=== PATIENT | female | born 2000 | race Caucasian/White ===

== ENCOUNTER 2024-03-04 13:01 | Outpatient (OUT) | payer BC, SELFPAY ==
--- NOTE | 2024-03-04 13:04 | US_ITS ---
[address] [address] Patient Name: JAVIER PANDYA MRN: [id number] date: 2000 Sex: F Assigned Patient Location: [facility] Current Patient Location: [facility] Accession/Order Number: [id number] Exam Date: 03/04/2024 13:04 Report Date: 03/04/2024 13:44 At the request of: KADEN IVERSON Procedure: US OB transvaginal EXAMINATION: US OB transvaginal HISTORY: MISSED MENSES COMPARISON: No relevant comparison available. FINDINGS: Transvaginal images Hubbard intrauterine gestation Gestational sac: 4.46 cm, 10 weeks 0 days CRL: 2.03 cm, 8 weeks 4 days Yolk sac: 4.8 mm Heart rate: 173 beats minute The uterus is normal, anteverted, anteflexed The ovaries are normal Cervix: 4.5 cm, closed Clinical age: 8 weeks 4 days Clinical SAMANTA: 10/10/2024 Ultrasound age: 8 weeks 4 days Ultrasound SAMANTA: 10/10/2024 US/US OB transvaginal IMPRESSION: Viable hubbard intrauterine gestation measuring 8 weeks 4 days Electronically authenticated by: SJ GALLOWAY Date: 03/04/2024 13:44
== END 2024-03-04 13:02 | disposition home or self-care (01) ==
LOC: NOMS 13:01
PROVIDERS: PCP Family Medicine; Visit Provider Obstetrics & Gynecology
DX: Z34.91 Encounter for supervision of normal pregnancy, unspecified, first trimester (principal); Z3A.01 Less than 8 weeks gestation of pregnancy
CPT/HCPCS: 76817

== ENCOUNTER 2024-03-16 11:09 | Outpatient (OUT) | payer BC, SELFPAY ==
[2024-03-16 11:58] LABS: Basophils Percent Auto 0.3 % (0.2-2.0); Eosinophils Absolute Auto 0.2 10^3/uL (0.0-0.7); Eosinophils Percent Auto 2.6 % (0.9-7.0); Hematocrit 37.8 % (36.0-48.0); Hemoglobin 12.7 g/dL (12.0-16.0); Immature Granulocytes Abs Auto 0.01 10^3/uL (0.00-0.03); Immature Granulocytes Pct Auto 0.2 % (0.0-0.5); Lymphocytes Absolute Auto 1.9 10^3/uL (1.2-3.8); Lymphocytes Percent Auto 32.1 % (20.5-60.0); Mean Corpuscular HGB Conc 33.6 g/dL (29.9-35.2); Mean Corpuscular Hemoglobin 27.7 pg (26.7-34.0); Mean Corpuscular Volume 82.4 fL (81.0-99.0); Monocytes Absolute Auto 0.3 10^3/uL (0.3-0.8); Monocytes Percent Auto 5.3 % (1.7-12.0); Neutrophils Absolute Auto 3.5 10^3/uL (1.4-6.5); Neutrophils Percent Auto 59.5 % (43.0-75.0); Platelet Count 140 10^3/uL (150-450); Red Blood Count 4.59 10^6/uL (4.20-5.40); Red Cell Distribution Width 14.4 % (11.0-15.0); White Blood Count 5.9 10^3/uL (4.0-11.0)
[2024-03-16 12:16] LABS: Estimated Average Glucose 91 mg/dL; Glycohemoglobin A1C 4.8 % (4.5-6.2)
[2024-03-17 05:07] LABS: HCV Ab Non Reactive (Non Reactive); HIV Ab/p24 Ag Screen Non Reactive (Non Reactive); Rubella Antibodies, IgG 9.32 index (Immune >0.99)
[2024-03-17 06:09] LABS: HBsAg Screen Negative (Negative)
[2024-03-17 13:09] LABS: Rapid Plasma Reagin, Quant Non Reactive titer (NonRea<1:1)
== END 2024-03-16 11:10 | disposition home or self-care (01) ==
LOC: LAB 11:11
PROVIDERS: PCP Family Medicine; Visit Provider Obstetrics & Gynecology
DX: N92.6 Irregular menstruation, unspecified (principal); Z36.0 Encounter for antenatal screening for chromosomal anomalies
CPT/HCPCS: 36415; 83036; 85025; 86592; 86762; 86803; 86850; 86900; 86901; 87086; 87340; 87389

== ENCOUNTER 2024-05-04 19:04 | Outpatient (REF) | payer MEDICAID, SELFPAY ==
--- OUTSIDE RECORDS SUMMARY | 2024-05-04 19:10 | XMS_ITS | CCD ---
Author Organization [facility] Care Team Providers Care Ldr Rn Name Role Phone Fernando Kendrick Unavailable Unavailable Fernando Kendrick Unavailable Unavailable Provider, None Unavailable Unavailable Denis MORA, Yanet Zhang Primary Care Provider [phone] KADEN IVERSON Attending Unavailable Medications Current Medications Medication Drug Class(es) Dates Sig (Normalized) Sig (Original) Ethinyl Estradiol / norgestimate (2 sources) Progestin, Estrogen Start: 09-22-2023 take 1 tablet by mouth once daily norgestimate-ethi nyl estradioL (TRI-SPRINTEC, 28,) 0.18/0.215/0.25 mg-35 mcg (28) per tablet TAKE 1 TABLET BY MOUTH EVERY DAY 84 tablet 3 09/22/2023 Active Start: 05-05-2023 End: 09-22-2023 take 1 tablet by mouth once daily norgestimate-ethinyl estradioL (TRI-SPRINTEC, 28,) 0.18/0.215/0.25 mg-35 mcg (28) per tablet TAKE 1 TABLET BY MOUTH EVERY DAY 84 tablet 0 05/05/2023 09/22/2023 Discontinued metoprolol tartrate 25 mg oral tablet (1 source) beta-Adrenergic Joanna Start: 05-31-2022 take 1 tablet by mouth in the morning, then take 1 tablet by mouth at bedtime metoprolol tartrate (LOPRESSOR) 25 mg tablet Indications: POTS (postural orthostatic tachycardia syndrome) Take 1 tablet (25 mg total) by mouth in the morning and 1 tablet (25 mg total) before bedtime. 60 tablet 2 05/31/2022 Active omeprazole 20 mg delayed release oral capsule (1 source) Proton Pump Inhibitor Start: 06-11-2022 take 1 capsule by mouth in the morning omeprazole (PriLOSEC) 20 mg capsule Take 1 capsule (20 mg total) by mouth in the morning. 30 capsule 0 06/11/2022 Active sertraline 50 mg oral tablet (1 source) Serotonin Reuptake Inhibitor Start: 05-04-2020 take 1 tablet by mouth once daily sertraline (ZOLOFT) 50 mg tablet Take 1 tablet (50 mg total) by mouth daily. 30 tablet 0 05/04/2020 Active Problems Active Problems Problem Classification Problem Date Documented Da te Episodic/Chronic Acute and chronic tonsillitis (2 sources) Chronic tonsillitis; Translations: [Chronic tonsillitis] Onset: 2017 2017 Chronic Anxiety disorders (1 source) Generalized anxiety disorder; Translations: [Generalized anxiety disorder] Onset: 08-19-2017 08-19-2017 Chronic Cardiac dysrhythmias (1 source) Postural orthostatic tachycardia syndrome ; Translations: [POTS (postural orthostatic tachycardia syndrome)] Onset: 09-23-2017 05-31-2022 Chronic Mood disorders (2 sources) Major depressive disorder; Translations: [Major depressive disorder, single episode, unspecified] Onset: 08-19-2017 08-19-2017 Chronic Other upper respiratory disease (1 source) Allergic rhinitis; Translations: [Allergic rhinitis, unspecified] Onset: 2017 2017 Chronic Other upper respiratory infections (2 sources) Sinusitis; Translations: [Chronic sinusitis, unspecified] Onset: 10-28-2018 10-28-2018 Chronic Residual codes; unclassified (1 source) Insomnia; Translations: [Other insomnia] Onset: 12-02-2017 12-02-2017 Chronic Past or Other Problems Problem Classification Problem Date Documented Date Episodic/Chronic Cardiac dysrhythmias (1 source) Tachycardia; Translations: [Tachycardia, unspecified] Onset: 09-23-2017 09-23-2017 Episodic Complications of surgical procedures or medical care (1 source) Secondary post tonsillectomy hemorrhage; Translations: [Postprocedural hemorrhage of a respiratory system organ or structure following a respiratory system procedure] Onset: 09-16-2017 09-16-2017 Episodic Other lower respiratory disease (1 source) Dyspnea; Translations: [Shortness of breath] Onset: 06-02-2018 06-02-2018 Episodic Other upper respiratory disease (1 source) Nasal congestion; Translations: [Nasal congestion] Onset: 2017 2017 Episodic Other upper respiratory infections (1 source) Posterior rhinorrhea; Translations: [Postnasal drip] Onset: 10-28-2018 10-28-2018 Episodic Substance-related disorders (1 source) Finding related to substance use; Translations: [Other psychoactive substance use, unspecified, uncomplicated] Onset: 01-27-2020 01-27-2020 Episodic Results Test Name Value Interpretation Reference Range Facil ity Coding Summaryon 02-17-2018 Coding Summary CODING DATE: 02/17/2018 [facility] STATUS: Home PAYOR: Medicaid HMO ADMIT DX: REASON FOR VISIT DX: M79.674 Pain in right toe(s) FINAL DX: PRINCIPAL: M79.674 Pain in right toe(s) SECONDARY: PROCEDURES DOCTOR NAME DATE NOTE: The code number assigned matches the documented diagnosis and / or procedure in the patient's chart. However, the narrative phrase printed from the coding software may appear abbreviated, or result in slightly different terminology. Coded By: Yanet Loera Date Saved: 02/17/2018 07:09 am [facility] Provider Orderson 02-16-2018 Provider Orders [id number]#1.00 OTGTIFF [facility] Wound Cultureon 02-16-2018 WBC (Leukocytes) Moderate growth of Staphylococcus aureus1+ White Blood Cells1+ Gram Positive Cocci in pairsORGANISMSA------- SUSCEPTIBILITY --ORGANISM ID: 1ANTIBIOTIC INTERPRETATION SAVANAH STATUSORGANISM SASA Amox/Cla S <=4/2 VerifiedAmp Wilman <=2 VerifiedAmp/Sul S <=8/4 VerifiedCeftri S <=8 VerifiedCipro S <=1 VerifiedClinda S <=0.5 VerifiedEryth S <=0.5 VerifiedGent S <=4 VerifiedLevo S <=1 VerifiedLinez S 4 VerifiedNitro <=32 VerifiedOx S <=0.25 VerifiedPen Wilman 0.12 VerifiedRif S <=1 VerifiedTetra S <=4 VerifiedTri/Sulf S <=0.5/9.5 VerifiedVanc S 2 Verified Normal [facility] Comment on above: Performed By: #### [id number] ####[facility] (DEFAULT)[address] [place] [address] Encounters Encounter Date Encounter Type Care Provider Facility Start: 04-05-2024 End: 04-05-2024 ambulatory KADEN KISHOR Not Available Start: 03-04-2024 End: 03-04-2024 ambulatory KADEN KISHOR Not Available Start: 09-21-2023 Refill Starr Modi Navid ADVERTISING INTERNSHIP-MOTOR TEACHER Work Phone: [facility] Internal Medicine - Family Medicine Start: 02-14-2018 End: 02-14-2018 Ambulatory Fernando Kendrick Facility:[facility] spital Procedures Date Procedure Procedure Detail Performing Clinician Start: 09-25-2017 H/O: surgery S/P tonsillect leslye and adenoidectomy Starr Shoemaker ADVERTISING INTERNSHIP-MOTOR TEACHER Work Phone: Plan of Treatment Date Care Activity Detail Author Start: 12-04-2023 DTaP,Tdap and Td Vaccines (7 - Td or Tdap) DTaP,Tdap and Td Vaccines (7 - Td or Tdap) [facility] Start: 06-11-2023 Adult BMI Screening Adult BMI Screen ing [facility] Start: 06-11-2023 Tobacco Screening Tobacco Screening [facility] Start: 04-25-2023 COVID-19 Vaccine ( season) COVID-19 Vaccine ( season) [facility] Start: 04-25-2023 Influenza vaccination Influenza Vacc ine [facility] Start: 2022 Screening for malign ant neoplasm of cervix Pap Smear [facility] Start: 2013 Depression Screening Depression Scre ening [facility] Immunizations Immunization Date Immunization Notes Care Provider Fa cility 07-10-2021 influenza virus vaccine, unspecified formulation Starr Navid ADVERTISING INTERNSHIP-MOTOR TEACHER Work Phone: [facility] Payers Date Payer Category Payer Medicaid [facility] MEDICAID [facility] MEDICAID 2022-Present [address] [place] [address] [id number] 2022 Medicaid [id number] 2018 Unknown [id number] 2001 Unknown [id number] 2001 Unknown [id number] Social History Date Type Detail Facility Start: 05-31-2022 Tobacco smoking stat [facility] Ex-smoker [facility] History of tobacco use Current smoker [facility] Start: 05-31-2022 Tobacco use and exposure Smokeless tobacco non-user [facility] Start: 06-11-2022 Alcohol intake 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 FINDINGS: No worrisome intra- or extra-axial mass lesions, mass effect or hemorrhage are identified. No evidence of major vessel ischemia is noted. Ventricular size is normal for this age, and commensurate with the cerebral sulci. Calvarium and orbital contents are unremarkable. Hypoplastic frontal sinuses. Minimal mucosal thickening within bilateral ethmoid air cells. Normal sphenoid sinus aeration. Normal tympanic cavities and mastoid air cells. IMPRESSION: 1. Normal brain 2. Mild ethmoid inflammatory changes Report reported and signed by Booker Jeronimo on 04/26/2022 [id number] [facility] Instructions Note Date & Type Note Facility Instructions Not on filedocumented in this en counter [facility] Summary Purpose Family History No Family History Records FoundNo Family History Records FoundNo Family History Records Found Advance Directives No Advanced Directives Records FoundNo Advanced Directives Records FoundNo Advanced Directives Records Found Additional Source Comments INFORMATION SOURCE (unrecogn ized section and content) DATE CREATED AUTHOR 02/17/2018 [facility] DATE CREATED AUTHOR AUTHOR'S ORGANIZ ATION 04/27/2022 [facility] dical Specialist DATE CREATED AUTHOR AUTHOR'S ORGANIZ ATION 04/06/2024 [facility] d[facility] Specialists EPIC Reason for Visit (unrecogniz ed section and content) Reason Comments Med Refill Care Teams (unrecognized sec tion and content) Ldr Rn Relationship Specialty Start Date End Date Yanet Barrios MD [address] [place] [address] PCP - General Family Medicine 05/31/22 FOR RECORDS PERTAINING TO PATIENTS WHO ARE OR HAVE BEEN ENROLLED IN A CHEMICAL DEPENDENCY/SUBSTANCEABUSE PROGRAM, SOME INFORMATION MAY BE OMITTED. This clinical summary was aggregated from multiple sources. Caution should be exercised in using it in the provision of clinical care. This summary normalizes information from multiple sources, and as a consequence, information in this document may materially change the coding, format and clinical context of patient data. In addition, data may be omitted in some cases. CLINICAL DECISIONS SHOULD BE BASED ON THE PRIMARY CLINICAL RECORDS. [employer] provides no warranty or guarantee of the accuracy or completeness of information in this document.
== END 2024-05-04 19:05 | disposition home or self-care (01) ==
LOC: LAB 19:04
PROVIDERS: PCP Family Medicine; Visit Provider Physician Assistant
DX: Z01.419 Encounter for gynecological examination (general) (routine) without abnormal findings (principal)
CPT/HCPCS: 88175

== ENCOUNTER 2024-05-07 12:45 | Outpatient (OUT) | payer MEDICAID, SELFPAY ==
--- OUTSIDE RECORDS SUMMARY | 2024-05-07 13:02 | XMS_ITS | CCD ---
Author Organization [facility] Care Team Providers Care Dining Service Inspector Name Role Phone Fernando Kendrick Unavailable Unavailable Fernando Kendrick Unavailable Unavailable Provider, None Unavailable Unavailable Denis MORA, Yanet Zhang Primary Care Provider KADEN IVERSON Attending Unavailable MILES LOPEZ Attending Unavailable Medications Current Medications Medication Drug [...] Summaryon 02-17-2018 Coding Summary CODING DATE: 02/17/2018 [facility] STATUS: Home PAYOR: Medicaid HMO ADMIT DX: [...] Yanet Loera Date Saved: 02/17/2018 07:09 am [facility] Provider Orderson 02-16-2018 Provider Orders [id number] OTGTIFF [facility] Wound Cultureon 02-16-2018 WBC (Leukocytes) Moderate growth [...] S <=0.5/9.5 VerifiedVanc S 2 Verified Normal [facility] Comment on above: Performed By: #### [id number] ####[facility] (DEFAULT)[address] [place] [address] Encounters Encounter Date Encounter Type Care Provider Facility Start: 05-04-2024 End: 05-04-2024 ambulatory MILES LOPEZ Not Available Start: 04-05-2024 End: 04-05-2024 ambulatory KADEN KISHOR Not Available Start: 03-04-2024 End: 03-04-2024 ambulatory KADEN KISHOR Not Available Start: 09-21-2023 Refill Starr Shoemaker MEDICAL TERMINOLOGIST-BEHAVIORAL INTERVENTIONIST Work Phone: [facility] Internal Medicine - Family Medicine Start: 02-14-2018 End: 02-14-2018 Ambulatory Fernando Kendrick Facility:[facility] spital Procedures Date Procedure Procedure Detail Performing Clinician Start: 09-25-2017 H/O: surgery S/P tonsillect leslye and adenoidectomy Starr Shoemaker MEDICAL TERMINOLOGIST-BEHAVIORAL INTERVENTIONIST Work Phone: Plan of Treatment Date Care Activity Detail Author Start: 12-04-2023 DTaP,Tdap and Td Vaccines (7 - Td or Tdap) DTaP,Tdap and Td Vaccines (7 - Td or Tdap) [facility] Start: 06-11-2023 Adult BMI Screening Adult BMI Screen ing [facility] Start: 06-11-2023 Tobacco Screening Tobacco Screening [facility] Start: 04-25-2023 COVID-19 Vaccine ( season) COVID-19 Vaccine ( season) [facility] Start: 04-25-2023 Influenza vaccination Influenza Vacc ine [facility] Start: 2022 Screening for malign ant neoplasm of cervix Pap Smear [facility] Start: 2013 Depression Screening Depression Scre ening [facility] Immunizations Immunization Date Immunization Notes Care Provider Fa cility 07-10-2021 influenza virus vaccine, unspecified formulation Starr Shoemaker MEDICAL TERMINOLOGIST-BEHAVIORAL INTERVENTIONIST Work Phone: [facility] Payers Date Payer Category Payer Medicaid [employer]ICA[employer] [facility] MEDICAID 2022-Present [address] [place] [address] [id number] 2022 Medicaid [id number] 2018 Unknown [id number] 2001 Unknown [id number] 2001 Unknown [id number] 2001 Unknown [id number] Social History Date Type Detail Facility Start: 05-31-2022 Tobacco smoking stat [facility] Ex-smoker [facility] History of tobacco use Current smoker [facility] Start: 05-31-2022 Tobacco use and exposure Smokeless tobacco non-user [facility] Start: 06-11-2022 Alcohol intake Current non-dr referral and information aide of alcohol (finding) [facility] Start: 10-05-2020 End: 06-11-2022 History of Social function [facility] Start: 10-05-2020 End: 06-11-2022 Tobacco use panel [facility] Childcare Unknown [facility] Start: 2000 Sex Assigned At Not on file P [facility] Clinical Note 04-26-2022 Note Date & Type [...] and signed by Booker Jeronimo on 04/26/2022 [address] [facility] Heat Treat Supervisor Instructions Note Date & Type Note Facility Instructions Not on filedocumented in this en counter [facility] Summary Purpose Family History No Family History Records FoundNo Family History Records FoundNo Family History Records Found Advance Directives No Advanced Directives Records FoundNo Advanced Directives Records FoundNo Advanced Directives Records Found Additional Source Comments INFORMATION SOURCE (unrecogn ized section and content) DATE CREATED AUTHOR 02/17/2018 [facility] DATE CREATED AUTHOR AUTHOR'S ORGANIZ ATION 04/27/2022 [facility] dical Specialist DATE CREATED AUTHOR AUTHOR'S ORGANIZ ATION 05/05/2024 [facility] dical Specialists EPIC Reason for Visit (unrecogniz ed section and content) Reason Comments Med Refill Care Teams (unrecognized sec tion and content) Dining Service Inspector Relationship Specialty Start Date End Date Yanet Barrios MD [address] [place] [address] PCP - General Family Medicine 05/31/22 FOR [...] BE BASED ON THE PRIMARY CLINICAL RECORDS. [employer] provides no warranty or guarantee of the accuracy or completeness of information in this document.
[2024-05-09 02:06] LABS: AFP Value 45.9 ng/mL (.); Gest. Age on Collection Date 17.3 weeks (.); Insulin Dep Diabetes No (.); Maternal Age At EDD 23.1 yr (.); OSBR Risk 1 IN 8106 (.); Results Report (.)
== END 2024-05-07 12:46 | disposition home or self-care (01) ==
LOC: LAB 12:46
PROVIDERS: PCP Family Medicine; Visit Provider Obstetrics & Gynecology
DX: Z34.92 Encounter for supervision of normal pregnancy, unspecified, second trimester (principal); Z3A.17 17 weeks gestation of pregnancy
CPT/HCPCS: 36415; 82105

== ENCOUNTER 2024-06-01 09:39 | Outpatient (OUT) | payer MEDICAID, SELFPAY ==
--- NOTE | 2024-06-01 09:41 | US_ITS ---
[address] [address] Patient Name: JAVIER PANDYA MRN: [id number] date: 2000 Sex: F Assigned Patient Location: [facility] Current Patient Location: [facility] Accession/Order Number: [id number] Exam Date: 06/01/2024 09:42 Report Date: 06/01/2024 12:37 At the request of: KADEN IVERSON Procedure: US OB anatomy EXAMINATION: US OB anatomy, US OB cervical length HISTORY: ANATOMY COMPARISON: Ultrasound OB transvaginal 03/04/2024 TECHNIQUE: Transabdominal sonographic examination was performed for obstetrical and evaluation. FINDINGS: Number: 1 Heart Rate: 151 bpm H.B. /min Amniotic Fluid Volume: Subjectively normal Placental Location: ANTERIOR with lower margin 4.3 cm from os. Cervix Length: 4.31 cm ; closed. ANATOMY: Normal Structures -cerebellum, choroid plexus, cisterna magna, lateral cerebral ventricles, orbits, midline falx, hard palate, four-chamber heart, RVOT, LVOT, stomach, kidneys, bladder, umbilical cord insertion into abdomen, three-vessel cord, cervical spine, thoracic spine, lumbar spine, sacral spine, right upper extremity, left upper extremity, right lower extremity, left lower extremity. SUBOPTIMALLY SEEN: None ABNORMALITIES: None BIOMETRY: BPD: 4.99 cm; 21 weeks 1 day; 40.90 % HC: 18.66 cm; 21 weeks 0 days; 27.10 % AC: 17.10 cm; 22 weeks 0 days; 68.70 % FL: 3.50 cm; 21 weeks 0 days; 32.20 % EFW:436.48 g; 57.70 % FL/AC: 20.47 FL/BPD: 70.14 HC/AC: 1.09 GESTATIONAL AGE: Age by EDC: 21 weeks 2 days Age by current US: 21 weeks 2 days SAMANTA by current US: 2024-10-10 SAMANTA by EDC: 2024-10-10 US/US OB anatomy IMPRESSION: 1. Single live intrauterine with growth detailed above. Electronically authenticated by: DE BENITES Date: 06/01/2024 12:37
--- NOTE | 2024-06-01 09:41 | US_ITS ---
[address] [address] Patient Name: JAVIER PANDYA MRN: [id number] date: 2000 Sex: F Assigned Patient Location: [facility] Current Patient Location: [facility] Accession/Order Number: [id number] Exam Date: 06/01/2024 09:42 Report Date: 06/01/2024 12:37 At the request of: KADEN IVERSON Procedure: US OB cervical length EXAMINATION: US OB anatomy, US OB cervical length HISTORY: ANATOMY COMPARISON: Ultrasound OB transvaginal 03/04/2024 TECHNIQUE: Transabdominal sonographic examination was performed for obstetrical and evaluation. FINDINGS: Number: 1 Heart Rate: 151 bpm H.B. /min Amniotic Fluid Volume: Subjectively normal Placental Location: ANTERIOR with lower margin 4.3 cm from os. Cervix Length: 4.31 cm ; closed. ANATOMY: Normal Structures -cerebellum, choroid plexus, cisterna magna, lateral cerebral ventricles, orbits, midline falx, hard palate, four-chamber heart, RVOT, LVOT, stomach, kidneys, bladder, umbilical cord insertion into abdomen, three-vessel cord, cervical spine, thoracic spine, lumbar spine, sacral spine, right upper extremity, left upper extremity, right lower extremity, left lower extremity. SUBOPTIMALLY SEEN: None ABNORMALITIES: None BIOMETRY: BPD: 4.99 cm; 21 weeks 1 day; 40.90 % HC: 18.66 cm; 21 weeks 0 days; 27.10 % AC: 17.10 cm; 22 weeks 0 days; 68.70 % FL: 3.50 cm; 21 weeks 0 days; 32.20 % EFW:436.48 g; 57.70 % FL/AC: 20.47 FL/BPD: 70.14 HC/AC: 1.09 GESTATIONAL AGE: Age by EDC: 21 weeks 2 days Age by current US: 21 weeks 2 days SAMANTA by current US: 2024-10-10 SAMANTA by EDC: 2024-10-10 US/US OB cervical length IMPRESSION: 1. Single live intrauterine with growth detailed above. Electronically authenticated by: DE BENITES Date: 06/01/2024 12:37
--- OUTSIDE RECORDS SUMMARY | 2024-06-01 09:42 | XMS_ITS | CCD ---
Author Organization [facility] Care Team Providers Care Medical Records Library Professor Name Role Phone Fernando Kendrick Unavailable Unavailable Fernando Kendrick Unavailable Unavailable Provider, None Unavailable Unavailable Denis MORA, Yanet Zhang Primary Care Provider [phone] KADEN IVERSON Attending Unavailable MILES LOPEZ Attending [...] Summaryon 02-17-2018 Coding Summary CODING DATE: 02/17/2018 [facility] STATUS: Home PAYOR: Medicaid HMO ADMIT DX: [...] Yanet Loera Date Saved: 02/17/2018 07:09 am [facility] Provider Orderson 02-16-2018 Provider Orders [id number] [facility] Wound Cultureon 02-16-2018 WBC (Leukocytes) Moderate growth [...] S <=0.5/9.5 VerifiedVanc S 2 Verified [facility] Comment on above: Performed By: #### [id number] ####[facility] (DEFAULT)[address] [place] [address] Encounters Encounter Date Encounter Type Care Provider Facility Start: 05-04-2024 End: 05-04-2024 ambulatory MILES LOPEZ Not Available Start: 04-05-2024 End: 04-05-2024 ambulatory KADEN KISHOR Not Available Start: 03-04-2024 End: 03-04-2024 ambulatory KADEN KISHOR Not Available Start: 09-21-2023 Refill Starr Shoemaker TRAVELING CLERK-LINUX SYSTEMS ENGINEER Work Phone: [facility] Internal Medicine - Family Medicine Start: 02-14-2018 End: 02-14-2018 Ambulatory Fernando Kendrick Facility:[facility] spital Procedures Date Procedure Procedure Detail Performing Clinician Start: 09-25-2017 H/O: surgery S/P tonsillect leslye and adenoidectomy Starr Shoemaker TRAVELING CLERK-LINUX SYSTEMS ENGINEER Work Phone: Plan of Treatment Date Care Activity Detail Author Start: 12-04-2023 DTaP,Tdap and Td Vaccines (7 - Td or Tdap) DTaP,Tdap and Td Vaccines (7 - Td or Tdap) [facility] Start: 06-11-2023 Adult BMI Screening Adult BMI Screen ing [facility] Start: 06-11-2023 Tobacco Screening Tobacco Screening [facility] Start: 04-25-2023 COVID-19 Vaccine ( season) COVID-19 Vaccine ( season) [facility] Start: 04-25-2023 Influenza vaccination Influenza Vacc ine [facility] Start: 2022 Screening for malign ant neoplasm of cervix Pap Smear [facility] Start: 2013 Depression Screening Depression Scre ening [facility] Immunizations Immunization Date Immunization Notes Care Provider Fa cility 07-10-2021 influenza virus vaccine, unspecified formulation Starr Shoemaker TRAVELING CLERK-LINUX SYSTEMS ENGINEER Work Phone: [facility] Payers Date Payer Category Payer Medicaid [employer] [facility] MEDICA[facility] 2022-Present [address] [place] [address] [id number] 2022 Medicaid [id number] 2018 Unknown [id number] 2001 Unknown [id number] 2001 Unknown [id number] 2001 Unknown [id number] Social History Date Type Detail Facility Start: 05-31-2022 Tobacco smoking stat [facility] Ex-smoker [facility] History of tobacco use Current smoker [facility] Start: 05-31-2022 Tobacco use and exposure Smokeless tobacco non-user [facility] Start: 06-11-2022 Alcohol intake Current non-dr back office medical assistant of alcohol (finding) [facility] Start: 10-05-2020 End: 06-11-2022 History of Social function [facility] Start: 10-05-2020 End: 06-11-2022 Tobacco use panel [facility] Childcare Unknown [facility] Start: 2001 Sex Assigned At Not on file P [facility] Clinical Note 04-26-2022 Note Date & Type [...] signed by Booker Jeronimo on 04/26/[address] [facility] Jewelry Sales Representative Instructions Note Date & Type Note Facility [...] DATE CREATED AUTHOR AUTHOR'S ORGANIZ ATION 04/27/2022 [facility] dical Specialist DATE CREATED AUTHOR AUTHOR'S ORGANIZ ATION 05/05/2024 [facility] dical Specialists EPIC Reason for Visit (unrecogniz ed section and content) Reason Comments Med Refill Care Teams (unrecognized sec tion and content) Medical Records Library Professor Relationship Specialty Start Date End Date Yanet Barrios MD [address] [place] [address] PCP - General Family Medicine 05/31/22 FOR [...] BE BASED ON THE PRIMARY CLINICAL RECORDS. [employer] provides no warranty or guarantee of the accuracy or completeness of information in this document.
== END 2024-06-01 09:40 | disposition home or self-care (01) ==
LOC: NOMS 09:40
PROVIDERS: PCP Family Medicine; Visit Provider Obstetrics & Gynecology
DX: Z36.89 Encounter for other specified antenatal screening (principal); Z3A.21 21 weeks gestation of pregnancy
CPT/HCPCS: 76805; 76817

== ENCOUNTER 2024-07-05 10:26 | Outpatient (OUT) | payer MEDICAID, SELFPAY ==
--- OUTSIDE RECORDS SUMMARY | 2024-07-05 10:46 | XMS_ITS | CCD ---
Author Organization [facility] Care Team Providers Care Reconciliation Manager Name Role Phone Fernando Kendrick Unavailable Unavailable Fernando Kendrick Unavailable Unavailable Provider, None Unavailable Unavailable Yanet Barrios MD Primary Care Provider [phone] Yanet Barrios MD Primary Care Provider KADEN GAY Attending Unavailable KAYY LOPEZ Attending Unavailable KAYY LOPEZ Attending Unavailable KADEN GAY Attending Unavailable Medications Current Medications Medication Drug [...] DAY 84 tablet 0 05/05/2023 09/22/2023 Discontinued magnesium oxide 400 mg oral tablet (5 sources) Start: 05-10-2024 take 1 tablet by mouth once daily magnesium oxide (Mag-Ox) 400 (240 Mg) MG tablet Take 400 mg by mouth Daily 05/10/2024 Active metoprolol tartrate 25 mg oral tablet (1 [...] 06/11/2022 Active sertraline 50 mg oral tablet (7 sources) Serotonin Reuptake Inhibitor Start: 02-07-2016 take 1 tablet by mouth once daily sertraline (Zoloft) 50 MG tablet Take 50 mg by mouth Daily 02/07/2016 Active Problems Active Problems Problem Classification Problem [...] episode, unspecified] Onset: 08-19-2017 08-19-2017 Chronic Other and delivery including normal (4 sources) Second trimester ; Translations: [Encounter for supervision of normal , unspecified, second trimester] 06-01-2024 Episodic Other screening for suspected conditions (not mental disorders or infectious disease) (2 sources) Patient encounter status; Translations: [Encounter for screening for diabetes mellitus] 07-01-2024 Episodic Other upper respiratory disease (1 source) Allergic rhinitis; Translations: [Allergic rhinitis, unspecified] Onset: 2017 2017 Chronic Other upper respiratory infections (2 sources) Sinusitis; Translations: [Chronic sinusitis, unspecified] Onset: 10-28-2018 10-28-2018 Chronic Residual codes; unclassified (1 source) Insomnia; Translations: [Other insomnia] Onset: 12-02-2017 12-02-2017 Chronic Residual codes; unclassified (2 sources) Gestation period, 21 weeks; Translations: [21 weeks gestation of ] 06-01-2024 Episodic Residual codes; unclassified (2 sources) Gestation period, 25 weeks; Translations: [25 weeks gestation of ] 07-01-2024 Episodic Past or Other Problems Problem Classification Problem [...] Name Value Interpretation Reference Range Facil ity Urinalysis macro (dipstick) panel (U)on 07-01-2024 Bilirubin, UA Negative Negative - 4(70) +++ mg/dL [facility] Blood, UA Negative Negative - 50 Franc/mcL [facility] Clarity, UA Clear [facility] Color, UA Yellow [facility] Glucose, UA Negative Negative - 1999(110) ++++ mg/dL [facility] Interpretation and review of laboratory results Normal [facility] Ketones, UA Negative Negative - 160(16) ++++ mg/dL [facility] Leukocytes, UA Negative Negative - 500+++ Fox/mcL [facility] Nitrite, UA Negative Negative - Positive [facility] pH, UA 7 5 - 9 [facility] Protein, UA Negative Negative - 1999(20) ++++ mg/dL [facility] Spec Grav, UA 1.02 1 - 1.03 [facility] Urobilinogen, UA 0.2 0.2 - 12 mg/dL [facility] Urinalysis macro (dipstick) panel (U)on 06-01-2024 Bilirubin, UA Negative Negative - 4(70) +++ mg/dL [facility] Blood, UA Negative Negative - 50 Franc/mcL [facility] Clarity, UA Clear [facility] re Color, UA Yellow [facility] Healthcar e Glucose, UA Negative Negative - 1999(110) ++++ mg/dL [facility] Interpretation and review of laboratory results Normal [facility] Ketones, UA Not detected Negative - 160(16) ++++ mg/dL [facility] Leukocytes, UA Negative Negative - 500+++ Fox/mcL [facility] Nitrite, UA Negative Negative - Positive [facility] pH, UA 6.5 5 - 9 [facility] Protein, UA Negative Negative - 1999(20) ++++ mg/dL [facility] Spec Grav, UA 1.025 1 - 1.03 [facility] Urobilinogen, UA 0.2 0.2 - 12 mg/dL [facility] Coding Summaryon 02-17-2018 Coding Summary CODING DATE: 02/17/2018 [facility] STATUS: Home PAYOR: Medicaid HMO ADMIT DX: [...] Yanet Loera Date Saved: 02/17/2018 07:09 am [facility] Provider Orderson 02-16-2018 Provider Orders [id number] [facility] Wound Cultureon 02-16-2018 WBC (Leukocytes) Moderate growth of Staphylococcus aureus1+ White Blood Cells1+ Gram Positive Cocci in pairsORGANISMSA----- SUSCEPTIBILITY ----ORGANISM ID: 1ANTIBIOTIC INTERPRETATION SAVANAH STATUSORGANISM SASA Amox/Cla S <=4/2 VerifiedAmp Wilman <=2 VerifiedAmp/Sul S <=8/4 VerifiedCeftri S <=8 VerifiedCipro S <=1 VerifiedClinda S <=0.5 VerifiedEryth S <=0.5 VerifiedGent S <=4 VerifiedLevo S <=1 VerifiedLinez S 4 VerifiedNitro <=32 VerifiedOx S <=0.25 VerifiedPen Wilman 0.12 VerifiedRif S <=1 VerifiedTetra S <=4 VerifiedTri/Sulf S <=0.5/9.5 VerifiedVanc S 2 Verified Normal [facility] Comment on above: Performed By: #### [id number] ####[facility] (DEFAULT)[address] [place] [address] Vital Signs Date Time Vital Sign Value Performing Clinician Johanna joy 07-01-2024 09:18-0500 Body mass index (BMI) [Ratio] 28.59 kg/m2 [employer] Work Phone: [facility] 07-01-2024 09:18-0500 Body weight 73.21 kg [employer] Work Phone: [facility] 07-01-2024 09:18-0500 Diastolic blood pressure 60 mm[Hg] Kaden Deidra DO Work Phone: [facility] 07-01-2024 09:18-0500 Systolic blood pressure 110 mm[Hg] Kaden Deidra DO Work Phone: [facility] 06-01-2024 10:53-0400 Body mass index (BMI) [Ratio] 26.82 kg/m2 Kayy GOINS Work Phone: [facility] 06-01-2024 10:53-0400 Body weight 68.67 kg Kayy GOINS Work Phone: [facility] 06-01-2024 10:53-0400 Diastolic blood pressure 58 mm[Hg] Kayy GOINS Work Phone: [facility] 06-01-2024 10:53-0400 Systolic blood pressure 110 mm[Hg] Kayy GOINS Work Phone: [facility] Encounters Encounter Date Encounter Type Care Provider Facility Start: 07-01-2024 End: 07-01-2024 Bamboo flowsheet Kaden Deidra DO Work Phone: [facility] Start: 07-01-2024 End: 07-01-2024 Bamboo flowsheet Kaden Deidra DO Work Phone: [facility] Start: 07-01-2024 End: 07-01-2024 Office outpatient visit 15 minutes Kaden Deidra DO Work Phone: [facility] Comment on above: 25 weeks gestation o f ; Second trimester ; Diabetes mellitus screening Start: 07-01-2024 End: 07-01-2024 ambulatory KADEN DEIDRA Not Available Start: 06-01-2024 End: 06-01-2024 Bamboo flowsheet Kayy GOINS Work Phone: [facility] Start: 06-01-2024 End: 06-01-2024 Bamboo flowsheet Kayy GOINS Work Phone: [facility] Start: 06-01-2024 End: 06-01-2024 Office outpatient visit 15 minutes Kayy GOINS Work Phone: 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 [facility] Start: 02-14-2018 End: 02-14-2018 Ambulatory Fernando Kendrick Facility:[facility] Procedures Date Procedure Procedure Detail Performing Clinician Start: 07-01-2024 Urnls dip stick/tablet rgnt non-auto w/o micrscp Kaden Gay Work Phone: Start: 06-01-2024 Urnls dip stick/tablet rgnt non-auto w/o micrscp Kayy GOINS Work Phone: Start: 09-25-2017 H/O: surgery S/P tonsillect leslye and adenoidectomy Starr Shoemaker TALKING [employer] 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 CLERK-CRIMP SETTER Work Phone: Plan of Treatment Date Care Activity Detail Author Start: 07-15-2024 End: 07-15-2024 Patient encounter procedure 07/15/2024 10:50 AM EST Routine [facility] [address] [place] [id number] Kayy Lopez PA [address] [place] [address] [facility] Start: 07-01-2024 End: 07-01-2025 CBC panel - Blood by Automated count CBC Lab Routine Diabetes mellitus screening Expected: 07/01/2024 (Approximate), Expires: 07/01/2025 [facility] Work Phone: Comment on above: Expected: 07/01/2024 (Approximate), Expires: 07/01/2025 Start: 07-01-2024 End: 07-01-2025 Measurement of glucose 1 hour after glucose challenge for glucose tolerance test Glucose tolerance, 1 hour Lab Routine Diabetes mellitus screening Expected: 07/01/2024 (Approximate), Expires: 07/01/2025 [facility] Comment on above: Expected: 07/01/2024 (Approximate), Expires: 07/01/2025 Start: 07-01-2024 End: 07-01-2024 Patient encounter procedure [facility] Comment on above: Arrived Start: 06-01-2024 End: 06-01-2024 Patient encounter procedure 06/01/2024 10:40 AM EDT Routine [facility] [address] [place] [place] [address] Kayy Lopez PA [address] [place] [address] Arrived [facility] Comment on above: Arrived Start: 04-25-2024 Influenza vaccination Influenza Vacc ine (#1) [facility] Start: 12-04-2023 DTaP,Tdap and Td Vaccines (7 - Td or Tdap) DTaP,Tdap and Td Vaccines (7 - Td or Tdap) [facility] Start: 06-11-2023 Adult BMI Screening Adult BMI Screen ing [facility] Start: 06-11-2023 Tobacco Screening Tobacco Screening [facility] Start: 04-25-2023 COVID-19 Vaccine ( season) COVID-19 Vaccine () [facility] Start: 04-25-2023 Influenza vaccination Influenza Vacc ine [facility] Start: 2022 Screening for malign ant neoplasm of cervix Pap Smear [facility] Start: 2013 [facility] Immunizations Immunization Date Immunization Notes Care Provider Enmanuel bahena 06-13-2024 influenza virus vaccine, unspecified formulation Kaden Deidralinh VELÁSQUEZ Work Phone: [facility] 07-03-2023 influenza virus vaccine, unspecified formulation Kayy GOINS Work Phone: [facility] 07-10-2021 influenza virus vaccine, unspecified formulation Starr Shoemaker TALKING [employer] LIBRARY CLERK-CRIMP SETTER Work Phone: [facility] Payers Date Payer Category Payer Medicaid [id number] 2022 Medicaid [id number] 2018 Unknown [id number] 2001 Unknown [id number] 2001 Unknown [id number] 2001 Unknown [id number] [id number] 2001 Unknown [id number] 2001 Unknown [id number] [id number] Social History Date Type Detail Facility Start: 05-31-2022 Tobacco smoking stat 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 Tobacco smoking consumption unknown [facility] Start: 03-04-2024 Tobacco Comment Vape [facility] Start: 01-18-2024 [facility] History of Present illness Narrative 07-01-2024 Shelley Jeffries LPN - 07/01/2024 9:10 AM EST Note Date & Type Note Facility 07-01-2024 History of Presen t illness Narrative Reason for Appointment: Patient ID: Cristiane Olivera is a 23 y.o. female who presents for Routine Visit Patient presents today for Return OB appointment. MEDICATIONS Current Outpatient Medications Medication Instructions magnesium oxide (MAG-OX) 400 mg, Daily sertraline (ZOLOFT) 50 mg, Daily ALLERGIES No Known Allergies PROBLEMS Active Ambulatory Problems Diagnosis Date Noted No Active Ambulatory Problems Resolved Ambulatory Problems Diagnosis Date Noted No Resolved Ambulatory Problems Past Medical History: Diagnosis Date POTS (postural orthostatic tachycardia syndrome) HISTORY PAST MEDICAL HISTORY SOCIAL HISTORY Past Medical History: Diagnosis Date POTS (postural orthostatic tachycardia syndrome) Social History Tobacco Use Smoking status: Unknown Smokeless tobacco: Not on file Tobacco comments: Vape Substance Use Topics Alcohol use: Not on file Drug use: Not on file FAMILY HISTORY No family history on file. SURGICAL HISTORY History reviewed. No pertinent surgical history. REVIEW OF SYSTEMS Review of Systems: Review of Systems Constitutional: Negative. HENT: Negative. Eyes: Negative. Respiratory: Negative. Cardiovascular: Negative. Gastrointestinal: Negative. Genitourinary: Negative. Musculoskeletal: Negative. Skin: Negative. Neurological: Negative. All other systems reviewed and are negative. Hematological: Negative. Endocrine: Negative. Allergic/Immunologic: Negative. OBJECTIVE Objective: Physical Exam Constitutional: Appearance: Normal appearance. She is well-developed. Cardiovascular: Rate and Rhythm: Normal rate and regular rhythm. Pulmonary: Effort: Pulmonary effort is normal. Breath sounds: Normal breath sounds. Abdominal: General: Bowel sounds are normal. There is no distension. Palpations: Abdomen is soft. Tenderness: There is no abdominal tenderness. There is no guarding or rebound. Musculoskeletal: General: No swelling. Normal range of motion. Right lower leg: No edema. Left lower leg: No edema. Neurological: Mental Status: She is alert and oriented to person, place, and time. Skin: General: Skin is warm and dry. Psychiatric: Mood and Affect: Mood normal. Behavior: Behavior normal. Vitals and nursing note reviewed. Exam conducted with a microelectronics technician present. Vitals: Estimated body mass index is 28.59 kg/m as calculated from the following: Height as of 04/25/22: 5' 3 . Weight as of this encounter: 161 lb 6.4 oz. BP: 110/60 Patient's last menstrual period was 01/04/2024. ASSESSMENT & PLAN ICD-10-CM 1. 25 weeks gestation of Z3A.25 POCT urinalysis dipstick manually resulted 2. Second trimester Z34.92 POCT urinalysis dipstick manually resulted 3. Diabetes mellitus screening Z13.1 POCT urinalysis dipstick manually resulted CBC Glucose tolerance, 1 hour Patient presents today for a routine obstetrics appointment. Patient is currently 25w4d with a Estimated Date of Delivery: 10/10/24. Discussed weight with patient and reassurance given. Patient was given order for 1 hour glucose/CBC order. Patient to return to clinic in 2 weeks. --At that time patient will be given order to have growth scan done around 30 weeks gestation prior to return appointment. Documented by Shelley Jeffries LPN on behalf of: Kaden Gay DO documented in this encounter [facility] History of Present illness Narrative 06-01-2024 BRISEIDA Menard - 06/01/2024 10:40 AM EDT Note Date & Type Note Facility 06-01-2024 History of Presen t illness Narrative Reason for Appointment: Patient ID: Cristiane Olivera is a 23 y.o. female who presents for No chief complaint on file. Patient presents today for Return OB appointment. MEDICATIONS Current Outpatient Medications Medication Instructions magnesium oxide (MAG-OX) 400 mg, Oral, Daily sertraline (ZOLOFT) 50 mg, Oral, Daily ALLERGIES No Known Allergies PROBLEMS Active Ambulatory Problems Diagnosis Date Noted No Active Ambulatory Problems Resolved Ambulatory Problems Diagnosis Date Noted No Resolved Ambulatory Problems Past Medical History: Diagnosis Date POTS (postural orthostatic tachycardia syndrome) HISTORY PAST MEDICAL HISTORY SOCIAL HISTORY Past Medical History: Diagnosis Date POTS (postural orthostatic tachycardia syndrome) Social History Tobacco Use Smoking status: Unknown Smokeless tobacco: Not on file Tobacco comments: Vape Substance Use Topics Alcohol use: Not on file Drug use: Not on file FAMILY HISTORY No family history on file. SURGICAL HISTORY History reviewed. No pertinent surgical history. REVIEW OF SYSTEMS Review of Systems: Review of Systems Constitutional: Negative. HENT: Negative. Eyes: Negative. Respiratory: Negative. Cardiovascular: Negative. Gastrointestinal: Negative. Genitourinary: Negative. Musculoskeletal: Negative. Skin: Negative. Neurological: Negative. All other systems reviewed and are negative. Hematological: Negative. Endocrine: Negative. Allergic/Immunologic: Negative. OBJECTIVE Objective: Physical Exam Constitutional: Appearance: Normal appearance. She is normal weight. HENT: Head: Normocephalic. Cardiovascular: Rate and Rhythm: Normal rate. Pulses: Normal pulses. Pulmonary: Effort: Pulmonary effort is normal. Breath sounds: Normal breath sounds. Abdominal: Palpations: Abdomen is soft. Musculoskeletal: General: Normal range of motion. Neurological: General: No focal deficit present. Mental Status: She is alert and oriented to person, place, and time. Psychiatric: Mood and Affect: Mood normal. Behavior: Behavior normal. Thought Content: Thought content normal. Judgment: Judgment normal. Vitals and nursing note reviewed. Vitals: Estimated body mass index is 26.82 kg/m as calculated from the following: Height as of 04/25/22: 5' 3 . Weight as of this encounter: 151 lb 6.4 oz. BP: 110/58 Patient's last menstrual period was 01/04/2024. ASSESSMENT & PLAN ICD-10-CM 1. 21 weeks gestation of Z3A.21 POCT urinalysis dipstick manually resulted 2. Second trimester Z34.92 POCT urinalysis dipstick manually resulted Documented by BRISEIDA Menard on behalf of: BRISEIDA Menard documented in this encounter [facility] Clinical Note 04-26-2022 Note Date & Type [...] signed by Booker Jeronimo on 04/26/2022 15[address] [facility] Fabric Inspector Evaluation note Note Date & Type Note Facility Evaluation note Diagnosis 21 weeks gestation of Second trimester state, incidental documented in this encounter [facility] Evaluation note Note Date & Type Note Facility Evaluation note Diagnosis 25 weeks gestation of Second trimester state, incidental Diabetes mellitus screening Screening for diabetes mellitus documented in this encounter [facility] Instructions Note Date & Type Note Facility [...] section and content) DATE CREATED AUTHOR 02/17/2018 [facility] DATE CREATED AUTHOR AUTHOR'S ORGANIZ ATION 04/27/2022 [facility] Me dical Specialist DATE CREATED AUTHOR AUTHOR'S ORGANIZ ATION 07/03/2024 [facility] dical Specialists EPIC Reason for Visit (unrecogniz ed section and content) Reason Comments Med Refill Reason Comments Routine Visit Care Teams (unrecognized sec tion and content) Reconciliation Manager Relationship Specialty Start Date End Date aYnet Barrios MD [address] [place] [address] PCP - General Family Medicine 05/31/22 Reconciliation Manager Relationship Specialty Start Date End Date Yanet Barrios MD [address] [facility] [facility] [place] [address] PCP - General Family Medicine 12/31/22 Reconciliation Manager Relationship Specialty Start Date End Date Yanet Barrios MD [address] [facility] [place] [address] PCP - General Family Medicine 12/31/22 Reconciliation Manager Relationship Specialty Start Date End Date Yanet Barrios MD [address] [facility] [place] [address] PCP - General Family Medicine 12/31/22 Reconciliation Manager Relationship Specialty Start Date End Date Yanet Barrios MD [address] [facility] [place] [address] PCP - General Family Medicine 12/31/22 FOR RECORDS PERTAINING TO PATIENTS WHO ARE [...] BE BASED ON THE PRIMARY CLINICAL RECORDS. [facility]. provides no warranty or guarantee of the accuracy or completeness of information in this document.
[2024-07-05 11:33] LABS: Hematocrit 31.8 % (36.0-48.0); Hemoglobin 10.3 g/dL (12.0-16.0); Mean Corpuscular HGB Conc 32.4 g/dL (29.9-35.2); Mean Corpuscular Hemoglobin 27.7 pg (26.7-34.0); Mean Corpuscular Volume 85.5 fL (81.0-99.0); Platelet Count 130 10^3/uL (150-450); Red Blood Count 3.72 10^6/uL (4.20-5.40); Red Cell Distribution Width 12.1 % (11.0-15.0); White Blood Count 7.6 10^3/uL (4.0-11.0)
[2024-07-05 11:58] LABS: Glucose 1 Hour 94 mg/dL (<130)
[2024-07-05 12:06] LABS: Eosinophils Absolute Manual 0.15 10^3/uL (0.00-0.70); Lymphocytes Absolute Manual 2.12 10^3/uL (1.20-3.80); Segmented Neut Absolute Manual 5.01 10^3/uL (1.4-6.5)
== END 2024-07-05 10:27 | disposition home or self-care (01) ==
LOC: LAB 10:26
PROVIDERS: PCP Family Medicine; Visit Provider Obstetrics & Gynecology
DX: Z13.1 Encounter for screening for diabetes mellitus (principal)
CPT/HCPCS: 36415; 82950; 85007; 85027

== ENCOUNTER 2024-07-29 09:37 | Outpatient (OUT) | payer MEDICAID, SELFPAY ==
--- NOTE | 2024-07-29 09:40 | US_ITS ---
[address] [address] Patient Name: JAVIER PANDYA MRN: [id number] date: 2000 Sex: F Assigned Patient Location: [facility] Current Patient Location: [facility] Accession/Order Number: [id number] Exam Date: 07/29/2024 09:40 Report Date: 07/29/2024 10:14 At the request of: MILES LOPEZ Procedure: US OB growth EXAMINATION: US OB growth HISTORY: INCONSISTENT SIZE COMPARISON: No relevant comparison available. TECHNIQUE: Transabdominal sonographic examination was performed for obstetrical and evaluation. FINDINGS: Number: 1 Heart Rate: 175 bpm H.B. /min Amniotic Fluid Volume: 16.8 cm, largest fluid pocket 4.7 cm position: Cephalic presentation, longitudinal lie Placental Location: Anterior BIOMETRY: BPD: 7.54 cm; 30 weeks 2 days; 59.60 % HC: 27.33 cm; 29 weeks 6 days; 23.20 % AC: 25.40 cm; 29 weeks 4 days; 44.60 % FL: 5.68 cm; 29 weeks 6 days; 41.60 % EFW:1459.11 g; 42.40 %, 8 ounces FL/AC: 22.36 FL/BPD: 75.33 HC/AC: 1.08 GESTATIONAL AGE: Age by EDC: 29 weeks 4 days SAMANTA by EDC: 2024-10-10 Age by current US: 29 weeks 6 days SAMANTA by current US: 2024-10-08 US/US OB growth IMPRESSION: Normal interval growth *Reference: [facility] Practice Guideline for the performance of Obstetric Ultrasound Examinations, May 25, 2007. Electronically authenticated by: SJ GALLOWAY Date: 07/29/2024 10:14
--- OUTSIDE RECORDS SUMMARY | 2024-07-29 09:54 | XMS_ITS | CCD ---
Author Organization [facility] Care Team Providers Care Flight Operation Coordinator Name Role Phone Fernando Kendrick Unavailable Unavailable Fernando Kendrick Unavailable Unavailable Provider, None Unavailable Unavailable Yanet Barrios MD Primary Care Provider Yanet Barrios MD Primary Care Provider KADEN GAY Attending Unavailable KAYY LOPEZ Attending Unavailable KAYY LOPEZ Attending Unavailable KADEN GAY Attending Unavailable KAYY LOPEZ Attending Unavailable Medications Current Medications Medication [...] Discontinued magnesium oxide 400 mg oral tablet (9 sources) Start: 05-10-2024 take 1 tablet by [...] the morning. 30 capsule 0 06/11/2022 Active polysaccharide iron complex 391 mg oral capsule (3 sources) Start: 07-07-2024 End: 10-05-2024 take 1 capsule by mouth once daily iron polysaccharides (ProFe) 391.3 (180 Fe) MG capsule Indications: Iron deficiency Take 1 capsule (391.3 mg) by mouth Daily 90 capsule 07/07/2024 10/05/2024 Active sertraline 50 mg oral tablet (11 sources) Serotonin Reuptake Inhibitor Start: 02-07-2016 take [...] episode, unspecified] Onset: 08-19-2017 08-19-2017 Chronic Other complications of (2 sources) size does not accord with dates; Translations: [Uterine size-date discrepancy, unspecified trimester] 07-15-2024 Episodic Other and delivery including normal (6 sources) Second trimester ; Translations: [Encounter for [...] [25 weeks gestation of ] 07-01-2024 Episodic Residual codes; unclassified (2 sources) Gestation period, 27 weeks; Translations: [27 weeks gestation of ] 07-15-2024 Episodic Past or Other Problems Problem Classification [...] Facil ity Urinalysis macro (dipstick) panel (U)on 07-15-2024 Bilirubin, UA Negative Negative - 4(70) +++ mg/dL [facility] Blood, UA Negative Negative - 50 Franc/mcL [facility] Clarity, UA Clear [facility] re Color, UA Yellow [facility] Healthcar e Glucose, UA Negative Negative - 1999(110) ++++ mg/dL [facility] Interpretation and review of laboratory results Normal [facility] Ketones, UA Negative Negative - 160(16) ++++ mg/dL [facility] Leukocytes, UA Negative Negative - 500+++ Fox/mcL [facility] Nitrite, UA Negative Negative - Positive [facility] pH, UA 6.5 5 - [address] [facility] e Protein, UA Negative Negative - 1999(20) ++++ mg/dL [facility] Spec Grav, UA 1.02 1 - 1.03 [facility] Urobilinogen, UA 1.0 0.2 - 12 mg/dL [facility] Healthcar e ALL CBC WITH AUTO DIFFon Erythrocyte distribution width (RBC) [Ratio] 12.1 % 11.0 - 15.0 % [facility] Hematocrit (Bld) [Volume fraction] 31.8 % Low 36.0 - 48.0 % [facility] Healthcar e Hemoglobin (Bld) [Mass/Vol] 10.3 g/dL Low 12.0 - 16.0 g/dL [facility] MCH (RBC) [Entitic mass] 27.7 pg 26.7 - 34.0 pg [facility] MCHC (RBC) [Mass/Vol] 32.4 g/dL 29.9 - 35.2 g/dL [facility] MCV (RBC) [Entitic vol] 85.5 fL 81.0 - 99.0 fL [facility] Platelet mean volume (Bld) [Entitic vol] 13 fL 9.5 - 13.5 [facility]L [facility]T 130 Low [facility] Healthcar e TBH RBC 3.72 Low [facility] Healthcar e TBH WBC 7.[address] [facility] e GLUCOSE 1 HOURon 07-05-2024 Glucose [Mass/Vol] 94 mg/dL NINF - 13 0 mg/dL [facility] MHPT DIFFERENTIALon 07-05-20 24 BASOPHILS ABS MANUAL 0 [facility] BASOPHILS PERCENT MANUAL 0 % Low 0.2 - 2.0 % [facility] Eosinophils (Bld) [#/Vol] 0.15 10*3/uL [facility] Healthcare EOSINOPHILS PERCENT MANUAL 2 % 0.9 - 7.0 % [facility] Lymphocytes (Bld) [#/Vol] 2.12 10*3/uL [facility] Healthcare LYMPHOCYTES PERCENT MANUAL 28 % 20.5 - 60.0 % [facility] Monocytes (Bld) [#/Vol] 0.3 10*3/uL [facility] MONOCYTES PERCENT MANUAL 4 % 1.7 - 12.0 % [facility] SEGMENTED NEUT ABSOLUTE MANUAL 5.01 [facility] SEGMENTED NEUTROPHILS % MANUAL 66 43.0 - 75.0 [facility] No Panel Informationon 07-05 Interpretation and review of laboratory results Abnormal [facility] Health[facility] e Urinalysis macro (dipstick) panel (U)on 07-01-2024 Bilirubin, UA Negative Negative - 4(70) +++ mg/dL [facility] Blood, UA Negative Negative - 50 Franc/mcL [facility] Clarity, UA Clear [facility] Healthca re Color, UA Yellow [facility] Healthcar e Glucose, UA Negative Negative - 1999(110) ++++ mg/dL [facility] Interpretation and review of laboratory results Normal [facility] Ketones, UA Negative Negative - 160(16) ++++ mg/dL [facility] Leukocytes, UA Negative Negative - 500+++ Fox/mcL [facility] Nitrite, UA Negative Negative - Positive [facility] pH, UA 7 5 - 9 [facility] Healthcar e Protein, UA Negative Negative - 1999(20) ++++ mg/dL [facility] Spec Grav, UA 1.02 1 - 1.03 [facility] Urobilinogen, UA 0.2 0.2 - 12 mg/dL [facility] Urinalysis macro (dipstick) panel (U)on 06-01-2024 Bilirubin, UA Negative Negative - 4(70) +++ mg/dL [facility] Blood, UA Negative Negative - 50 Franc/mcL [facility] Clarity, UA Clear [facility] Healthca re Color, UA Yellow [facility] Healthcar e Glucose, UA Negative Negative - 1999(110) ++++ mg/dL [facility] Interpretation and review of laboratory results Normal [facility] Ketones, UA Not detected Negative - 160(16) ++++ mg/dL [facility] Leukocytes, UA Negative Negative - 500+++ Fox/mcL [facility] Nitrite, UA Negative Negative - Positive [facility] pH, UA 6.5 5 - 9 [facility] Healthcar e Protein, UA Negative Negative - 2000(20) ++++ mg/dL [facility] Spec Grav, UA 1.025 1 - 1.03 [facility] care Urobilinogen, UA 0.2 0.2 - 12 mg/dL [facility] Coding Summaryon 02-17-2018 Coding Summary CODING DATE: 02/17/2018 [facility] STATUS: Home PAYOR: Medicaid HMO ADMIT DX: [...] Yanet Loera Date Saved: 02/17/2018 07:09 am [facility] Provider Orderson 02-16-2018 Provider Orders [id number] [facility] Wound Cultureon 02-16-2018 WBC (Leukocytes) Moderate [...] S <=0.5/9.5 VerifiedVanc S 2 Verified Normal [facility] Comment on above: Performed By: #### [id number] ####[facility] (DEFAULT)[address] [place] [address] Vital Signs Date Time Vital Sign Value Performing Clinician Johanna joy 07-15-2024 10:59-0500 Body mass index (BMI) [Ratio] 30.01 kg/m2 Kayy GOINS Work Phone: [facility] 07-15-2024 10:59-0500 Body weight 76.84 kg Kayy GOINS Work Phone: [facility] 07-15-2024 10:59-0500 Diastolic blood pressure 74 mm[Hg] Kayy GOINS Work Phone: [facility] 07-15-2024 10:59-0500 Systolic blood pressure 112 mm[Hg] Kayy GOINS Work Phone: [facility] 07-01-2024 09:18-0500 Body mass index (BMI) [Ratio] 28.59 kg/m2 Kaden Deidra DO Work Phone: [facility] 07-01-2024 09:18-0500 Body weight 73.21 kg Kaden Deidra DO Work Phone: [facility] 07-01-2024 09:18-0500 Diastolic blood pressure 60 mm[Hg] Kaden Deidra DO Work Phone: [facility] 07-01-2024 09:18-0500 Systolic blood pressure 110 mm[Hg] Kaden Deidra DO Work Phone: [facility] 06-01-2024 10:53-0400 Body mass index (BMI) [Ratio] 26.82 kg/m2 Kayy GOINS Work Phone: [facility] 06-01-2024 10:53-0400 Body weight 68.67 kg Kayy GOINS Work Phone: [facility] 06-01-2024 10:53-0400 Diastolic blood pressure 58 mm[Hg] Kayy GOINS Work Phone: [facility] Healthcare 06-01-2024 10:53-0400 Systolic blood pressure 110 mm[Hg] Kayy GOINS Work Phone: [facility] Healthcare Encounters Encounter Date Encounter Type Care Provider Facility Start: 07-15-2024 End: 07-15-2024 Bamboo flowsheet Kayy GOINS Work Phone: [facility] Start: 07-15-2024 End: 07-15-2024 Bamboo flowsheet Kayy GOINS Work Phone: [facility] Start: 07-15-2024 End: 07-15-2024 Office outpatient visit 15 minutes Kayy GOINS Work Phone: [facility] Comment on above: Second trimester pre gnancy; 27 weeks gestation of ; size inconsistent with dates Start: 07-15-2024 End: 07-15-2024 ambulatory KAYY LOPEZ Not Available Start: 07-05-2024 End: 07-05-2024 [facility] Result Encounter Generic External Data Provider [facility] External Department Unsolicited Start: 07-05-2024 End: 07-05-2024 [facility] Result Encounter Generic External Data Provider [facility] External [facility] Unsolicited Start: 07-01-2024 End: 07-01-2024 Bamboo flowsheet Kaden Deidra DO Work Phone: [facility] Start: 07-01-2024 End: 07-01-2024 Bamboo flowsheet Kaden Deidra DO Work Phone: [facility] Start: 07-01-2024 End: 07-01-2024 Office outpatient visit 15 minutes Kaden Deidra DO Work Phone: [facility] Comment on above: 25 weeks gestation o f ; Second trimester ; Diabetes mellitus screening Start: 07-01-2024 End: 07-01-2024 ambulatory KADEN DEIDRA Not Available Start: 06-01-2024 End: 06-01-2024 Bamboo flowsheet Kayy GOINS Work Phone: [facility] Start: 06-01-2024 End: 06-01-2024 Bamboo flowsheet Kayy GOINS Work Phone: [facility] Start: 06-01-2024 End: 06-01-2024 Office outpatient visit 15 minutes Kayy GOINS Work Phone: [facility] Comment on above: 21 weeks gestation o f ; Second trimester Start: 06-01-2024 End: 06-01-2024 ambulatory KAYY LOPEZ Not Available Start: 05-04-2024 End: 05-04-2024 ambulatory KAYY JESSICA Not Available Start: 04-05-2024 End: 04-05-2024 ambulatory KADEN DEIDRA Not Available Start: 03-04-2024 End: 03-04-2024 ambulatory KADEN DEIDRA Not Available Start: 09-21-2023 Refill Starr Shoemaker DIRECTOR DIGITAL [employer]ATEGY-CAN WASHER Work Phone: [facility] Start: 02-14-2018 End: 02-14-2018 Ambulatory Fernando Kendrick Facility:[facility] Procedures Date Procedure Procedure Detail Performing Clinician Start: 07-15-2024 Urnls dip stick/tablet rgnt non-auto w/o micrscp Kaden Deidra DO Work Phone: Start: 07-05-2024 ALL CBC WITH AUTO DIFF Kaden Deidra DO Work Phone: Start: 07-05-2024 GLUCOSE 1 HOUR Kaden Deidra DO Work Phone: Start: 07-05-2024 MHPT DIFFERENTIAL Kaden Deidra DO Work Phone: Start: 07-01-2024 Urnls dip stick/tablet rgnt non-auto w/o micrscp Kaden Deidra DO Work Phone: Start: 06-01-2024 Urnls dip stick/tablet rgnt non-auto w/o micrscp Kayy GOINS Work Phone: Start: 09-25-2017 H/O: surgery S/P tonsillectomy and adenoidectomy Starr Shoemaker DIRECTOR [employer] W[employer] Work Phone: Plan of Treatment Date Care Activity Detail Author Start: 07-29-2024 End: 07-29-2024 Professional / ancillary services management 07/29/2024 9:30 AM EST Ancillary Procedure [facility] [address] [place] [id number] [facility] Start: 07-15-2024 End: 07-15-2025 US for US OB SCAN FOR GROWTH Imaging Routine size inconsistent with dates Expected: 07/15/2024 (Approximate), Expires: 07/15/2025 [facility] Work Phone: Comment on above: Expected: 07/15/2024 (Approximate), Expires: 07/15/2025 Start: 07-15-2024 End: 07-15-2024 Patient encounter procedure [facility] Comment on above: Arrived Start: 07-01-2024 End: 07-01-2025 CBC panel - Blood by Automated count CBC Lab Routine Diabetes mellitus screening Expected: 07/01/2024 (Approximate), Expires: 07/01/2025 [facility] Work Phone: Comment on above: Expected: 07/01/2024 (Approximate), Expires: 07/01/2025 Start: 07-01-2024 End: 07-01-2025 Measurement of glucose 1 hour after glucose challenge for glucose tolerance test Glucose tolerance, 1 hour Lab Routine Diabetes mellitus screening Expected: 07/01/2024 (Approximate), Expires: 07/01/2025 [facility] Healthcare Comment on above: Expected: 07/01/2024 (Approximate), Expires: 07/01/2025 Start: 07-01-2024 End: 07-01-2024 Patient encounter procedure [facility] Comment on above: Arrived Start: 06-01-2024 End: 06-01-2024 Patient encounter procedure 06/01/2024 10:40 AM EDT Routine [facility] [address] [place] [phone] Kayy Lopez PA [address] [place] [address] Arrived [facility] Comment on above: Arrived Start: 04-25-2024 Influenza vaccination Influenza Vacc ine (#1) [facility] Start: 12-04-2023 DTaP,Tdap and Td Vaccines (7 - Td or Tdap) DTaP,Tdap and Td Vaccines (7 - Td or Tdap) [facility] Start: 06-11-2023 Adult BMI Screening Adult BMI Screen ing [facility] Start: 06-11-2023 Tobacco Screening Tobacco Screening [facility] Start: 04-25-2023 COVID-19 Vaccine ( season) COVID-19 Vaccine ( season) [facility] Start: 04-25-2023 Influenza vaccination Influenza Vacc ine [facility] Start: 2022 Screening for malign ant neoplasm of cervix Pap Smear [facility] Start: 2013 Depression Screening Depression Scre ening [facility] Immunizations Immunization Date Immunization Notes Care Provider Fa cility 06-13-2024 influenza virus vaccine, unspecified formulation Kaden Gay DO Work Phone: [facility] 07-03-2023 influenza virus vaccine, unspecified formulation Kayy GOINS Work Phone: [facility] 07-10-2021 influenza virus vaccine, unspecified formulation Starr Shoemaker DIRECTOR [employer] W[employer]ER Work Phone: [facility] Payers Date Payer Category Payer Medicaid [id number] 2022 Medicaid [id number] 2018 Unknown [id number] 2001 Unknown [id number] 2001 Unknown [id number] 2.16.84 [id number] 2001 Unknown [id number] 2.16.84 [id number] 2001 Unknown [id number] 2.16.84 [id number] 2001 Unknown [id number] 2.16.84 [id number] 2001 Unknown [id number] [id number] Social History Date Type Detail Facility Start: 05-31-2022 Tobacco smoking stat [facility] Ex-smoker [facility] History of tobacco use Current smoker [facility] Start: 05-31-2022 Tobacco use and exposure Smokeless tobacco non-user [facility] Start: 06-11-2022 Alcohol intake Current non-dr line dancer of alcohol (finding) [facility] Start: 10-05-2020 End: 06-11-2022 History of Social function [facility] Start: 10-05-2020 End: 06-11-2022 Tobacco use panel [facility] Childcare Unknown [facility] Start: 2001 Sex Assigned At Not on file [facility] Start: 03-04-2024 Tobacco smoking stat [facility] Tobacco smoking consumption unknown [facility] Start: 03-04-2024 Tobacco Comment Vape [facility] Start: 01-18-2024 [facility] History of Present illness Narrative 07-15-2024 BRISEIDA Menard - 07/15/2024 10:50 AM EST Note Date & Type Note Facility 07-15-2024 History of Presen t illness Narrative Reason for Appointment: Patient ID: Cristiane Olivera is a 23 y.o. female who presents for Routine Visit Patient presents today for Return OB appointment. MEDICATIONS Current Outpatient Medications Medication Instructions iron polysaccharides (PROFE) 391.3 mg, Oral, Daily magnesium oxide (MAG-OX) 400 mg, Daily sertraline [...] Exam Constitutional: Appearance: Normal appearance. She is well-developed and normal weight. HENT: Head: Normocephalic. Cardiovascular: Rate and Rhythm: Normal rate and regular rhythm. Pulses: Normal pulses. Pulmonary: Effort: Pulmonary effort is normal. Breath sounds: Normal breath sounds. Abdominal: General: Bowel sounds are normal. There is no distension. Palpations: Abdomen is soft. Tenderness: There is no abdominal tenderness. There is no guarding or rebound. Musculoskeletal: General: No swelling. Normal range of motion. Right lower leg: No edema. Left lower leg: No edema. Neurological: General: No focal deficit present. Mental Status: She is alert and oriented to person, place, and time. Skin: General: Skin is warm and dry. Psychiatric: Mood and Affect: Mood normal. Behavior: Behavior normal. Thought Content: Thought content normal. Judgment: Judgment normal. Vitals and nursing note reviewed. Exam conducted with a joint special operations present. Vitals: Estimated body mass index is 30.01 kg/m as calculated from the following: Height as of 04/25/22: 5' 3 . Weight as of this encounter: 169 lb 6.4 oz. BP: 112/74 Patient's last menstrual period was 01/04/2024. ASSESSMENT & PLAN ICD-10-CM 1. Second trimester Z34.92 POCT urinalysis dipstick manually resulted 2. 27 weeks gestation of Z3A.27 POCT urinalysis dipstick manually resulted Patient presents today for a routine obstetrics appointment. Patient is currently 27w4d with a Estimated Date of Delivery: 10/10/24. Patient given order for growth scan to have done prior to next appointment for size inconsistent with dates. Patient to return to clinic for routine OB appointment. Documented by Shelley Jeffries LPN on behalf of: BRISEIDA Menard documented in this encounter [facility] History of Present illness Narrative 07-01-2024 Shelley [...] nursing note reviewed. Exam conducted with a joint special operations present. Vitals: Estimated body mass index is [...] of: BRISEIDA Menard documented in this encounter [facility] Clinical Note 04-26-2022 Note Date & Type [...] signed by Booker Jeronimo on 04/26/2022 1534 [facility] Academic Advisor Evaluation note Note Date & Type Note Facility Evaluation note Diagnosis 21 weeks gestation of Second trimester state, incidental documented in this encounter [facility] Healthcare Evaluation note Note Date & Type Note Facility Evaluation note Diagnosis 25 weeks gestation of Second trimester state, incidental Diabetes mellitus screening Screening for diabetes mellitus documented in this encounter [facility] Healthcare Evaluation note Note Date & Type Note Facility Evaluation note Diagnosis Second trimester state, incidental 27 weeks gestation of size inconsistent with dates documented in this encounter [facility] Healthcare Instructions Note Date & [...] section and content) DATE CREATED AUTHOR 02/17/2018 [facility] DATE CREATED AUTHOR AUTHOR'S ORGANIZ ATION 04/27/2022 [facility] dical Specialist DATE CREATED AUTHOR AUTHOR'S ORGANIZ ATION 07/18/2024 [facility] dical Specialists EPIC Reason for Visit (unrecogniz ed section and content) Reason Comments Med Refill Reason Comments Routine Visit Care Teams (unrecognized sec tion and content) Flight Operation Coordinator Relationship Specialty Start Date End Date Yanet Barrios MD [address] [facility] [place] [address] PCP - General Family Medicine 05/31/22 Flight Operation Coordinator Relationship Specialty Start Date End Date Yanet Barrios MD [address] [place] [address] PCP - General Family Medicine 12/31/22 Flight Operation Coordinator Relationship Specialty Start Date End Date Yanet Barrios MD [address] [place] [address] PCP - General Family Medicine 12/31/22 Flight Operation Coordinator Relationship Specialty Start Date End Date Yanet Barrios MD [address] [place] [address] PCP - General Family Medicine 12/31/22 Flight Operation Coordinator Relationship Specialty Start Date End Date Yanet Barrios MD [address] [place] [address] PCP - General Family Medicine 12/31/22 Flight Operation Coordinator Relationship Specialty Start Date End Date Yanet Barrios MD [address] [place] [address] PCP - General Family Medicine 12/31/22 Flight Operation Coordinator Relationship Specialty Start Date End Date Yanet Barrios MD [address] [place] [address] PCP - General Family Medicine 12/31/22 FOR [...] BE BASED ON THE PRIMARY CLINICAL RECORDS. [facility]. provides no warranty or guarantee of the accuracy or completeness of information in this document.
== END 2024-07-29 09:38 | disposition home or self-care (01) ==
LOC: NOMS 09:37
PROVIDERS: PCP Family Medicine; Visit Provider Physician Assistant
DX: O26.843 Uterine size-date discrepancy, third trimester (principal); Z3A.29 29 weeks gestation of pregnancy
CPT/HCPCS: 76816

== ENCOUNTER 2024-09-14 13:15 | Outpatient (REF) | payer MEDICAID, SELFPAY ==
--- OUTSIDE RECORDS SUMMARY | 2024-09-15 09:54 | XMS_ITS | CCD ---
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 Name Role Phone Fernando Kendrick Unavailable Unavailable Fernando Kendrick Unavailable Unavailable Provider, None Unavailable Unavailable Yanet Barrios MD Primary Care Provider [phone] Yanet Barrios MD Primary Care Provider KADEN GAY Attending Unavailable KAYY LOPEZ Attending Unavailable JESSICA, KYAY Attending Unavailable KADEN GAY Attending Unavailable JESSICAKAYY Attending Unavailable JESSICA, KAYY Attending Unavailable KADEN GAY Attending Unavailable JESSICA, KAYY Attending Unavailable Medications Current Medications Medication Drug [...] Discontinued magnesium oxide 400 mg oral tablet (20 sources) Start: 05-10-2024 take 1 tablet by mouth once daily magnesium oxide (Mag-Ox) 400 (240 Mg) MG tablet Take 400 mg by mouth Daily 05/10/2024 Active Start: 04-05-2024 End: 05-05-2024 take 1 tablet by mouth once daily magnesium oxide (Mag-Ox) 400 MG tablet Indications: headache, antepartum Take 1 tablet (400 mg) by mouth Daily 30 tablet 6 04/05/2024 05/05/2024 Active metoprolol tartrate 25 mg oral tablet [...] before bedtime. 60 tablet 2 05/31/2022 Active metroNIDAZOLE 500 mg oral tablet (1 source) Nitroimidazole Antimicrobial Start: 05-06-2024 End: 05-13-2024 take 1 tablet by mouth in the morning metroNIDAZOLE (Flagyl) 500 MG tablet Indications: BV (bacterial vaginosis) Take 1 tablet (500 mg) by mouth in the morning and 1 tablet (500 mg) before bedtime. Do all this for 7 days. Do not drink alcohol while taking this medication. 14 tablet 05/06/2024 05/13/2024 Active omeprazole 20 mg delayed release oral capsule (1 source) Proton Pump Inhibitor Start: 06-11-2022 take 1 capsule by mouth in the morning omeprazole (PriLOSEC) 20 mg capsule Take 1 capsule (20 mg total) by mouth in the morning. 30 capsule 0 06/11/2022 Active polysaccharide iron complex 391 mg oral capsule (13 sources) Start: 07-07-2024 End: 10-05-2024 take 1 capsule by mouth once daily iron polysaccharides (ProFe) 391.3 (180 Fe) MG capsule Indications: Iron deficiency Take 1 capsule (391.3 mg) by mouth Daily 90 capsule 07/07/2024 10/05/2024 Active sertraline 50 mg oral tablet (20 sources) Serotonin Reuptake Inhibitor Start: 02-07-2016 take [...] 07-15-2024 Episodic Other and delivery including normal (12 sources) Second trimester ; Translations: [Encounter for supervision of normal , unspecified, second trimester] 06-01-2024 Episodic Other screening for suspected conditions (not mental disorders or infectious disease) (4 sources) Patient encounter status; Translations: [Encounter for [...] [27 weeks gestation of ] 07-15-2024 Episodic Residual codes; unclassified (2 sources) Gestation period, 29 weeks; Translations: [29 weeks gestation of ] 07-29-2024 Episodic Residual codes; unclassified (2 sources) Gestation period, 31 weeks; Translations: [31 weeks gestation of ] 08-12-2024 Episodic Residual codes; unclassified (2 sources) Gestation period, 34 weeks; Translations: [34 weeks gestation of ] 08-30-2024 Episodic Past or Other Problems Problem Classification Problem Date Documented Date Episodic/Chronic Cardiac dysrhythmias (1 source) Tachycardia; Translations: [Tachycardia, unspecified] Onset: 09-23-2017 09-23-2017 Episodic Complications of surgical procedures or medical care (1 source) Secondary post tonsillectomy hemorrhage; Translations: [Postprocedural hemorrhage of a respiratory system organ or structure following a respiratory system procedure] Onset: 09-16-2017 09-16-2017 Episodic Immunizations and screening for infectious disease (2 sources) Exposure to sexually transmissible disorder; Translations: [Contact with and (suspected) exposure to infections with a predominantly sexual mode of transmission] 05-04-2024 Episodic Other female genital disorders (2 sources) Vaginal discharge; Translations: [Other specified noninflammatory disorders of vagina] 05-04-2024 Episodic Other lower respiratory disease (1 source) Dyspnea; Translations: [Shortness of breath] Onset: 06-02-2018 06-02-2018 Episodic Other upper respiratory disease (1 source) Nasal congestion; Translations: [Nasal congestion] Onset: 2017 2017 Episodic Other upper respiratory infections (1 source) Posterior rhinorrhea; Translations: [Postnasal drip] Onset: 10-28-2018 10-28-2018 Episodic Residual codes; unclassified (2 sources) Gestation period, 17 weeks; Translations: [17 weeks gestation of ] 05-04-2024 Episodic Substance-related disorders (1 source) Finding related to substance use; Translations: [Other psychoactive substance use, unspecified, uncomplicated] Onset: 01-27-2020 01-27-2020 Episodic Results Test Name Value Interpretation Reference Range Facility Urinalysis macro (dipstick) panel (U)on 08-30-2024 Bilirubin, UA Negative Negative - 4(70) +++ mg/dL [facility] Blood, UA Negative Negative - 50 Franc/mcL [facility] Clarity, UA Clear [facility] re Color, UA Yellow [facility] Glucose, UA Negative Negative - 2000(110) ++++ mg/dL [facility] Interpretation and review of laboratory results Abnormal [facility] Ketones, UA Positive Negative - 160(16) ++++ mg/dL [facility] Comment on above: trace Leukocytes, UA Trace Negative - 500+++ Fox/mcL [facility] Healthcare Nitrite, UA Negative Negative - Positive [facility] pH, UA 6 5 - 9 [facility] Protein, UA Negative Negative - 1999(20) ++++ mg/dL [facility] Healthcare Spec Grav, UA 1.03 1 - 1.03 [facility] care Urobilinogen, UA 0.2 0.2 - 12 mg/[facility] Urinalysis macro (dipstick) panel (U)on 08-12-2024 Bilirubin, UA Negative Negative - 4(70) +++ mg/dL [facility] Blood, UA Negative Negative - 50 Franc/mcL [facility] Healthcare Clarity, UA Clear [facility] Color, UA Yellow [facility] Glucose, UA Negative Negative - 1999(110) ++++ mg/dL [facility] Interpretation and review of laboratory results Abnormal [facility] Ketones, UA Negative Negative - 160(16) ++++ mg/dL [facility] Leukocytes, UA Positive Negative - 500+++ Fox/mcL [facility] Healthcare Comment on above: small Nitrite, UA Negative Negative - Positive [facility] pH, UA 6 5 - 9 [facility] Protein, UA Trace Negative - 1999(20) ++++ mg/dL [facility] Spec Grav, UA 1.03 1 - 1.03 [facility] Urobilinogen, UA 0.2 0.2 - 12 mg/dL [facility] Urinalysis macro (dipstick) panel (U)on 07-29-2024 Bilirubin, UA Negative Negative - 4(70) +++ mg/dL [facility] Blood, UA Negative Negative - 50 Franc/mcL [facility] Healthcare Clarity, UA Clear [facility] Color, UA Yellow [facility] Glucose, UA Negative Negative - 1999(110) ++++ mg/dL [facility] Interpretation and review of laboratory results Normal [facility] Ketones, UA Negative Negative - 160(16) ++++ mg/dL [facility] Leukocytes, UA Negative Negative - 500+++ Fox/mcL [facility] Healthcare Nitrite, UA Negative Negative - Positive [facility] pH, UA 6 5 - 9 [facility] Protein, UA Negative Negative - 1999(20) ++++ mg/dL [facility] Spec Grav, UA 1.025 1 - 1.03 [facility] Urobilinogen, UA 1.0 0.2 - 12 mg/dL [facility] Urinalysis macro (dipstick) panel (U)on 07-15-2024 Bilirubin, UA Negative Negative - 4(70) +++ mg/dL [facility] Blood, UA Negative Negative - 50 Franc/mcL [facility] Clarity, UA Clear [facility] re Color, UA Yellow [facility] e Glucose, UA Negative Negative - 1999(110) ++++ mg/dL [facility] Interpretation and review of laboratory results Normal [facility] Ketones, UA Negative Negative - 160(16) ++++ mg/dL [facility] Leukocytes, UA Negative Negative - 500+++ Fox/mcL [facility] Nitrite, UA Negative Negative - Positive [facility] pH, UA 6.5 5 - 9 [facility] Protein, UA Negative Negative - 1999(20) ++++ mg/dL [facility] Spec Grav, UA 1.02 1 - 1.03 [facility] Urobilinogen, UA 1.0 0.2 - 12 mg/dL [facility] e ALL CBC WITH AUTO DIFFon Erythrocyte distribution width (RBC) [Ratio] 12.1 % 11.0 - 15.0 % [facility] Hematocrit (Bld) [Volume fraction] 31.8 % Low 36.0 - 48.0 % [facility] Hemoglobin (Bld) [Mass/Vol] 10.3 g/dL Low 12.0 - 16.0 g/dL [facility] MCH (RBC) [Entitic mass] 27.7 pg 26.7 - 34.0 pg [facility] MCHC (RBC) [Mass/Vol] 32.4 g/dL 29.9 - 35.2 g/dL [facility] MCV (RBC) [Entitic vol] 85.5 fL 81.0 - 99.0 fL [facility] Platelet mean volume (Bld) [Entitic vol] 13 fL 9.5 - 13.5 fL [facility] PLT 130 Low [facility] e TBH RBC 3.72 Low [facility] e TB WBC 7.6 [facility] GLUCOSE 1 HOURon 07-05-2024 Glucose [Mass/Vol] 94 mg/dL NINF - 13 0 mg/dL [facility] Healthcar e MHPT DIFFERENTIALon 07-05-20 24 BASOPHILS ABS MANUAL 0 [facility] BASOPHILS PERCENT MANUAL 0 % Low 0.2 - 2.0 % [facility] Eosinophils (Bld) [#/Vol] 0.15 10*3/uL [facility] Healthcare EOSINOPHILS PERCENT MANUAL 2 % 0.9 - 7.0 % [facility] Lymphocytes (Bld) [#/Vol] 2.12 10*3/uL [facility] LYMPHOCYTES PERCENT MANUAL 28 % 20.5 - 60.0 % [facility] Monocytes (Bld) [#/Vol] 0.3 10*3/uL [facility] MONOCYTES PERCENT MANUAL 4 % 1.7 - 12.0 % [facility] SEGMENTED NEUT ABSOLUTE MANUAL 5.01 [facility] SEGMENTED NEUTROPHILS % MANUAL 66 43.0 - 75.0 [facility] No Panel Informationon 07-05 Interpretation and review of laboratory results Abnormal [facility] Healthcar e Urinalysis macro (dipstick) panel (U)on 07-01-2024 Bilirubin, UA Negative Negative - 4(70) +++ mg/dL [facility] Blood, UA Negative Negative - 50 Franc/mcL [facility] Clarity, UA Clear [facility] re Color, UA Yellow [facility] Glucose, UA Negative Negative - 1999(110) ++++ mg/dL [facility] Interpretation and review of laboratory results Normal [facility] Ketones, UA Negative Negative - 160(16) ++++ mg/dL [facility] Leukocytes, UA Negative Negative - 500+++ Fox/mcL [facility] Nitrite, UA Negative Negative - Positive [facility] pH, UA 7 5 - 9 [facility] SHAPE e Protein, UA Negative Negative - 1999(20) ++++ mg/dL [facility] Spec Grav, UA 1.02 1 - 1.03 [facility] Urobilinogen, UA 0.2 0.2 - 12 mg/dL [facility] Urinalysis macro (dipstick) panel (U)on 06-01-2024 Bilirubin, UA Negative Negative - 4(70) +++ mg/dL [facility] Blood, UA Negative Negative - 50 Franc/mcL [facility] Clarity, UA Clear [facility] re Color, UA Yellow [facility] Glucose, UA Negative Negative - 1999(110) ++++ mg/dL [facility] Interpretation and review of laboratory results Normal [facility] Ketones, UA Not detected Negative - 160(16) ++++ mg/dL [facility] Leukocytes, UA Negative Negative - 500+++ Fox/mcL [facility] Nitrite, UA Negative Negative - Positive [facility] pH, UA 6.5 5 - 9 [facility] Protein, UA Negative Negative - 1999(20) ++++ mg/dL [facility] Spec Grav, UA 1.025 1 - 1.03 [facility] Urobilinogen, UA 0.2 0.2 - 12 mg/dL [facility] SHAPE e IGP,APTIMA HPV,AGE GDLNon -2023 AGE GDLN ACOG TESTING Note . [facility] Comment on above: TESTS RESULT FLAG UN ITS REF RANGE LAB Clinician Provided Cytology Information Source.............Cervix No. of containers..01 ThinPrep Vial Age Algo ACOG Lizz... - 01 FLAG LEGEND: L-Low Normal,H-High Normal,LL-Alert Low,HH-Alert High <-Panic Low,>-Panic High,A-Abnormal,AA-Critical Abnormal Performed at: 01 =G [address] [id number] Reanna So MD, IGP, RFX APTIMA HPV ASCU Note . [facility] Comment on above: TESTS RESULT FLAG UN ITS REF RANGE LAB DIAGNOSIS: 02 NEGATIVE FOR INTRAEPITHELIAL LESION OR MALIGNANCY. Specimen adequacy: 02 Satisfactory for evaluation. Endocervical and/or squamous metaplastic cells (endocervical component) are present. Performed by: 02 Sarah Ashby, Overhead Foreman ([facility]) . 02 Note: Note 03 The Pap smear is a screening test designed to aid in the detection of premalignant and malignant conditions of the uterine cervix. It is not a diagnostic procedure and should not be used as the sole means of detecting cervical cancer. Both false-positive and false-negative reports do occur. Test Methodology: Note 03 This liquid based ThinPrep(R) pap test was screened with the use of an image guided system. . 02 The HPV DNA reflex criteria were not met with this specimen result therefore, no HPV testing was performed. FLAG LEGEND: L-Low Normal,H-High Normal,LL-Alert Low,HH-Alert High <-Panic Low,>-Panic High,A-Abnormal,AA-Critical Abnormal Performed at: 02 [facility] [address] [place] [id number] Kamron Mejia MD, 03 WB [facility] [address] [place] [address] Reanna So MD, Performed at: =G - [facility] [address] [place], [place] [id number] Plush Weaver: Reanna So MD, Phone: [phone] Performed at: [facility] [address] [place], [place] [id number] Plush Weaver: Kamron Mejia MD, Phone: [phone] SPATULA-ALONE CERVIX [facility] AFP, SERUM, OPEN SPINA BIFID Aon 05-09-2024 AFP MOM 1.13 . [facility] AFP VALUE 45.9 ng/mL . [facility] COMMENT: Comment . [facility] Comment on above: Maria Del Carmen Sears , Ph.D., [facility] Director References: Available Upon Request. Multiples Of Median Cutoffs For AFP Elevations Ochoa 2.5 Black 2.8 IDD 2.0 Twins 4.5 Abbreviation Definitions IDD - Insulin Dep Diabetes OSBR - Open Spina Bifida Risk For further inquiries contact [facility] at [phone]. This test was developed and its performance characteristics determined by [employer]. It has not been cleared or approved by the Food and Drug Administration. Performed at: [facility] [address] [place], [place] [id number] Plush Weaver: Emma Ortiz [facility], Phone: [phone] GEST. AGE ON COLLECTION DATE 17.3 . weeks [facility] GESTAT. AGE BASED ON LMP . [facility] Comment on above: Recalculations are n ot recommended when gestational dating by LMP and ultrasound are within 10 days. INSULIN DEP DIABETES No . [facility] Healthcare INTERPRETATION Comment . [facility] Healt hcare Comment on above: Interpretation: Scre en Negative This result is screen negative for OSB. The AFP MoM calculated is based on the gestational age provided. MS-AFP can identify up to 80% of open neural tube defects. Closed neural tube defects and some open defects may not be detected by this test. This test does not screen for Down Syndrome or Trisomy 18. If screening for Down Syndrome or Trisomy 18 is desired, contact [facility] to discuss available options. The [employer] recommends amniocentesis be offered to women age 35 and older. [age] [facility] MULTIPLE GESTATION No . [facility] H ealthcare OSBR RISK 1 [place] 8106 . [facility] RACE . [facility] RESULTS Report . [facility] e TEST RESULTS: Negative . [facility] WEIGHT 141 . lbs [facility] N N LMP 2 17 N 1 Y 141 N N N N N White/ [facility] e URETHRITIS/DISCHARGE PLUS VA GINITIS (HTRX)on 05-05-2024 ATOPOBIUM VAGINAE 29.133 Abnormal [facility] althcare ATOPOBIUM VAGINAE Detected Abnormal [facility] BVAB 2,3 (BACTERIAL VAGINOSIS ASSOCIATED BACTERIA 2, 3); MOBILUNCUS SPP 0.000 [facility] BVAB 2,3 (BACTERIAL VAGINOSIS ASSOCIATED BACTERIA 2, 3); MOBILUNCUS SPP Not detected [facility] MISTY ALBICANS, PARAPSILOSIS, TROPICALIS 0.000 [facility] MISTY ALBICANS, PARAPSILOSIS, TROPICALIS Not detected [facility] MISTY GLABRATA 0.000 [facility] MISTY GLABRATA Not detected [facility] ealtare MISTY KRUSEI 0.000 [facility] MISTY KRUSEI Not detected [facility] CHLAMYDIA TRACHOMATIS 0.000 [facility] CHLAMYDIA TRACHOMATIS Not detected [facility] ERMB, C; MEFA 20.870 Abnormal [facility] ERMB, C; MEFA Detected Abnormal [facility] GARDNERELLA VAGINALIS 27.078 Abnormal [facility] GARDNERELLA VAGINALIS Detected Abnormal [facility] Interpretation and review of laboratory results Abnormal [facility] MEGASPHAERA (TYPES 1, 2) 0.000 [facility] MEGASPHAERA (TYPES 1, 2) Not detected [facility] MYCOPLASMA GENITALIUM 0.000 [facility] MYCOPLASMA GENITALIUM Not detected [facility] NEISSERIA GONORRHOEAE 0.000 [facility] NEISSERIA GONORRHOEAE Not detected [facility] TET B, TET M 19.649 Abnormal [facility] Healthc are TET B, TET M Detected Abnormal [facility] TRICHOMONAS VAGINALIS 0.000 [facility] TRICHOMONAS VAGINALIS Not detected [facility] Urinalysis macro (dipstick) panel (U)on 05-04-2024 Bilirubin, UA Negative Negative - 4(70) +++ mg/dL [facility] Blood, UA Negative Negative - 50 Franc/mcL [facility] Clarity, UA Clear [facility] Healthca re Color, UA Yellow [facility] Glucose, UA Negative Negative - 1999(110) ++++ mg/dL [facility] Interpretation and review of laboratory results Normal [facility] Ketones, UA Negative Negative - 160(16) ++++ mg/dL [facility] Leukocytes, UA Negative Negative - 500+++ Fox/mcL [facility] Nitrite, UA Negative Negative - Positive [facility] pH, UA 7.5 5 - 9 [facility] Protein, UA Negative Negative - 1999(20) ++++ mg/dL [facility] Spec Grav, UA 1.020 1 - 1.03 [facility] Urobilinogen, UA 0.2 0.2 - 12 mg/dL [facility] Coding Summaryon 02-17-2018 Coding Summary CODING DATE: 02/17/2018 [facility] STATUS: Home PAYOR: Medicaid HMO [...] Yanet Loera Date Saved: 02/17/2018 07:09 am [facility] Provider Orderson 02-16-2018 Provider Orders [id number] [facility] Wound Cultureon 02-16-2018 WBC (Leukocytes) Moderate growth of Staphylococcus aureus1+ White Blood Cells1+ Gram Positive Cocci in pairsORGANISMSA------ SUSCEPTIBILITY ---ORGANISM ID: 1ANTIBIOTIC INTERPRETATION SAVANAH STATUSORGANISM SASA Amox/Cla S <=4/2 VerifiedAmp Wilman <=2 VerifiedAmp/Sul S <=8/4 VerifiedCeftri S <=8 VerifiedCipro S <=1 VerifiedClinda S <=0.5 VerifiedEryth S <=0.5 VerifiedGent S <=4 VerifiedLevo S <=1 VerifiedLinez S 4 VerifiedNitro <=32 VerifiedOx S <=0.25 VerifiedPen Wilman 0.12 VerifiedRif S <=1 VerifiedTetra S <=4 VerifiedTri/Sulf S <=0.5/9.5 VerifiedVanc S 2 Verified Normal [facility] Comment on above: Performed By: #### [id number] ####[facility] (DEFAULT)[address] [place] [address] Vital Signs Date Time Vital Sign Value Performing Clinician Johanna joy 08-30-2024 14:18-0500 Body mass index (BMI) [Ratio] 33.3 kg/m2 Kayy GOINS Work Phone: [facility] 08-30-2024 14:18-0500 Body weight 85.28 kg Kayy GOINS Work Phone: [facility] 08-30-2024 14:18-0500 Diastolic blood pressure 70 mm[Hg] Kayy GOINS Work Phone: [facility] 08-30-2024 14:18-0500 Systolic blood pressure 118 mm[Hg] Kayy GOINS Work Phone: [facility] 08-12-2024 09:39-0500 Body mass index (BMI) [Ratio] 31.35 kg/m2 Kaden Deidra DO Work Phone: [facility] 08-12-2024 09:39-0500 Body weight 80.29 kg Kaden Deidra DO Work Phone: [facility] 08-12-2024 09:39-0500 Diastolic blood pressure 68 mm[Hg] Kaden Deidra DO Work Phone: [facility] 08-12-2024 09:39-0500 Systolic blood pressure 106 mm[Hg] Kaden Deidra DO Work Phone: [facility] 07-29-2024 10:35-0500 Body mass index (BMI) [Ratio] 31.07 kg/m2 Kayy Quechee PA Work Phone: [facility] 07-29-2024 10:35-0500 Body weight 79.56 kg Kayy Quechee PA Work Phone: [facility] 07-29-2024 10:35-0500 Diastolic blood pressure 66 mm[Hg] Kayy Jessica PA Work Phone: [facility] 07-29-2024 10:35-0500 Systolic blood pressure 108 mm[Hg] Kayy Quechee PA Work Phone: [facility] 07-15-2024 10:59-0500 Body mass index (BMI) [Ratio] 30.01 kg/m2 Kayy Jessica PA Work Phone: [facility] 07-15-2024 10:59-0500 Body weight 76.84 kg Kayy Quechee PA Work Phone: [facility] 07-15-2024 10:59-0500 Diastolic blood pressure 74 mm[Hg] Kayy Quechee PA Work Phone: [facility] 07-15-2024 10:59-0500 Systolic blood pressure 112 mm[Hg] Kayy Jessica PA Work Phone: [facility] 07-01-2024 09:18-0500 Body mass index (BMI) [Ratio] 28.59 kg/m2 Kaden Deidra DO Work Phone: [facility] 07-01-2024 09:18-0500 Body weight 73.21 kg Kaden Deidra DO Work Phone: [facility] 07-01-2024 09:18-0500 Diastolic blood pressure 60 mm[Hg] Kaden Deidra DO Work Phone: [facility] 07-01-2024 09:18-0500 Systolic blood pressure 110 mm[Hg] Kaden Deidra DO Work Phone: [facility] 06-01-2024 10:53-0400 Body mass index (BMI) [Ratio] 26.82 kg/m2 Kayy Jessica PA Work Phone: [facility] 06-01-2024 10:53-0400 Body weight 68.67 kg Kayy Quechee PA Work Phone: [facility] 06-01-2024 10:53-0400 Diastolic blood pressure 58 mm[Hg] Kayy Jessica PA Work Phone: [facility] 06-01-2024 10:53-0400 Systolic blood pressure 110 mm[Hg] Kayy Quechee PA Work Phone: [facility] 05-04-2024 09:49-0400 Body mass index (BMI) [Ratio] 25 kg/m2 Kayy Jessica PA Work Phone: [facility] 05-04-2024 09:49-0400 Body weight 64.01 kg Kayy Jessica PA Work Phone: [facility] 05-04-2024 09:49-0400 Diastolic blood pressure 70 mm[Hg] Kayy Jessica PA Work Phone: [facility] 05-04-2024 09:49-0400 Systolic blood pressure 110 mm[Hg] Kayy Jessica PA Work Phone: [facility] Healthcare Encounters Encounter Date Encounter Type Care Provider Facility Start: 09-14-2024 End: 09-14-2024 Bamboo flowsheet Kaden Deidra DO Work Phone: [facility] Start: 09-14-2024 End: 09-14-2024 Bamboo flowsheet Kaden Deidra DO Work Phone: [facility] Start: 08-30-2024 End: 08-30-2024 Bamboo flowsheet Kayy Quechee PA Work Phone: [facility] Start: 08-30-2024 End: 08-30-2024 Bamboo flowsheet Kayy Jessica PA Work Phone: [facility] Start: 08-30-2024 End: 08-30-2024 Office outpatient visit 15 minutes Kayy Lopez PA Work Phone: [facility] Comment on above: 34 weeks gestation o f ; Third trimester Start: 08-30-2024 End: 08-30-2024 ambulatory KAYY LOPEZ Not Available Start: 08-12-2024 End: 08-12-2024 Bamboo flowsheet Kaden Deidra DO Work Phone: [facility] Start: 08-12-2024 End: 08-12-2024 Bamboo flowsheet Kaden Deidra DO Work Phone: [facility] Start: 08-12-2024 End: 08-12-2024 Office outpatient visit 15 minutes Kaden Deidra DO Work Phone: [facility] Comment on above: Third trimester preg shanna; 31 weeks gestation of Start: 08-12-2024 End: 08-12-2024 ambulatory KADEN DEIDRA Not Available Start: 07-29-2024 End: 07-29-2024 Bamboo flowsheet Kayy Lopez PA Work Phone: [facility] Start: 07-29-2024 End: 07-29-2024 Bamboo flowsheet Kayy Lopez PA Work Phone: [facility] Start: 07-29-2024 End: 07-29-2024 Office outpatient visit 15 minutes Kayy GOINS Work Phone: [facility] Comment on above: Third trimester preg shanna; 29 weeks gestation of Start: 07-29-2024 End: 07-29-2024 ambulatory KAYY LOPEZ Not Available Start: 07-15-2024 End: 07-15-2024 Bamboo flowsheet Kayy Lopez PA Work Phone: [facility] Start: 07-15-2024 End: 07-15-2024 Bamboo flowsheet Kayy Lopez PA Work Phone: [facility] Start: 07-15-2024 End: 07-15-2024 Office outpatient visit 15 minutes Kayy GOINS Work Phone: [facility] Comment on above: Second trimester [...] [facility] Start: 07-01-2024 End: 07-01-2024 Bamboo [...] 06-01-2024 Bamboo flowsheet Kayy GOINS Work Phone: [facility] Start: 06-01-2024 End: 06-01-2024 Bamboo flowsheet Kayy GOINS Work Phone: [facility] Start: 06-01-2024 End: 06-01-2024 Office outpatient visit 15 minutes Kayy GOINS Work Phone: [facility] Comment on above: 21 weeks gestation o f ; Second trimester Start: 06-01-2024 End: 06-01-2024 ambulatory KAYY LOPEZ Not Available Start: 05-07-2024 End: 05-09-2024 Clinisync Result Encounter Generic External Data Provider [facility] Unsolicited Start: 05-07-2024 End: 05-09-2024 Clinisync Result Encounter Generic External Data Provider [facility] External [facility] Unsolicited Start: 05-04-2024 End: 05-04-2024 Bamboo flowsheet Kayy GOINS Work Phone: [facility] Start: 05-04-2024 End: 05-10-2024 Clinisync Result Encounter Kayy GOINS Work Phone: [facility] Unsolicited Start: 05-04-2024 End: 05-10-2024 Clinisync Result Encounter Kayy GOINS Work Phone: [facility] Unsolicited Start: 05-04-2024 End: 05-05-2024 External Result Encounter Kayy GOINS Work Phone: [facility] Unsolicited Start: 05-04-2024 End: 05-04-2024 Patient encounter procedure Kayy GOINS Work Phone: [facility] Start: 05-04-2024 End: 05-04-2024 Periodic preventive med est patient 18-39 yrs Kayy GOINS Work Phone: [facility] Comment on above: 17 weeks gestation o f ; Screening, , for anatomic survey; Well woman exam with routine gynecological exam; Exposure to STD; Vaginal discharge Start: 05-04-2024 End: 05-04-2024 ambulatory KAYY LOPEZ Not Available Start: 04-05-2024 End: 04-05-2024 ambulatory KADEN DEIDRA Not Available Start: 03-04-2024 End: 03-04-2024 ambulatory KADEN DEIDRA Not Available Start: 09-21-2023 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 [facility] Start: 02-14-2018 End: 02-14-2018 Ambulatory Fernando Kendrick Facility:[facility] Procedures Date Procedure Procedure Detail Performing Clinician Start: 08-30-2024 Urnls dip stick/tablet rgnt non-auto w/o micrscp Kayy GOINS Work Phone: Start: 08-12-2024 Urnls dip stick/tablet rgnt non-auto w/o micrscp Kaden Deidra DO Work Phone: Start: 07-29-2024 Urnls dip stick/tablet rgnt non-auto w/o micrscp Kayy GOINS Work Phone: Start: 07-15-2024 Urnls dip stick/tablet rgnt non-auto [...] w/o micrscp Kayy GOINS Work Phone: Start: 05-07-2024 AFP, SERUM, OPEN SPINA BIFIDA Kaden Deidra DO Work Phone: Start: 05-04-2024 Urnls dip stick/tablet rgnt non-auto w/o micrscp Kayy GOINS Work Phone: Start: 05-04-2024 IGP,APTIMA HPV,AGE GDLN Generic External Data Provider Start: 05-04-2024 URETHRITIS/DISCHARGE PLUS VAGINITIS (HTRX) Kayy GOINS Work Phone: Start: 09-25-2017 H/O: surgery S/P tonsillectomy and adenoidectomy Starr Shoemaker 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 Work Phone: Plan of Treatment Date Care Activity Detail Author Start: 09-14-2024 End: 09-14-2024 Patient encounter procedure [facility] Comment on above: Arrived Start: 08-30-2024 End: 08-30-2024 Patient encounter procedure [facility] Comment on above: Arrived Start: 08-12-2024 End: 08-12-2024 Patient encounter procedure [facility] Comment on above: Arrived Start: 07-29-2024 End: 07-29-2024 Patient encounter procedure 07/29/2024 10:10 AM EST Routine [facility] [address] [place] [phone] Kayy Lopez PA [address] [place], [place] [id number] Arrived [facility] Comment on above: Arrived Start: 07-29-2024 End: 07-29-2024 Professional / ancillary services management 07/29/2024 9:30 AM EST Ancillary Procedure [facility] [address] [place] [address] [facility] Start: 07-15-2024 End: 07-15-2025 [...] mellitus screening Expected: 07/01/2024 (Approximate), Expires: 07/01/2025 [facility] Work Phone: Comment on above: Expected: 07/01/2024 (Approximate), Expires: 07/01/2025 Start: 07-01-2024 End: 07-01-2025 Measurement of glucose 1 hour after glucose challenge for glucose tolerance test Glucose tolerance, 1 hour Lab Routine Diabetes mellitus screening Expected: 07/01/2024 (Approximate), Expires: 07/01/2025 [facility] Comment on above: Expected: 07/01/2024 (Approximate), Expires: 07/01/2025 Start: 07-01-2024 End: 07-01-2024 Patient encounter procedure [facility] Comment on above: Arrived Start: 06-01-2024 End: 06-01-2024 Patient encounter procedure [facility] Comment on above: Arrived Start: 06-01-2024 End: 06-01-2024 Professional / ancillary services management 06/01/2024 9:30 AM EDT Ancillary Procedure [facility] [address] [place] [phone] [facility] Start: 05-04-2024 End: 07-04-2024 Alpha fetoprotein, maternal Alpha fetoprotein, maternal Lab Routine 17 weeks gestation of Expected: 05/04/2024 (Approximate), Expires: 07/04/2024 [facility] Comment on above: Expected: 05/04/2024 (Approximate), Expires: 07/04/2024 Start: 05-04-2024 End: 05-04-2025 US for US OB ANATOMY SINGLE W US OB CERVICAL LENGTH Imaging Routine Screening, , for anatomic survey Expected: 05/04/2024 (Approximate), Expires: 05/04/2025 [facility] Comment on above: Expected: 05/04/2024 (Approximate), Expires: 05/04/2025 Start: 05-04-2024 End: 05-04-2024 Patient encounter procedure 05/04/2024 9:30 AM EDT Routine [facility] [address] [place] [phone] Kayy Lopez PA [address] [place], [place] [id number] Arrived [facility] Comment on above: Arrived Start: 04-25-2024 Influenza vaccination Influenza Vacc ine (#1) [facility] Start: 12-04-2023 DTaP,Tdap and Td Vaccines (7 - Td or Tdap) DTaP,Tdap and Td Vaccines (7 - Td or Tdap) [facility] Start: 06-11-2023 Adult BMI Screening Adult BMI Screen ing [facility] Start: 06-11-2023 Tobacco Screening Tobacco Screening [facility] Start: 09-01-2023 COVID-19 Vaccine ( season) COVID-19 Vaccine () [facility] Start: 04-25-2023 Influenza vaccination Influenza Vacc ine [facility] Start: 2022 Screening for malign ant neoplasm of cervix Pap Smear [facility] Start: 2013 Depression Screening Depression Scre ening [facility] CHLAMYDIA TRACHOMATI S (GENITO/STI) CHLAMYDIA TRACHOMATIS (GENITO/STI) Lab Routine Vaginal discharge Ordered: 05/04/2024 [facility] Comment on above: Ordered: 05/04/2024 Cytology Cervical or vaginal smear or scraping study Pap Smear Pathology and Cytology Routine Well woman exam with routine gynecological exam Ordered: 05/04/2024 [facility] Comment on above: Ordered: 05/04/2024 Neisseria gonorrhoea e DNA [Presence] in Unspecified specimen by ASHUTOSH with probe detection Neisseria gonorrhea DNA probe, direct Lab Routine Vaginal discharge Ordered: 05/04/2024 [facility] Comment on above: Ordered: 05/04/2024 SURESWAB(R) ADVANCED VAGINITIS PLUS, TMA SURESWAB(R) ADVANCED VAGINITIS PLUS, TMA Pathology and Cytology Routine Exposure to STD Ordered: 05/04/2024 [facility] Work Phone: Comment on above: Ordered: 05/04/2024 Immunizations Immunization Date Immunization Notes Care Provider Enmanuel bahena 06-13-2024 influenza virus vaccine, unspecified formulation Kaden Gay DO Work Phone: [facility] 07-03-2023 influenza virus vaccine, unspecified formulation Kayy GOINS Work Phone: [facility] 07-10-2021 influenza virus vaccine, unspecified formulation Starr Mclaughlinyasmine 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 Work Phone: [facility] Payers Date Payer Category Payer Medicaid [id number] 2022 Medicaid [id number] 2018 Unknown [id number] 2001 Unknown [id number] 2.16.84 [id number] 2001 Unknown [id number] 2.16.84 [id number] 2001 Unknown [id number] 2.16.84 [id number] 2001 Unknown [id number] 2.16.84 [id number] 2001 Unknown [id number] 2.16.84 [id number] 2001 Unknown [id number] 2.16.84 [id number] 2001 Unknown [id number] 2.16.84 [id number] 2001 Unknown [id number] 2.16.84 [id number] 2001 Unknown [id number] 2.16.84 [id number] Social History Date Type Detail Facility Start: 05-31-2022 Tobacco smoking stat [facility] Ex-smoker [facility] History of tobacco use Current smoker [facility] Start: 05-31-2022 Tobacco use and exposure Smokeless tobacco non-user [facility] Start: 06-11-2022 Alcohol intake 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) [facility] Start: 10-05-2020 End: 06-11-2022 History of Social function [facility] Start: 10-05-2020 End: 06-11-2022 Tobacco use panel [facility] Childcare Unknown [facility] Start: 2001 Sex Assigned At Not on file [facility] Start: 03-04-2024 Tobacco smoking stat [facility] Tobacco smoking consumption unknown [facility] Start: 03-04-2024 Tobacco Comment Vape [facility] Start: 01-18-2024 [facility] Clinical Notes 04-26-2022 to 08-30-2024 BRISEIDA Menard - 08/30/2024 1:50 PM RUDYrodericksasha ElizabethARLETTE antonio - 08/12/2024 9:30 AM BRISEIDA Smith - 07/29/2024 10:10 AM BRISEIDA Smith - 07/15/2024 10:50 AM BRISEIDA Smith - 06/01/2024 10:40 AM EDT Note Date & Type Note Facility 08-30-2024 History of Present illness Narrative Reason for Appointment: Patient ID: Cristiane Olivera is a 24 y.o. female who presents for Routine Visit [...] reviewed. Vitals: Estimated body mass index is 33.3 kg/m as calculated from the following: Height as of 04/25/22: 5' 3 . Weight as of this encounter: 188 lb. BP: 118/70 Patient's last menstrual period was 01/04/2024. ASSESSMENT & PLAN ICD-10-CM 1. 34 weeks gestation of Z3A.34 POCT urinalysis dipstick manually resulted 2. Third trimester Z34.93 POCT urinalysis dipstick manually resulted Return OB: Patient presents today for a routine obstetrics appointment. Patient is currently 34w1d . Patient states she is doing well but has complaints of being tired due to current . Patient has verbalizes frequent movement. labor precautions was discussed/given and patient was instructed to perform kick counts three times a day. Orders Placed This Encounter Procedures POCT urinalysis dipstick manually resulted Follow Up: Patient is to return to office in 2 week for routine OB appointment. Documented by BRISEIDA Menard on behalf of: BRISEIDA Menard documented in this encounter [facility] 08-12-2024 History of Present illness Narrative Reason for Appointment: Patient ID: Cristiane Olivera is a 24 y.o. female who presents for Routine Visit [...] No family history on file. SURGICAL HISTORY No past surgical history on file. REVIEW OF SYSTEMS Review of Systems: Review of Systems All other systems reviewed and are negative. OBJECTIVE Objective: Physical Exam Constitutional: Appearance: Normal [...] nursing note reviewed. Exam conducted with a centralized traffic control operator present. Vitals: Estimated body mass index is 31.35 kg/m as calculated from the following: Height as of 04/25/22: 5' 3 . Weight as of this encounter: 177 lb. BP: 106/68 Patient's last menstrual period was 01/04/2024. ASSESSMENT & PLAN ICD-10-CM 1. Third trimester Z34.93 POCT urinalysis dipstick manually resulted 2. 31 weeks gestation of Z3A.31 Patient presents today for a routine obstetrics appointment. Patient is currently 31w4d with a Estimated Date of Delivery: 10/10/24. Patient to obtain triple antibiotic OTC to apply to belly button. Patient to return to clinic in 2 weeks for routine OB appointment. Discussed vaccinations that are recommended during and patient advised she is able to obtain them from her local pharmacy. Documented by Shelley Jeffries LPN on behalf of: Kaden Gay DO documented in this encounter [facility] 07-29-2024 History of Present illness Narrative Reason for Appointment: Patient ID: [...] reviewed. Vitals: Estimated body mass index is 31.07 kg/m as calculated from the following: Height as of 04/25/22: 5' 3 . Weight as of this encounter: 175 lb 6.4 oz. BP: 108/66 Patient's last menstrual period was 01/04/2024. ASSESSMENT & PLAN ICD-10-CM 1. Third trimester Z34.93 POCT urinalysis dipstick manually resulted 2. 29 weeks gestation of Z3A.29 POCT urinalysis dipstick manually resulted Return OB: Patient presents today for a routine obstetrics appointment. Patient is currently 29w4d . Patient states she is doing well but has complaints of being tired due to current . Patient has verbalizes frequent movement. labor precautions was discussed/given and patient was instructed to perform kick counts three times a day. Orders Placed This Encounter Procedures POCT urinalysis dipstick manually resulted Follow Up: Patient is to return to office in 2 week for routine OB appointment. Documented by BRISEIDA Menard on behalf of: BRISEIDA Menard documented in this encounter [facility] 07-15-2024 History of Present illness Narrative Reason for Appointment: Patient ID: [...] nursing note reviewed. Exam conducted with a centralized traffic control operator present. Vitals: Estimated body mass index is [...] of: BRISEIDA Menard documented in this encounter [facility] 07-01-2024 History of Present illness Narrative Reason for Appointment: Patient ID: [...] nursing note reviewed. Exam conducted with a centralized traffic control operator present. Vitals: Estimated body mass index is [...] Kaden Gay DO documented in this encounter [address]08-2024 History of Present illness Narrative Reason for Appointment: Patient ID: [...] of: BRISEIDA Menard documented in this encounter [facility] 05-04-2024 History of Present illness Narrative Reason for Appointment: Patient ID: Cristiane Olivera is a 23 y.o. female who presents for Routine Visit, Well Women Visit, and STI Screening Patient presents today for Return OB appointment. [...] Constitutional: Appearance: Normal appearance. She is well-developed. Genitourinary: Vulva normal. Right Adnexa: not tender and no mass present. Left Adnexa: not tender and no mass present. No cervical discharge. Breasts: Breasts are soft. Right: Normal. Left: Normal. HENT: Head: Normocephalic. Nose: Nose normal. Mouth/Throat: Mouth: Mucous membranes are moist. Cardiovascular: Rate and Rhythm: Normal rate and regular rhythm. Pulmonary: Effort: Pulmonary effort is normal. Breath sounds: Normal breath sounds. Abdominal: General: Bowel sounds are normal. There is no distension. Palpations: Abdomen is soft. Tenderness: There is no abdominal tenderness. There is no guarding or rebound. Musculoskeletal: General: No swelling. Normal range of motion. Cervical back: Normal range of motion. Right lower leg: No edema. Left lower leg: No edema. Neurological: General: No focal deficit present. Mental Status: She is alert and oriented to person, place, and time. Skin: General: Skin is warm and dry. Psychiatric: Mood and Affect: Mood normal. Behavior: Behavior normal. Vitals and nursing note reviewed. Exam conducted with a centralized traffic control operator present. Vitals: Estimated body mass index is 25 kg/m as calculated from the following: Height as of 04/25/22: 5' 3 . Weight as of this encounter: 141 lb 1.9 oz. BP: 110/70 Patient's last menstrual period was 01/04/2024. ASSESSMENT & PLAN ICD-10-CM 1. 17 weeks gestation of Z3A.17 POCT urinalysis dipstick manually resulted Alpha fetoprotein, maternal Alpha fetoprotein, maternal 2. Screening, , for anatomic survey Z36.89 US OB ANATOMY SINGLE W US OB CERVICAL LENGTH 3. Well woman exam with routine gynecological exam Z01.419 Pap Smear 4. Exposure to STD Z20.2 SURESWAB(R) ADVANCED VAGINITIS PLUS, TMA 5. Vaginal discharge N89.8 CHLAMYDIA TRACHOMATIS (GENITO/STI) Neisseria gonorrhea DNA probe, direct Return OB/Annual Exam: Patient presents today for an annual exam/routine obstetrics appointment. Patient is currently 17w2d . Patient is doing well and states she has no complaints. Pap/cultures was obtained without difficulty and patient was given [facility] order to have obtained. Orders Placed This Encounter Procedures US OB ANATOMY SINGLE W US OB CERVICAL LENGTH CHLAMYDIA TRACHOMATIS (GENITO/STI) Neisseria gonorrhea DNA probe, direct Alpha fetoprotein, maternal POCT urinalysis dipstick manually resulted Follow Up: Patient is to return to our office in 4 weeks for routine OB appointment Documented by Vikki Gallardo LPN on behalf of: BRISEIDA Menard documented in this encounter [facility] 04-26-2022 Note HISTORY: Left fronta l headache, [...] signed by Booker Jeronimo on 04/26/2022 [address] [facility] Inside Outside Sales Representative Evaluation note Diagnosis 21 weeks gestation of Second trimester state, incidental [facility] Diagnosis 25 weeks gestation of Second trimester state, incidental Diabetes mellitus screening Screening for diabetes mellitus documented [facility] this [facility]* Diagnosis Second trimester state, incidental 27 weeks gestation of size inconsistent with dates documented [facility] Diagnosis Third trimester state, incidental 29 weeks gestation of documented in this [facility]* Diagnosis 17 weeks gestation of Screening, , for anatomic survey Encounter for anatomic survey Well woman exam with routine gynecological exam Routine gynecological examination Exposure to STD Vaginal discharge Leukorrhea, not specified as infective documented [facility]* Diagnosis Third trimester state, incidental 31 weeks gestation of documented [facility]* Diagnosis 34 weeks gestation of Third trimester state, incidental documented in this encounter [facility] HealthcareInstructionsNot on filedocumented in [facility] Summary Purpose Family History No Family History Records FoundNo Family History Records FoundNo Family History Records Found Advance Directives No Advanced Directives Records FoundNo Advanced Directives Records FoundNo Advanced Directives Records Found Additional Source Comments INFORMATION SOURCE (unrecogn ized section and content) DATE CREATED AUTHOR 02/17/2018 [facility] DATE CREATED AUTHOR AUTHOR'S ORGANIZ ATION 04/27/2022 [facility] dical Specialist DATE CREATED AUTHOR AUTHOR'S ORGANIZ ATION 09/05/2024 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 Plasma Arc Relationship Specialty Start Date End Date Yanet Barrios MD [address] [facility] [place] [address] PCP - General Family Medicine 05/31/22 Welding Machine Operator Plasma Arc Relationship Specialty Start Date End Date Yanet Barrios MD [address] [facility] [place] [address] PCP - General Family Medicine 12/31/22 Welding Machine Operator Plasma Arc Relationship Specialty Start Date End Date Yanet Barrios MD [address] [facility] [place] [address] PCP - General Family Medicine 12/31/22 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 Machine Operator Plasma Arc Relationship Specialty Start Date End Date Yanet Barrios MD [address] [facility] [place] [address] PCP - General Family Medicine 12/31/22 Welding Machine Operator Plasma Arc Relationship Specialty Start Date End Date Yanet Barrios MD [address] [place] [address] PCP - General Family Medicine 12/31/22 Welding Machine Operator Plasma Arc Relationship Specialty Start Date End Date Yanet Barrios MD [address] [facility] [place] [address] PCP - General Family Medicine 12/31/22 Welding Machine Operator Plasma Arc Relationship Specialty Start Date End Date Yanet Barrios MD [address] [facility] [place] [address] PCP - General Family Medicine 12/31/22 Welding Machine Operator Plasma Arc Relationship Specialty Start Date End Date Yanet Barrios MD [address] [place] [address] PCP - General Family Medicine 12/31/22 Welding Machine Operator Plasma Arc Relationship Specialty Start Date End Date Yanet Barrios MD [address] [place] [address] PCP - General Family Medicine 12/31/22 Welding Machine Operator Plasma Arc Relationship Specialty Start Date End Date Yanet Barrios MD [address] [place] [address] PCP - General Family Medicine 12/31/22 Welding Machine Operator Plasma Arc Relationship Specialty Start Date End Date Yanet Barrios MD [address] [place] [address] PCP - General Family Medicine 12/31/22 FOR [...] BE BASED ON THE PRIMARY CLINICAL RECORDS. [facility]. provides no warranty or guarantee of the accuracy or completeness of information in this document.
== END 2024-09-14 13:16 | disposition home or self-care (01) ==
LOC: LAB 13:15
PROVIDERS: PCP Family Medicine; Visit Provider Obstetrics & Gynecology
DX: Z34.93 Encounter for supervision of normal pregnancy, unspecified, third trimester (principal)
CPT/HCPCS: 36415; 87081

== ENCOUNTER 2024-09-29 08:19 | Inpatient (IN) | payer MEDICAID, SELFPAY ==
[2024-09-29] VITALS (52 sets, daily range): BP systolic 107–147; BP diastolic 53–86; PULSE 85–118; TEMP 36.4–38.4
--- OUTSIDE RECORDS SUMMARY | 2024-09-29 08:42 | XMS_ITS | CCD ---
Author Organization [facility] Care Team Providers Care Rhit Name Role Phone Fernando Kendrick Unavailable Unavailable Fernando Kendrick Unavailable Unavailable Provider, None Unavailable Unavailable Denis MORA, Yanet Zhang Primary Care Provider [phone] Yanet Barrios MD Primary Care Provider DEIDRAPRINCESS HOPKINSY Attending Unavailable JESSICA, KAYY Attending Unavailable DEIDRA, KADEN Attending Unavailable JESSICA, KAYY Attending Unavailable JESSICA, KAYY Attending Unavailable JESSICA, KAYY Attending Unavailable DEIDRA, KADEN Attending Unavailable JESSICA, KAYY Attending Unavailable JESSICA, KAYY Attending Unavailable DEIDRA, KADEN Attending Unavailable JESSICA, KAYY Attending Unavailable Medications [...] polysaccharide iron complex 391 mg oral capsule (20 sources) Start: 07-07-2024 End: 10-05-2024 take 1 [...] 50 mg by mouth Daily 02/07/2016 Active Completed/Discontinued Medications Medication Drug Class(es) Dates Sig (Normalized) Sig (Original) magnesium oxide 400 mg oral tablet (20 sources) Start: 05-10-2024 End: 09-14-2024 take 1 tablet by mouth once daily magnesium oxide (Mag-Ox) 400 (240 Mg) MG tablet Take 400 mg by mouth Daily 05/10/2024 09/14/2024 Discontinued (Therapy completed) Start: 04-05-2024 End: 05-05-2024 take 1 tablet by mouth once daily magnesium oxide (Mag-Ox) 400 MG tablet Indications: headache, antepartum Take 1 tablet (400 mg) by mouth Daily 30 tablet 6 04/05/2024 05/05/2024 Active Problems Active Problems Problem Classification Problem [...] 07-15-2024 Episodic Other and delivery including normal (18 sources) Second trimester ; Translations: [Encounter for [...] [34 weeks gestation of ] 08-30-2024 Episodic Residual codes; unclassified (2 sources) Gestation period, 36 weeks; Translations: [36 weeks gestation of ] 09-14-2024 Episodic Residual codes; unclassified (2 sources) Gestation period, 37 weeks; Translations: [37 weeks gestation of ] 09-21-2024 Episodic Residual codes; unclassified (2 sources) Gestation period, 38 weeks; Translations: [38 weeks gestation of ] 09-27-2024 Episodic Past or Other Problems Problem Classification [...] Range Facility Urinalysis macro (dipstick) panel (U)on 09-21-2024 Bilirubin, UA Negative Negative - 4(70) +++ mg/dL [facility] Blood, UA Negative Negative - 50 Franc/mcL [facility] Clarity, UA Clear [facility] re Color, UA Yellow [facility] Glucose, [facility]A Negative Negative - 1999(110) ++++ mg/dL [facility] Interpretation and review of laboratory results Abnormal [facility] Ketones, UA Negative Negative - 160(16) ++++ mg/dL [facility] Leukocytes, UA Positive Negative - 500+++ Fox/mcL [facility] Comment on above: small Nitrite, UA Negative Negative - Positive [facility] pH, UA 6 5 - 9 [facility] e Protein, UA Negative Negative - 1999(20) ++++ mg/dL [facility] Spec Grav, UA 1.02 1 - 1.03 [facility] Urobilinogen, UA 0.2 0.2 - 12 mg/dL [facility] e ALL MISCELLANEOUS TESTon MISCELLANEOUS TEST COMMENT . [facility] H ealthcare Comment on above: Test Ordered: [id number] Strep Gp B Culture+Rflx Strep Gp B Culture+Rflx Negative CB Reference Range: Negative Centers for Disease Control and Prevention (CDC) and [place] [employer]stetricians and Gynecologists (ACOG) guidelines for prevention of group B streptococcal (GBS) disease specify co-collection of a vaginal and rectal swab specimen to maximize sensitivity of GBS detection. Per the CDC and ACOG, swabbing both the lower vagina and rectum substantially increases the yield of detection compared with sampling the vagina alone. Penicillin G, ampicillin, or cefazolin are indicated for intrapartum prophylaxis of GBS colonization. Reflex susceptibility testing should be performed prior to use of clindamycin only on GBS isolates from penicillin- allergic women who are considered a high risk for anaphylaxis. Treatment with vancomycin without additional testing is warranted if resistance to clindamycin is noted. Performed at: [facility] [address] [id number] Window Glass Cutter Off: Clifford Ba PhD, Phone: [phone] [facility] [id number] Group B Streptococcus Colonization Detection Culture With Re [facility] Urinalysis macro (dipstick) panel (U)on 09-14-2024 Bilirubin, UA Positive Negative - 4(70) +++ mg/dL [facility] Comment on above: small Blood, UA Negative Negative - 50 Franc/mcL [facility] Healthcare Clarity, UA Clear [facility] re Color, UA Yellow [facility] Glucose, UA Negative Negative - 1999(110) ++++ mg/dL [facility] Interpretation and review of laboratory results Abnormal [facility] Ketones, UA Negative Negative - 160(16) ++++ mg/dL [facility] Leukocytes, UA Trace Negative - 500+++ Fox/mcL [facility] Nitrite, UA Negative Negative - Positive [facility] pH, UA 6 5 - 9 [facility] Protein, UA Positive Negative - 1999(20) ++++ mg/dL [facility] Comment on above: 30 Spec Grav, UA 1.03 1 - 1.03 [facility] care Urobilinogen, UA 0.2 0.2 - 12 mg/dL [facility] Urinalysis macro (dipstick) panel (U)on 08-30-2024 Bilirubin, UA Negative Negative - 4(70) +++ mg/dL [facility] Blood, UA Negative Negative - 50 Franc/mcL [facility] Healthcare Clarity, UA Clear [facility] re Color, UA Yellow [facility] Glucose, UA Negative Negative - 1999(110) ++++ mg/dL [facility] Interpretation and review of laboratory results Abnormal [facility] Ketones, UA Positive Negative - 160(16) ++++ mg/dL [facility] Comment on above: trace Leukocytes, UA Trace Negative - 500+++ Fox/mcL [facility] Healthcare Nitrite, UA Negative Negative - Positive [facility] pH, UA 6 5 - 9 [facility] Protein, UA Negative Negative - 1999(20) ++++ mg/dL [facility] Spec Grav, UA 1.03 1 - 1.03 [facility] Urobilinogen, UA 0.2 0.2 - 12 mg/dL [facility] Urinalysis macro (dipstick) panel (U)on 08-12-2024 Bilirubin, UA Negative Negative - 4(70) +++ mg/dL [facility] Healthcare Blood, UA Negative Negative - 50 Franc/mcL [facility] Healthcare Clarity, UA Clear [facility] re Color, UA Yellow [facility] Glucose, UA Negative Negative - 1999(110) ++++ mg/dL [facility] Healthcare Interpretation and review of laboratory results Abnormal [facility] Ketones, UA Negative Negative - 160(16) ++++ mg/dL [facility] Healthcare Leukocytes, UA Positive Negative - 500+++ Fox/mcL [facility] Healthcare Comment on above: small Nitrite, UA Negative Negative - Positive [facility] Healthcare pH, UA 6 5 - 9 [facility] Protein, UA Trace Negative - 1999(20) ++++ mg/dL [facility] Healthcare Spec Grav, UA 1.03 1 - 1.03 [facility] Urobilinogen, UA 0.2 0.2 - 12 mg/dL [facility] Healthcare [facility] Urinalysis macro (dipstick) panel (U)on 07-29-2024 Bilirubin, UA Negative Negative - 4(70) +++ mg/dL [facility] Blood, UA Negative Negative - 50 Franc/mcL [facility] Healthcare Clarity, UA Clear [facility] re Color, UA Yellow [facility] Glucose, UA Negative Negative - 1999(110) ++++ mg/dL [facility] Interpretation and review of laboratory results Normal [facility] Ketones, UA Negative Negative - 160(16) ++++ mg/dL [facility] Healthcare Leukocytes, UA Negative Negative - 500+++ Fox/mcL [facility] Healthcare Nitrite, UA Negative Negative - Positive [facility] pH, UA 6 5 - 9 [facility] Protein, UA Negative Negative - 1999(20) ++++ mg/dL [facility] Healthcare Spec Grav, UA 1.025 1 - 1.03 [facility] Urobilinogen, UA 1.0 0.2 - 12 mg/dL [facility] Urinalysis macro (dipstick) panel (U)on 07-15-2024 Bilirubin, UA Negative Negative - 4(70) +++ mg/dL [facility] Healthcare Blood, UA Negative Negative - 50 Franc/mcL [facility] Healthcare Clarity, UA Clear [facility] re Color, UA Yellow [facility] Glucose, UA Negative Negative - 1999(110) ++++ mg/dL [facility] Interpretation and review of laboratory results Normal [facility] Ketones, UA Negative Negative - 160(16) ++++ mg/dL [facility] Leukocytes, UA Negative Negative - 500+++ Fox/mcL [facility] Nitrite, UA Negative Negative - Positive [facility] pH, UA 6.5 5 - 9 [facility] Protein, UA Negative Negative - 1999(20) ++++ mg/dL [facility] Spec Grav, UA 1.02 1 - 1.03 [facility] Urobilinogen, UA 1.0 0.2 - 12 mg/dL [facility] ALL CBC WITH AUTO DIFFon Erythrocyte distribution width (RBC) [Ratio] 12.1 % 11.0 - 15.0 % [facility] Hematocrit (Bld) [Volume fraction] 31.8 % Low 36.0 - 48.0 % [facility] e Hemoglobin (Bld) [Mass/Vol] 10.3 g/dL Low 12.0 - 16.0 g/dL [facility] MCH (RBC) [Entitic mass] 27.7 pg 26.7 - 34.0 pg [facility] MCHC (RBC) [Mass/Vol] 32.4 g/dL 29.9 - 35.2 g/dL [facility] MCV (RBC) [Entitic vol] 85.5 fL 81.0 - 99.0 fL [facility] Platelet mean volume (Bld) [Entitic vol] 13 fL 9.5 - 13.5 fL [facility] PLT 130 Low [facility] e TB RBC 3.72 Low [facility] Healthcar e TB WBC 7.6 [facility] e GLUCOSE 1 HOURon 07-05-2024 Glucose [Mass/Vol] 94 mg/dL NINF - 13 0 mg/dL [facility] e MHPT DIFFERENTIALon 07-05-20 24 BASOPHILS ABS MANUAL 0 [facility] BASOPHILS PERCENT MANUAL 0 % Low 0.2 - 2.0 % [facility] Eosinophils (Bld) [#/Vol] 0.15 10*3/uL [facility] EOSINOPHILS PERCENT MANUAL 2 % 0.9 - 7.0 % [facility] Lymphocytes (Bld) [#/Vol] 2.12 10*3/uL [facility] LYMPHOCYTES PERCENT MANUAL 28 % 20.5 - 60.0 % [facility] Monocytes (Bld) [#/Vol] 0.3 10*3/uL [facility] MONOCYTES PERCENT MANUAL 4 % 1.7 - 12.0 % [facility] SEGMENTED NEUT ABSOLUTE MANUAL 5.01 [facility] SEGMENTED NEUTROPHILS % MANUAL 66 43.0 - 75.0 [facility] No Panel Informationon 07-05 Interpretation and review of laboratory results Abnormal [facility] Urinalysis macro (dipstick) panel (U)on 07-01-2024 Bilirubin, UA Negative Negative - 4(70) +++ mg/dL [facility] Blood, UA Negative Negative - 50 Franc/mcL [facility] Healthcare Clarity, UA Clear [facility] re Color, UA Yellow [facility] Healthcar e Glucose, UA Negative Negative - 1999(110) ++++ mg/dL [facility] Interpretation and review of laboratory results Normal [facility] Ketones, UA Negative Negative - 160(16) ++++ mg/dL [facility] Leukocytes, UA Negative Negative - 500+++ Fox/mcL [facility] Healthcare Nitrite, UA Negative Negative - Positive [facility] pH, UA 7 5 - 9 [facility] Healthcar e Protein, UA Negative Negative - 1999(20) ++++ mg/dL [facility] Spec Grav, UA 1.02 1 - 1.03 [facility] Urobilinogen, UA 0.2 0.2 - 12 mg/dL [facility] Urinalysis macro (dipstick) panel (U)on 06-01-2024 Bilirubin, UA Negative Negative - 4(70) +++ mg/dL [facility] Blood, UA Negative Negative - 50 Franc/mcL [facility] Healthcare Clarity, UA Clear [facility] Healthca re Color, UA Yellow [facility] Health[facility] e Glucose, UA Negative Negative - 1999(110) ++++ mg/dL [facility] Interpretation and review of laboratory results Normal [facility] Ketones, UA Not detected Negative - 160(16) ++++ mg/dL [facility] Leukocytes, UA Negative Negative - 500+++ Fox/mcL [facility] Nitrite, UA Negative Negative - Positive [facility] pH, UA 6.5 5 - 9 [facility] Plasticell e Protein, UA Negative Negative - 1999(20) ++++ mg/dL [facility] Spec Grav, UA 1.025 1 - 1.03 [facility] Urobilinogen, UA 0.2 0.2 - 12 mg/dL [facility]astic[facility] e IGP,APTIMA HPV,AGE GDLNon AGE GDLN ACOG TESTING Note . [facility] Comment on above: TESTS RESULT FLAG UN [facility] REF RANGE LAB Clinician Provided Cytology Information Source.............Cervix No. of containers..01 ThinPrep Vial Age Algo ACOG Lizz... FLAG LEGEND: L-Low Normal,H-High Normal,LL-Alert Low,HH-Alert High <-Panic Low,>-Panic High,A-Abnormal,AA-Critical Abnormal Performed at: 01 =[facility] [address] [place] [address] Reanna So MD, IGP, RFX APTIMA HPV ASCU Note . [facility] Comment on above: TESTS RESULT FLAG UN ITS REF RANGE LAB DIAGNOSIS: 02 NEGATIVE FOR INTRAEPITHELIAL LESION OR MALIGNANCY. Specimen adequacy: 02 Satisfactory for evaluation. Endocervical and/or squamous metaplastic cells (endocervical component) are present. Performed by: Vanessa Ashby Crimping Machine Operator ([facility]) . 02 Note: Note 03 The [...] <-Panic Low,>-Panic High,A-Abnormal,AA-Critical Abnormal Performed at: 02 [facility] [address] [place] [address] Kamron Mejia MD, 03 WB [facility] [address] [address] Reanna So MD, Performed at: =G - [facility] [address] [id number] Window Glass Cutter Off: Reanna So MD, Phone: [phone] Performed at: [facility] - [facility] [address] [place], [place] [id number] Window Glass Cutter Off: Kamron Mejia MD, Phone: [phone] SPATULA-ALONE CERVIX [facility] AFP, SERUM, OPEN SPINA BIFID Aon 05-09-2024 AFP MOM 1.13 . [facility] AFP VALUE 45.9 ng/mL . [facility] COMMENT: Comment . [facility] Comment on above: Maria Del Carmen Sears , Ph.D., [facility] Director References: Available Upon Request. Multiples Of Median Cutoffs For AFP Elevations Ochoa 2.5 Black 2.8 IDD 2.0 Twins 4.5 Abbreviation Definitions IDD - Insulin Dep Diabetes OSBR - Open Spina Bifida Risk For further inquiries contact [employer] at [phone]. This test was developed and its performance characteristics determined by [employer]. It has not been cleared or approved by the Food and Drug Administration. Performed at: [facility] [address] [place], [place] [id number] Window Glass Cutter Off: Emma Ortiz [facility], Phone: [phone] GEST. AGE ON COLLECTION DATE 17.3 . weeks [facility] GESTAT. AGE BASED ON LMP . [facility] Comment on above: Recalculations are n ot recommended when gestational dating by LMP and ultrasound are within 10 days. INSULIN DEP DIABETES No . [facility] Healthcare INTERPRETATION Comment . [facility] Angus jiménez Comment on above: Interpretation: Scre en Negative [...] Customer Services to discuss available options. The [place] [employer] recommends amniocentesis be offered to women age 35 and older. [age] [facility] MULTIPLE GESTATION No . [facility] OSBR RISK 1 IN [phone] . [facility] Angus jiménez RACE . [facility] RESULTS Report . [facility] TEST RESULTS: Negative . [facility] care WEIGHT 141 . lbs [facility] N N LMP 2 17 N 1 Y 141 N N N N N White/ [facility] URETHRITIS/DISCHARGE PLUS VA GINITIS (HTRX)on 05-05-2024 ATOPOBIUM VAGINAE 29.133 Abnormal [facility] ATOPOBIUM VAGINAE Detected Abnormal [facility] BVAB 2,3 (BACTERIAL VAGINOSIS ASSOCIATED BACTERIA 2, 3); MOBILUNCUS SPP 0.000 [facility] BVAB 2,3 (BACTERIAL VAGINOSIS ASSOCIATED BACTERIA 2, 3); MOBILUNCUS SPP Not detected [facility] MISTY ALBICANS, PARAPSILOSIS, TROPICALIS 0.000 [facility] MISTY ALBICANS, PARAPSILOSIS, TROPICALIS Not detected [facility] MISTY GLABRATA 0.000 [facility] Hea lthcare MISTY GLABRATA Not detected [facility]althcare MISTY KRUSEI 0.000 [facility] Healt hcare MISTY KRUSEI Not detected [facility] CHLAMYDIA TRACHOMATIS 0.000 [facility] CHLAMYDIA TRACHOMATIS Not detected [facility] ERMB, C; MEFA 20.870 Abnormal [facility] care ERMB, C; MEFA Detected Abnormal [facility] GARDNERELLA VAGINALIS 27.078 Abnormal [facility] GARDNERELLA VAGINALIS Detected Abnormal [facility] Interpretation and review of laboratory results Abnormal [facility] MEGASPHAERA (TYPES 1, 2) 0.000 [facility] MEGASPHAERA (TYPES 1, 2) Not detected [facility] MYCOPLASMA GENITALIUM 0.000 [facility] MYCOPLASMA GENITALIUM Not detected [facility] NEISSERIA GONORRHOEAE 0.000 [facility] NEISSERIA GONORRHOEAE Not detected [facility] TET B, TET M 19.649 Abnormal [facility] are TET B, TET M Detected Abnormal [facility] are TRICHOMONAS VAGINALIS 0.000 [facility] TRICHOMONAS VAGINALIS Not detected [facility] Urinalysis macro (dipstick) panel (U)on 05-04-2024 Bilirubin, UA Negative Negative - 4(70) +++ mg/dL [facility] Blood, UA Negative Negative - 50 Franc/mcL [facility] Clarity, UA Clear [facility] re Color, UA Yellow [facility] e Glucose, UA Negative Negative - 2000(110) ++++ mg/dL [facility] Interpretation and review of laboratory results Normal [facility] Ketones, UA Negative Negative - 160(16) ++++ mg/dL [facility] Leukocytes, UA Negative Negative - 500+++ Fox/mcL [facility] Nitrite, UA Negative Negative - Positive [facility] pH, UA 7.5 5 - 9 [facility] Healthcar e Protein, UA Negative Negative - 2000(20) ++++ mg/dL [facility] Spec Grav, UA 1.020 1 - 1.03 [facility] care Urobilinogen, UA 0.2 0.2 - 12 mg/dL [facility] Coding Summaryon 02-17-2018 Coding Summary CODING DATE: 02/17/2018 [facility] STATUS: Home PAYOR: Medicaid HMO ADMIT [...] Yanet Loera Date Saved: 02/17/2018 07:09 am [facility] Provider Orderson 02-16-2018 Provider Orders [id number] [facility] Wound Cultureon 02-16-2018 WBC (Leukocytes) Moderate growth [...] <=0.5/9.5 VerifiedVanc S 2 Verified Normal [facility] Comment on above: Performed By: #### [id number] ####[facility] (DEFAULT)[address] [place] [address] Vital Signs Date Time Vital Sign Value Performing Clinician Johanna joy 09-27-2024 14:15-0500 Body mass index (BMI) [Ratio] 34.61 kg/m2 Kayy Claysville PA Work Phone: [facility] 09-27-2024 14:15-0500 Body weight 88.63 kg Kayy Jessica PA Work Phone: [facility] 09-27-2024 14:15-0500 Diastolic blood pressure 78 mm[Hg] Kayy Jessica PA Work Phone: [facility] 09-27-2024 14:15-0500 Systolic blood pressure 120 mm[Hg] Kayy Claysville PA Work Phone: [facility] 09-21-2024 13:51-0500 Body mass index (BMI) [Ratio] 34.44 kg/m2 Kayy Claysville PA Work Phone: [facility] 09-21-2024 13:51-0500 Body weight 88.18 kg Kayy Jessica PA Work Phone: [facility] 09-21-2024 13:51-0500 Diastolic blood pressure 70 mm[Hg] Kayy Jessica PA Work Phone: [facility] 09-21-2024 13:51-0500 Systolic blood pressure 120 mm[Hg] Kayy Claysville PA Work Phone: [facility] 09-14-2024 13:23-0500 Body mass index (BMI) [Ratio] 34.19 kg/m2 Kaden Deidra DO Work Phone: [facility] 09-14-2024 13:23-0500 Body weight 87.54 kg Kaden Deidra DO Work Phone: [facility] 09-14-2024 13:23-0500 Diastolic blood pressure 74 mm[Hg] Kaden Deidra DO Work Phone: [facility] 09-14-2024 13:23-0500 Systolic blood pressure 118 mm[Hg] Kaden Deidra DO Work Phone: [facility] 08-30-2024 14:18-0500 Body mass index (BMI) [Ratio] 33.3 kg/m2 Kayy Jessica PA Work Phone: [facility] 08-30-2024 14:18-0500 Body weight 85.28 kg Kayy Claysville PA Work Phone: [facility] 08-30-2024 14:18-0500 Diastolic blood pressure 70 mm[Hg] Kayy Claysville PA Work Phone: [facility] 08-30-2024 14:18-0500 Systolic blood pressure 118 mm[Hg] Kyay Claysville PA Work Phone: [facility] 08-12-2024 09:39-0500 Body mass index (BMI) [Ratio] 31.35 kg/m2 Kaden Deidra DO Work Phone: [facility] 08-12-2024 09:39-0500 Body weight 80.29 kg Kaden Deidra DO Work Phone: [facility] 08-12-2024 09:39-0500 Diastolic blood pressure 68 mm[Hg] Kaden Deidra DO Work Phone: [facility] 08-12-2024 09:39-0500 Systolic blood pressure 106 mm[Hg] Kaden Deidra DO Work Phone: [facility] 07-29-2024 10:35-0500 Body mass index (BMI) [Ratio] 31.07 kg/m2 Kayy Claysville PA Work Phone: [facility] 07-29-2024 10:35-0500 Body weight 79.56 kg Kayy Jessica PA Work Phone: [facility] 07-29-2024 10:35-0500 Diastolic blood pressure 66 mm[Hg] Kayy Jessica PA Work Phone: [facility] 07-29-2024 10:35-0500 Systolic blood pressure 108 mm[Hg] Kayy Jessica PA Work Phone: [facility] 07-15-2024 10:59-0500 Body mass index (BMI) [Ratio] 30.01 kg/m2 Kayy Clays[place] PA Work Phone: [facility] 07-15-2024 10:59-0500 Body weight 76.84 kg Kayy Jessica PA Work Phone: [facility] 07-15-2024 10:59-0500 Diastolic blood pressure 74 mm[Hg] Kayy Claysville PA Work Phone: [facility] 07-15-2024 10:59-0500 Systolic blood pressure 112 mm[Hg] Kayy Clays[place] PA Work Phone: [facility] 07-01-2024 09:18-0500 Body mass index (BMI) [Ratio] 28.59 kg/m2 Kaden Deidra DO Work Phone: [facility] 07-01-2024 09:18-0500 Body weight 73.21 kg Kaden Deidra DO Work Phone: [facility] [facility] 07-[facility]-2024 09:18-0500 Diastolic blood pressure 60 mm[Hg] Kaden Deidra DO Work Phone: [facility] 07-01-2024 09:18-0500 Systolic blood pressure 110 mm[Hg] Kaden Deidra DO Work Phone: [facility] 06-01-2024 10:53-0400 Body mass index (BMI) [Ratio] 26.82 kg/m2 Kayy Claysville PA Work Phone: [facility] 06-01-2024 10:53-0400 Body weight 68.67 kg Kayy Jessica PA Work Phone: [facility] 06-01-2024 10:53-0400 Diastolic blood pressure 58 mm[Hg] Kayy Claysville PA Work Phone: [facility] 06-01-2024 10:53-0400 Systolic blood pressure 110 mm[Hg] Kayy Jessica PA Work Phone: [facility] 05-04-2024 09:49-0400 Body mass index (BMI) [Ratio] 25 kg/m2 Kayy Lopez PA Work Phone: [facility] 05-04-2024 09:49-0400 Body weight 64.01 kg Kayy Lopez PA Work Phone: [facility] 05-04-2024 09:49-0400 Diastolic blood pressure 70 mm[Hg] Kayy Lopez PA Work Phone: [facility] 05-04-2024 09:49-0400 Systolic blood pressure 110 mm[Hg] Kayy Lopez PA Work Phone: [facility] Healthcare Encounters Encounter Date Encounter Type Care Provider Facility Start: 09-27-2024 End: 09-27-2024 Bamboo flowsheet Kayy Lopez PA Work Phone: [facility] Start: 09-27-2024 End: 09-27-2024 Bamboo flowsheet Kayy Lopez PA Work Phone: [facility] Start: 09-27-2024 End: 09-27-2024 Office outpatient visit 15 minutes Kayy Lopez PA Work Phone: [facility] Comment on above: 38 weeks gestation o f ; Third trimester Start: 09-27-2024 End: 09-27-2024 ambulatory KAYY LOPEZ Not Available Start: 09-21-2024 End: 09-21-2024 Bamboo flowsheet Kayy Lopez PA Work Phone: [facility] Start: 09-21-2024 End: 09-21-2024 Bamboo flowsheet Kayy Lopez PA Work Phone: [facility] Start: 09-21-2024 End: 09-21-2024 Office outpatient visit 15 minutes Kayy Lopez PA Work Phone: [facility] Comment on above: Third trimester preg shanna; 37 weeks gestation of Start: 09-21-2024 End: 09-21-2024 ambulatory KAYY LOPEZ Not Available Start: 09-14-2024 End: 09-14-2024 Bamboo flowsheet Kaden Deidra DO Work Phone: [facility] Start: 09-14-2024 End: 09-19-2024 Bamboo flowsheet Kaden Deidra DO Work Phone: [facility] Start: 09-14-2024 End: 09-19-2024 Clinisync Result Encounter Generic External Data Provider [facility] External Department Unsolicited Start: 09-14-2024 End: 09-14-2024 Office outpatient visit 15 minutes Kaden Deidra DO Work Phone: [facility] Comment on above: Third trimester preg shanna; 36 weeks gestation of Start: 09-14-2024 End: 09-14-2024 ambulatory KADEN DEIDRA Not Available Start: 08-30-2024 End: 08-30-2024 Bamboo flowsheet Kayy GOINS Work Phone: [facility] Start: 08-30-2024 End: 08-30-2024 Bamboo flowsheet Kayy GOINS Work Phone: [facility] Start: 08-30-2024 End: 08-30-2024 Office outpatient visit 15 minutes Kayy GOINS [...] Start: 07-29-2024 End: 07-29-2024 Bamboo flowsheet Kayy GOINS Work Phone: [facility] Start: 07-29-2024 [...] 15 minutes Kaden Deidra DO Work Phone: [facility] Comment on above: 25 weeks gestation o f ; Second trimester ; Diabetes mellitus screening Start: 07-01-2024 End: 07-01-2024 ambulatory KADEN GAY Not Available Start: 06-01-2024 End: 06-01-2024 Bamboo flowsheet Kayy GOINS Work Phone: [facility] Start: 06-01-2024 End: 06-01-2024 Bamboo flowsheet Kayy GOINS Work Phone: [facility] Start: 06-01-2024 End: 06-01-2024 Office outpatient visit 15 minutes Kayy GOINS Work Phone: [facility] Comment on above: 21 [...] Patient encounter procedure Kayy GOINS Work Phone: [facility] Healthcare Start: 05-04-2024 End: 05-04-2024 Periodic preventive [...] KADEN DEIDRA Not Available Start: 09-21-2023 Refill Satrr Shoemaker BOAT DESIGNER-BRIM PRESSER Work Phone: [facility] Start: 02-14-2018 End: 02-14-2018 Ambulatory Fernando Kendrick Facility:[facility] Procedures Date Procedure Procedure Detail Performing Clinician Start: 09-21-2024 Urnls dip stick/tablet rgnt non-auto w/o micrscp Kayy GOINS Work Phone: Start: 09-14-2024 Urnls dip stick/tablet rgnt non-auto w/o micrscp Kaden Deidra DO Work Phone: Start: 09-14-2024 ALL MISCELLANEOUS TEST Kaden Deidra DO Work Phone: Start: 08-30-2024 Urnls dip stick/tablet rgnt non-auto [...] surgery S/P tonsillectomy and adenoidectomy Starr Shoemaker BOAT DESIGNER-BRIM PRESSER Work Phone: Plan of Treatment Date Care Activity Detail Author Start: 09-27-2024 End: 09-27-2024 Patient encounter procedure [facility] Comment on above: Arrived Start: 09-21-2024 End: 09-21-2024 Patient encounter procedure [facility] Comment on above: Arrived Start: 09-14-2024 End: 09-14-2025 CULTURE, GROUP B STREP WITH SUSCEPTIBLITY CULTURE, GROUP B STREP WITH SUSCEPTIBLITY Lab Routine Third trimester Expected: 09/14/2024, Expires: 09/14/2025 [facility] Work Phone: Comment on above: Expected: 09/14/2024 , Expires: 09/14/2025 Start: 09-14-2024 End: 09-14-2024 Patient encounter procedure [facility] Comment on above: Arrived Start: 08-30-2024 End: 08-30-2024 Patient encounter procedure [facility] Comment on above: Arrived Start: 08-12-2024 End: 08-12-2024 Patient encounter procedure [facility] Comment on above: Arrived Start: 07-29-2024 End: 07-29-2024 Patient encounter procedure 07/29/2024 10:10 AM EST Routine [facility] [address] [place] [id number] Kayy Lopez PA [address] [place], [place] [id number] Arrived [facility] Comment on above: Arrived Start: 07-29-2024 End: 07-29-2024 Professional / ancillary services management 07/29/2024 9:30 AM EST Ancillary Procedure [facility] [address] [place] [phone] [facility] Start: 07-15-2024 End: 07-15-2025 US for US OB SCAN FOR GROWTH Imaging Routine size inconsistent with dates Expected: 07/15/2024 (Approximate), Expires: 07/15/2025 [facility] Healthcare Work Phone: Comment on above: Expected: 07/15/2024 (Approximate), Expires: 07/15/2025 Start: 07-15-2024 End: 07-15-2024 Patient encounter procedure [facility] Comment on above: Arrived Start: 07-01-2024 End: 07-01-2025 CBC panel - Blood by Automated count CBC Lab Routine Diabetes mellitus screening Expected: 07/01/2024 (Approximate), Expires: 07/01/2025 [facility] Work Phone: Comment on above: Expected: 07/01/2024 (Approximate), Expires: 07/01/2025 Start: 07-01-2024 End: 07-01-2025 Measurement of glucose 1 hour after glucose challenge for glucose tolerance test Glucose tolerance, 1 hour Lab Routine Diabetes mellitus screening Expected: 07/01/2024 (Approximate), Expires: 07/01/2025 [facility] Comment on above: Expected: 07/01/2024 (Approximate), Expires: 07/01/2025 Start: 07-01-2024 End: 07-01-2024 Patient encounter procedure [facility] Comment on above: Arrived Start: 06-01-2024 End: 06-01-2024 Patient encounter procedure [facility] Comment on above: Arrived Start: 06-01-2024 End: 06-01-2024 Professional / ancillary services management 06/01/2024 9:30 AM EDT Ancillary Procedure [facility] [address] [place] [id number] [facility] Start: 05-04-2024 End: 07-04-2024 Alpha fetoprotein, maternal Alpha fetoprotein, maternal Lab Routine 17 weeks gestation of Expected: 05/04/2024 (Approximate), Expires: 07/04/2024 [facility] Comment on above: Expected: 05/04/2024 (Approximate), Expires: 07/04/2024 Start: 05-04-2024 End: 05-04-2025 US for US OB ANATOMY SINGLE W US OB CERVICAL LENGTH Imaging Routine Screening, , for anatomic survey Expected: 05/04/2024 (Approximate), Expires: 05/04/2025 [facility] Healthcare Comment on above: Expected: 05/04/2024 (Approximate), Expires: 05/04/2025 Start: 05-04-2024 End: 05-04-2024 Patient encounter procedure 05/04/2024 9:30 AM EDT Routine [facility] [address] [phone] Kayy Lopez PA [address] [place], [place] [id number] Arrived [facility] Comment on above: Arrived Start: 04-25-2024 Influenza vaccination Influenza Vacc ine (#1) [facility] Start: 12-04-2023 DTaP,Tdap and Td Vaccines (7 - Td or Tdap) DTaP,Tdap and Td Vaccines (7 - Td or Tdap) [facility] Start: 06-11-2023 Adult BMI Screening Adult BMI Screen ing [facility] Start: 06-11-2023 Tobacco Screening Tobacco Screening [facility] Start: 04-25-2023 COVID-19 Vaccine ( season) COVID-19 Vaccine ( season) [facility] Start: 04-25-2023 Influenza vaccination Influenza Vacc ine [facility] Start: 2022 Screening for malign ant neoplasm of cervix Pap Smear [facility] Start: 2013 Depression Screening Depression Scre ening [facility] CHLAMYDIA TRACHOMATI S (GENITO/STI) CHLAMYDIA TRACHOMATIS (GENITO/STI) Lab Routine Vaginal discharge Ordered: 05/04/2024 [facility] Comment on above: Ordered: 05/04/2024 Cytology Cervical or vaginal smear or scraping study Pap Smear Pathology and Cytology Routine Well woman exam with routine gynecological exam Ordered: 05/04/2024 [facility] Comment on above: Ordered: 05/04/2024 Neisseria gonorrhoea e DNA [Presence] in Unspecified specimen by ASUHTOSH with probe detection Neisseria gonorrhea DNA probe, direct Lab Routine Vaginal discharge Ordered: 05/04/2024 [facility] Comment on above: Ordered: 05/04/2024 SURESWAB(R) ADVANCED VAGINITIS PLUS, TMA SURESWAB(R) ADVANCED VAGINITIS PLUS, TMA Pathology and Cytology Routine Exposure to STD Ordered: 05/04/2024 [facility] Work Phone: Comment on above: Ordered: 05/04/2024 Immunizations Immunization Date Immunization Notes Care Provider Enmanuel bahena 06-13-2024 influenza virus vaccine, unspecified formulation Kaden Gay DO Work Phone: [facility] 07-03-2023 influenza virus vaccine, unspecified formulation Kayy GOINS Work Phone: [facility] 07-10-2021 influenza virus vaccine, unspecified formulation Starr Navid AMAYA-BRIM PRESSER Work Phone: [facility] Payers Date Payer Category Payer Medicaid [id number] 2022 Medicaid [id number] 2018 Unknown [id number] 2001 Unknown [id number] 2.16.84 [id number] 2001 Unknown [id number] 2.16.84 [id number] 2001 Unknown [id number] 2.16.84 [id number] 2001 Unknown [id number] 2.16.84 [id number] 2001 Unknown [id number] 2.16.84 [id number] 2001 Unknown [id number] 2.16.84 [id number] 2001 Unknown [id number] 2.16.84 [id number] 2001 Unknown [id number] 2.16.84 [id number] 2001 Unknown [id number] 2.16.84 [id number] 2001 Unknown [id number] 2.16.84 [id number] 2001 Unknown [id number] 2.16.84 [id number] 2001 Unknown [id number] 2.16.84 [id number] Social History Date Type Detail Facility Start: 05-31-2022 Tobacco smoking stat [facility] Ex-smoker [facility] History of tobacco use Current smoker [facility] Start: 05-31-2022 Tobacco use and exposure Smokeless tobacco non-user [facility] Start: 06-11-2022 Alcohol intake 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) [facility] Start: 10-05-2020 End: 06-11-2022 History of Social function [facility] Start: 10-05-2020 End: 06-11-2022 Tobacco use panel [facility] Childcare Unknown [facility] Start: 2001 Sex Assigned At Not on file P [facility] Start: 03-04-2024 Tobacco smoking stat [facility] Tobacco smoking consumption unknown [facility] Start: 03-04-2024 Tobacco Comment Vape [facility] Start: 01-18-2024 [facility] Clinical Notes 04-26-2022 to 09-27-2024 Kayy Lopez, BRISEIDA - 09/27/2024 1:50 PM Pito Gallardo, ARLETTE - 09/21/2024 1:50 PM Alcon Wick, ARLETTE - 09/14/2024 1:00 PM BRISEIDA Smith - 08/30/2024 1:50 PM BRISEIDA Smith - 07/29/2024 10:10 AM EST Note Date & Type Note Facility 09-27-2024 History of Present illness Narrative Reason for Appointment: Patient ID: Cristiane Olivera is a 24 y.o. female who presents for Routine Visit Patient presents today for Return OB appointment. MEDICATIONS Current Outpatient Medications Medication Instructions iron polysaccharides (PROFE) 391.3 mg, Oral, Daily sertraline (ZOLOFT) 50 mg, Daily ALLERGIES [...] reviewed. Vitals: Estimated body mass index is 34.61 kg/m as calculated from the following: Height as of 04/25/22: 5' 3 . Weight as of this encounter: 195 lb 6.4 oz. BP: 120/78 Patient's last menstrual period was 01/04/2024. ASSESSMENT & PLAN ICD-10-CM 1. 38 weeks gestation of Z3A.38 2. Third trimester Z34.93 Return OB: Patient presents today for a routine obstetrics appointment. Patient is currently 38w1d . Patient states she is doing well but has complaints of being tired due to current . Patient has verbalizes frequent movement. labor precautions was discussed/given and patient was instructed to perform kick counts three times a day. No orders of the defined types were placed in this encounter. Follow Up: Patient is to return to office in 1 week for routine OB appointment. Documented by Crystal Wilder LPN on behalf of: BRISEIDA Menard documented in this encounter [facility] 09-21-2024 History of Present illness Narrative Reason for Appointment: Patient ID: Cristiane Olivera is a 24 y.o. female who presents for Routine Visit Patient presents today for Return OB appointment. MEDICATIONS Current Outpatient Medications Medication Instructions iron polysaccharides (PROFE) 391.3 mg, Oral, Daily sertraline (ZOLOFT) 50 mg, Daily ALLERGIES [...] nursing note reviewed. Exam conducted with a as400 programmer analyst present. Vitals: Estimated body mass index is 34.44 kg/m as calculated from the following: Height as of 04/25/22: 5' 3 . Weight as of this encounter: 194 lb 6.4 oz. BP: 120/70 Patient's last menstrual period was 01/04/2024. ASSESSMENT & PLAN ICD-10-CM 1. Third trimester Z34.93 POCT urinalysis dipstick manually resulted 2. 37 weeks gestation of Z3A.37 POCT urinalysis dipstick manually resulted Return OB: Patient presents today for a routine obstetrics appointment. Patient is currently 37w2d . Patient states she is doing well but has complaints of being tired due to current . Patient has verbalizes frequent movement. labor precautions was discussed/given and patient was instructed to perform kick counts three times a day. Orders Placed This Encounter Procedures POCT urinalysis dipstick manually resulted Follow Up: Patient is to return to office in 1 week for routine OB appointment. Documented by Vikki Gallardo LPN on behalf of: BRISEIDA Menard documented in this encounter [facility] 09-14-2024 History of Present illness Narrative Reason for Appointment: Patient ID: Cristiane Olivera is a 24 y.o. female who presents for Routine Visit Patient presents today for Return OB appointment. MEDICATIONS Current Outpatient Medications Medication Instructions iron polysaccharides (PROFE) 391.3 mg, Oral, Daily sertraline (ZOLOFT) 50 mg, Daily ALLERGIES [...] appearance. She is well-developed. Genitourinary: Vulva normal. Cardiovascular: Rate and Rhythm: Normal rate and [...] nursing note reviewed. Exam conducted with a as400 programmer analyst present. Vitals: Estimated body mass index is 34.19 kg/m as calculated from the following: Height as of 04/25/22: 5' 3 . Weight as of this encounter: 193 lb. BP: 118/74 Patient's last menstrual period was 01/04/2024. ASSESSMENT & PLAN ICD-10-CM 1. Third trimester Z34.93 CULTURE, GROUP B STREP WITH SUSCEPTIBLITY POCT urinalysis dipstick manually resulted CULTURE, GROUP B STREP WITH SUSCEPTIBLITY 2. 36 weeks gestation of Z3A.36 Patient is doing well but has complaints of being tired and having maternal discomfort due to . Patient verbalized frequent movement and was instructed to perform kick counts three times per day. labor precautions were given, LARC consent was signed/declined, and GBS was obtained. Cervical check was performed and patient is 2cm dilated. Orders Placed This Encounter Procedures CULTURE, GROUP B STREP WITH SUSCEPTIBLITY POCT urinalysis dipstick manually resulted Follow Up: Patient is to return to office in 1 week for routine OB appointment Documented by Zoie Wick LPN on behalf of: Kaden Gay DO documented in this encounter [facility] 08-30-2024 History of Present illness Narrative Reason [...] of: BRISEIDA Menard documented in this encounter [facility] 08-12-2024 History of Present illness Narrative Reason [...] nursing note reviewed. Exam conducted with a as400 programmer analyst present. Vitals: Estimated body mass index is [...] Kaden Gay DO documented in this encounter [facility] 07-29-2024 History of Present illness Narrative Reason [...] of: BRISEIDA Menard documented in this encounter [facility] 07-15-2024 History of Present illness Narrative Reason [...] nursing note reviewed. Exam conducted with a as400 programmer analyst present. Vitals: Estimated body mass index is [...] of: BRISEIDA Menard documented in this encounter [facility] 07-01-2024 History of Present illness Narrative Reason [...] nursing note reviewed. Exam conducted with a as400 programmer analyst present. Vitals: Estimated body mass index is [...] Kaden Gay DO documented in this encounter [facility] 06-01-2024 History of Present illness Narrative Reason for [...] of: BRISEIDA Menard documented in this encounter [facility] 05-04-2024 History of Present illness Narrative Reason [...] nursing note reviewed. Exam conducted with a as400 programmer analyst present. Vitals: Estimated body mass index is [...] obtained without difficulty and patient was given [facility] order to have obtained. Orders Placed This [...] of: BRISEIDA Menard documented in this encounter [facility] 04-26-2022 Note HISTORY: Left fronta l headache, [...] signed by Booker Jeronimo on 04/26/2022 [address] [facility] Electrocardiogram Technician Evaluation note Diagnosis 21 weeks gestation of Second trimester state, incidental documented in this encounter [facility] HealthcareEvaluation note* Diagnosis 25 weeks gestation of Second trimester state, incidental Diabetes mellitus screening Screening for diabetes mellitus documented in this encounter [facility] HealthcareEvaluation note* Diagnosis Second trimester state, incidental 27 weeks gestation of size inconsistent with dates documented in this encounter [facility] HealthcareEvaluation note* Diagnosis Third trimester state, incidental 29 weeks gestation of documented in this encounter [facility] HealthcareEvaluation note* Diagnosis 17 weeks gestation of Screening, , for anatomic survey Encounter for anatomic survey Well woman exam with routine gynecological exam Routine gynecological examination Exposure to STD Vaginal discharge Leukorrhea, not specified as infective documented in this encounter [facility] HealthcareEvaluation note* Diagnosis Third trimester state, incidental 31 weeks gestation of documented in this encounter [facility] HealthcareEvaluation note* Diagnosis 34 weeks gestation of Third trimester state, incidental documented [facility]* Diagnosis Third trimester state, incidental 36 weeks gestation of documented in this encounter [facility]* Diagnosis Third trimester state, incidental 37 weeks gestation of documented in this encounter [facility]* Diagnosis 38 weeks gestation of Third trimester state, incidental documented in this encounter [facility] HealthcareInstructionsNot on filedocumented in [facility] Purpose Family History No Family History Records FoundNo Family History Records FoundNo Family History Records Found Advance Directives No Advanced Directives Records FoundNo Advanced Directives Records FoundNo Advanced Directives Records Found Additional Source Comments INFORMATION SOURCE (unrecogn ized section and content) DATE CREATED AUTHOR 02/17/2018 [facility] l DATE CREATED AUTHOR AUTHOR'S ORGANIZ ATION 04/27/2022 [facility] DATE CREATED AUTHOR AUTHOR'S ORGANIZ ATION 09/28/2024 [facility] EPIC Reason for Visit (unrecogniz ed section and content) Reason Comments Med Refill Reason Comments Routine Visit Reason Comments Routine Visit Well Women Visit STI Screening Care Teams (unrecognized sec tion and content) Rhit Relationship Specialty Start Date End Date Yanet Barrios MD [address] [place] [address] PCP - General Family Medicine 05/31/22 Rhit Relationship Specialty Start Date End Date Yanet Barrios MD [address] [place] [address] PCP - General Family Medicine 12/31/22 Rhit Relationship Specialty Start Date End Date Yanet Barrios MD [address] [facility] [place] [address] PCP - General Family Medicine 12/31/22 Rhit Relationship Specialty Start Date End Date Yanet Barrios MD [address] [place] [address] PCP - General Family Medicine 12/31/22 Rhit Relationship Specialty Start Date End Date Yanet Barrios MD [address] [place] [address] PCP - General Family Medicine 12/31/22 Rhit Relationship Specialty Start Date End Date Yanet Barrios MD [address] [place] [address] PCP - General Family Medicine 12/31/22 Rhit Relationship Specialty Start Date End Date Yanet Barrios MD [address] [place] [address] PCP - General Family Medicine 12/31/22 Rhit Relationship Specialty Start Date End Date Yanet Barrios MD [address] [place] [address] PCP - General Family Medicine 12/31/22 Rhit Relationship Specialty Start Date End Date Yanet Barrios MD [address] [place] [address] PCP - General Family Medicine 12/31/22 Rhit Relationship Specialty Start Date End Date Yanet Barrios MD [address] [place] [address] PCP - General Family Medicine 12/31/22 Rhit Relationship Specialty Start Date End Date Yanet Barrios MD [address] [place] [address] PCP - General Family Medicine 12/31/22 Rhit Relationship Specialty Start Date End Date Yanet Barrios MD [address] [facility] [place] [address] PCP - General Family Medicine 12/31/22 Rhit Relationship Specialty Start Date End Date Yanet Barrios MD [address] [facility] [place] [address] PCP - General Family Medicine 12/31/22 FOR [...] BE BASED ON THE PRIMARY CLINICAL RECORDS. [facility] [employer] [facility]. provides no warranty or guarantee of the accuracy or completeness of information in this document.
[2024-09-29 09:01] LABS: Bilirubin Urine NEGATIVE (NEGATIVE); Blood Urine SMALL (NEGATIVE); Clarity Urine CLEAR (CLEAR); Color Urine LT. YELLOW (YELLOW); Glucose Urine UA NEGATIVE (NEGATIVE); Ketones Urine TRACE mg/dL (NEGATIVE); Leukocyte Esterase Urine SMALL (NEGATIVE); Nitrite Urine NEGATIVE (NEGATIVE); Protein Urine TRACE mg/dL (NEG/TRACE); Specific Gravity Urine >=1.030 (1.005-1.025); Urobilinogen Urine 0.2 EU/dL (0.2-1.0)
[2024-09-29 09:02] LABS: Urine Microscopic Indicated YES
[2024-09-29 09:14] LABS: Bacteria Urine SMALL #/HPF (NONE SEEN); Cast Seen? NONE SEEN #/LPF (NONE SEEN); Crystals Seen? None Seen #/HPF (None Seen); Mucus Urine TRACE (NONE SEEN); Squamous Epithelial Cell Urine MODERATE #/LPF (NONE/RARE); Urine Culture Indicated YES
[2024-09-29] MEDS: 0.9 % SODIUM CHLORIDE 1,000 ML 125 ML IV ×2 (11:23→13:08)
[2024-09-29] MEDS: ROPIVACAINE HCL/PF 400 MG/200 ML PREMIX 6 MG EPIDURAL (11:23)
[2024-09-29 11:41] LABS: Hematocrit 30.3 % (36.0-48.0); Hemoglobin 9.3 g/dL (12.0-16.0); Mean Corpuscular HGB Conc 30.7 g/dL (29.9-35.2); Mean Corpuscular Hemoglobin 23.3 pg (26.7-34.0); Mean Corpuscular Volume 75.8 fL (81.0-99.0); Platelet Count 70 10^3/uL (150-450); Red Cell Distribution Width 16.1 % (11.0-15.0); White Blood Count 11.7 10^3/uL (4.0-11.0)
[2024-09-29 11:48] LABS: Amphetamine Screen Urine NEGATIVE (NEGATIVE); Barbiturates Screen Urine NEGATIVE (NEGATIVE); Benzodiazepines Screen Urine NEGATIVE (NEGATIVE); Buprenorphine Screen Urine NEGATIVE (NEGATIVE); Cannabinoid Screen Urine NEGATIVE (NEGATIVE); Cocaine Screen Urine NEGATIVE (NEGATIVE); Methadone Screen Urine NEGATIVE (NEGATIVE); Methamphetamines Screen Urine NEGATIVE (NEGATIVE); Opiate Screen Urine NEGATIVE (NEGATIVE); Oxycodone Screen Urine NEGATIVE (NEGATIVE); Phencyclidine Screen Urine NEGATIVE (NEGATIVE); Tricyclic Antidepressant Urine NEGATIVE (NEGATIVE)
[2024-09-29 14:33] LABS: Platelet Count 88 10^3/uL (150-450)
[2024-09-29] MEDS: OXYTOCIN/0.9 % SODIUM CHLORIDE 10 UNITS/500 ML PLAST..BAG 6 UNIT IV (14:36)
[2024-09-29] MEDS: AMPICILLIN SODIUM 2,000 MG in 0.9 % SODIUM CHLORIDE 100 ML 200 MG IV (17:18)
[2024-09-29] MEDS: LIDOCAINE HCL 1% 200 MG/20 ML MDV INJ (19:49)
[2024-09-29] MEDS: OXYTOCIN/0.9 % SODIUM CHLORIDE 20 UNITS/1,000 ML PLAST..BAG 125 UNIT IV (19:57)
--- NOTE | 2024-09-29 20:09 | PM.OBPRCVD ---
Procedure Intrapartal events: None Induction method: per pitocin protocol Delivery augmentation: rupture of membranes and pitocin Delivery monitor: external FHT and external uterine Route of delivery: Episiotomy Description: midline L&D Laceration Description: perineal - 2nd degree Delivery repair: Vicryl Anesthesia type: Epidural Disposition: floor Delivery date: 09/29/24 Gender: male presentation: vertex Placental delivery description: Spontaneous cord description: 3 Vessels
--- NOTE | 2024-09-29 20:58 | PC.NURSE ---
0930- Up ambulating in hallway with mother and boyrfriend. Tolerating contractions well. DR Gay notified of patient and status in the OR and orders received. 0950: Continues to ambulate and leak clear fluid. 1015: OMKAR khan and DR Gay at bedside briefly and discuss plan of care. SVE- 4cm, 100%, -2. Patient requesting epidural. 1030_ IV fluid bolus started and [employer] notified in OR.
[2024-09-29] MEDS: ACETAMINOPHEN 325 MG TABLET 650 MG PO (21:17)
[2024-09-29] MEDS: IBUPROFEN 600 MG TABLET PO (21:17)
[2024-09-29] MEDS: BENZOCAINE/MENTHOL 85 GRAM SPRAY BOTTLE 1 APPLIC TOPICAL (21:20)
[2024-09-29] MEDS: AMPICILLIN SODIUM 1,000 MG in 0.9 % SODIUM CHLORIDE 50 ML 100 MG IV (21:20)
[2024-09-29] MEDS: GLYCERIN/WITCH HAZEL PADS 1 PAD TOPICAL (21:20)
[2024-09-30] VITALS (12 sets, daily range): BP systolic 125–138; BP diastolic 60–92; PULSE 85–103; TEMP 36.3–37.2
[2024-09-30] MEDS: AMPICILLIN SODIUM 1,000 MG in 0.9 % SODIUM CHLORIDE 50 ML 100 MG IV ×6 (01:22→21:44)
[2024-09-30] MEDS: IBUPROFEN 600 MG TABLET PO ×3 (04:35→18:11)
[2024-09-30] MEDS: ACETAMINOPHEN 325 MG TABLET 650 MG PO ×3 (04:36→18:11)
[2024-09-30 06:25] LABS: Basophils Percent Auto 0.2 % (0.2-2.0); Eosinophils Percent Auto 0.3 % (0.9-7.0); Hematocrit 26.4 % (36.0-48.0); Hemoglobin 8.2 g/dL (12.0-16.0); Immature Granulocytes Abs Auto 0.07 10^3/uL (0.00-0.03); Immature Granulocytes Pct Auto 0.6 % (0.0-0.5); Lymphocytes Percent Auto 15.8 % (20.5-60.0); Mean Corpuscular HGB Conc 31.1 g/dL (29.9-35.2); Mean Corpuscular Hemoglobin 23.2 pg (26.7-34.0); Mean Corpuscular Volume 74.8 fL (81.0-99.0); Monocytes Absolute Auto 0.8 10^3/uL (0.3-0.8); Monocytes Percent Auto 6.6 % (1.7-12.0); Neutrophils Absolute Auto 9.5 10^3/uL (1.4-6.5); Neutrophils Percent Auto 76.5 % (43.0-75.0); Platelet Count 61 10^3/uL (150-450); Red Blood Count 3.53 10^6/uL (4.20-5.40); Red Cell Distribution Width 16.5 % (11.0-15.0); White Blood Count 12.4 10^3/uL (4.0-11.0)
--- NOTE | 2024-09-30 08:14 | PM.OBPN ---
OB - PN: Subj Subjective Patient comments: no complaints and pain well controlled [place] status: doing well Exam Constitutional Vital Signs, click to edit/add: Last Vital Signs Temp 97.5 F L 09/30/24 04:44 Pulse 103 H 09/30/24 00:07 Resp 16 09/29/24 13:37 BP 126/77 09/30/24 00:07 O2 Del Method Room Air 09/30/24 00:07 Documenting provider has reviewed patient's vital signs: yes Common normals: no apparent distress Respiratory Common normals: normal respiratory effort and clear to auscultation bilaterally Cardio Common normals: regular rate and regular rhythm GI Common normals: Normal to inspection, nondistended, normoactive bowel sounds present Extremity Common normals: no clubbing, cyanosis or edema and no calf tenderness Results Labs Labs: Short CBC 09/29/24 09/29/24 09/30/24 Range/Units 11:35 13:59 06:13 WBC 11.7 H 12.4 H (4.0-11.0) 10^3/uL Hgb 9.3 L 8.2 L (12.0-16.0) g/dL Hct 30.3 L 26.4 L (36.0-48.0) % Plt Count 70 L 88 L 61 L (150-450) 10^3/uL Urine 09/29/24 Range/Units 08:25 Urine Color Lt. yellow (YELLOW) Urine Clarity Clear (CLEAR) Urine pH 6.0 (5.0-9.0) Ur Specific [place] >=1.030 A (1.005-1.025) Urine Protein Trace (NEG/TRACE) mg/dL Urine Glucose (UA) Negative (NEGATIVE) mg/dL OB - PN: A/P Plan - Vaginal Delivery day: 1 Plan: routine care Time Spent with Patient Time: Total time spent is greater than 50% in coordination of care (as documented) at patient's floor/unit and/or counseling patient: Total time spent with greater than 50% in coordination of care (as documented) at patient's floor/unit and/or counseling patient: less than 15 minutes
[2024-09-30] MEDS: SERTRALINE HCL 50 MG TABLET PO (09:39)
[2024-09-30] MEDS: DOCUSATE SODIUM 100 MG CAPSULE PO ×2 (09:39→21:44)
[2024-10-01] MEDS: IBUPROFEN 600 MG TABLET PO ×2 (06:12→17:46)
[2024-10-01] MEDS: ACETAMINOPHEN 325 MG TABLET 650 MG PO ×2 (06:12→17:47)
--- NOTE | 2024-10-01 07:25 | W.PC.ACHO ---
Registration Status: ADM IN Primary Language: Indian Preferred Language: Indian Report received at 0720 from Hannah OQUENDO. Care assumed. Active Medications Generic Name Dose Route Start Last Admin Trade Name Carmen PRN Reason Stop Dose Admin Acetaminophen 650 mg 09/29/24 20:11 10/01/24 06:12 Acetaminophen 325 Mg Tablet PO 650 mg Q6H PRN Administration Mild Pain Al Hydroxide/Mg Hydroxide 2,400 mg 09/29/24 20:11 Magnesium Hydroxide 2,400 Mg/10 Ml Oral.Susp PO Q6H PRN Dyspepsia Benzocaine/Menthol 1 applic 09/29/24 20:11 09/29/24 21:20 Benzocaine/Menthol 85 Gram [place] Bottle TOPICAL 1 applic Q2H PRN Administration Pain Carboprost Tromethamine 250 mcg 09/29/24 10:23 Carboprost Tromethamine 250 Mcg/Ml 1 Ml Vial IM 10/01/24 10:23 Q15M PRN Bleeding Diphtheria/Pertussis/Tetanus Vacc 0.5 ml 10/01/24 09:00 Adacel Diph,Pertuss(Acell),Tet Vac/Pf 0.5 Ml Adult Syringe IM 10/01/24 09:01 .ONCE ONE Docusate Sodium 100 mg 09/30/24 09:00 09/30/24 21:44 Docusate Sodium 100 Mg Capsule PO 100 mg BID NATALYA Administration Tranexamic Acid 1,000 mg/ 110 mls @ 440 mls/hr 09/29/24 10:23 Sodium Chloride IV 10/01/24 10:23 ONCE PRN Uterine Bleeding Sodium Chloride 1,000 mls @ 125 mls/hr 09/29/24 10:30 09/29/24 19:56 Sodium Chloride 0.9% 1,000 Ml IV 0 mls/hr .Q8H NATALYA Infusion Ampicillin 1,000 mg/ Sodium 50 mls @ 100 mls/hr 09/30/24 10:00 09/30/24 21:44 Chloride IV 100 mls/hr Q4H NATALYA Administration Ibuprofen 600 mg 09/29/24 20:11 10/01/24 06:12 Ibuprofen 600 Mg Tablet PO 600 mg Q6H PRN Administration Moderate Pain Measles/Mumps/Rubella Vaccine Live 0.5 ml 10/01/24 09:00 Measles,Mumps,Rubella Vacc/Pf 0.5 Ml Vial SQ 10/01/24 09:01 .ONCE ONE Methylergonovine Maleate 0.2 mg 09/29/24 10:23 Methylergonovine Maleate 0.2 Mg/Ml Ampule IM 10/01/24 10:23 ONCE PRN Uterine Contractility/Contract Methylergonovine Maleate 0.2 mg 09/29/24 10:23 Methylergonovine Maleate 0.2 Mg Tablet PO 10/01/24 10:23 Q4H PRN Uterine Contractility/Contract Misoprostol 600 mcg 09/29/24 10:23 Misoprostol 100 Mcg Tablet PO 10/01/24 10:23 ONCE PRN Uterine Bleeding Misoprostol 800 mcg 09/29/24 10:23 Misoprostol 100 Mcg Tablet SL 10/01/24 10:23 ONCE PRN Uterine Bleeding Misoprostol 1,000 mcg 09/29/24 10:23 Misoprostol 100 Mcg Tablet CO 10/01/24 10:23 ONCE PRN Uterine Bleeding Ondansetron HCl 4 mg 09/29/24 10:23 Ondansetron Pf 4 Mg/2 Ml Vial IV Q6H PRN Nausea And Vomiting Oxytocin 10 unit 09/29/24 10:23 Oxytocin 10 Unit/Ml Vial IM 10/01/24 10:23 ONCE PRN bleeding Senna 17.2 mg 09/29/24 20:00 Sennosides 8.6 Mg Tablet PO QHS PRN Constipation Sertraline HCl 50 mg 09/30/24 09:00 09/30/24 09:39 Sertraline Hcl 50 Mg Tablet PO 50 mg QD NATALYA Administration Simethicone 80 mg 09/29/24 20:11 Simethicone 80 Mg Tab.Chew PO QID PRN Abdominal Distention Temazepam 15 mg 09/29/24 20:11 Temazepam 15 Mg Capsule PO QHS PRN Sleep Witch Pat/Glycerin 1 pad 09/29/24 20:11 09/29/24 21:20 Glycerin/Witch Pat Pads TOPICAL 1 pad Q2H PRN Administration Pain Neurology Patient orientation (short person,place,time,situation list) Respiratory Oxygen Delivery Method Room Air Oxygen Delivery Method Room Air Oxygen Delivery Method Room Air Oxygen Delivery Method Room Air Oxygen Delivery Method Room Air Oxygen Delivery Method Room Air Cardiology Heart Sounds Strong,Regular Bowels Bowel Pattern No Bowel Movement Bowel Pattern No Bowel Movement Renal Bladder Pattern Continent Bladder Pattern Continent Bladder Pattern Continent
[2024-10-01 07:43] LABS: Basophils Absolute Auto 0.1 10^3/uL (0.0-0.1); Basophils Percent Auto 0.5 % (0.2-2.0); Eosinophils Absolute Auto 0.1 10^3/uL (0.0-0.7); Eosinophils Percent Auto 1.3 % (0.9-7.0); Hematocrit 28.4 % (36.0-48.0); Hemoglobin 8.6 g/dL (12.0-16.0); Immature Granulocytes Abs Auto 0.15 10^3/uL (0.00-0.03); Immature Granulocytes Pct Auto 1.5 % (0.0-0.5); Lymphocytes Absolute Auto 2.9 10^3/uL (1.2-3.8); Lymphocytes Percent Auto 29.2 % (20.5-60.0); Mean Corpuscular HGB Conc 30.3 g/dL (29.9-35.2); Mean Corpuscular Volume 75.9 fL (81.0-99.0); Monocytes Absolute Auto 0.5 10^3/uL (0.3-0.8); Monocytes Percent Auto 5.2 % (1.7-12.0); Neutrophils Absolute Auto 6.1 10^3/uL (1.4-6.5); Neutrophils Percent Auto 62.3 % (43.0-75.0); Platelet Count 94 10^3/uL (150-450); Red Blood Count 3.74 10^6/uL (4.20-5.40); Red Cell Distribution Width 16.5 % (11.0-15.0); White Blood Count 9.8 10^3/uL (4.0-11.0)
--- NOTE | 2024-10-01 07:57 | P.OBPN_ITS ---
OB - PN: Subj Subjective Patient comments: no complaints and pain well controlled [place] status: doing well Exam Constitutional Vital Signs, click to edit/add: Last Vital Signs Temp 98.9 F 09/30/24 16:10 Pulse 90 09/30/24 23:37 Resp 18 09/30/24 16:10 BP 125/60 09/30/24 23:37 O2 Del Method Room Air 09/30/24 23:30 Documenting provider has reviewed patient's vital signs: yes Common normals: no apparent distress Respiratory Common normals: normal respiratory effort and clear to auscultation bilaterally Cardio Common normals: regular rate and regular rhythm GI Common normals: Normal to inspection, nondistended, normoactive bowel sounds present Extremity Common normals: no clubbing, cyanosis or edema Results Labs Labs: Short CBC 10/01/24 Range/Units 06:37 WBC 9.8 (4.0-11.0) 10^3/uL Hgb 8.6 L (12.0-16.0) g/dL Hct 28.4 L (36.0-48.0) % Plt Count 94 L (150-450) 10^3/uL Urinary Catheter Management Urinary Catheter Management Urethral: Cath placed during this visit: yes, but has since been removed by the nurse Insertion date: 09/29/24 Insertion time: 12:00 Removal date: 09/29/24 Removal time: 18:40 OB - PN: A/P Plan - Vaginal Delivery day: 2 Plan: routine care, discharge home and follow up 6 weeks Time Spent with Patient Time: Total time spent is greater than 50% in coordination of care (as documented) at patient's floor/unit and/or counseling patient: Total time spent with greater than 50% in coordination of care (as documented) at patient's floor/unit and/or counseling patient: less than 15 minutes
[2024-10-01 08:18] VITALS: BP 143/72; PULSE 88
[2024-10-01] MEDS: DOCUSATE SODIUM 100 MG CAPSULE PO (08:20)
[2024-10-01] MEDS: SERTRALINE HCL 50 MG TABLET PO (08:21)
[2024-10-01 09:37] VITALS: BP 128/76; PULSE 93
[2024-10-01 17:30] VITALS: TEMP 36.6
[2024-10-01 17:39] VITALS: BP 133/80; PULSE 108
== END 2024-10-01 18:00 | disposition home or self-care (01) | DRG 560 ==
PROVIDERS: Admitting Provider Obstetrics & Gynecology; PCP Family Medicine; Visit Provider Obstetrics & Gynecology
DX: O70.1 Second degree perineal laceration during delivery (principal); Z37.0 Single live birth; Z3A.38 38 weeks gestation of pregnancy
CPT/HCPCS: 36415; 51702; 59050; 59410; 80307; 81001; 85025; 85027; 85049; 86850; 86900; 86901; 87086; J0290; J2795; J3010

== ENCOUNTER 2024-10-12 10:36 | Outpatient (OUT) | payer MEDICAID, SELFPAY ==
--- OUTSIDE RECORDS SUMMARY | 2024-10-12 10:46 | XMS_ITS | CCD ---
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 Name Role Phone Fernando Kendrick Unavailable Unavailable Fernando Kendrick Unavailable Unavailable Provider, None Unavailable Unavailable Yanet Cadena MD Primary Care Provider YANET CADENA Primary Care Unavailable MAGUE PRUETT Attending Unavailable Yanet Cadena MD Primary Care Provider [phone] MARTA MAHMOOD Attending Unavailable JESSICA, KAYY Attending Unavailable JESSICA, KAYY Attending Unavailable DEIDRA, KADEN Attending Unavailable JESSICA, KAYY Attending Unavailable JESSICA, KAYY Attending Unavailable JESSICA, KAYY Attending Unavailable JESSICA, KAYY Attending Unavailable DEIDRA, KADEN Attending Unavailable JESSICA, KAYY Attending Unavailable JESSICA, KAYY Attending Unavailable DEIDRA, KADEN Attending Unavailable DEIDRA, KADEN Attending Unavailable Medications Current Medications Medication Drug [...] DAY 84 tablet 0 05/05/2023 09/22/2023 Discontinued labetalol hydrochloride 100 mg oral tablet (5 sources) beta-Adrenergic Joanna Start: 10-05-2024 End: 10-05-2025 take 1 tablet by mouth in the morning labetalol (Normodyne) 100 MG tablet Indications: Anemia, unspecified type Take 1 tablet (100 mg) by mouth in the morning and 1 tablet (100 mg) before bedtime. 60 tablet 11 10/05/2024 10/05/2025 Active metoprolol tartrate 25 mg oral tablet [...] the morning. 30 capsule 0 06/11/2022 Active oseltamivir 75 mg oral capsule (2 sources) Neuraminidase Inhibitor Start: 10-08-2024 End: 10-13-2024 take 1 capsule by mouth in the morning oseltamivir (Tamiflu) 75 MG capsule Indications: Influenza A Take 1 capsule (75 mg) by mouth in the morning and 1 capsule (75 mg) before bedtime. Do all this for 5 days. 10 capsule 10/08/2024 10/13/2024 Active polysaccharide iron complex 391 mg oral capsule (20 sources) Start: 07-07-2024 End: 11-04-2024 take 1 capsule by mouth once daily iron polysaccharides (ProFe) 391.3 (180 Fe) MG capsule Indications: Anemia, unspecified type Take 1 capsule (391.3 mg) by mouth Daily 30 capsule 1 10/05/2024 11/04/2024 Active sertraline 50 mg oral tablet (20 sources) Serotonin Reuptake Inhibitor Start: 02-07-2016 take 1 tablet by mouth once daily sertraline (ZOLOFT) 50 mg tablet Take 1 tablet (50 mg total) by mouth daily. 30 tablet 0 05/04/2020 Active Completed/Discontinued Medications Medication Drug Class(es) Dates [...] tonsillitis] Onset: 2017 2017 Chronic Anxiety disorders (3 sources) Generalized anxiety disorder; Translations: [Generalized anxiety disorder] Onset: 08-19-2017 10-08-2024 Chronic Asthma (2 sources) Reactive airway disease; Translations: [Unspecified asthma, uncomplicated] Onset: 10-08-2024 10-08-2024 Chronic Cardiac dysrhythmias (3 sources) Postural orthostatic tachycardia syndrome ; Translations: [POTS (postural orthostatic tachycardia syndrome)] Onset: 09-23-2017 10-08-2024 Chronic Cardiac dysrhythmias (2 sources) Palpitations; Translations: [Tachycardia] Onset: 09-23-2017 09-23-2017 Episodic Deficiency and other anemia (2 sources) Anemia; Translations: [Anemia, unspecified] 10-05-2024 Episodic Essential hypertension (1 source) Hypertensive disorder Onset: 10-03-2024 Chronic Influenza (2 sources) Influenza due to Influenza A virus; Translations: [Influenza due to other identified influenza virus with other respiratory manifestations] 10-08-2024 Episodic Mood disorders (4 sources) Major depressive disorder; Translations: [Major depressive disorder, single episode, unspecified] Onset: 08-19-2017 10-08-2024 Chronic Nervous system congenital anomalies (2 sources) Disorder of autonomic nervous system; 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]] Onset: 10-08-2024 10-08-2024 Chronic Nonspecific chest pain (1 source) Chest pain, unspecified; Translations: [Chest pain, unspecified] Onset: 10-03-2024 Episodic Other complications of (2 sources) size does not accord with dates; Translations: [Uterine size-date discrepancy, unspecified trimester] 07-15-2024 Episodic Other lower respiratory disease (2 sources) Shortness of breath; Translations: [Dyspnea] Onset: 06-02-2018 06-02-2018 Episodic Other and delivery including normal (18 sources) Second trimester ; Translations: [Encounter for supervision of normal , unspecified, second trimester] 06-01-2024 Episodic Other screening for suspected conditions (not mental disorders or infectious disease) (4 sources) Patient encounter status; Translations: [Encounter for screening for diabetes mellitus] 07-01-2024 Episodic Other upper respiratory disease (3 sources) Allergic rhinitis; Translations: [Allergic rhinitis, unspecified] Onset: 2017 10-08-2024 Chronic Other upper respiratory disease (3 sources) Nasal congestion; Translations: [Nasal congestion] Onset: 2017 10-08-2024 Episodic Other upper respiratory infections (2 sources) Sinusitis; [...] [38 weeks gestation of ] 09-27-2024 Episodic Unclassified (1 source) Heart Palpitations Onset: 10-03-2024 Unclassified (1 source) Chest Pain, Shortness of Breath Onset: 10-03-2024 Past or Other Problems Problem Classification Problem Date Documented Date Episodic/Chronic Complications of surgical procedures or medical care [...] noninflammatory disorders of vagina] 05-04-2024 Episodic Other upper respiratory infections (1 source) Posterior rhinorrhea; Translations: [Postnasal drip] Onset: 10-28-2018 10-28-2018 Episodic Residual codes; unclassified (2 sources) Gestation period, 17 weeks; Translations: [17 weeks gestation of ] 05-04-2024 Episodic Substance-related disorders (1 source) Finding related to substance use; Translations: [Other psychoactive substance use, unspecified, uncomplicated] Onset: 01-27-2020 01-27-2020 Episodic Results Test Name Value Interpretation Reference Range Facility Laboratory - Microbiology an d Antimicrobial susceptibilityon 10-08-2024 SARS-CoV-2 (COVID-19) RNA ASHUTOSH+probe Ql (Unsp spec) - [facility] No Panel Informationon 10-08 FLU A + [facility] FLU B - [facility] Interpretation and review of laboratory results Abnormal [facility] CBC AND AUTO DIFFon 10-03-19 25 ABSOLUTE BASOPHIL 0.1 X10E9/L Normal 0.0-0.2 [facility] Comment on above: Performed By: #### C BCA, CMP, 2532-0, 00900-1, 89411-7, 38624- 4, THYR #### [facility] ([id number]) [address] [place] [address] 85126 ABSOLUTE NEUTROPHIL 5.6 X10E9/L Normal 1.5-6.6 [facility] Comment on above: Performed By: #### C BCA, CMP, 2532-0, 08883-5, 19744-1, 93670- 4, THYR #### [facility] ([id number]) [address] [place] [address] 57308 Basophils/100 WBC (Bld) 0.7 % Normal [facility] Comment on above: Performed By: #### C BCA, CMP, 2532-0, 30018-4, 47604-4, 49980- 4, THYR #### [facility] ([id number]) [address] [place] [address] 45900 Eosinophils (Bld) [#/Vol] 0.2 10*3/uL Normal 0.0-0.4 [facility] Comment on above: Performed By: #### C BCA, CMP, 2532-0, 04917-5, 83236-2, 69098- 4, THYR #### [facility] ([id number]) [address] [place] [address] 47648 Eosinophils/100 WBC (Bld) 2.8 % Normal [facility] Comment on above: Performed By: #### C BCA, CMP, 2532-0, 83260-8, 52183-4, 98583- 4, THYR #### [facility] ([id number]) [address] [place] [address] 30921 Erythrocyte distribution width (RBC) [Ratio] 17.5 % High 11.5-15.0 [facility] Comment on above: Performed By: #### C BCA, CMP, 2532-0, 08725-1, 27714-9, 35432- 4, THYR #### [facility] ([id number]) [address] [place] [address] 13901 Hematocrit (Bld) [Volume fraction] 26.9 % Low 35-47 [facility] Comment on above: Performed By: #### C BCA, CMP, 2532-0, 06331-2, 16805-3, 48170- 4, THYR #### [facility] ([id number]) [address] [place] [address] 47617 Hemoglobin (Bld) [Mass/Vol] 8.7 g/dL Low 11.7-15.5 [facility] Comment on above: Performed By: #### C BCA, CMP, 2532-0, 24422-9, 57234-6, 12607- 4, THYR #### [facility] ([id number]) [address] [place] [address] 91663 Lymphocytes (Bld) [#/Vol] 2.6 10*3/uL Normal 1.0-3.5 [facility] Comment on above: Performed By: #### C BCA, CMP, 2532-0, 60296-7, 20040-8, 21194- 4, THYR #### [facility] ([id number]) [address] [place] [address] 10010 Lymphocytes/100 WBC (Bld) 29.5 % Normal [facility] Comment on above: Performed By: #### C BCA, CMP, 2532-0, 08715-4, 84150-3, 44385- 4, THYR #### [facility] ([id number]) [address] [place] [address] 13856 MCH (RBC) [Entitic mass] 23.4 pg Low 27-34 [facility] Comment on above: Performed By: #### C BCA, CMP, 2532-0, 50294-1, 05231-8, 28367- 4, THYR #### [facility] ([id number]) [address] [place] [address] 45206 MCHC (RBC) [Mass/Vol] 32.4 g/dL Normal 32-36 [facility] Comment on above: Performed By: #### C BCA, CMP, 2532-0, 26092-9, 76599-9, 19634- 4, THYR #### [facility] ([id number]) [address] [place] [address] 38370 MCV (RBC) [Entitic vol] 72 fL Low 80-100 [facility] Comment on above: Performed By: #### C BCA, CMP, 2532-0, 85758-0, 76248-2, 86008- 4, THYR #### [facility] ([id number]) [address] [place] [address] 44354 Monocytes (Bld) [#/Vol] 0.4 10*3/uL Normal 0-0.9 [facility] Comment on above: Performed By: #### C BCA, CMP, 2532-0, 22623-2, 23105-9, 44008- 4, THYR #### [facility] ([id number]) [address] [place] [address] 22774 Monocytes/100 WBC (Bld) 4.7 % Normal [facility] Comment on above: Performed By: #### C BCA, CMP, 2532-0, 80322-7, 40262-5, 68567- 4, THYR #### [facility] ([id number]) [address] [place] [address] 64523 Neutrophils/100 WBC (Bld) 62.3 % Normal [facility] Comment on above: Performed By: #### C BCA, CMP, 2532-0, 81766-9, 33103-2, 78433- 4, THYR #### [facility] ([id number]) [address] [place] [address] 06181 Platelet mean volume (Bld) [Entitic vol] 10.5 fL Normal 7-12 [facility] Comment on above: Performed By: #### C MATTHEW, CMP, 2532-0, 75288-8, 77885-4, 37404- 4, THYR #### [facility] ([id number]) [address] [place] [address] 11653 Platelets (Bld) [#/Vol] 141 10*3/uL Low 150-450 [facility] Comment on above: Performed By: #### C MATTHEW, CMP, 2532-0, 64865-7, 32200-3, 89692- 4, THYR #### [facility] ([id number]) [address] [place] [address] 25891 RBC COUNT 3.73 X10E12/L Low 3.80-5.20 [facility] Comment on above: Performed By: #### C BCA, CMP, 2532-0, 00545-7, 74518-9, 06096- 4, THYR #### [facility] ([id number]) [address] [place] [address] 75708 WBC (Bld) [#/Vol] 8.9 10*3/uL Normal 4.0-11.0 [facility] Comment on above: Performed By: #### C BCA, CMP, 2532-0, 93296-8, 41454-6, 39352- 4, THYR #### [facility] ([id number]) [address] [place] [address] 13785 COMPREHENSIVE METABOLIC PANE Nahum 10-03-2024 Albumin [Mass/Vol] 2.8 g/dL Low 3.2-5.3 [facility] Comment on above: Performed By: #### C BCA, CMP, 2532-0, 05779-4, 79847-9, 77848- 4, THYR #### [facility] ([id number]) [address] [place] [address] 18495 ALP [Catalytic activity/Vol] 103 U/L Normal 39-130 [facility] Comment on above: Performed By: #### C BCA, CMP, 2532-0, 11730-8, 42306-6, 88417- 4, THYR #### [facility] ([id number]) [address] [place] [address] 59854 ALT [Catalytic activity/Vol] 31 U/L Normal 0-31 [facility] Comment on above: Performed By: #### C BCA, CMP, 2532-0, 88057-6, 21623-6, 27490- 4, THYR #### [facility] ([id number]) [address] [place] [address] 91790 Anion gap [Moles/Vol] 5 mmol/L Normal 5-15 [facility] Comment on above: Performed By: #### C BCA, CMP, 2532-0, 65873-0, 00662-5, 63153- 4, THYR #### [facility] ([id number]) [address] [place] [address] 85103 AST [Catalytic activity/Vol] 37 U/L Normal 0-41 [facility] Comment on above: Performed By: #### C BCA, CMP, 2532-0, 85014-9, 03717-2, 24833- 4, THYR #### [facility] ([id number]) [address] [place] [address] 72395 Bilirubin [Mass/Vol] 0.4 mg/dL Normal 0.3-1.2 [facility] Comment on above: Performed By: #### C BCA, CMP, 2532-0, 56769-3, 44564-7, 95437- 4, THYR #### [facility] ([id number]) [address] [place] [address] 12676 Calcium [Mass/Vol] 8.6 mg/dL Normal 8.5-10.5 [facility] Comment on above: Performed By: #### C BCA, CMP, 2532-0, 52371-7, 94955-7, 98169- 4, THYR #### [facility] ([id number]) [address] [place] [address] 01744 Chloride [Moles/Vol] 105 mmol/L Normal 98-109 [facility] Comment on above: Performed By: #### C BCA, CMP, 2532-0, 48226-4, 21376-0, 55213- 4, THYR #### [facility] ([id number]) [address] [place] [address] 23968 CO2 [Moles/Vol] 24 mmol/L Normal 22-32 [facility] Comment on above: Performed By: #### C BCA, CMP, 2532-0, 48089-1, 15357-4, 14354- 4, THYR #### [facility] ([id number]) [address] [place] [address] 12413 Creatinine [Mass/Vol] 0.55 mg/dL Normal 0.40-1.00 [facility] Comment on above: Result Comment: METH OD TRACEABLE TO IDMS STANDARD Performed By: #### C BCA, CMP, 2532-0, 38265-1, 14946-8, 66714-9, THYR #### [facility] ([id number]) [address] [place] [address] 25207 eGFR (CKD-EPI) NON-RACE DEPENDENT >90 Normal >59 [facility] Comment on above: Result Comment: Reported eGFR is based on the CKD-EPI 2020 equation that does not use a race coefficient. Performed By: #### C BCA, CMP, 2532-0, 89067-0, 77277-4, 72155-9, THYR #### [facility] ([id number]) [address] [place] [address] 70968 Glucose [Mass/Vol] 86 mg/dL Normal 65-99 [facility] Comment on above: Performed By: #### C BCA, CMP, 2532-0, 20258-3, 24981-8, 21509- 4, THYR #### [facility] ([id number]) [address] [place] [address] 86389 Potassium [Moles/Vol] 3.4 mmol/L Low 3.5-5.0 [facility] Comment on above: Performed By: #### C BCA, CMP, 2532-0, 43185-5, 76846-3, 20740- 4, THYR #### [facility] ([id number]) [address] [place] [address] 62795 Protein [Mass/Vol] 6.3 g/dL Normal 6.0-8.0 [facility] Comment on above: Performed By: #### C BCA, CMP, 2532-0, 90998-3, 19428-0, 98401- 4, THYR #### [facility] ([id number]) [address] [place] [address] 40310 Sodium [Moles/Vol] 134 mmol/L Normal 134-146 [facility] Comment on above: Performed By: #### C BCA, CMP, 2532-0, 38929-4, 64307-5, 47908- 4, THYR #### [facility] ([id number]) [address] [place] [address] 71064 Urea nitrogen [Mass/Vol] 13 mg/dL Normal 5-23 [facility] Comment on above: Performed By: #### C BCA, CMP, 2532-0, 47478-1, 24729-7, 09036- 4, THYR #### [facility] ([id number]) [address] [place] [address] 54646 LDH [Catalytic activity/Vol] on 10-03-2024 LDH 148 U/L Normal 100-235 [facility] Comment on above: Performed By: #### C BCA, CMP, 2532-0, 81234-6, 67884-7, 47695- 4, THYR #### [facility] ([id number]) [address] [place] [address] 79554 MAGNESIUMon 10-03-2024 Magnesium [Mass/Vol] 1.8 mg/dL Normal 1.8-2.6 [facility] Comment on above: Performed By: #### C BCA, CMP, 2532-0, 60120-7, 27947-9, 07068- 4, THYR #### [facility] ([id number]) [address] [place] [address] 51719 Natriuretic peptide B [Mass/ Vol]on 10-03-2024 Natriuretic peptide B (Bld) [Mass/Vol] 31 pg/mL Normal <100.0 [facility] Comment on above: Performed By: #### C BCA, CMP, 2532-0, 65686-6, 30161-4, 74858- 4, THYR #### [facility] ([id number]) [address] [place] [address] 74081 PROTEIN CREAT RATIOon 2024 RANDOM URINE PROTEIN 120 mg/L High <120 [facility] Comment on above: Performed By: #### C BCA, CMP, 2532-0, 12779-6, 29118-2, 45635- 4, THYR #### [facility] ([id number]) [address] [place] [address] 84587 U/PRO/RETAIL SUPPORT MANAGER RATIO CALC 0.26 High <0.2 [facility] Comment on above: Result Comment: Neph rotic Syndrome is associated with ratios >3.5 Performed By: #### C BCA, CMP, 2532-0, 55548-2, 02711-9, 48479-7, THYR #### [facility] ([id number]) [address] [place] [address] 66578 URINE CREATININE,RDM 46.03 mg/dL Normal [facility] Comment on above: Performed By: #### C BCA, CMP, 2532-0, 16397-7, 71692-7, 12834- 4, THYR #### [facility] ([id number]) [address] [place] [address] 70774 SARS/FLU A+B/RSV by NAAT/Mol ecularon 10-03-2024 SARS/FLU A+B/RSV by NAAT/Molecular FLU A PCR Negative (qualifier value) FLU B PCR Negative (qualifier value) RSV by PCR Negative (qualifier value) SARS CoV 2 Not detected (qualifier value) NOTE The Xpert Xpress SARS-CoV-2/Flu/RSV Plus test is a rapid, multiplexed real-time RT-PCR test intended for the simultaneous qualitative detection and differentiation of SARS-CoV-2, influenza A, influenza B and respiratory syncytial virus (RSV) viral RNA from individuals suspected of respiratory viral infection consistent with COVID-19 by their healthcare provider. This test has not been validated in asymptomatic patients. The Xpert Xpress SARS-CoV-2 test is intended for use by qualified and trained operators who are performing tests using either DiObex DX or iexerci.se systems and is limited to laboratories that meet the CLIA requirements to perform high and moderate complexity tests. The Xpert Xpress SARS-CoV-2/Flu/RSV Plus is only for use under the Food and Drug Administration's Emergency Use Authorization. Results are for the simultaneous detection and differentiation of SARS-CoV-2, influenza A, influenza B and RSV nucleic acids in clinical specimens. SARS-CoV-2, influenza A, influenza B and RSV RNA identified by this test are generally detectable in upper respiratory samples during the acute phase of infection. Positive results are indicative of the presence of the identified virus, but do not rule out bacterial infection or co-infection with other pathogens not detected by this test. Clinical correlation with patient history and other diagnostic information is necessary to determine patient infection status. The agent detected may not be the definite cause of disease. Negative results do not preclude SARS-CoV-2, influenza A, influenza B and RSV infection and should not be used as the sole basis for treatment or other patient management decisions. Negative results must be combined with clinical observations, patient history and epidemiological information. An Invalid result may occur with specimen-associated inhibition unable to be resolved with specimen repeat. Fact Sheet for Healthcare Providers: https://www.fda.gov/m edia/864439/download Fact Sheet for Patients: https://www.fda.gov/m edia/472129/download Normal [facility] Comment on above: Performed By: #### C BCA, CMP, 2532-0, 06269-2, 37192-4, 82728- 4, THYR #### [facility] ([id number]) [address] [place] [address] 97900 THYROID PROFILEon 10-03-2024 Free T4 [Mass/Vol] 0.91 ng/dL Normal 0.61-1.60 [facility] Comment on above: Performed By: #### C BCA, CMP, 2532-0, 79445-9, 83243-7, 61773- 4, THYR #### [facility] ([id number]) [address] [place] [address] 86446 TSH 2.93 uIU/mL Normal 0.49-4.67 [facility] Comment on above: Performed By: #### C BCA, CMP, 2532-0, 88428-0, 33800-4, 73756- 4, THYR #### [facility] ([id number]) [address] [place] [address], [place] [address] Troponin I.cardiac High sens itivity method [Mass/Vol]on 10-03-2024 1 HOUR TROP I, HIGH SENSITIVITY 4 ng/L Normal <16 [facility] Comment on above: Performed By: #### 8 9579-7 #### [facility] ([id number]) [address] [place] [address], [place] [address] TROPONIN I, HIGH SENSITIVITY 4 ng/L Normal <16 [facility] Comment on above: Performed By: #### C BCA, CMP, 2532-0, 70760-0, 53933-5, 18070- 4, THYR #### [facility] ([id number]) [address] [place] [address], [place] [address] URINE CULTUREon 10-03-2024 Bacteria identified Cx Nom (U) SPECIMEN NOTES URINE RECEIVED WITHOUT PRESERVATIVE CULTURE RESULTS 10-50,000 ORGANISMS/mL NORMAL UROGENITAL ARUN Normal [facility] Comment on above: Performed By: #### C BCA, CMP, 2532-0, 06991-9, 99662-7, 38578- 4, THYR #### [facility] ([id number]) [address] [place] [address], [place] [address] URN MACROSCOPIC NURon 2024 BILIRUBIN ALVARADO Negative Normal NEG [facility] Comment on above: Performed By: #### N UM #### [facility] ([id number]) [address] [place] [address], [place] [address] BLOOD/HGB ALVARADO Large Abnormal NEG [facility] Comment on above: Performed By: #### N UM #### [facility] ([id number]) [address] [place] [address], [place] [address] GLUCOSE ALVARADO Negative Normal NEG [facility] Comment on above: Performed By: #### N UM #### [facility] ([id number]) [address] [place] [address] [place] [address] KETONES ALVARADO Negative Normal NEG [facility] Comment on above: Performed By: #### N UM #### [facility] ([id number]) [address] [place] [address] 10324 LEUKOCYTE ESTERASE ALVARADO Small Abnormal NEG [facility] Comment on above: Performed By: #### N UM #### [facility] ([id number]) [address] [place] [address] 92022 NITRITE ALVARADO Negative Normal NEG [facility] Comment on above: Performed By: #### N UM #### [facility] ([id number]) [address] [place] [address] 42093 PH ALVARADO 7.0 Normal 5.0-8.5 [facility] Comment on above: Performed By: #### N UM #### [facility] ([id number]) [address] [place] [address] 75417 PROTEIN ALVARADO Negative Normal NEG [facility] Comment on above: Performed By: #### N UM #### [facility] ([id number]) [address] [place] [address] 06927 SPECIFIC GRAVITY ALVARADO 1.020 Normal 1.003-1.035 [facility] Comment on above: Performed By: #### N UM #### [facility] ([id number]) [address] [place] [address] 26560 UROBILINOGEN ALVARADO 0.2 eu/dL Normal <1.1 [facility] Comment on above: Performed By: #### N UM #### [facility] ([id number]) [address] [place] [address] 74248 ALL CBC WITH AUTO DIFFon BASOPHILS ABSOLUTE AUTO 0.1 [facility] Basophils/100 WBC (Bld) 0.5 % 0.2 - 2.0 % [facility] Eosinophils/100 WBC (Bld) 1.3 % 0.9 - 7.0 % [facility] Erythrocyte distribution width (RBC) [Ratio] 16.5 % High 11.0 - 15.0 % [facility] Hematocrit (Bld) [Volume fraction] 28.4 % Low 36.0 - 48.0 % [facility] Hemoglobin (Bld) [Mass/Vol] 8.6 g/dL Low 12.0 - 16.0 g/dL [facility] IMMATURE GRANULOCYTES ABS AUTO 0.15 High [facility] Immature granulocytes/100 WBC (Bld) 1.5 % High 0.0 - 0.5 % [facility] Interpretation and review of laboratory results Abnormal [facility] LYMPHOCYTES ABSOLUTE AUTO 2.9 [facility] Lymphocytes/100 WBC (Bld) 29.2 % 20.5 - 60.0 % [facility] MCH (RBC) [Entitic mass] 23 pg Low 26.7 - 34.0 pg [facility] MCHC (RBC) [Mass/Vol] 30.3 g/dL 29.9 - 35.2 g/dL [facility] MCV (RBC) [Entitic vol] 75.9 fL Low 81.0 - 99.0 fL [facility] MONOCYTES ABSOLUTE AUTO 0.5 [facility] Monocytes/100 WBC (Bld) 5.2 % 1.7 - 12.0 % [facility] NEUTROPHILS ABSOLUTE AUTO 6.1 [facility] Neutrophils/100 WBC (Bld) 62.3 % 43.0 - 75.0 % [facility] TBH EO # 0.1 [facility] PLT 94 Low [facility] TB RBC 3.74 Low [facility] WBC 9.8 [facility] CLINISYNC [facility] ALL CBC WITH AUTO DIFFon BASOPHILS ABSOLUTE AUTO 0 [facility] Basophils/100 WBC (Bld) 0.2 % 0.2 - 2.0 % [facility] Eosinophils/100 WBC (Bld) 0.3 % Low 0.9 - 7.0 % [facility] Erythrocyte distribution width (RBC) [Ratio] 16.5 % High 11.0 - 15.0 % [facility] Hematocrit (Bld) [Volume fraction] 26.4 % Low 36.0 - 48.0 % [facility] Hemoglobin (Bld) [Mass/Vol] 8.2 g/dL Low 12.0 - 16.0 g/dL [facility] IMMATURE GRANULOCYTES ABS AUTO 0.07 High [facility] Immature granulocytes/100 WBC (Bld) 0.6 % High 0.0 - 0.5 % [facility] Interpretation and review of laboratory results Abnormal [facility] LYMPHOCYTES ABSOLUTE AUTO 2 [facility] Lymphocytes/100 WBC (Bld) 15.8 % Low 20.5 - 60.0 % [facility] MCH (RBC) [Entitic mass] 23.2 pg Low 26.7 - 34.0 pg [facility] MCHC (RBC) [Mass/Vol] 31.1 g/dL 29.9 - 35.2 g/dL [facility] MCV (RBC) [Entitic vol] 74.8 fL Low 81.0 - 99.0 fL [facility] MONOCYTES ABSOLUTE AUTO 0.8 [facility] Monocytes/100 WBC (Bld) 6.6 % 1.7 - 12.0 % [facility] NEUTROPHILS ABSOLUTE AUTO 9.5 High [facility] Neutrophils/100 WBC (Bld) 76.5 % High 43.0 - 75.0 % [facility] Platelet mean volume (Bld) [Entitic vol] 0 fL Low 9.5 - 13.5 fL [facility] TBH EO # 0 [facility] TBH PLT 61 Low [facility] TB RBC 3.53 Low [facility] TBH WBC 12.4 High [facility] CLINISYNC [facility] TBH UA (CLEAN/CATCH) [employer]ACLE DATABASE CONSULTANT/SAVANAH RO IF IND.on 09-29-2024 BILIRUBIN URINE Negative NEGATIVE [facility] BLOOD URINE SMALL Abnormal NEGATIVE [facility] Clarity (U) CLEAR CLEAR [facility] Color (U) LT. YELLOW YELLOW [facility] GLUCOSE URINE UA Negative NEGATIVE mg/dL [facility] Interpretation and review of laboratory results Abnormal [facility] Ketones Ql (U) TRACE Abnormal NEGATIVE mg/dL [facility] Leukocyte esterase Test strip Ql (U) SMALL Abnormal NEGATIVE [facility] NITRITE URINE Negative NEGATIVE [facility] pH (U) 6.0 [pH] 5.0 - 9.0 [facility] PROTEIN URINE TRACE NEG/TRACE mg/dL [facility] SPECIFIC GRAVITY URINE >=1.030 Abnormal 1.005 - 1.025 [facility] URINE MICROSCOPIC INDICATED YES [facility] UROBILINOGEN URINE 0.2 EU/dL 0.2 - 1.0 EU/dL [facility] Urinalysis macro (dipstick) panel (U)on 09-21-2024 Bilirubin, UA Negative Negative - 4(70) +++ mg/dL [facility] Blood, UA Negative Negative - 50 Franc/mcL [facility] Clarity, UA Clear [facility] Color, UA Yellow [facility] Glucose, UA Negative Negative - 1999(110) ++++ mg/dL [facility] Interpretation and review of laboratory results Abnormal [facility] Ketones, UA Negative Negative - 160(16) ++++ mg/dL [facility] Leukocytes, UA Positive Negative - 500+++ Fox/mcL [facility] Comment on above: small Nitrite, UA Negative Negative - Positive [facility] pH, UA 6 5 - 9 [facility] Protein, UA Negative Negative - 2000(20) ++++ mg/dL [facility] Spec Grav, UA 1.02 1 - 1.03 [facility] Urobilinogen, UA 0.2 0.2 - 12 mg/dL [facility] ALL MISCELLANEOUS TESTon MISCELLANEOUS TEST COMMENT . [facility] Comment on above: Test Ordered: [id number] Strep Gp B Culture+Rflx Strep Gp B Culture+Rflx Negative CB Reference Range: Negative Centers for Disease Control and Prevention (CDC) and [place] [employer] (ACOG) guidelines [...] resistance to clindamycin is noted. Performed at: [facility] [address] [id number] General Administrator: Clifford Ba PhD, Phone: [phone] GROUJP B STREP [id number] Group B Streptococcus Colonization [facility] (dipstick) panel (U)on 09-14-2024 Bilirubin, UA Positive Negative - 4(70) +++ mg/dL [facility] Comment on above: small Blood, UA Negative Negative - 50 Franc/mcL [facility] Clarity, UA Clear [facility] Color, UA Yellow [facility] Glucose, UA Negative Negative - 1999(110) ++++ mg/dL [facility] Interpretation and review of laboratory results Abnormal [facility] Ketones, UA Negative Negative - 160(16) ++++ mg/dL [facility] Leukocytes, UA Trace Negative - 500+++ Fox/mcL [facility] Nitrite, UA Negative Negative - Positive [facility] pH, UA 6 5 - 9 [facility] Protein, UA Positive Negative - 1999(20) ++++ mg/dL [facility] Comment on above: 30 Spec Grav, UA 1.03 1 - 1.03 [facility] Urobilinogen, UA 0.2 0.2 - 12 mg/dL [facility] Urinalysis macro (dipstick) panel (U)on 08-30-2024 Bilirubin, UA Negative Negative - 4(70) +++ mg/dL [facility] Blood, UA Negative Negative - 50 Franc/mcL [facility] Clarity, UA Clear [facility] Color, UA Yellow [facility] Glucose, UA Negative Negative - 1999(110) ++++ mg/dL [facility] Interpretation and review of laboratory results Abnormal [facility] Ketones, UA Positive Negative - 160(16) ++++ mg/dL [facility] Comment on above: trace Leukocytes, UA Trace Negative - 500+++ Fox/mcL [facility] Nitrite, UA Negative Negative - Positive [facility] pH, UA 6 5 - 9 [facility] Protein, UA Negative Negative - 1999(20) ++++ mg/dL [facility] Spec Grav, UA 1.03 1 - 1.03 [facility] Urobilinogen, UA 0.2 0.2 - 12 mg/dL [facility] Urinalysis macro (dipstick) panel (U)on 08-12-2024 Bilirubin, UA Negative Negative - 4(70) +++ mg/dL [facility] Blood, UA Negative Negative - 50 Franc/mcL [facility] Clarity, UA Clear [facility] Color, UA Yellow [facility] Glucose, UA Negative Negative - 1999(110) ++++ mg/dL [facility] Interpretation and review of laboratory results Abnormal [facility] Ketones, UA Negative Negative - 160(16) ++++ mg/dL [facility] Leukocytes, UA Positive Negative - 500+++ Fox/mcL [facility] Comment on above: small Nitrite, UA Negative Negative - Positive [facility] pH, UA 6 5 - 9 [facility] Protein, UA Trace Negative - 1999(20) ++++ mg/dL [facility] Spec Grav, UA 1.03 1 - 1.03 [facility] Urobilinogen, UA 0.2 0.2 - 12 mg/dL [facility] Urinalysis macro (dipstick) panel (U)on 07-29-2024 Bilirubin, UA Negative Negative - 4(70) +++ mg/dL [facility] Blood, UA Negative Negative - 50 Franc/mcL [facility] Clarity, UA Clear [facility] Color, UA Yellow [facility] Glucose, UA Negative Negative - 1999(110) ++++ mg/dL [facility] Interpretation and review of laboratory results Normal [facility] Ketones, UA Negative Negative - 160(16) ++++ mg/dL [facility] Leukocytes, UA Negative Negative - 500+++ Fox/mcL [facility] Nitrite, UA Negative Negative - Positive [facility] pH, UA 6 5 - 9 [facility] Protein, UA Negative Negative - 1999(20) ++++ mg/dL [facility] Spec Grav, UA 1.025 1 - 1.03 [facility] Urobilinogen, UA 1.0 0.2 - 12 mg/dL [facility] Urinalysis macro (dipstick) panel (U)on 07-15-2024 Bilirubin, UA Negative Negative - 4(70) +++ mg/dL [facility] Blood, UA Negative Negative - 50 Franc/mcL [facility] Clarity, UA Clear [facility] Color, UA Yellow [facility] Glucose, UA Negative Negative - 1999(110) ++++ mg/dL [facility] Interpretation and review of laboratory results Normal [facility] Ketones, UA Negative Negative - 160(16) ++++ mg/dL [facility] Leukocytes, UA Negative Negative - 500+++ Fox/mcL [facility] Nitrite, UA Negative Negative - Positive [facility] pH, UA 6.5 5 - 9 [facility] Protein, UA Negative Negative - 1999(20) ++++ mg/dL [facility] Spec Grav, UA 1.02 1 - 1.03 [facility] Urobilinogen, UA 1.0 0.2 - 12 mg/dL [facility] ALL CBC WITH AUTO DIFFon Erythrocyte distribution width (RBC) [Ratio] 12.1 % 11.0 - 15.0 % [facility] Hematocrit (Bld) [Volume fraction] 31.8 % Low 36.0 - 48.0 % [facility] Hemoglobin (Bld) [Mass/Vol] 10.3 g/dL Low 12.0 - 16.0 g/dL [facility] MCH (RBC) [Entitic mass] 27.7 pg 26.7 - 34.0 pg [facility] MCHC (RBC) [Mass/Vol] 32.4 g/dL 29.9 - 35.2 g/dL [facility] MCV (RBC) [Entitic vol] 85.5 fL 81.0 - 99.0 fL [facility] Platelet mean volume (Bld) [Entitic vol] 13 fL 9.5 - 13.5 fL [facility] TBH PLT 130 Low [facility] TBH RBC 3.72 Low [facility] TBH WBC 7.6 [facility] GLUCOSE 1 HOURon 07-05-2024 Glucose [Mass/Vol] 94 mg/dL NINF - 13 0 mg/dL [facility] CL[facility] MHPT DIFFERENTIALon 07-05-20 24 BASOPHILS ABS MANUAL 0 [facility] BASOPHILS PERCENT MANUAL 0 % Low 0.2 - 2.0 % [facility] Eosinophils (Bld) [#/Vol] 0.15 10*3/uL [facility] EOSINOPHILS PERCENT MANUAL 2 % 0.9 - 7.0 % [facility] Lymphocytes (Bld) [#/Vol] 2.12 10*3/uL [facility] LYMPHOCYTES PERCENT MANUAL 28 % 20.5 - 60.0 % [facility] Monocytes (Bld) [#/Vol] 0.3 10*3/uL [facility] MONOCYTES PERCENT MANUAL 4 % 1.7 - 12.0 % [facility] SEGMENTED NEUT ABSOLUTE MANUAL 5.01 [facility] SEGMENTED NEUTROPHILS % MANUAL 66 43.0 - 75.0 [facility] No Panel Informationon 07-05 Interpretation and review of laboratory results Abnormal [facility] Urinalysis macro (dipstick) panel (U)on 07-01-2024 Bilirubin, UA Negative Negative - 4(70) +++ mg/dL [facility] Blood, UA Negative Negative - 50 Franc/mcL [facility] Clarity, UA Clear [facility] Color, UA Yellow [facility] Glucose, UA Negative Negative - 1999(110) ++++ mg/dL [facility] Interpretation and review of laboratory results Normal [facility] Ketones, UA Negative Negative - 160(16) ++++ mg/dL [facility] Leukocytes, UA Negative Negative - 500+++ Fox/mcL [facility] Nitrite, UA Negative Negative - Positive [facility] pH, UA 7 5 - 9 [facility] Protein, UA Negative Negative - 1999(20) ++++ mg/dL [facility] Spec Grav, UA 1.02 1 - 1.03 [facility] Urobilinogen, UA 0.2 0.2 - 12 mg/dL [facility] Urinalysis macro (dipstick) panel (U)on 06-01-2024 Bilirubin, UA Negative Negative - 4(70) +++ mg/dL [facility] Blood, UA Negative Negative - 50 Franc/mcL [facility] Clarity, UA Clear [facility] Color, UA Yellow [facility] Glucose, UA Negative Negative - 1999(110) ++++ mg/dL [facility] Interpretation and review of laboratory results Normal [facility] Ketones, UA Not detected Negative - 160(16) ++++ mg/dL [facility] Leukocytes, UA Negative Negative - 500+++ Fox/mcL [facility] Nitrite, UA Negative Negative - Positive [facility] pH, UA 6.5 5 - 9 [facility] Protein, UA Negative Negative - 1999(20) ++++ mg/dL [facility] Spec Grav, UA 1.025 1 - 1.03 [facility] Urobilinogen, UA 0.2 0.2 - 12 mg/dL [facility] IGP,APTIMA HPV,AGE GDLNon AGE GDLN ACOG TESTING Note . [facility] Comment on above: TESTS RESULT FLAG U NITS REF RANGE LAB Clinician Provided Cytology Information Source.............Cervix No. of containers..01 ThinPrep Vial Age Leann BEARDEN Lizz... FLAG LEGEND: L-Low Normal,H-High Normal,LL-Alert Low,HH-Alert High <-Panic Low,>-Panic High,A-Abnormal,AA-Critical Abnormal Performed at: 01 =G [facility] [address] [place] [address] Reanna So MD, IGP, RFX APTIMA HPV ASCU Note . [facility] Comment on above: TESTS RESULT FLAG UN ITS REF RANGE LAB DIAGNOSIS: 02 NEGATIVE FOR INTRAEPITHELIAL LESION OR MALIGNANCY. Specimen adequacy: 02 Satisfactory for evaluation. Endocervical and/or squamous metaplastic cells (endocervical component) are present. Performed by: Vanessa Ashby Zone Supervisor [employer] ([facility]) . 02 Note: Note 03 The Pap [...] <-Panic Low,>-Panic High,A-Abnormal,AA-Critical Abnormal Performed at: 02 [facility] [address] [place] [address] Kamron Mejia MD, [address] [address] Reanna So MD, Performed at: =G - [address] [id number] General Administrator: Reanna So MD, Phone: [phone] Performed at: [facility] [address] [address] [place], [place] [id number] General Administrator: Kamron Mejia MD, Phone: [phone] SPATULA-ALONE CERVIX CLINISYNC [facility] AFP, SERUM, OPEN SPINA BIFID Aon 05-09-2024 AFP MOM 1.13 . [facility] AFP VALUE 45.9 ng/mL . [facility] COMMENT: Comment . [facility] Comment on above: Maria Del Carmen Sears , Ph.D., [facility] Director References: Available Upon Request. Multiples Of Median Cutoffs For AFP Elevations Ochoa 2.5 Black 2.8 IDD 2.0 Twins 4.5 Abbreviation Definitions IDD - Insulin Dep Diabetes OSBR - Open Spina Bifida Risk For further inquiries contact [employer] at [phone]. This test was developed and its performance characteristics determined by [employer]. It has not been cleared or approved by the Food and Drug Administration. Performed at: [facility] [address] [place], [place] [id number] General Administrator: Emma Ortiz [facility], Phone: [phone] GEST. AGE ON COLLECTION DATE 17.3 . weeks [facility] GESTAT. AGE BASED ON LMP . [facility] Comment on above: Recalculations are n ot recommended when gestational dating by LMP and ultrasound are within 10 days. INSULIN DEP DIABETES No . [facility] INTERPRETATION Comment . [facility] Comment on above: Interpretation: Scre en Negative [...] Customer Services to discuss available options. The [place] [employer] recommends amniocentesis be offered to women age 35 and older. [age] [facility] MULTIPLE GESTATION No . [facility] OSBR RISK 1 IN 8106 . [facility] RACE . [facility] RESULTS Report . [facility] TEST RESULTS: Negative . [facility] WEIGHT 141 . lbs [facility] N N LMP 2 17 N 1 Y 141 N N N N N White/ CLINISYNC [facility] URETHRITIS/DISCHARGE PLUS VA GINITIS (HTRX)on 05-05-2024 ATOPOBIUM VAGINAE 29.133 Abnormal [facility] ATOPOBIUM VAGINAE Detected Abnormal [facility] BVAB 2,3 (BACTERIAL VAGINOSIS ASSOCIATED BACTERIA 2, 3); MOBILUNCUS SPP 0.000 [facility] BVAB 2,3 (BACTERIAL VAGINOSIS ASSOCIATED BACTERIA 2, 3); MOBILUNCUS SPP Not detected [facility] MISTY ALBICANS, PARAPSILOSIS, TROPICALIS 0.000 [facility] MISTY ALBICANS, PARAPSILOSIS, TROPICALIS Not detected [facility] MISTY GLABRATA 0.000 [facility] MISTY GLABRATA Not detected [facility] MISTY KRUSEI 0.000 [facility] MISTY KRUSEI Not detected [facility] CHLAMYDIA TRACHOMATIS 0.000 [facility] CHLAMYDIA TRACHOMATIS Not detected N [facility] ERMB, C; MEFA 20.870 Abnormal [facility] ERMB, C; MEFA Detected Abnormal [facility] GARDNERELLA VAGINALIS 27.078 Abnormal [facility] GARDNERELLA VAGINALIS Detected Abnormal [facility] Interpretation and review of laboratory results Abnormal [facility] MEGASPHAERA (TYPES 1, 2) 0.000 [facility] MEGASPHAERA (TYPES 1, 2) Not detected [facility] MYCOPLASMA GENITALIUM 0.000 [facility] MYCOPLASMA GENITALIUM Not detected N [facility] NEISSERIA GONORRHOEAE 0.000 NOM [facility] NEISSERIA GONORRHOEAE Not detected N [facility] TET B, TET M 19.649 Abnormal [facility] TET B, TET M Detected Abnormal [facility] TRICHOMONAS VAGINALIS 0.000 [facility] TRICHOMONAS VAGINALIS Not detected N [facility] Urinalysis macro (dipstick) panel (U)on 05-04-2024 Bilirubin, UA Negative Negative - 4(70) +++ mg/dL [facility] Blood, UA Negative Negative - 50 Franc/mcL [facility] Clarity, UA Clear [facility] Color, UA Yellow [facility] Glucose, UA Negative Negative - 2000(110) ++++ mg/dL [facility] Interpretation and review of laboratory results Normal [facility] Ketones, UA Negative Negative - 160(16) ++++ mg/dL [facility] Leukocytes, UA Negative Negative - 500+++ Fox/mcL [facility] Nitrite, UA Negative Negative - Positive [facility] pH, UA 7.5 5 - 9 [facility] Protein, UA Negative Negative - 2000(20) ++++ mg/dL [facility] Spec Grav, UA 1.020 1 - 1.03 [facility] Urobilinogen, UA 0.2 0.2 - 12 mg/dL [facility] Coding Summaryon 02-17-2018 Coding Summary CODING DATE: 02/17/2018 [facility] STATUS: Home PAYOR: Medicaid HMO ADMIT [...] Yanet Loera Date Saved: 02/17/2018 07:09 am [facility] Provider Orderson 02-16-2018 Provider Orders [id number] [facility] Wound Cultureon 02-16-2018 WBC (Leukocytes) Moderate [...] S <=0.5/9.5 VerifiedVanc S 2 Verified Normal [facility] Comment on above: Performed By: #### [id number] ####[facility] (DEFAULT)[address] [place] [id number] Vital Signs Date Time Vital Sign Value Performing Clinician Faci lity 10-08-2024 11:31-0500 Body height 160 cm Marta Mahmood SALES VENDOR Work Phone: [facility] 10-08-2024 11:31-0500 Body mass index (BMI) [Ratio] 30.72 kg/m2 Marta Mahmood SALES VENDOR Work Phone: [facility] 10-08-2024 11:31-0500 Body temperature 96.8 [degF] Marta Mahmood SALES VENDOR Work Phone: [facility] 10-08-2024 11:31-0500 Body weight 78.65 kg Marta Mahmood SALES VENDOR Work Phone: [facility] 10-08-2024 11:31-0500 Diastolic blood pressure 60 mm[Hg] Marta Mahmood SALES VENDOR Work Phone: [facility] 10-08-2024 11:31-0500 Heart rate 94 /min Marta Mahmood SALES VENDOR Work Phone: [facility] 10-08-2024 11:31-0500 SaO2% (BldA) [Mass fraction] 97 % Marta Mahmood SALES VENDOR Work Phone: [facility] 10-08-2024 11:31-0500 Systolic blood pressure 110 mm[Hg] Marta Mahmood SALES VENDOR Work Phone: [facility] 10-05-2024 13:34-0500 Body mass index (BMI) [Ratio] 31.53 kg/m2 Kayy Jessica PA Work Phone: [facility] 10-05-2024 13:34-0500 Body weight 80.74 kg Kayy La Plata PA Work Phone: [facility] 10-05-2024 13:34-0500 Diastolic blood pressure 82 mm[Hg] Kayy Jessica PA Work Phone: [facility] 10-05-2024 13:34-0500 Heart rate 86 /min Kayy Jessica PA Work Phone: [facility] 10-05-2024 13:34-0500 Systolic blood pressure 118 mm[Hg] Kayy Jessica PA Work Phone: [facility] 09-27-2024 14:15-0500 Body mass index (BMI) [Ratio] 34.61 kg/m2 Kayy Jessica PA Work Phone: [facility] 09-27-2024 14:15-0500 Body weight 88.63 kg Kayy La Plata PA Work Phone: [facility] 09-27-2024 14:15-0500 Diastolic blood pressure 78 mm[Hg] Kayy Jessica PA Work Phone: [facility] 09-27-2024 14:15-0500 Systolic blood pressure 120 mm[Hg] Kayy Jessica PA Work Phone: [facility] 09-21-2024 13:51-0500 Body mass index (BMI) [Ratio] 34.44 kg/m2 Kayy La Plata PA Work Phone: [facility] 09-21-2024 13:51-0500 Body weight 88.18 kg Kayy La Plata PA Work Phone: [facility] 09-21-2024 13:51-0500 Diastolic blood pressure 70 mm[Hg] Kayy La Plata PA Work Phone: [facility] 09-21-2024 13:51-0500 Systolic blood pressure 120 mm[Hg] Kayy Jessica PA Work Phone: [facility] 09-14-2024 13:23-0500 Body mass index (BMI) [Ratio] 34.19 kg/m2 Kaden Deidra DO Work Phone: [facility] 09-14-2024 13:23-0500 Body weight 87.54 kg Kaden Deidra DO Work Phone: [facility] 09-14-2024 13:23-0500 Diastolic blood pressure 74 mm[Hg] Kaden Deidra DO Work Phone: [facility] 09-14-2024 13:23-0500 Systolic blood pressure 118 mm[Hg] Kaden Deidra DO Work Phone: [facility] 08-30-2024 14:18-0500 Body mass index (BMI) [Ratio] 33.3 kg/m2 Kayy Jessica PA Work Phone: [facility] 08-30-2024 14:18-0500 Body weight 85.28 kg Kayy Jessica PA Work Phone: [facility] 08-30-2024 14:18-0500 Diastolic blood pressure 70 mm[Hg] Kayy Jessica PA Work Phone: [facility] 08-30-2024 14:18-0500 Systolic blood pressure 118 mm[Hg] Kayy Jessica PA Work Phone: [facility] 08-12-2024 09:39-0500 Body mass index (BMI) [Ratio] 31.35 kg/m2 Kaden Deidra DO Work Phone: [facility] 08-12-2024 09:39-0500 Body weight 80.29 kg Kaden Deidra DO Work Phone: [facility] 08-12-2024 09:39-0500 Diastolic blood pressure 68 mm[Hg] Kaden Deidra DO Work Phone: [facility] 08-12-2024 09:39-0500 Systolic blood pressure 106 mm[Hg] Kaden Deidra DO Work Phone: [facility] 07-29-2024 10:35-0500 Body mass index (BMI) [Ratio] 31.07 kg/m2 Kayy Jessica PA Work Phone: [facility] 07-29-2024 10:35-0500 Body weight 79.56 kg Kayy La Plata PA Work Phone: [facility] 07-29-2024 10:35-0500 Diastolic blood pressure 66 mm[Hg] Kayy La Plata PA Work Phone: [facility] 07-29-2024 10:35-0500 Systolic blood pressure 108 mm[Hg] Kayy La Plata PA Work Phone: [facility] 07-15-2024 10:59-0500 Body mass index (BMI) [Ratio] 30.01 kg/m2 Kayy La Plata PA Work Phone: [facility] 07-15-2024 10:59-0500 Body weight 76.84 kg Kayy Jessica PA Work Phone: [facility] 07-15-2024 10:59-0500 Diastolic blood pressure 74 mm[Hg] Kayy La Plata PA Work Phone: [facility] 07-15-2024 10:59-0500 Systolic blood pressure 112 mm[Hg] Kayy La Plata PA Work Phone: [facility] 07-01-2024 09:18-0500 Body mass index (BMI) [Ratio] 28.59 kg/m2 Kaden Deidra DO Work Phone: [facility] 07-01-2024 09:18-0500 Body weight 73.21 kg Kaden Deidra DO Work Phone: [facility] 07-01-2024 09:18-0500 Diastolic blood pressure 60 mm[Hg] Kaden Deidra DO Work Phone: [facility] 07-01-2024 09:18-0500 Systolic blood pressure 110 mm[Hg] Kaden Deidra DO Work Phone: [facility] 06-01-2024 10:53-0400 Body mass index (BMI) [Ratio] 26.82 kg/m2 Kayy Jessica PA Work Phone: [facility] 06-01-2024 10:53-0400 Body weight 68.67 kg Kayy Jessica PA Work Phone: [facility] 06-01-2024 10:53-0400 Diastolic blood pressure 58 mm[Hg] Kayy La Plata PA Work Phone: [facility] 06-01-2024 10:53-0400 Systolic blood pressure 110 mm[Hg] Kayy Jessica PA Work Phone: [facility] 05-04-2024 09:49-0400 Body mass index (BMI) [Ratio] 25 kg/m2 Kayy La Plata PA Work Phone: [facility] 05-04-2024 09:49-0400 Body weight 64.01 kg Kayy Jessica PA Work Phone: [facility] 05-04-2024 09:49-0400 Diastolic blood pressure 70 mm[Hg] Kayy Jessica PA Work Phone: [facility] 05-04-2024 09:49-0400 Systolic blood pressure 110 mm[Hg] Kayy Jessica PA Work Phone: [facility] Healthcare Encounters Encounter Date Encounter Type Care Provider Facility Start: 10-08-2024 End: 10-08-2024 Bamboo flowsheet Marta Mahmood SALES VENDOR Work Phone: [facility] Start: 10-08-2024 End: 10-08-2024 Bamboo flowsheet Marta Mahmood SALES VENDOR Work Phone: [facility] Start: 10-08-2024 End: 10-08-2024 Office outpatient visit 15 minutes Marta Mahmood SALES VENDOR Work Phone: [facility] Comment on above: Nasal congestion (Pr imary Dx); Influenza A Start: 10-08-2024 End: 10-08-2024 ambulatory MARTA MAHMOOD Not Available Start: 10-05-2024 End: 10-05-2024 Bamboo flowsheet Kayy GOINS Work Phone: [facility] Start: 10-05-2024 End: 10-05-2024 Bamboo flowsheet Kayy GOINS Work Phone: [facility] Start: 10-05-2024 End: 10-05-2024 care visit Kayy GOINS Work Phone: [facility] Comment on above: Anemia, unspecified type (Primary Dx) Start: 10-05-2024 End: 10-05-2024 ambulatory KAYY LOPEZ Not Available Start: 10-03-2024 End: 10-04-2024 Emergency department patient visit YANET CADENA [facility] Start: 10-01-2024 End: 10-01-2024 Clinisync Result Encounter Kaden Deidra DO Work Phone: [facility] Unsolicited Start: 10-01-2024 End: 10-01-2024 Clinisync Result Encounter Kaden Deidra DO Work Phone: [facility] Unsolicited Start: 09-30-2024 End: 09-30-2024 Clinisync Result Encounter Kaden Deidra DO Work Phone: [facility] Unsolicited Start: 09-30-2024 End: 09-30-2024 Clinisync Result Encounter Kaden Deidra DO Work Phone: [facility] Unsolicited Start: 09-29-2024 End: 09-29-2024 Clinisync Result Encounter Kaden Deidra DO Work Phone: [facility] Unsolicited Start: 09-29-2024 End: 09-29-2024 Clinisync Result Encounter Kaden Deidra DO Work Phone: [facility] Unsolicited Start: 09-27-2024 End: 09-27-2024 Bamboo flowsheet Kayy GOINS Work Phone: [facility] Start: 09-27-2024 End: 09-27-2024 Bamboo flowsheet Kayy GOINS Work Phone: [facility] Start: 09-27-2024 End: 09-27-2024 Office outpatient visit 15 minutes Kayy GOINS Work Phone: [facility] Comment on above: 38 weeks gestation o f ; Third trimester Start: 09-27-2024 End: 09-27-2024 ambulatory KAYY LOPEZ Not Available Start: 09-21-2024 End: 09-21-2024 Bamboo flowsheet Kayy GOINS Work Phone: [facility] Start: 09-21-2024 End: 09-21-2024 Bamboo flowsheet Kayy GOINS Work Phone: [facility] Start: 09-21-2024 End: 09-21-2024 Office outpatient visit 15 minutes Kayy GOINS [...] Not Available Start: 03-04-2024 End: 03-04-2024 ambulatory MARTA MAHMOOD Not Available Start: 09-21-2023 Refill Starr Shoemaker CANDY FEEDER-MANPOWER DEVELOPMENT SPECIALIST MANAGER [facility] Start: 02-14-2018 End: 02-14-2018 Ambulatory Fernando Kendrick Facility:[facility] Procedures Date Procedure Procedure Detail Performing Clinician Start: 10-08-2024 STATUS COVID-19/FLU Marta Mahmood SALES VENDOR Work Phone: Start: 10-01-2024 ALL CBC WITH AUTO DIFF Kaden Deidra DO Work Phone: Start: 09-30-2024 ALL CBC WITH AUTO DIFF Kaden Deidra DO Work Phone: Start: 09-29-2024 TBH UA (CLEAN/CATCH) ORACLE DATABASE CONSULTANT/MICRO IF IND. Kaden Deidra DO Work Phone: Start: 09-21-2024 Urnls dip stick/tablet rgnt non-auto [...] surgery S/P tonsillectomy and adenoidectomy Starr Shoemaker CANDY FEEDER-MANPOWER DEVELOPMENT SPECIALIST MANAGER Work Phone: Plan of Treatment Date Care Activity Detail Author Start: 10-12-2024 End: 10-12-2024 Patient encounter procedure 10/12/2024 9:50 AM EST Office Visit [facility] [address] [place] [address] Kayy Lopez PA [address] [place] [address] [facility] Start: 10-08-2024 End: 10-08-2024 Patient encounter procedure 10/08/2024 11:30 AM EST Office Visit [facility] [address] [place] [phone] Marta Mahmood NP [address] [place] [place] [address] Arrived [facility] Comment on above: Arrived Start: 10-05-2024 End: 10-05-2024 Patient encounter procedure 10/05/2024 1:10 PM EST Office Visit [facility] [address] [place] [place] [phone] Kayy Lopez PA [address] [place] [address] Arrived [facility] Comment on above: Arrived Start: 09-27-2024 End: 09-27-2024 Patient encounter procedure [...] AM EST Routine [facility] [address] [place] [phone] Kayy Lopez PA [address] [place] [address] Arrived [facility] Comment on above: Arrived Start: 07-29-2024 End: 07-29-2024 Professional / ancillary services management 07/29/2024 9:30 AM EST Ancillary Procedure [facility] [address] [place] [phone] [facility] Start: 07-15-2024 End: 07-15-2025 [...] management 06/01/2024 9:30 AM EDT Ancillary Procedure [facility] [address] [place] [phone] [facility] Start: 05-04-2024 End: 07-04-2024 Alpha fetoprotein, maternal Alpha fetoprotein, maternal Lab Routine 17 weeks gestation of Expected: 05/04/2024 (Approximate), Expires: 07/04/2024 [facility] Comment on above: Expected: 05/04/2024 (Approximate), Expires: 07/04/2024 Start: 05-04-2024 End: 05-04-2025 US for US OB ANATOMY SINGLE W US OB CERVICAL LENGTH Imaging Routine Screening, , for anatomic survey Expected: 05/04/2024 (Approximate), Expires: 05/04/2025 [facility] Comment on above: Expected: 05/04/2024 (Approximate), Expires: 05/04/2025 Start: 05-04-2024 End: 05-04-2024 Patient encounter procedure 05/04/2024 9:30 AM EDT Routine [facility] [address] [place] [phone] Kayy Lopez PA [address] [facility] [place] [address] Arrived [facility] Comment on above: Arrived Start: 04-25-2024 Influenza vaccination Influenza Vacc ine (#1) [facility] Start: 12-04-2023 DTaP,Tdap and Td Vaccines (7 - Td or Tdap) DTaP,Tdap and Td Vaccines (7 - Td or Tdap) [facility] Start: 06-11-2023 Adult BMI Screening Adult BMI Screen ing [facility] Start: 06-11-2023 Tobacco Screening Tobacco Screening [facility] Start: 04-25-2023 COVID-19 Vaccine ( season) COVID-19 Vaccine () [facility] Start: 04-25-2023 Influenza vaccination Influenza Vacc ine [facility] Start: 2022 Screening for malign ant neoplasm of cervix Pap Smear [facility] Start: 2013 [facility] (GENITO/STI) CHLAMYDIA TRACHOMATIS (GENITO/STI) Lab Routine Vaginal discharge Ordered: 05/04/2024 [facility] Comment on above: Ordered: 05/04/2024 Cytology Cervical or vaginal smear or scraping study Pap Smear Pathology and Cytology Routine Well woman exam with routine gynecological exam Ordered: 05/04/2024 [facility] Comment on above: Ordered: 05/04/2024 Neisseria gonorrhoea e DNA [Presence] in Unspecified specimen by ASHUTOSH with probe detection Neisseria gonorrhea DNA probe, direct Lab Routine Vaginal discharge Ordered: 05/04/2024 [facility] Comment on above: Ordered: 05/04/2024 SURESWAB(R) ADVANCED VAGINITIS PLUS, TMA SURESWAB(R) ADVANCED VAGINITIS PLUS, TMA Pathology and Cytology Routine Exposure to STD Ordered: 05/04/2024 [facility] Work Phone: Comment on above: Ordered: 05/04/2024 Immunizations Immunization Date Immunization Notes Care Provider Enmanuel bahena 09-01-2024 tetanus toxoid, redu nikita diphtheria toxoid, and acellular pertussis vaccine, adsorbed Marta Kampfer SALES VENDOR Work Phone: [facility] 06-13-2024 influenza, seasonal, injectable, preservative free Marta Kampfer SALES VENDOR Work Phone: [facility] 06-13-2024 influenza virus vaccine, unspecified formulation Kaden Deidralinh VELÁSQUEZ Work Phone: [facility] 07-03-2023 Influenza, injectabl e, Madin Keke Canine Kidney, preservative free, quadrivalent Marta Kampfer SALES VENDOR Work Phone: [facility] 07-03-2023 influenza virus vaccine, unspecified formulation Kayy Lopez PA Work Phone: [facility] 06-24-2022 Influenza, injectabl e, Madin Keke Canine Kidney, preservative free, quadrivalent Marta Kampfer SALES VENDOR Work Phone: [facility] 07-10-2021 influenza, injectabl e, quadrivalent, preservative free Marta Kampfer SALES VENDOR Work Phone: [facility] 07-10-2021 influenza virus vaccine, unspecified formulation Starr Shoemaker CANDY FEEDER-MANPOWER DEVELOPMENT SPECIALIST MANAGER Work Phone: [facility] 06-22-2020 influenza, injectabl e, quadrivalent, preservative free Marta Kampfer SALES VENDOR Work Phone: [facility] 06-21-2019 influenza, injectabl e, quadrivalent, preservative free Marta Kampfer SALES VENDOR Work Phone: [facility] 06-26-2018 influenza, injectabl e, quadrivalent, preservative free Marta Kampfer SALES VENDOR Work Phone: [facility] 06-26-2018 Meningococcal, MCV4, unspecified conjugate formulation(groups A, C, Y and W-135) Marta Kampfer SALES VENDOR Work Phone: [facility] 05-22-2017 influenza, injectabl e, quadrivalent, contains preservative Marta Kampfer SALES VENDOR Work Phone: [facility] 06-17-2016 influenza, seasonal, injectable, preservative free Marta Kampfer SALES VENDOR Work Phone: [facility] 06-21-2015 seasonal influenza, intradermal, preservative free Marta Kampfer SALES VENDOR Work Phone: [facility] 06-08-2014 influenza, seasonal, injectable, preservative free Marta Kampfer SALES VENDOR Work Phone: [facility] 12-03-2013 tetanus toxoid, redu nikita diphtheria toxoid, and acellular pertussis vaccine, adsorbed Marta Kampfer SALES VENDOR Work Phone: [facility] 05-24-2013 influenza virus vaccine, whole virus Marta Kampfer SALES VENDOR Work Phone: [facility] 06-10-2011 influenza virus vaccine, whole virus Marta Kampfer SALES VENDOR Work Phone: [facility] 07-02-2010 influenza virus vaccine, whole virus Marta Mahmood SALES VENDOR Work Phone: [facility] 06-12-2009 influenza virus vaccine, whole virus Marta Mahmood SALES VENDOR Work Phone: [facility] 06-29-2007 influenza virus vaccine, whole virus Marta Mahmood SALES VENDOR Work Phone: [facility] 12-25-2006 diphtheria, tetanus toxoids and acellular pertussis vaccine Marta Mahmood SALES VENDOR Work Phone: [facility] 12-25-2006 measles, mumps, rubella, and varicella virus vaccine Marta Mahmood SALES VENDOR Work Phone: [facility] 12-25-2006 poliovirus vaccine, inactivated Marta Mahmood SALES VENDOR Work Phone: [facility] 02-04-2003 diphtheria, tetanus toxoids and acellular pertussis vaccine Marta Mahmood SALES VENDOR Work Phone: [facility] 02-04-2003 haemophilus influenz ae type b vaccine, conjugate unspecified formulation Marta Mahmood SALES VENDOR Work Phone: [facility] 02-04-2003 poliovirus vaccine, inactivated Marta Mahmood SALES VENDOR Work Phone: [facility] 11-03-2002 measles, mumps and rubella virus vaccine Marta Mahmood SALES VENDOR Work Phone: [facility] 08-14-2002 varicella virus vaccine Virginia albarado Sauravvilma SALES VENDOR Work Phone: [facility] 02-20-2002 pneumococcal conjuga te vaccine, 7 valent Marta Kimdeborahvilma SALES VENDOR Work Phone: [facility] 02-08-2002 diphtheria, tetanus toxoids and acellular pertussis vaccine Marta Mahmood SALES VENDOR Work Phone: [facility] 02-08-2002 haemophilus influenz ae type b vaccine, conjugate unspecified formulation Marta Mahmood SALES VENDOR Work Phone: [facility] 02-08-2002 hepatitis B vaccine, pediatric or pediatric/adolescent dosage Marta Kimdeborahvilma SALES VENDOR Work Phone: [facility] 2001 pneumococcal conjuga te vaccine, 7 valent Marta Kimpfer SALES VENDOR Work Phone: [facility] 2001 diphtheria, tetanus toxoids and acellular pertussis vaccine Martadari Kimpfer SALES VENDOR Work Phone: [facility] 2001 haemophilus influenz ae type b vaccine, conjugate unspecified formulation Marta Kimpfer SALES VENDOR Work Phone: [facility] 2001 poliovirus vaccine, inactivated Marta Kimpfer SALES VENDOR Work Phone: [facility] 2001 pneumococcal conjuga te vaccine, 7 valent Marta Kimpfer SALES VENDOR Work Phone: [facility] 2001 diphtheria, tetanus toxoids and acellular pertussis vaccine Marta Kampfer SALES VENDOR Work Phone: [facility] 2001 haemophilus influenz ae type b vaccine, conjugate unspecified formulation Mrata Kimpfer SALES VENDOR Work Phone: [facility] 2001 poliovirus vaccine, inactivated Marta Kimpfer SALES VENDOR Work Phone: [facility] 2001 hepatitis B vaccine, pediatric or pediatric/adolescent dosage Marta Kimpfer SALES VENDOR Work Phone: [facility] 2001 hepatitis B vaccine, pediatric or pediatric/adolescent dosage Marta Kampfer SALES VENDOR Work Phone: [facility] Payers Date Payer Category Payer Medicaid [id number] 2022 Medicaid [id number] 2018 Unknown [id number] 2001 Unknown [id number] 2.16. [id number] 2001 Unknown [id number] 2.16.84 [id number] 2001 Unknown [id number] 2.16.84 [id number] 2001 Unknown [id number] 2.16.84 [id number] 2001 Unknown [id number] 2.16.84 [id number] 2001 Unknown [id number] 2.16.84 [id number] 2001 Unknown [id number] 2.16.84 [id number] 2001 Unknown [id number] 2.16.84 [id number] 2001 Unknown [id number] 2.16.84 [id number] 2001 Unknown [id number] 2.16.84 [id number] 2001 Unknown [id number] 2.16.84 [id number] 2001 Unknown [id number] 2.16.84 [id number] 2001 Unknown [id number] 2.16.84 [id number] 2001 Unknown [id number] 2.16.84 [id number] 2001 Unknown [id number] 2.16.84 [id number] Social History Date Type Detail Facility Start: 03-04-2024 Tobacco smoking status [facility] Tobacco smoking consumption unknown [facility] Start: 03-04-2024 Tobacco Comment Vape [facility] Start: 01-18-2024 [facility] Start: 2001 Sex assigned at Not on file [facility] Start: 10-05-2020 End: 10-07-2024 Gender identity Not on file [facility] Start: 10-05-2020 End: 10-07-2024 History of Social function [facility] Do you belong to any clubs or organizations such as hindu groups, unions, fraternal or athletic groups, or school groups? No [facility] Are you now , , , , never or living with a partner? Living with partner [facility] How often to you hav e a drink containing alcohol? Monthly or less [facility] How many standard dr inks containing alcohol do you have on a typical day? 1 or 2 [facility] How often do you hav e 6 or more drinks on 1 occasion? Never [facility] How hard is it for y ou to pay for the very basics like food, housing, medical care, and heating Not very hard [facility] Do you feel stress - tense, restless, nervous, or anxious, or unable to sleep at night because your mind is troubled all the time - these days [OSQ] To some extent [facility] For an average week in the last 30 days, how many days per week did you engage in moderate to strenuous exercise (like walking fast, running, jogging, dancing, swimming, biking, or other activities that cause a light or heavy sweat)? Patient declined [facility] (I/We) worried whefior er (my/our) food would run out before (I/we) got money to buy more. Never true [facility] Start: 10-08-2024 Tobacco smoking status [facility] Never smoked tobacco [facility] Start: 05-31-2022 End: 10-08-2024 Tobacco use and exposure Smokeless tobacco non-user [facility] Start: 10-08-2024 Alcoholic beverage intake Ex-drinker (finding) [facility] Start: 10-08-2024 Alcohol Comment caffeine intake: 1 iced coffee daily [facility] Start: 05-31-2022 Tobacco smoking status [facility] Ex-smoker [facility] History of tobacco use Current smoker [facility] Start: 06-11-2022 Alcohol intake Current non-drinker of alcohol (finding) [facility] Clinical Notes 04-26-2022 to 10-08-2024 Marta Mahmood NP - 10/08/2024 11:30 AM BRISEIDA Smith - 10/05/2024 1:10 PM BRISEIDA Smith - 09/27/2024 1:50 PM Pito Gallardo, ARLETTE - 09/21/2024 1:50 PM BRISEIDA Smith - 08/30/2024 1:50 PM EST Note Date & Type Note Facility 10-08-2024 History of Present illness Narrative Images from the original note were not included. Nando Olivera is a 24 y.o. female presents with chief complaint of URI HPI: HPI History of Present Illness The patient presents for evaluation of a sore throat. She began experiencing a sore throat yesterday morning, which has since escalated to a cough and shortness of breath. She reports a sensation of mucus accumulation in her throat but does not have any nasal congestion or drainage. She has not been monitoring her temperature but notes occasional feelings of heat. This morning, she experienced mild nausea. She is not currently . She has been managing her symptoms with [id number]-[id number] Tylenol and Motrin. MEDICATIONS Tylenol, Motrin SUBJECTIVE: MEDICATIONS: Current Outpatient Medications Medication Instructions iron polysaccharides (PROFE) 391.3 mg, Oral, Daily labetalol (NORMODYNE) 100 mg, Oral, 2 times daily sertraline (ZOLOFT) 50 mg, Daily REVIEW OF SYMPTOMS: Review of Systems Constitutional: Positive for chills, fatigue and fever. HENT: Positive for congestion, sinus pressure and sore throat. Negative for sinus pain. Respiratory: Positive for cough. Negative for shortness of breath and wheezing. OBJECTIVE: Visit Vitals BP 110/60 (BP Location: Left arm, Patient Position: Sitting, BP Cuff Size: Adult) Pulse 94 Temp 96.8 F (Tympanic) Ht 5' 3 Wt 173 lb 6.4 oz SpO2 97% No BMI 30.72 kg/m OB Status Recent Smoking Status Never BSA 1.87 m Physical Exam Vitals reviewed. Constitutional: Appearance: Normal appearance. HENT: Head: Normocephalic and atraumatic. Right Ear: Tympanic membrane normal. Left Ear: Tympanic membrane normal. Nose: Congestion present. Right Turbinates: Swollen. Left Turbinates: Swollen. Right Sinus: No maxillary sinus tenderness or frontal sinus tenderness. Left Sinus: No maxillary sinus tenderness or frontal sinus tenderness. Mouth/Throat: Mouth: Mucous membranes are moist. Pharynx: Postnasal drip present. Eyes: Pupils: Pupils are equal, round, and reactive to light. Cardiovascular: Rate and Rhythm: Normal rate and regular rhythm. Pulses: Normal pulses. Heart sounds: Normal heart sounds. Pulmonary: Effort: Pulmonary effort is normal. Breath sounds: Normal breath sounds. Musculoskeletal: Cervical back: Normal range of motion and neck supple. Right lower leg: No edema. Left lower leg: No edema. Lymphadenopathy: Cervical: Cervical adenopathy present. Skin: General: Skin is warm and dry. Capillary Refill: Capillary refill takes less than 2 seconds. Findings: No rash. Neurological: General: No focal deficit present. Mental Status: She is alert and oriented to person, place, and time. ASSESSMENT AND PLAN: Assessment/Plan Diagnoses and all orders for this visit: Nasal congestion - STATUS COVID-19/FLU Influenza A - oseltamivir (Tamiflu) 75 MG capsule; Take 1 capsule (75 mg) by mouth in the morning and 1 capsule (75 mg) before bedtime. Do all this for 5 days. -Influenza A positive. Tamiflu initiated. Educated illness is contagious, encouraged good hand hygiene, cough/sneeze into arm. Advised to increase fluids, tylenol/motrin as needed for pain, throat lozenges. humidified air, discussed airway management and signs of respiratory failure. Advised on signs and symptoms of dehydration, decreased urine output , malaise, unresponsiveness. RTC if no improvement. If symptoms severe go immediately to ER to be evaluated. documented in this encounter [facility] 10-05-2024 History of Present illness Narrative Reason for Appointment: Patient ID: Cristiane Olivera is a 24 y.o. female who presents for Elevated BP and Pulse Patient presents today for Post Follow Up appointment. MEDICATIONS Current Outpatient Medications Medication Instructions iron polysaccharides (PROFE) 391.3 mg, Oral, Daily iron polysaccharides (PROFE) 391.3 mg, Oral, Daily labetalol (NORMODYNE) 100 mg, Oral, 2 times daily sertraline (ZOLOFT) 50 mg, Daily ALLERGIES No [...] No family history on file. SURGICAL HISTORY Past Surgical History: Procedure Laterality Date CT ANGIOGRAM HEART CORONARY 10/03/2024 CT ANGIOGRAM TAVR 10/03/2024 REVIEW OF SYSTEMS Review of Systems: Review [...] reviewed. Vitals: Estimated body mass index is 31.53 kg/m as calculated from the following: Height as of 04/25/22: 5' 3 . Weight as of this encounter: 178 lb. BP: 118/82 No LMP recorded. ASSESSMENT & PLAN ICD-10-CM 1. Anemia, unspecified type D64.9 labetalol (Normodyne) 100 MG tablet iron polysaccharides (ProFe) 391.3 (180 Fe) MG capsule Patient presents for post palpitations and shortness of breath. Patient was seen at er on 10/03/24. She had complete work up including ct scan to rule out PE. Patient blood work shows a low HB/HCT post . Patient had taken profe prior to delivery. Patient has history of POTS and BP have been slightly elevated. Liver enzymes and urine with in normal limits. Patient will follow up in one week, we will restart profe and also labetolol of 100mg bid. Patient will follow up next week. Patient denies chest pain or shortness of breath today. Patient states she is starting to feel better Documented by BRISEIDA Menard on behalf of: BRISEIDA Menard documented in this encounter [facility] 10-03-[address] CTA CHEST CLINICAL INFORMATION: Pulmonary embolism suspected PROCEDURE: Contrast enhanced CT of the chest was performed using thin section reconstructions. Contrast injection rate and acquisition timing were optimized for opacification of the pulmonary arteries for evaluation of pulmonary embolism. All CT scans at this facility use dose modulation, iterative reconstruction, and/or weight based dosing when appropriate to reduce radiation dose to as low as reasonably achievable. INTRAVENOUS CONTRAST: 100 mL Omnipaque 350 IV COMPARISON: None. FINDINGS: CHEST: PULMONARY ARTERIES: Image Quality is: Low, noting the following limitations: Image noise, Suboptimal contrast opacification. Streak artifact from dense contrast in the SVC. No central acute pulmonary embolism. Cannot assess most segmental pulmonary arteries. Normal caliber main pulmonary artery. LUNGS AND PLEURA: Lungs are clear without focal consolidation, pleural effusion or pneumothorax. Central airways are patent and clear. CARDIOVASCULAR, MEDIASTINUM, AND THYROID: Visualized thyroid gland is unremarkable. Heart is normal in size without pericardial effusion. No coronary calcifications. Ascending aorta is normal in caliber. LYMPH NODES: No thoracic lymphadenopathy. CHEST WALL: Unremarkable. UPPER ABDOMEN: Unremarkable. BONES: No suspicious osseous lesion. IMPRESSION: 1. No central acute pulmonary embolism. Cannot assess most segmental pulmonary arteries given the limitations mentioned above. 2. No acute intrathoracic abnormality. Finalized by Devin Lyons MD on 10/03/2024 10:21 PM [facility] 09-27-2024 History of Present illness Narrative Reason [...] of: BRISEIDA Menard documented in this encounter [facility] 09-21-2024 History of Present illness Narrative Reason [...] nursing note reviewed. Exam conducted with a maintenance mechanic engine present. Vitals: Estimated body mass index is 34.44 kg/m as calculated from the following: Height as of 22: 5' 3 . Weight as of this [...] of: BRISEIDA Menard documented in this encounter [facility] 09-14-2024 History of Present illness Narrative Reason [...] nursing note reviewed. Exam conducted with a maintenance mechanic engine present. Vitals: Estimated body mass index is [...] Kaden Gay DO documented in this encounter [facility] 08-30-2024 History of Present illness Narrative Reason [...] of: BRISEIDA Menard documented in this encounter [facility] 08-12-2024 History of Present illness Narrative Reason [...] nursing note reviewed. Exam conducted with a maintenance mechanic engine present. Vitals: Estimated body mass index is [...] Kaden Gay DO documented in this encounter [facility] 07-29-2024 History of Present illness Narrative Reason [...] of: BRISEIDA Menard documented in this encounter [facility] 07-15-2024 History of Present illness Narrative Reason [...] nursing note reviewed. Exam conducted with a maintenance mechanic engine present. Vitals: Estimated body mass index is [...] of: BRISEIDA Menard documented in this encounter [facility] 07-01-2024 History of Present illness Narrative Reason [...] nursing note reviewed. Exam conducted with a maintenance mechanic engine present. Vitals: Estimated body mass index is [...] Kaden Gay DO documented in this encounter [facility] 06-01-2024 History of Present illness Narrative Reason [...] of: BRISEIDA Menard documented in this encounter [facility] 05-04-2024 History of Present illness Narrative Reason [...] nursing note reviewed. Exam conducted with a maintenance mechanic engine present. Vitals: Estimated body mass index is [...] obtained without difficulty and patient was given [facility] order to have obtained. Orders Placed This [...] of: BRISEIDA Menard documented in this encounter [facility] 04-26-2022 Note HISTORY: Left fronta l headache, [...] signed by Booker Jeronimo on 04/26/2022 [address] [facility] Factory Superintendent Evaluation note Diagnosis 21 weeks gestation of Second trimester state, incidental [facility] Diagnosis 25 weeks gestation of Second [...] [facility] Diagnosis Anemia, unspecified type- Primary [facility]* Diagnosis Nasal congestion- Primary Other diseases of nasal cavity and sinuses Influenza A Influenza with other respiratory manifestations documented in this encounter [facility]InstructionsNot on filedocumented in [facility] Purpose Family History No Family History Records FoundNo Family History Records FoundNo Family History Records FoundNo Family History Records Found Advance Directives No Advanced Directives Records FoundNo Advanced Directives Records FoundNo Advanced Directives Records FoundNo Advanced Directives Records Found Additional Source Comments INFORMATION SOURCE (unrecogn ized section and content) DATE CREATED AUTHOR 02/17/2018 [facility] DATE CREATED AUTHOR AUTHOR'S ORGANIZ ATION 04/27/2022 [facility] DATE CREATED AUTHOR AUTHOR'S ORGANIZ ATION 10/06/2024 [facility] DATE CREATED AUTHOR AUTHOR'S ORGANIZ ATION 10/10/2024 [facility] EPIC Care Teams (unrecognized sec tion and content) Reduction Plant Supervisor Relationship Specialty Start Date End Date Yanet Cadena MD [address] [place] [address] PCP - General Family Medicine 12/31/22 [employer] Plant Supervisor Relationship Specialty Start Date End Date Yanet Cadena MD [address] [place] [address] PCP - General Family Medicine 12/31/22 Reduction Plant Supervisor Relationship Specialty Start Date End Date Yanet Cadena MD [address] [place] [address] PCP - General Family Medicine 12/31/22 Reduction Plant Supervisor Relationship Specialty Start Date End Date Yanet Cadena MD [address] [place] [address] PCP - General Family Medicine 12/31/22 Reduction Plant Supervisor Relationship Specialty Start Date End Date Yanet Cadena MD [address] [place] [address] PCP - General Family Medicine 12/31/22 Reduction Plant Supervisor Relationship Specialty Start Date End Date Yanet Cadena MD [address] [place] [address] PCP - General Family Medicine 12/31/22 Reduction Plant Supervisor Relationship Specialty Start Date End Date Yanet Cadena MD [address] [place] [address] PCP - General Family Medicine 12/31/22 Reduction Plant Supervisor Relationship Specialty Start Date End Date Yanet Cadena MD [address] [place] [address] PCP - General Family Medicine 12/31/22 Reduction Plant Supervisor Relationship Specialty Start Date End Date Yanet Cadena MD [address] [place] [address] PCP - General Family Medicine 12/31/22 Reduction Plant Supervisor Relationship Specialty Start Date End Date Yanet Cadena MD [address] [place] [address] PCP - General Family Medicine 12/31/22 Reduction Plant Supervisor Relationship Specialty Start Date End Date Yanet Cadena MD [address] [place] [address] PCP - General Family Medicine 12/31/22 Reduction Plant Supervisor Relationship Specialty Start Date End Date Yanet Cadena MD [address] [facility] [place] [address] PCP - General Family Medicine 12/31/22 Reduction Plant Supervisor Relationship Specialty Start Date End Date Yanet Cadena MD [address] [place] [address] PCP - General Family Medicine 12/31/22 Reduction Plant Supervisor Relationship Specialty Start Date End Date Yanet Cadena MD [address] [facility] [place] [address] PCP - General Family Medicine 12/31/22 Reduction Plant Supervisor Relationship Specialty Start Date End Date Yanet Cadena MD [address] [place] [address] PCP - General Family Medicine 05/31/22 Reason for Visit (unrecogniz ed section and content) Reason Comments Routine Visit Reason Comments Routine Visit Well Women Visit STI Screening Reason Comments Elevated BP and Pulse Reason Comments URI Reason Comments Med Refill FOR RECORDS PERTAINING TO PATIENTS WHO ARE [...] BE BASED ON THE PRIMARY CLINICAL RECORDS. [facility]. provides no warranty or guarantee of the accuracy or completeness of information in this document.
[2024-10-12 11:31] LABS: Basophils Percent Auto 0.2 % (0.2-2.0); Eosinophils Absolute Auto 0.1 10^3/uL (0.0-0.7); Eosinophils Percent Auto 2.2 % (0.9-7.0); Hematocrit 34.9 % (36.0-48.0); Hemoglobin 10.6 g/dL (12.0-16.0); Immature Granulocytes Abs Auto 0.01 10^3/uL (0.00-0.03); Immature Granulocytes Pct Auto 0.2 % (0.0-0.5); Lymphocytes Absolute Auto 2.1 10^3/uL (1.2-3.8); Lymphocytes Percent Auto 33.2 % (20.5-60.0); Mean Corpuscular HGB Conc 30.4 g/dL (29.9-35.2); Mean Corpuscular Volume 75.9 fL (81.0-99.0); Mean Platelet Volume 12.6 fL (9.5-13.5); Monocytes Absolute Auto 0.2 10^3/uL (0.3-0.8); Monocytes Percent Auto 3.4 % (1.7-12.0); Neutrophils Absolute Auto 3.9 10^3/uL (1.4-6.5); Neutrophils Percent Auto 60.8 % (43.0-75.0); Platelet Count 181 10^3/uL (150-450); Red Cell Distribution Width 17.6 % (11.0-15.0); White Blood Count 6.4 10^3/uL (4.0-11.0)
== END 2024-10-12 10:37 | disposition home or self-care (01) ==
LOC: LAB 10:37
PROVIDERS: PCP Family Medicine; Visit Provider Physician Assistant
DX: E61.1 Iron deficiency (principal)
CPT/HCPCS: 36415; 85025

== ENCOUNTER 2025-01-06 08:22 | Outpatient (OUT) | payer MEDICAID, SELFPAY ==
--- NOTE | 2025-01-06 12:23 | PC.NURSE ---
Henna Collier and 14 week old Yunier referred to prior to revision of tongue tie. is fully bottle fed, continues to have trouble with feeds due to tongue tie. Previously evaluated per Dr Araujo, pediatric dentist and requested suck training prior to procedure . Yunier awake and alert, remains in car seat. Discussed oral findings and given handout for suck training using Tug of War, cheek massage, lip tickle, gum massage etc. Demo of each given as well. Parents voice understanding and return demo. Discussed body work/chiropractor for care of infant as well as pediatric dentist. Given handout with referral names for parents to discuss and decide. Reviewed expectations for tongue revision and behaviors infant may display day of procedure. Parents plan to use exercises and discuss use of chiropractor for and return for support after oral revision. Leaves ambulatory.
== END 2025-01-06 12:35 | disposition home or self-care (01) ==
PROVIDERS: PCP Family Medicine; Visit Provider Obstetrics & Gynecology
DX: Z39.1 Encounter for care and examination of lactating mother (principal)

== ENCOUNTER 2025-07-28 11:29 | Outpatient (OUT) | payer MEDICAID, SELFPAY ==
--- OUTSIDE RECORDS SUMMARY | 2025-07-15 10:30 | XMS_ITS | Encounter Summary ---
Author Organization [facility] Address [address] [place] [address] Care Team Providers Care Turf Keeper Name Role Phone Yanet Barrios MD Primary Care Provider [phone] Encounter Details DateTypeDepartmentCare Team (Latest Contact Info)Yfvzgzwiqgi27/21/2025 10:30 AM ESTAncillary Procedure [facility] [address] [place] [address] [place] [address] Missed menses; Positive urine test ([facility]) Social History Tobacco UseTypesPacks/DayYears UsedDateSmoking Tobacco: NeverSmokeless Tobacco: Never Comments:Vape Alcohol UseStandard Drinks/WeekCommentsNot Currently0 (1 standard drink = 0.6 oz pure alcohol)caffeine intake: 1 iced coffee dailySocial Connection and Isolation PanelAnswerDate RecordedIn a typical week, how many times do you talk on the phone with family, friends, or neighbors?More than three times a week10/07/2024 How often do you get together with friends or relatives?More than three times a week10/07/2024How often do you attend mosque or mandaeism services?Never 10/07/2024Do you belong to any clubs or organizations such as mosque groups, unions, fraternal or athletic groups, or school groups?No10/07/2024How often do you attend meetings of the clubs or organizations you belong to?Never10/07/2024 Are you , , , , never , or living with a partner?Living with zwppkzs0610/07/2024UDIT-CAnswerDate RecordedQ1: How often do you have a drink containing alcohol?Monthly or less10/07/2024Q2: How many drinks containing alcohol do you have on a typical day when you are drinking?1 or 2 10/07/2024Q3: How often do you have six or more drinks on one occasion?Never 10/07/2024Overall Financial Resource Strain (CARDIA)AnswerDate RecordedHow hard is it for you to pay for the very basics like food, housing, medical care, and heating?Not very hard10/07/2024[facility] [place] [facility] Occup[facility] Health - Occupational Stress QuestionnaireAnswerDate RecordedDo you feel stress - tense, restless, nervous, or anxious, or unable to sleep at night because yourmind is troubled all the time - these days?To some ibqkga9010/07/2024Exercise Vital Sign AnswerDate RecordedOn average, how many days per week do you engage in moderate to strenuous exercise (like a brisk walk)?Patient uoxotpvn98/13/2025On average, how many minutes do you engage in exercise at this level?Patient declined 10/07/2024Hunger Vital SignAnswerDate RecordedWithin the past 12 months, you worried that your food would run out before you got the money to buymore.Never true10/07/2024Within the past 12 months, the food you bought just didn't last and you didn't have money to get more.Never true10/07/2024PRAPARE - TransportationAnswerDate RecordedIn the past 12 months, has lack of transportation kept you from medical appointments or from getting medications?No 10/07/2024In the past 12 months, has lack of transportation kept you from meetings, work, or from getting things needed for daily living?No10/07/2024 Housing Stability Vital SignAnswerDate RecordedIn the last 12 months, was there a time when you were not able to pay the mortgage or rent on time?No10/07/2024In the past 12 months, how many times have you moved where you were living?0 02/13/2025At any time in the past 12 months, were you homeless or living in a skilled nursing (including now)?No10/07/2024Estimated Date of DeliveryComments Yes02/20/2026ased on last menstrual period of 05/16/2025Sex and Gender InformationValueDate RecordedSex Assigned at BirthNot on fileLegal SexFemale 11/06/2022 7:28 PM EDTGender IdentityNot on fileSexual OrientationNot on file documented as of this encounter Plan of Treatment DateTypeDepartmentCare Team (Latest Contact Info)Xwphahgwcjn62/22/2025 2:20 PM ESTRoutine [facility] [address] [place] [id number] Arian Gay DO [address] [place] [address] documented as of this encounter Procedures Procedure NamePriorityDate/TimeAssociated DiagnosisCommentsUS OB TRANSVAGINAL Erjtqke0707/15/2025 10:47 AM EST Missed menses Positive urine test ([facility]) documented in this encounter Results * US OB transvaginal (07/15/2025 10:47 AM EST)Anatomical RegionLaterality ModalityBodyUltrasoundSpecimen (Source)Anatomical Location / Laterality Collection Method / VolumeCollection TimeReceived Time07/15/2025 8:05 PM EST Impressions 07/18/2025 7:45 AM EST Findings consistent with a live intrauterine gestation, current sonographic age of 8 weeks and 3 days resulting in an estimated date of delivery of February 21, 2026. TRANSCRIBED BY: ? ELECTRONICALLY SIGNED BY: Booker Jeronimo MD Narrative 07/18/2025 7:45 AM EST FINDINGS: A single intrauterine gestational sac is present. ??No subchorionic hemorrhage. ??A single pole is present. Normal heart rate at 170 beats per minute. ??Yolk sac also is seen. ?? Current sonographic age is 8 weeks and 3 days based on the crown-rump length measurement of 1.9 cm. ??Based on this age, current estimated date of delivery is February 21, 2026 ?? No pelvic fluid or adnexal mass present. ??Cervix is closed, 4.5 cm. Procedure Note Booker Jeronimo MD - 07/18/2025 FINDINGS: A single intrauterine gestational sac is present. No subchorionichemorrhage. A single pole is present. Normal heart rate at170 beats per minute. Yolk sac also is seen. Current sonographic age is8 weeks and 3 days based on the crown-rump length measurement of 1.9 cm.Based on this age, current estimated date of delivery is February 21, 2026No pelvic fluid or adnexal mass present. Cervix is closed, 4.5 cm. IMPRESSION: Findings consistent with a live intrauterine gestation, currentsonographic age of 8 weeks and 3 days resulting in an estimated date ofdelivery of February 21, 2026. TRANSCRIBED BY: ELECTRONICALLY SIGNED BY: Booker Jeronimo MD Authorizing ProviderResult TypeResult StatusCorey Edidra [facility] OB US PROCEDURES Final Result documented in this encounter Visit Diagnoses Diagnosis Missed menses Positive urine test ([facility]) documented in this encounter Care Teams Team MemberRelationshipSpecialtyStart DateEnd Date Yanet Barrios MD [address] [place] [address] PCP - GeneralFamily Medicine12/31/22documented as of this encounter
--- OUTSIDE RECORDS SUMMARY | 2025-07-15 11:00 | XMS_ITS | Encounter Summary ---
Author Organization [facility] Address [address] [place] [address] Care Team Providers Care Marriage And Family Counselor Name Role Phone Yanet Barrios MD Primary Care Provider [phone] Reason for Visit * ReasonCommentsRoutine Visit Encounter Details DateTypeDepartmentCare Team (Latest Contact Info)Sfbzoshxvyu92/21/2025 11:00 AM ESTInitial [facility] [address] [place] [address] GA: 8w4d Social History Tobacco UseTypesPacks/DayYears UsedDateSmoking Tobacco: NeverSmokeless [...] times a week10/07/2024How often do you attend adventist or samaritan services?Never 10/07/2024Do you belong to any clubs or organizations such as adventist groups, unions, fraternal or athletic groups, or school groups?No10/07/2024How often do you attend meetings of the clubs or organizations you belong to?Never10/07/2024 Are you , , , , never , or living with a partner?Living with olssjcs7010/07/2024UDIT-CAnswerDate RecordedQ1: How often do you have a [...] food, housing, medical care, and heating?Not very hard10/07/2024[facility] [place] of Occupational Health - Occupational Stress QuestionnaireAnswerDate RecordedDo you feel stress - tense, restless, nervous, or anxious, or unable to sleep at night because yourmind is troubled all the time - these days?To some vmibha2310/07/2024Exercise Vital Sign AnswerDate RecordedOn average, how many days per week do you engage in moderate to strenuous exercise (like a brisk walk)?Patient ubgjbfpx01/13/2025On average, how many minutes do you engage [...] have you moved where you were living?0 10/07/2024t any time in the past 12 months, were you homeless or living in a long-term (including now)?No10/07/2024Estimated Date of DeliveryComments Yes02/20/2026ased on last menstrual period of 05/16/2025Sex and Gender InformationValueDate RecordedSex Assigned at BirthNot on fileLegal SexFemale 11/06/2022 7:28 PM EDTGender IdentityNot on fileSexual OrientationNot on file documented as of this encounter Last Filed Vital Signs Vital SignReadingTime TakenCommentsBlood Yeqoekbu594/6011 11:27 AM EST Pulse--Temperature--Respiratory Rate--Oxygen Saturation--Inhaled Oxygen Concentration--Fbdztd46.8 kg (134 lb)07/15/2025 11:27 AM ESTHeight--Body Mass Index23.7410/08/2024 11:31 AM ESTdocumented in this encounter Progress Notes * Mandy Schmid - 07/15/2025 11:00 AM EST Reason for Appointment: Patient ID: Nando Olivera is a 24 y.o. female who presents for Routine Visit Patient presents today for a Nurse OB Intake appointment. Patient is 8w4d with a Estimated Date of Delivery: 02/20/26 OB History Para Term AB Living 2 1 SAB IAB Ectopic Multiple Live Births # Outcome Date GA Lbr Galile[place]/2nd Weight Sex Type Anes PTL Lv 2 Current 1 Current Medications: has a current medication list which includes the following prescription(s): albuterol hfa and sertraline. Medical History: Active Ambulatory Problems Diagnosis Date Noted Allergic rhinitis 2017 Major depression 08/19/2017 Dysautonomia (HCC) 10/08/2024 Generalized anxiety disorder 08/19/2017 Reactive airway disease (HCC) 10/08/2024 POTS (postural orthostatic tachycardia syndrome) 09/23/2017 Resolved Ambulatory Problems Diagnosis Date Noted No Resolved Ambulatory Problems Past Medical History: Diagnosis Date Anemia Anxiety Depression Family History Problem Relation Name Age of Onset Osteoarthritis Mother Monse Hyperlipidemia Mother Monse Cancer Father Miguel Ángel Other (brain tumors) Father Miguel Ángel Hypertension Father Miguel Ángel Stroke Father Miguel Ángel Thyroid disease Maternal Grandmother Silvia Arthritis Maternal Grandmother Silvia Heart failure Paternal Grandmother Corbin Migraines Sister Cynthia Social History Tobacco Use Smoking status: Never Smokeless tobacco: Never Tobacco comments: Vape Vaping Use Vaping status: Every Day Substances: Nicotine, Flavoring Devices: Disposable Substance Use Topics Alcohol use: Not Currently Comment: caffeine intake: 1 iced coffee daily Drug use: Never Past Surgical History: Procedure Laterality Date CT ANGIOGRAM HEART CORONARY 10/03/2024 CT ANGIOGRAM TAVR 10/03/2024 TONSILLECTOMY No Known Allergies Vitals: Estimated body mass index is 23.74 kg/m?? as calculated from the following: Height as of 10/08/24: 5' 3 . Weight as of this encounter: 134 lb. BP: 110/60 Patient's last menstrual period was 05/16/2025. Assessment/Plan Diagnoses and all orders for this visit: Missed menses - US OB transvaginal; Future - Type and screen; Future - ABO/Rh; Future - CBC and differential - Hemoglobin A1c - RPR - Rubella antibody, IgG - Hepatitis B surface antigen - Hepatitis C antibody - HIV-1 and HIV-2 antibodies - Urine culture - POCT , urine manually resulted - POCT urinalysis dipstick manually resulted Positive urine test ([facility]) - US OB transvaginal; Future , unspecified gestational age ([facility]) - Type and screen; Future - ABO/Rh; Future - CBC and differential - Hemoglobin A1c - RPR - Rubella antibody, IgG - Hepatitis B surface antigen - Hepatitis C antibody - HIV-1 and HIV-2 antibodies - Rapid drug screen, urine; Future Encounter for supervision of normal first in first trimester ([facility]) - Rapid drug screen, urine; Future Nurse Note: OB Intake: Patient presents today for first OB visit. Patients history has been reviewed in great detail including any potential risks. Patient signed consent forms and patient desires testing in both trimesters. Patient currently has no complaints and has been advised to drink 6-8 glasses of water a day, eatno raw or undercooked meat, and stay away from [facility]. Patient has also been advised to not change litter boxes and eat 6 small meals a day. Patient has been consulted regarding the do's and don'ts ofpregnancy. Patient was given labs and all questions and concerns were answered. Follow Up: Patient is to return in 4 weeks for routine OB appointment. Follow Up: Patient is to have labs drawn at directed and return to office for initial OB appointment with provider. Patient may call office as needed with any concerns or questions. Nurse Visit Completed by: Mandy Schmid documented in this encounter Plan of Treatment DateTypeDepartmentCare Team (Latest Contact Info)Lgsbsakisol83/22/2025 2:20 PM ESTRoutine [facility] [address] [place] [address] Arian Gay, [address] [place] [address] NameTypePriorityAssociated DiagnosesOrder ScheduleType and screenLabRoutine Missed menses , unspecified gestational age ([facility]) Expected: 07/15/2025 (Approximate), Expires: 6ABO/RhLabRoutine Missed menses , unspecified gestational age ([facility]) Expected: 07/15/2025 (Approximate), Expires: 6CBC and differentialLab Routine Missed menses , unspecified gestational age ([facility]) Ordered: 07/15/2025Hemoglobin [id number] Missed menses , unspecified gestational age ([facility]) Ordered: 07/15/2025RPRLabRoutine Missed menses , unspecified gestational age ([facility]) Ordered: 07/15/2025Rubella antibody, IgGLabRoutine Missed menses , unspecified gestational age ([facility]) Ordered: 07/15/2025Hepatitis B surface antigenLabRoutine Missed menses , unspecified gestational age ([facility]) Ordered: 07/15/2025Hepatitis C antibodyLabRoutine Missed menses , unspecified gestational age ([facility]) Ordered: 07/15/2025HIV-1 and HIV-2 antibodiesLabRoutine Missed menses , unspecified gestational age ([facility]) Ordered: 07/15/2025Urine cultureMicrobiologyRoutine Missed menses Ordered: 07/15/2025Rapid drug screen, urineLabRoutine , unspecified gestational age ([facility]) Encounter for supervision of normal first in first trimester ([facility]) Expected: 07/15/2025 (Approximate), Expires: 07/15/2026documented as of this encounter Procedures Procedure NamePriorityDate/TimeAssociated DiagnosisCommentsPOCT , URINE Qoigwwo4907/15/2025 11:17 AM EST Missed menses POCT URINALYSIS VUPZGPIXPtmcyqx65/21/2025 11:17 AM EST Missed menses documented in this encounter Results * (ABNORMAL) POCT urinalysis dipstick manually resulted (07/15/2025 11:17 AM EST)ComponentValueRef RangeTest MethodAnalysis TimePerformed AtPathologist SignatureColor, UAYellowClarity, UAClearGlucose, UANegativeNegative - 2000(110) ++++ mg/dLBilirubin, UANegativeNegative - 4(70) +++ mg/dLKetones, UA NegativeNegative - 160(16) ++++ mg/dLSpec Grav, UA1.0101 - 1.03Blood, UA NegativeNegative - 50 Franc/mcLpH, UA6.05 - 9Protein, UATraceNegative - 2000(20) ++++ mg/dLUrobilinogen, UA1.00.2 - 12 mg/dLLeukocytes, UANegativeNegative - 500+++ Fox/mcLNitrite, UANegativeNegative - PositiveSpecimen (Source) Anatomical Location / LateralityCollection Method / VolumeCollection Time Received ZwjrQxmvu76/21/2025 11:17 AM EST Narrative Authorizing ProviderResult TypeResult StatusCorey Deidra DOPOINT OF CARE TEST ENTER/EDIT ORDERABLESFinal Result * (ABNORMAL) POCT , urine manually resulted (07/15/2025 11:17 AM EST) ComponentValueRef RangeTest MethodAnalysis TimePerformed AtPathologist SignaturePreg Test, UrPositiveNegativeSpecimen (Source)Anatomical Location / LateralityCollection Method / VolumeCollection TimeReceived TimeUrine 07/15/2025 11:17 AM EST Narrative Authorizing ProviderResult TypeResult StatusCorey Deidra DOPOINT OF CARE TEST ENTER/EDIT ORDERABLESFinal Result * US OB transvaginal (07/15/2025 10:47 AM [...] Booker Jeronimo MD Authorizing ProviderResult TypeResult StatusCorey Deidra DOI OB US PROCEDURES Final Result documented in this encounter Visit Diagnoses Diagnosis Missed menses Positive urine test ([facility]) Missed menses Positive urine test ([facility]) , unspecified gestational age ([facility]) Encounter for supervision of normal first in first trimester ([facility]) documented in this encounter Care Teams Team MemberRelationshipSpecialtyStart DateEnd Date Yanet Barrios MD [address] [place] [address] PCP - GeneralFamily Medicine12/31/22documented as of this encounter
--- OUTSIDE RECORDS SUMMARY | 2025-07-28 11:33 | XMS_ITS | Clinical Summary ---
Author Organization [facility] Address [address] [place] [address] Care Team Providers Care Squirrel Man Name Role Phone Yanet Barrios MD Primary Care Provider [phone] Allergies No known active allergies Medications MedicationSigDispense QuantityRefillsLast FilledStart DateEnd DateStatus sertraline (Zoloft) 50 MG tablet Take 50 mg by mouth Daily02/07/2016Active albuterol HFA (Ventolin HFA) 90 mcg/act inhaler Indications:Upper respiratory tract infection, unspecified typeInhale 2 puffs every 4 (four) hours if needed for wheezing 18 g 1105010/12/2025ctive Active Problems ProblemNoted DateDiagnosed ZjldPaxbbjkwdqvd04/14/2025Reactive airway disease 10/08/2024POTS (postural orthostatic tachycardia syndrome)09/23/2017Major jmdukomxhn88/26/2017Generalized anxiety olkjrjrl39/26/2017Allergic rhinitis 2017Estimated Date of YivzrnmeMprymrulVzj11/29/2026ased on last menstrual period of 05/16/2025 Encounters DateTypeDepartmentCare FocuZljhpnuoutb56/21/2025 11:00 AM ESTInitial [facility] [address] [facility] [place] [address] [place]: 8w4d07/15/2025 10:30 AM ESTAncillary Procedure [facility] Kristine PICKENS [address] [place] [address] Missed menses; Positive urine test ([facility])5Abstract [facility] WILSONN [address] [place] [address] Arian Gay DO from Last 3 Months Immunizations ImmunizationAdministration DatesNext VyiUOuG1312/25/2006,02/04/2003,02/08/2002, 2001,2001Hep B, Adolescent or Wunjsyjme30/17/2002,2001, 2001HiB, isogqsijvsv16/13/2003,02/08/2002,2001,2001IPV 12/25/2006,02/04/2003,2001,2001Influenza Whole05/24/2013,06/10/2011, 07/02/2010,06/12/2009,06/29/2007Influenza, injectable, MDCK, preservative free, uuelgsbhszug99/09/2023,06/24/2022Influenza, injectable, agxearpbheco04/28/2017 Influenza, injectable, quadrivalent, preservative free07/10/2021,06/22/2020, 06/21/2019,06/26/2018Influenza, seasonal, injectable, preservative free 06/13/2024,06/17/2016,06/08/2014Influenza, seasonal, intradermal, preservative free06/21/2015MMR11/03/2002MMRV12/25/2006Meningococcal MCV4, Unspecified 06/26/2018Pneumococcal Conjugate PCV 7002/20/2002,2001,2001Tdap 09/01/2024,12/03/20133601Xkhblkdmz75/21/2002 Family History Medical HistoryRelationNameCommentsCancerFatherLarryHypertensionFatherLarry StrokeFatherLarrybrain tumorsFatherLarryArthritisMaternal GrandmotherCindy Thyroid diseaseMaternal GrandmotherCindyHyperlipidemiaMotherAmberOsteoarthritis MotherAmberHeart failurePaternal GrandmotherJeanMigrainesSisterAshleyRelation NameStatusCommentsFatherLarryAliveMaternal GrandmotherCindyAliveMotherAmberAlive Paternal GrandmotherJeanAliveSisterAshleyAlive Social History Tobacco UseTypesPacks/DayYears UsedDateSmoking Tobacco: NeverSmokeless Tobacco: Never Tobacco Cessation:Counseling Given: Not Answered Comments:Vape Alcohol UseStandard Drinks/WeekCommentsNot Currently0 (1 standard [...] times a week10/07/2024How often do you attend worship or congregation services?Never 10/07/2024Do you belong to any clubs or organizations such as worship groups, unions, fraternal or athletic groups, or school groups?No10/07/2024How often do you attend meetings of the clubs or organizations you belong to?Never10/07/2024 Are you , , , , never , or living with a partner?Living with elgoddi6210/07/2024UDIT-CAnswerDate RecordedQ1: How often do you have a [...] food, housing, medical care, and heating?Not very hard10/07/2024[facility] [place] [facility] - Occupational Stress QuestionnaireAnswerDate RecordedDo you feel stress - tense, restless, nervous, or anxious, or unable to sleep at night because yourmind is troubled all the time - these days?To some ifoati0110/07/2024Exercise Vital Sign AnswerDate RecordedOn average, how many days per week do you engage in moderate to strenuous exercise (like a brisk walk)?Patient itabaljg10/13/2025On average, how many minutes do you engage [...] EDTGender IdentityNot on fileSexual OrientationNot on file Last Filed Vital Signs Vital SignReadingTime TakenCommentsBlood Gtvzpolx343/6007/15/2025 11:27 AM EST Zasph480310/08/2024 11:31 AM PQLJqahsiaacog13 ??C (96.8 ??F)10/08/2024 11:31 AM ESTRespiratory Rate--Oxygen Ghmbsjvxeg78%10/08/2024 11:31 AM ESTInhaled Oxygen Concentration--Lwvnym12.8 kg (134 lb)07/15/2025 11:27 AM YTTLtmgwt752 cm (5' 3 ) 10/08/2024 11:31 AM ESTBody Mass Index23.7410/08/2024 11:31 AM EST Plan of Treatment DateTypeDepartmentCare Team (Latest Contact Info)Soyicapmkpk08/22/2025 2:20 PM ESTRoutine [facility] [address] [place] [phone] Arian Gay, [address] [place] [address] Health MaintenanceDue DateLast DoneCommentsCOVID-19 Vaccine ( season) 51, 12/19/2020, 1Pneumococcal Vaccine: Pediatrics (0 to 5 Years) and At-Risk Patients (6 to 64 Years)Aged Out02/20/2002, 2001, 2001No longer eligible based on patient's age to complete this topic Influenza JgalehyAlperjtnl31/10/2025, 06/13/2024, 07/03/2023, Additional history exists Procedures Procedure NamePriorityDate/TimeAssociated DiagnosisCommentsPOCT URINALYSIS YYFXKYZTKmkvibj85/21/2025 11:17 AM EST Missed menses POCT , ZPAINSpyfxkn81/21/2025 11:17 AM EST Missed menses US OB WMHQJIHUIEUFWavrawf39/21/2025 10:47 AM EST Missed menses Positive urine test ([facility]) from Last 3 Months Results * (ABNORMAL) POCT , urine manually resulted (07/15/2025 11:17 AM EST) ComponentValueRef RangeTest MethodAnalysis TimePerformed AtPathologist SignaturePreg Test, UrPositiveNegativeSpecimen (Source)Anatomical Location / LateralityCollection Method / VolumeCollection TimeReceived TimeUrine 07/15/2025 11:17 AM EST Narrative Authorizing ProviderResult TypeResult StatusCorey Deidra DOPOINT OF CARE TEST ENTER/EDIT ORDERABLESFinal Result * (ABNORMAL) POCT urinalysis dipstick manually resulted [...] / LateralityCollection Method / VolumeCollection Time Received RcakVoham62/21/2025 11:17 AM EST Narrative Authorizing ProviderResult TypeResult [...] Jeronimo MD Authorizing ProviderResult TypeResult StatusCorey Deidra [facility] US PROCEDURES Final Result from Last 3 Months Insurance Care Teams Team MemberRelationshipSpecialtyStart DateEnd Date Yanet Barrios MD [address] [place] [address] PCP - GeneralFamily Medicine12/31/22
--- OUTSIDE RECORDS SUMMARY | 2025-07-28 11:33 | XMS_ITS | Encounter Summary ---
Author Organization [facility] Address [address] [place] [address] Care Team Providers Care Supervisor Line Department Name Role Phone Yanet Barrios MD Primary Care Provider [phone] Encounter Details DateTypeDepartmentCare Team (Latest Contact Info)Expaugcwsdb61/21/2025bstract [facility] [address] [place] [address] Arian Gay DO [address] [place], [facility] Social History Tobacco UseTypesPacks/DayYears UsedDateSmoking Tobacco: NeverSmokeless [...] times a week10/07/2024How often do you attend restorationist or druze services?Never 10/07/2024Do you belong to any clubs or organizations such as restorationist groups, unions, fraternal or athletic groups, or school groups?No02/13/2025How often do you attend meetings of the clubs or organizations you belong to?Never10/07/2024 Are you , , , , never , or living with a partner?Living with rzjoagu1410/07/2024UDIT-CAnswerDate RecordedQ1: How often do you have a [...] medical care, and heating?Not very hard10/07/2024[facility] [place] of Occupational [facility] - Occupational Stress QuestionnaireAnswerDate RecordedDo you feel stress - tense, restless, nervous, or anxious, or unable to sleep at night because yourmind is troubled all the time - these days?To some bsntrq5710/07/2024Exercise Vital Sign AnswerDate RecordedOn average, how many days per week do you engage in moderate to strenuous exercise (like a brisk walk)?Patient fydxvjyf99/13/2025On average, how many minutes do you engage [...] to pay the mortgage or rent on time?No02/13/2025In the past 12 months, how many times have you moved where you were living?0 5At any time in the past 12 months, were you homeless or living in a skilled nursing (including now)?No10/07/2024Estimated Date of DeliveryComments Yes02/20/2026ased on last menstrual period of 05/16/2025Sex and Gender InformationValueDate RecordedSex Assigned at BirthNot on fileLegal SexFemale 11/06/2022 7:28 PM EDTGender IdentityNot on fileSexual OrientationNot on file documented as of this encounter Plan of Treatment DateTypeDepartmentCare Team (Latest Contact Info)Pfimhpbvlir25/22/2025 2:20 PM ESTRoutine [facility] [address] [place] [address] Arian Gay DO [address] [place], [place] [id number] documented as of this encounter Visit Diagnoses Not on filedocumented in this encounter Care Teams Team MemberRelationshipSpecialtyStart DateEnd Date Yanet Barrios MD [address] [facility] [place] [address] PCP - GeneralFamily Medicine12/31/22documented as of this encounter
--- OUTSIDE RECORDS SUMMARY | 2025-07-28 11:33 | XMS_ITS | Clinical Summary ---
Author Organization [facility] tem Address [facility] [id number] 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 MedicationSigDispense QuantityRefillsLast FilledStart DateEnd DateStatus sertraline (ZOLOFT) 50 mg tablet Take 1 tablet (50 mg total) by mouth daily. 30 tablet 05/04/2020Active Active Problems ProblemNoted DateDiagnosed DateMood gojfxjha96/04/2020Drug use01/27/2020Chronic zsydjgdmd41/20/2019Postnasal drip10/28/20189696Odwxshzth53/06/2019Shortness of dnfxvg8906/02/2018Other eqyenxyk27/10/2018S/P tonsillectomy and adenoidectomy 09/25/2017POTS (postural orthostatic tachycardia syndrome)09/23/2017Tachycardia 09/23/2017Secondary post tonsillectomy jrumfdbyrx05/23/2018Generalized anxiety /26/2017Major uecynewikm22/26/2017Chronic dctzcqlwfub33/12/2017Chronic nasal wthyrcasjf07/12/2017Tonsillar lxbywvhdkjg77/12/2017Allergic rhinitis 2017 Immunizations No known immunizations Family History Medical HistoryRelationNameCommentsBrain TumorFatherStrokeFatherNo Known ProblemsMotherHypertensionSisterRelationNameStatusCommentsFatherAliveMotherAlive SisterAlive Social History Tobacco UseTypesPacks/DayYears UsedDateSmoking Tobacco: FormerSmokeless Tobacco: NeverAlcohol UseStandard Drinks/WeekCommentsNo0 (1 standard drink = 0.6 oz pure alcohol)ChildcareAnswerDate CsunaawkQrevuzpyyTrbrggm22/12/2019EmploymentAnswer Date SgqnjmdfOycfwvxgppRzchmxy57/12/2019Hunger ScreeningAnswerDate Recorded Within the past 12 months we worried whether our food would run out before we got money to buy more.Never True10/03/2024Within the past 12 months the food we bought just didn't last and we didn't have money to get more.Never True 10/03/2024Purpose - LifeAnswerDate RecordedPurpose and direction in lifeUnknown 1CommentsNoSex and Gender InformationValueDate RecordedSex Assigned at BirthNot on fileLegal ZtqGehctv12/06/2015 11:58 AM EDTGender IdentityNot on fileSexual OrientationNot on file Last Filed Vital Signs Vital SignReadingTime TakenCommentsBlood Nwciffov418/8810/03/2024 11:16 PM EST Ztlgv89791/10/2025 12:12 AM JDPKrqknrcerya67.8 ??C (98.3 ??F)10/03/2024 9:06 PM ESTRespiratory Pjpp637510/04/2024 12:12 AM ESTOxygen Jaohzytwwi05%10/04/2024 12:12 AM ESTInhaled Oxygen Concentration--Jneagh93.4 kg (175 lb)10/03/2024 9:06 PM EST Zxhjpd105.6 cm (5' 4 )10/03/2024 9:06 PM ESTBody Mass Index30.04010/03/2024 9:06 PM EST Plan of Treatment Health MaintenanceDue DateLast DoneCommentsDepression Agiidfybp15/12/2013dult BMI Follow Up Plan2019Pap Smear2COVID-19 Vaccine ( season)51, 12/19/2020, 11/28/2020Influenza Xlgerhu8304/25/2025 06/13/2024, 07/03/2023, 06/24/2022, Additional history existsAdult BMI Screening 602/04/2025Tobacco Slftavavg75/09/093568/04/2025DTaP,Tdap and Td Vaccines (8 - Td or Tdap)5009/01/2024, 12/03/2013, 12/25/2006, Additional history exists Medical Devices Not on file Insurance Care Teams Team MemberRelationshipSpecialtyStart DateEnd Yanet Barrios MD [address] [place] [address] PCP - GeneralFamily Medicine10/03/24
--- OUTSIDE RECORDS SUMMARY | 2025-07-28 11:42 | XMS_ITS | CCD ---
Author Organization [facility] Care Team Providers Care Director Of Media Name Role Phone Fernando Kendrick Unavailable Unavailable Fernando Kendrick Unavailable Unavailable Provider, None Unavailable Unavailable Yanet Cadena MD Primary Care Provider YANET CADENA Primary Care Unavailable MAGUE PRUETT Attending Unavailable Yanet Cadena MD Primary Care Provider [phone] ARIAN GAY Attending Unavailable TY, KAYY Attending Unavailable TY, KAYY Attending Unavailable TY, KAYY Attending Unavailable ZAYDA MAHMOOD Attending Unavailable TY, KAYY Attending Unavailable DEIDRA, ARIAN Attending Unavailable TY, KAYY Attending Unavailable TY, KAYY Attending Unavailable DEIDRA, ARIAN Attending Unavailable TY, KAYY Attending Unavailable DEIDRA, ARIAN Attending Unavailable TY, KAYY Attending Unavailable TY, KAYY Attending Unavailable DEIDRA, ARIAN Attending Unavailable TY, KAYY Attending Unavailable Medications Current Medications MedicationDrug Class(es)DatesSig (Normalized)Sig (Original)[id number] 200 actuat albuterol 0.09 mg/actuat metered dose inhaler (5 sources)beta2-Adrenergic AgonistStart: 10-12-2024 End: 49-71-8035uicu 2 puff(s) by inhalation every four hours for wheezing albuterol HFA (Ventolin HFA) 90 mcg/act inhaler Indications: Upper respiratory tract infection, unspecified type Inhale 2 puffs every 4 (four) hours if needed for wheezing 18 g 11 10/12/2024 10/12/2025 ActiveEthinyl Estradiol / norgestimate (2 sources)Progestin, EstrogenStart: 91-03-1392yuyd 1 tablet by mouth once daily norgestimate-ethinyl estradioL (TRI-SPRINTEC, 28,) 0.18/0.215/0.25 mg-35 mcg (28) per tablet TAKE 1TABLET BY MOUTH EVERY DAY 84 tablet 3 09/22/2023 Active Start: 05-05-2023 End: 50-82-7430qwfy 1 tablet by mouth once dailynorgestimate-ethinyl estradioL (TRI-SPRINTEC, 28,) 0.18/0.215/0.25 mg-35 mcg (28) per tablet TAKE 1TABLET BY MOUTH EVERY DAY 84 tablet 0 05/05/2023 09/22/2023 Discontinuedlabetalol hydrochloride 100 mg oral tablet (11 sources)beta-Adrenergic BlockerStart: 10-05-2024 End: 32-12-1379tjht 1 tablet by mouth in the morninglabetalol (Normodyne) 100 MG tablet Indications: Anemia, unspecified type Take 1 tablet (100 mg) bymouth in the morning and 1 tablet (100 mg) before bedtime. 60 tablet 11 10/05/2024 10/05/2025 Activemetoprolol tartrate 25 mg oral tablet (1 source)beta-Adrenergic BlockerStart: 40-88-5979jwgp 1 tablet by mouth in the morning, then take 1 tablet by mouth at bedtimemetoprolol tartrate (LOPRESSOR) 25 mg tablet Indications: POTS (postural orthostatic tachycardia syndrome) Take 1 tablet (25 mg total) by mouth in the morning and 1 tablet (25 mg total) before bedtime. 60 tablet 2 05/31/2022 ActivemetroNIDAZOLE 500 mg oral tablet (1 source)Nitroimidazole AntimicrobialStart: 05-06-2024 End: 58-95-0711zybb 1 tablet by mouth in the morningmetroNIDAZOLE (Flagyl) 500 MG tablet Indications: BV (bacterial vaginosis) Take 1 tablet (500 mg) by mouth in the morning and 1 tablet (500 mg) before bedtime. Do all this for 7 days. Do not drink alcohol while taking this medication. 14 tablet 05/06/2024 05/13/2024 Activeomeprazole 20 mg delayed release oral capsule (1 source)Proton Pump InhibitorStart: 26-86-1178ktph 1 capsule by mouth in the morningomeprazole (PriLOSEC) 20 mg capsule Take 1 capsule (20 mg total) by mouth in the morning. 30 capsule 0 06/11/2022 Activeoseltamivir 75 mg oral capsule (6 sources)Neuraminidase InhibitorStart: 10-08-2024 End: 19-28-1247bpju 1 capsule by mouth in the morningoseltamivir (Tamiflu) 75 MG capsule Indications: Influenza A Take 1 capsule (75 mg) by mouth in themorning and 1 capsule (75 mg) before bedtime. Do all this for 5 days. 10 capsule 10/08/2024 10/13/2024 Activepolysaccharide iron complex 391 mg oral capsule (20 sources)Start: 07-07-2024 End: 36-23-3033zmjs 1 capsule by mouth once dailyiron polysaccharides (ProFe) 391.3 (180 Fe) MG capsule Indications: Anemia, unspecified type Take 1capsule (391.3 mg) by mouth Daily 30 capsule 1 10/05/2024 11/04/2024 Activesertraline 50 mg oral tablet (20 sources)Serotonin Reuptake InhibitorStart: 74-91-5377sgvw 1 tablet by mouth once dailysertraline (Zoloft) 50 MG tablet Take 50 mg by mouth Daily 02/07/2016 Active Completed/Discontinued Medications MedicationDrug Class(es)DatesSig (Normalized)Sig (Original)azithromycin 250 mg oral tablet (5 sources)Macrolide AntimicrobialStart: 10-12-2024 End: 39-51-3029aebbzcfybmhu (Zithromax Z-Panchito) 250 MG tablet Indications: Upper respiratory tract infection, unspecified type As directed 6 tablet 10/12/2024 10/21/2024 DiscontinuedStart: 51-12-2039yzhloaknomwz (Zithromax Z-Panchito) 250 MG tablet Indications: Upper respiratory tract infection, unspecified type As directed 6 tablet 10/12/2024 Activemagnesium oxide 400 mg oral tablet (20 sources)Start: 05-10-2024 End: 00-34-5717diwa 1 tablet by mouth once dailymagnesium oxide (Mag-Ox) 400 (240 Mg) MG tablet Take 400 mg by mouth Daily 05/10/2024 09/14/2024 Discontinued (Therapy completed)Start: 04-05-2024 End: 06-12-7127waao 1 tablet by mouth once dailymagnesium oxide (Mag-Ox) 400 MG tablet Indications: headache, antepartum Take 1 tablet (400 mg) by mouth Daily 30 tablet 6 04/05/2024 05/05/2024 ActivemethylPREDNISolone (5 sources)CorticosteroidStart: 10-12-2024 End: 44-01-2357ewpiibOXLYLBNfvnyn (Medrol Dospak) 4 MG tablets Indications: Upper respiratory tract infection, unspecified type Day 1: 6 tablets Day 2: 5 tablets Day 3: 4 tablets Day 4: 3 tablets Day 5: 2 tablets Day 6: 1 tablet 21 tablet 10/12/2024 10/21/2024 DiscontinuedStart: 22-52-2075toxhynDEKDZUDsouig (Medrol Dospak) 4 MG tablets Indications: Upper respiratory tract infection, unspecified type Day 1: 6 tablets Day 2: 5 tablets Day 3: 4 tablets Day 4: 3 tablets Day 5: 2 tablets Day 6: 1 tablet 21 tablet 10/12/2024 Active Problems Active Problems Problem ClassificationProblemDateDocumented DateEpisodic/ChronicAcute and chronic tonsillitis (2 sources)Chronic tonsillitis; Translations: [Chronic tonsillitis]Onset: 171444-77-4816AwkadsdQcuaidv disorders (13 sources)Generalized anxiety disorder; Translations: [Generalized anxiety disorder]Onset: 036323-43-6361HaihczwRnvmch (12 sources)Reactive airway disease; Translations: [Unspecified asthma, uncomplicated]Onset: 375585-44-6115CbviqofYqdbgwk dysrhythmias (13 sources)Postural orthostatic tachycardia syndrome ; Translations: [POTS (postural orthostatic tachycardia syndrome)]Onset: hronic Cardiac dysrhythmias (2 sources)Palpitations; Translations: [Tachycardia]Onset: EpisodicDeficiency and other anemia (2 sources)Anemia; Translations: [Anemia, unspecified]65-37-6243Jjiwtorw Essential hypertension (3 sources)Hypertensive disorder; Translations: [Unspecified maternal hypertension, complicating the puerperium]Onset: hronic Influenza (2 sources)Influenza due to Influenza A virus; Translations: [Influenza due to other identified influenza virus with other respiratory manifestations] 74-82-1965CapjxsqnAlgv disorders (14 sources)Major depressive disorder; Translations: [Major depressive disorder, single episode, unspecified]Onset: 976749-35-0676WidgivgFmjpypd system congenital anomalies (12 sources)Disorder of autonomic nervous system; 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]]Onset: 288123-03-6087NwowkpxCilyssiwcet chest pain (1 source)Chest pain, unspecified; Translations: [Chest pain, unspecified]Onset: 38-36-1647KjczpjorVwyxtaxykas deficiencies (2 sources)Serum iron low; Translations: [Iron deficiency]50-33-7438Snqvcbip Other complications of (2 sources) size does not accord with dates; Translations: [Uterine size- date discrepancy, unspecified trimester]60-46-0567LynooitoPgbfz lower respiratory disease (2 sources)Shortness of breath; Translations: [Dyspnea]Onset: 06-02-2018 14-15-5427ZlcqapqyWuyet and delivery including normal (18 sources)Second trimester ; Translations: [Encounter for supervision of normal , unspecified, second trimester]85-33-2770QoiismwpZmtyf screening for suspected conditions (not mental disorders or infectious disease) (4 sources)Patient encounter status; Translations: [Encounter for screening for diabetes mellitus]00-64-7080RhcxsniqHjqvq upper respiratory disease (13 sources)Allergic rhinitis; Translations: [Allergic rhinitis, unspecified] Onset: 718527-81-7667QjrfvrwDraew upper respiratory disease (3 sources)Nasal congestion; Translations: [Nasal congestion]Onset: 2017 88-24-5979QjwnbeajJtpfa upper respiratory infections (2 sources)Sinusitis; Translations: [Chronic sinusitis, unspecified]Onset: 699938-72-1645JxquwrxOgsaw upper respiratory infections (3 sources)Posterior rhinorrhea; Translations: [Postnasal drip]Onset: 10-28-2018 35-17-1830XlsxvrioPlcmzphp codes; unclassified (1 source)Insomnia; Translations: [Other insomnia]Onset: ChronicResidual codes; unclassified (2 sources)Gestation period, 21 weeks; Translations: [21 weeks gestation of ]80-99-7255FcwrouclCqzradnr codes; unclassified (2 sources)Gestation period, 25 weeks; Translations: [25 weeks gestation of ]98-18-6701UioonntaMfaiancq codes; unclassified (2 sources)Gestation period, 27 weeks; Translations: [27 weeks gestation of ]40-33-2709CjzfhiwyOglklzmx codes; unclassified (2 sources)Gestation period, 29 weeks; Translations: [29 weeks gestation of ]07-16-0234JuhdbmduDhufurxr codes; unclassified (2 sources)Gestation period, 31 weeks; Translations: [31 weeks gestation of ]99-83-6935IxqfwhnuEgqeordb codes; unclassified (2 sources)Gestation period, 34 weeks; Translations: [34 weeks gestation of ]69-47-8161KiaktdttJcnryxzs codes; unclassified (2 sources)Gestation period, 36 weeks; Translations: [36 weeks gestation of ]15-53-7320TkiraxwmShfytcsx codes; unclassified (2 sources)Gestation period, 37 weeks; Translations: [37 weeks gestation of ]52-65-3882AqowqdlcRyuastlh codes; unclassified (2 sources)Gestation period, 38 weeks; Translations: [38 weeks gestation of ]13-99-8404ChglxtdrCdwtfnekaklp (1 source)Heart PalpitationsOnset: 57-58-8012Dysvyfzobfek (1 source)Chest Pain, Shortness of BreathOnset: 10-03-2024 Past or Other Problems Problem ClassificationProblemDateDocumented DateEpisodic/ChronicComplications of surgical procedures or medical care (1 source)Secondary post tonsillectomy hemorrhage; Translations: [Postprocedural hemorrhage of a respiratory system organ or structure following a respiratory system procedure]Onset: 123471-15-9548SamjnkqzUfficsdlcnraj and screening for infectious disease (2 sources)Exposure to sexually transmissible disorder; Translations: [Contact with and (suspected) exposure to infections with a predominantly sexual mode of transmission]31-20-4068PcanglixEfvti female genital disorders (2 sources)Vaginal discharge; Translations: [Other specified noninflammatory disorders of vagina]85-65-5361SkmfewksZwoiooan codes; unclassified (2 sources)Gestation period, 17 weeks; Translations: [17 weeks gestation of ]03-32-3154WslenetsIuhzabiim-related disorders (1 source)Finding related to substance use; Translations: [Other psychoactive substance use, unspecified, uncomplicated]Onset: 873840-64-7695Pminkbjj Results Test NameValueInterpretationReference RangeFacilityALL CBC WITH AUTO DIFFon 44-07-4403SGFXRXBCJ ABSOLUTE RTBK2VDUN HealthcareBasophils/100 WBC (Bld)0.2 %0.2 - 2.0 %NOMKindred HospitalEosinophils/100 WBC (Bld)2.2 %0.9 - 7.0 %[facility] Erythrocyte distribution width (RBC) [Ratio]17.6 %High11.0 - 15.0 %[facility] HospitalHematocrit (Bld) [Volume fraction]34.9 %Low36.0 - 48.0 %[facility] HospitalHemoglobin (Bld) [Mass/Vol]10.6 g/dLLow12.0 - 16.0 g/dLSt. [facility]'s Hospital IMMATURE GRANULOCYTES ABS AUTO0.01NOSamaritan HospitalImmature granulocytes/100 WBC (Bld)0.2 %0.0 - 0.5 %[facility] HospitalInterpretation and review of laboratory resultsAbnormalNOSamaritan HospitalLYMPHOCYTES ABSOLUTE AUTO2.1NOMS [facility] Lymphocytes/100 WBC (Bld)33.2 %20.5 - 60.0 %[facility] NorthH (RBC) [Entitic mass]23 pgLow26.7 - 34.0 pgNOSalem Memorial District HospitalHC (RBC) [Mass/Vol]30.4 g/dL29.9 - 35.2 g/dLCox NorthV (RBC) [Entitic vol]75.9 fLLow81.0 - 99.0 fLSt. Louis Children's HospitalMONOCYTES ABSOLUTE AUTO0.2LowNOMS HealthcareMonocytes/100 WBC (Bld)3.4 %1.7 - 12.0 %[facility] HospitalNEUTROPHILS ABSOLUTE AUTO3.9NOSamaritan Hospital Neutrophils/100 WBC (Bld)60.8 %43.0 - 75.0 %[facility] HealthcarePlatelet mean volume (Bld) [Entitic vol]12.6 fL9.5 - 13.5 fLNOSamaritan HospitalTB EO #0.1NOMS Healthcare TBH JRY075JBJH [facility] RBC4.6NOSt. [facility] WBC6.4NOSamaritan Hospital CLINISYNCLIFEPOINT HOSPITALS HealthcareLaboratory - Microbiology and Antimicrobial susceptibilityon 60-98-7796VFKV-CoV-2 (COVID-19) RNA ASHUTOSH+probe Ql (Unsp spec)- [facility] HealthcareNo Panel Informationon 34-72-3357NQX A+[facility] HealthcareFLU B-[facility] HealthcareInterpretation and review of laboratory resultsAbnormalCedar County Memorial Hospital HealthcareCBC AND AUTO DIFFon 19-71-6256APSBTVIG BASOPHIL0.1 X10E9/LNormal 0.0-0.2ProMedBellflower Medical CenterComment on above:Performed By: #### CBCIsaiah CMP, 2532-0, 45242-1, 39066-3, 14695-9, THYR #### [facility] ([id number]) [address] [place] [address] 63928GQQSXTOD NEUTROPHIL5.6 X10E9/LNormal1.5-6.6ProChristus Mother Frances Hospital – TylerComment on above:Performed By: #### CBCA, CMP, 2532-0, 71595-4, 62212-2, 16175-9, THYR #### [facility] ([id number]) [address] [place] [address] [id number]/100 WBC (Bld)0.7 %NormalCleveland Clinic Euclid Hospital Comment on above:Performed By: #### CBCA, CMP, 2532-0, 00535-9, 50079-6, 62759- 4, THYR #### [facility] ([id number]) [address] [place] [address] 22384Smuizwkcgnd (Bld) [#/Vol]0.2 10*3/uLNormal0.0-0.4ProChristus Mother Frances Hospital – TylerComment on above:Performed By: #### CBCA, CMP, 2532-0, 49753-4, 58758-9, 10321-4, THYR #### [facility] ([id number]) [address] [place] [address] 80667Olrdzhltpdc/100 WBC (Bld)2.8 %NormalCleveland Clinic Euclid Hospital Comment on above:Performed By: #### CBCA, CMP, 2532-0, 42977-2, 41359-9, 64440- 4, THYR #### [facility] ([id number]) [address] [place] [address] 65717Perkyccijxu distribution width (RBC) [Ratio]17.5 %High11.5-15.0 [facility] University HospitalComment on above:Performed By: #### CBCA, CMP, 2532-0, 58983-2, 82792-3, 90413-9, THYR #### [facility] ([id number]) [address] [place] [address] 65160Qugdzmcxcb (Bld) [Volume fraction]26.9 %Mvk95-16BriUoxjzaChristus Mother Frances Hospital – TylerComment on above:Performed By: #### CBCA, CMP, 2532-0, 71959-0, 19569-4, 91929-7, THYR #### [facility] ([id number]) [address] [place] [address] 52060Sxkawxmtwc (Bld) [Mass/Vol]8.7 g/dLLow11.7-15.5ProMedica University HospitalComment on above:Performed By: #### CBCA, CMP, 2532-0, 46918-6, 99662-6, 87871-4, THYR #### [facility] ([id number]) [address] [place] [address] 26012Rduijykwhmm (Bld) [#/Vol]2.6 10*3/uLNormal1.0-3.5PHighland District HospitalComment on above:Performed By: #### CBCA, CMP, 2532-0, 98950-5, 23626-1, 86630-1, THYR #### [facility] ([id number]) [address] [place] [address] 10026Kxnzmmsrjwy/100 WBC (Bld)29.5 %NormalCleveland Clinic Euclid Hospital Comment on above:Performed By: #### CBCA, CMP, 2532-0, 82632-0, 75974-1, 96959- 4, THYR #### [facility] ([id number]) [address] [place] [address] 12740ODZ (RBC) [Entitic mass]23.4 jkUpk47-54MxgGgdpkyCleveland Clinic Euclid HospitalComment on above:Performed By: #### CBCA, CMP, 2532-0, 34838-5, 17674-0, 83598-2, THYR #### [facility] ([id number]) [address] [place] [address] 01228FSSP (RBC) [Mass/Vol]32.4 g/dLEntbeb95-66YbfNafdduCleveland Clinic Euclid HospitalComment on above:Performed By: #### CBCA, CMP, 2532-0, 90094-6, 37161-3, 58052-5, THYR #### [facility] ([id number]) [address] [place] [address] 23015LAV (RBC) [Entitic vol]72 kWIwz68-157RojCgbuuwCleveland Clinic Euclid Hospital Comment on above:Performed By: #### CBCA, CMP, 2532-0, 68832-2, 80602-2, 49138- 4, THYR #### [facility] ([id number]) [address] [place] [address] 01560Ugrvbbmzq (Bld) [#/Vol]0.4 10*3/uLNormal0-0.9C[facility] Clinic [facility]ucl[facility] HospitalComment on above:Performed By: #### CBCA, CMP, 2532-0, 29610-7, 81290-7, 00575-9, THYR #### [facility] ([id number]) [address] [place] [address] 55512Iuxccyiut/100 WBC (Bld)4.7 %NormalCleveland Clinic Euclid Hospital Comment on above:Performed By: #### CBCA, CMP, 2532-0, 41925-3, 85817-4, 56029- 4, THYR #### [facility] ([id number]) [address] [place] [address] 10459Xclfzmyhodu/100 WBC (Bld)62.3 %[facility] Comment on above:Performed By: #### CBCA, CMP, 2532-0, 84148-2, 98502-5, 83179- 4, THYR #### [facility] ([id number]) [address] [place] [address] 05073Whmulpku mean volume (Bld) [Entitic vol]10.5 fLNormal7-12 [facility] HospitalComment on above:Performed By: #### CBCA, CMP, 2532-0, 24009-3, 62895-4, 46489-6, THYR #### [facility] ([id number]) [address] [place] [address] 64500Fnqjhnusd (Bld) [#/Vol]141 10*3/kJMwg345-299LkaBnfnfxChristus Mother Frances Hospital – TylerComment on above:Performed By: #### CBCA, CMP, 2532-0, 81608-0, 42588-0, 84353-1, THYR #### [facility] ([id number]) [address] [place] [address] 56045MDC COUNT3.73 X10E12/LLow3.80-5.20[facility] Comment on above:Performed By: #### MAYLIN, CMP, 2532-0, 16268-2, 79551-9, 51067- 4, THYR #### [facility] ([id number]) [address] [place] [address] 87609OSX (Bld) [#/Vol]8.9 10*3/uLNormal4.0-11.0ProChristus Mother Frances Hospital – TylerComment on above:Performed By: #### MAYLIN, CMP, 2532-0, 27854-4, 29860-4, 92345-7, THYR #### [facility] ([id number]) [address] [place] [address] 74654REUFSJEEZYROS METABOLIC PANELon 19-83-7879Fzhcala [Mass/Vol]2.8 g/dLLow3.2-5.3PHighland District HospitalComment on above:Performed By: #### MAYLIN, CMP, 2532-0, 40954-8, 31611-2, 30845-6, THYR #### [facility] ([id number]) [address] [place] [address] 27752PNG [Catalytic activity/Vol]103 U/LUozzpl47-511LqlGpgfgpChristus Mother Frances Hospital – TylerComment on above:Performed By: #### CBCA, CMP, 2532-0, 47961-1, 68283-4, 95112-8, THYR #### [facility] ([id number]) [address] [place] [address] 70202QNS [Catalytic activity/Vol]31 U/LNormal0-31PHighland District HospitalComment on above:Performed By: #### CBCA, CMP, 2532-0, 88797-3, 23444-7, 84908-0, THYR #### [facility] ([id number]) [address] FLO[address] [place], [place] [address]Maymj gap [Moles/Vol]5 mmol/LNormal5-15ProChristus Mother Frances Hospital – TylerComment on above:Performed By: #### MIGUEL CARLISLE, 2532-0, 25927-5, 35667-4, 16290-3, THYR #### [facility] ([id number]) [address] [place] [address], [place] [address]CDS [Catalytic activity/Vol]37 U/LNormal0-41ProChristus Mother Frances Hospital – TylerComment on above:Performed By: #### MIGUEL CARLISLE, 2532-0, 77315-4, 38209-2, 48566-8, THYR #### [facility] ([id number]) [address] [place] [address], [place] [address]Etqvtgjlk [Mass/Vol]0.4 mg/dLNormal0.3-1.2PHighland District HospitalComment on above:Performed By: #### MIGUEL CARLISLE, 2532-0, 59794-9, 17841-6, 57395-6, THYR #### [facility] ([id number]) [address] [place] [address], [place] [address]Vchowew [Mass/Vol]8.6 mg/dLNormal8.5-10.5PHighland District HospitalComment on above:Performed By: #### MIGUEL CARLISLE, 2532-0, 43398-0, 36694-5, 82993-9, THYR #### [facility] ([id number]) [address] [place] [address], [place] [address]Pqihbybv [Moles/Vol]105 mmol/BKlnhxz65-650UffZbpzkzChristus Mother Frances Hospital – TylerComment on above:Performed By: #### MIGUEL CARLISLE, 2532-0, 71659-9, 43346-1, 28489-7, THYR #### [facility] ([id number]) [address] [place] [address], [place] [address]OM0 [Moles/Vol]24 mmol/OLoyftf59-03BdnXldnxcHighland District Hospital Comment on above:Performed By: #### MIGUEL CARLISLE, 2532-0, 92873-6, 95687-9, 91210- 4, THYR #### [facility] ([id number]) [address] [place] [address] 39508Qgsttnydjd [Mass/Vol]0.55 mg/dLNormal0.40-1.00ProChristus Mother Frances Hospital – TylerComment on above:Result Comment: METHOD TRACEABLE TO IDMS STANDARD Performed By: #### MAYLIN, MIGUEL, 2532-0, 23670-2, 87080-0, 87300-0, THYR #### [facility] ([id number]) [address] [place] [address] 02281zNOA (CKD-EPI) NON-RACE DEPENDENT>90Normal>59ProChristus Mother Frances Hospital – TylerComment on above:Result Comment: Reported eGFR is based on the CKD-EPI 2020 equation that does not use a race coefficient.Performed By: #### MIGUEL CARLISLE, 2532-0, 55335-4, 50535- 7, 60126-5, THYR #### [facility] ([id number]) [address] [place] [address] 67838Uraiehe [Mass/Vol]86 mg/gLBatvng39-14ZuoOivruiCleveland Clinic Euclid Hospital Comment on above:Performed By: #### MIGUEL CARLISLE, 2532-0, 48137-6, 21439-8, 69950- 4, THYR #### [facility] ([id number]) [address] [place] [address] 51009Kdynlwiip [Moles/Vol]3.4 mmol/LLow3.5-5.0C[facility] Clinic Euclid HospitalComment on above:Performed By: #### MAYLIN, MIGUEL, 2532-0, 42574-0, 46629-6, 60634-4, THYR #### [facility] ([id number]) [address] [place] [address] 54363Wxscytz [Mass/Vol]6.3 g/dLNormal6.0-8.0ProChristus Mother Frances Hospital – TylerComment on above:Performed By: #### MAYLIN, MIGUEL, 2532-0, 74266-4, 70291-1, 74812-5, THYR #### [facility] ([id number]) [address] [place] [address] 70737Puuquz [Moles/Vol]134 mmol/CJqgdpx394-981WlrUcqcwc [facility]remont HospitalComment on above:Performed By: #### MIGUEL CARLISLE, 2532-0, 88386-2, 32421-9, 10273-7, THYR #### [facility] ([id number]) [address] [place] [address] 90927Uwmw nitrogen [Mass/Vol]13 mg/dLNormal5-23ProChristus Mother Frances Hospital – TylerComment on above:Performed By: #### MIGUEL CARLISLE, 2532-0, 43820-8, 54038-4, 77857-7, THYR #### [facility] ([id number]) [address] [place] [address] 92280AIU [Catalytic activity/Vol]on 59-98-1990XKW718 U/LNormal 100-235ProChristus Mother Frances Hospital – TylerComment on above:Performed By: #### MAYLIN, MIGUEL, 2532-0, 58348-3, 53826-2, 57569-2, THYR #### [facility] ([id number]) [address] [place] [address] [id number] 21-31-3999Kpuaguuaq [Mass/Vol]1.8 mg/dLNormal 1.8-2.6Pro[facility] – TylerComment on above:Performed By: #### MAYLIN, CMP, 2532-0, 35810-6, 06740-8, 66879-1, THYR #### [facility] ([id number]) [address] [place] [address] 72795Aykydpimozl peptide B [Mass/Vol]on 01-93-2830Pskswtkvfqd peptide B (Bld) [Mass/Vol]31 pg/mLNormal<100.0[facility]ucl[facility] HospitalComment on above:Performed By: #### CBCA, CMP, 2532-0, 10811-3, 23899-5, 61679-0, THYR #### [facility] ([id number]) [address] [place] [address] [id number] CREAT RATIOon 23-71-8056HXQWKZ URINE KZSWKZJ259 mg/L High<120[facility] HospitalComment on above:Performed By: #### CBCA, CMP, 2532-0, 45986-2, 09696-8, 21071-5, THYR #### [facility] ([id number]) [address] [place] [address] [id number]/PRO/CASE MAKER RATIO CALC0.26High<0.2PHigh[facility] Comment on above:Result Comment: Nephrotic Syndrome is associated with ratios >3.5Performed By: #### CBCA, CMP, 2532-0, 90136-7, 72884-1, 09005-4, THYR #### [facility] ([id number]) [address] [place] [address] [id number] CREATININE,RDM46.03 mg/dLNormalProChristus [facility] – [place] Comment on above:Performed By: #### CBCA, CMP, 2532-0, 53139-2, 26505-5, 35892- 4, THYR #### [facility] ([id number]) [address] [place] [address] 94122UCMO/FLU A+B/RSV by NAAT/Molecularon 04-31-0563WQXB/FLU A+B/RSV by NAAT/MolecularFLU A PCR Negative (qualifier value) FLU B [...] operators who are performing tests using either [employer] or [employer] systems and is limited to laboratories that [...] specimen repeat. Fact Sheet for Healthcare Providers: https://www.fda.gov/media/677956/download Fact Sheet for Patients: https://www.fda.gov/media/736801/downloadNormalProMedica University HospitalComment on above:Performed By: #### CBCA, CMP, 2532-0, 16635-6, 68070-6, 51084-1, THYR #### [facility] ([id number]) [address] [place] [address], [place] [address]MDZTSBX PROFILEon 20-69-5065Gxqh T4 [Mass/Vol]0.91 ng/dLNormal 0.61-1.60ProChristus Mother Frances Hospital – TylerComment on above:Performed By: #### MIGUEL CARLISLE, 2532-0, 91155-1, 89408-1, 28714-1, THYR #### [facility] ([id number]) [address] [place] [address] 76041UDS1.93 uIU/mLNormal0.49-4.67ProChrist[facility] Mother Frances Hospital – TylerComment on above:Performed By: #### MIGUEL CARLISLE, 2532-0, 26178-1, 03124-6, 05070-5, THYR #### [facility] ([id number]) [address] [place] [address] 51268Kbwncekj I.cardiac High sensitivity method [Mass/Vol]on HOUR TROP I, HIGH SENSITIVITY4 ng/LNormal<16ProChrist[facility] Mother Frances Hospital – TylerComment on above:Performed By: #### 63035-2 #### [facility] ([id number]) [address] [place] [address] 54594JPJZUDSC I, HIGH SENSITIVITY4 ng/LNormal<16Pro[facility] Hospital – TylerComment on above:Performed By: #### MIGUEL CARLISLE, 2532-0, 11246-5, 42789-9, 18044-8, THYR #### [facility] ([id number]) [address] [place] [address] 16198PSAJM CULTUREon 58-88-3983Fupnkoqs identified Cx Nom (U) SPECIMEN NOTES URINE RECEIVED WITHOUT PRESERVATIVE CULTURE RESULTS 10-50,000 ORGANISMS/mL NORMAL UROGENITAL FLORANormalCleveland Clinic Euclid Hospital Comment on above:Performed By: #### MIGUEL CARLISLE, 2532-0, 13763-5, 40527-0, 96513- 4, THYR #### [facility] ([id number]) [address] [place] [address] [place] [address]ULX MACROSCOPIC NURon 27-17-7711BETCQJJNO NURNegativeNormalNEG ProMTustin Rehabilitation HospitalComtrinity health ann [facility] hospital on above:Performed By: #### NUM #### [facility] ([id number]) [address] [place] [address] [place] [address]JHXPZ/HGB NURLargeAbnormalNEGCleveland Clinic Euclid HospitalComment on above:Performed By: #### NUM #### [facility] ([id number]) [address] [place] [address] [place] [address]WHIEYWF NURNegativeNormalNEGCleveland Clinic Euclid HospitalComtrinity health ann [facility] hospital on above:Performed By: #### NUM #### [facility] ([id number]) [address] [place] [address] [place] [address]KXGDKFR NURNegativeNormalNEGProChristus Mother Frances Hospital – TylerComment on above:Performed By: #### NUM #### [facility] ([id number]) [address] [place] [address] [place] [address]MHNSZNGPH ESTERASE NURSmallAbnormalNEGCleveland Clinic Euclid HospitalComtrinity health ann [facility] hospital on above:Performed By: #### NUM #### [facility] ([id number]) [address] [place] [address] [place] [address]CSQCJML NURNegativeNormalNEGProChristus Mother Frances Hospital – TylerComment on above:Performed By: #### NUM #### [facility] ([id number]) [address] [place] [address] 44705DB NUR7.4Kqnkdp0.0-8.5ProMedica University HospitalComtrinity health ann [facility] on above:Performed By: #### NUM #### [facility] ([id number]) [address] [place] [address] 06481DRTPXJP NURNegativeNormalNEGProChristus Mother Frances Hospital – TylerComment on above:Performed By: #### NUM #### [facility] ([id number]) [address] [place] [address] 53915SKFLIJBN GRAVITY NUR1.863Coctdj3.003-1.035ProChristus Mother Frances Hospital – TylerComment on above:Performed By: #### NUM #### [facility] ([id number]) [address] [place] [address] 56871BJUVOFQJXCBT NUR0.2 eu/dLNormal<1.1PHighland District Hospital Comment on above:Performed By: #### NUM #### [facility] ([id number]) [address] [place] [address] 388[address]LVH CBC WITH AUTO DIFFon 47-25-9470RBSVBKHOB ABSOLUTE AUTO0.1 [facility] HealthcareBasophils/100 WBC (Bld)0.5 %0.2 - 2.0 %[facility] Eosinophils/100 WBC (Bld)1.3 %0.9 - 7.0 %N[facility]S HealthcareErythrocyte distribution width (RBC) [Ratio]16.5 %High11.0 - 15.0 %N[facility] HealthcareHematocrit (Bld) [Volume fraction]28.4 %Low36.0 - 48.0 %[facility] HealthcareHemoglobin (Bld) [Mass/Vol]8.6 g/dLLow12.0 - 16.0 g/dLNORI HealthcareIMMATURE GRANULOCYTES ABS AUTO0.15HighNOMS HealthcareImmature granulocytes/100 WBC (Bld)1.5 %High0.0 - 0.5 %[facility] HealthcareInterpretation and review of laboratory resultsAbnormalNOMS HealthcareLYMPHOCYTES ABSOLUTE AUTO2.9NOMS HealthcareLymphocytes/100 WBC (Bld) 29.2 %20.5 - 60.0 %N[facility] HealthcareMCH (RBC) [Entitic mass]23 pgLow26.7 - 34.0 pg N[facility] HealthcareMCHC (RBC) [Mass/Vol]30.3 g/dL29.9 - 35.2 g/dLNORI HealthcareMCV (RBC) [Entitic vol]75.9 fLLow81.0 - 99.0 fLSt. Louis Children's HospitalMONOCYTES ABSOLUTE AUTO0.5NORI HealthcareMonocytes/100 WBC (Bld)5.2 %1.7 - 12.0 %[facility] NEUTROPHILS ABSOLUTE AUTO6.1NOMS HealthcareNeutrophils/100 WBC (Bld)62.3 %43.0 - 75.0 %[facility] HospitalTBH EO #0.1NOMS [facility] HospitalTB ZZC97TtjNESR [facility] RBC3.74LowNOMS [facility] WBC9.8NOSamaritan HospitalCLINISYNCNBarton County Memorial HospitalALL CBC WITH AUTO DIFFon 73-59-2797CDFEHGXZW ABSOLUTE DEKZ7PDNVSamaritan Hospital Basophils/100 WBC (Bld)0.2 %0.2 - 2.0 %[facility] HospitalEosinophils/100 WBC (Bld) 0.3 %Low0.9 - 7.0 %[facility]'s HospitalErythrocyte distribution width (RBC) [Ratio] 16.5 %High11.0 - 15.0 %[facility] HospitalHematocrit (Bld) [Volume fraction]26.4 % Low36.0 - 48.0 %[facility] HospitalHemoglobin (Bld) [Mass/Vol]8.2 g/dLLow12.0 - 16.0 g/dLSt. Louis Children's HospitalIMPATURE GRANULOCYTES ABS AUTO0.07HighSt. Louis Children's Hospital Immature granulocytes/100 WBC (Bld)0.6 %High0.0 - 0.5 %[facility] Interpretation and review of laboratory resultsAbnormalSt. [facility]'s Hospital LYMPHOCYTES ABSOLUTE UDGI0TJGASamaritan HospitalLymphocytes/100 WBC (Bld)15.8 %Low20.5 - 60.0 %Cox NorthH (RBC) [Entitic mass]23.2 pgLow26.7 - 34.0 pgCox NorthHC (RBC) [Mass/Vol]31.1 g/dL29.9 - 35.2 g/dLCox NorthV (RBC) [Entitic vol]74.8 fLLow81.0 - 99.0 fLSt. Louis Children's HospitalMONOCYTES ABSOLUTE AUTO0.8 [facility] HospitalMonocytes/100 WBC (Bld)6.6 %1.7 - 12.0 %[facility] NEUTROPHILS ABSOLUTE AUTO9.5HighNOMS HealthcareNeutrophils/100 WBC (Bld)76.5 % High43.0 - 75.0 %N[facility] HealthcarePlatelet mean volume (Bld) [Entitic vol]0 fLLow 9.5 - 13.5 fLNOMS HealthcareTBH EO #0NOMS HealthcareTBH CEQ09IjcYRHM Healthcare TBH RBC3.53LowNOMS HealthcareTBH WBC12.4HighNORI HealthcareCLINISYNCNOMS HealthcareTBH UA (CLEAN/CATCH) ROUND KILN DRAWER/MICRO IF IND.on 18-64-8206XGUULGPQC URINE NegativeNEGATIVENOMS HealthcareBLOOD URINESMALLAbnormalNEGATIVENORI Healthcare Clarity (U)CLEARCLEARNORI HealthcareColor (U)LT. YELLOWYELCass Medical Center GLUCOSE URINE UANegativeNEGATIVE mg/dLNORI HealthcareInterpretation and review of laboratory resultsAbnormalNOMS HealthcareKetones Ql (U)TRACEAbnormalNEGATIVE mg/dLNORI HealthcareLeukocyte esterase Test strip Ql (U)SMALLAbnormalNEGATIVE NOMS HealthcareNITRITE URINENegativeNEGATIVENORI HealthcarepH (U)6.0 [pH]5.0 - 9.0NORI HealthcarePROTEIN URINETRACENEG/TRACE mg/dLNORI HealthcareSPECIFIC GRAVITY URINE>=1.331Fogxgwfr3.005 - 1.025NORI HealthcareURINE MICROSCOPIC INDICATEDYESNORI HealthcareUROBILINOGEN URINE0.2 EU/dL0.2 - 1.0 EU/dLNORI HealthcareCLINISYNNEW ENGLAND [facility] HealthcareUrinalysis macro (dipstick) panel (U)on 42-34-8291Skydxshyp, UANegativeNegative - 4(70) +++ mg/dLNORI HealthcareBlood, UANegativeNegative - 50 Franc/mcLNORI HealthcareClarity, UAClearNORI Healthcare Color, UAYellowNORI HealthcareGlucose, UANegativeNegative - 2000(110) ++++ mg/dL NOM HealthcareInterpretation and review of laboratory resultsAbnormalNORI HealthcareKetones, UANegativeNegative - 160(16) ++++ mg/dLNORI Healthcare Leukocytes, UAPositiveNegative - 500+++ Fox/mcLNOMS HealthcareComment on above: smallNitrite, UANegativeNegative - PositiveNOMS HealthcarepH, UA65 - 9NOMS HealthcareProtein, UANegativeNegative - 2000(20) ++++ mg/dLNOMS HealthcareSpec Grav, UA1.021 - 1.03NOMS HealthcareUrobilinogen, UA0.20.2 - 12 mg/dLNOMS HealthcareNOMS HealthcareALL MISCELLANEOUS TESTon 49-32-5585XFHMMEXOXXXHN TEST COMMENT.NOMS HealthcareComment on above:Test Ordered: [id number] Strep Gp B Culture+Rflx Strep Gp B Culture+Rflx Negative CB Reference Range: Negative Centers for Disease Control and Prevention (CDC) and [place] [employer] of Obstetricians and Gynecologists (ACOG) guidelines [...] resistance to clindamycin is noted. Performed at: [facility] Lab[address] [id number] Medical Orderly: Clifford Ba PhD, Phone: [phone] GROUJP B STREP 408358 Group B Streptococcus Colonization Detection Culture With Re CLINISYNCSt. Louis Children's HospitalUrinalysis macro (dipstick) panel (U)on 09-14-2024 Bilirubin, UAPositiveNegative - 4(70) +++ mg/dLNOMS HealthcareComment on above: smallBlood, UANegativeNegative - 50 Franc/mcLNOMS HealthcareClarity, UAClearNOMS HealthcareColor, UAYellowNOMS HealthcareGlucose, UANegativeNegative - 2000(110) ++++ mg/dLNOMS HealthcareInterpretation and review of laboratory resultsAbnormal NOMS HealthcareKetones, UANegativeNegative - 160(16) ++++ mg/dLNOMS Healthcare Leukocytes, UATraceNegative - 500+++ Fox/mcLNOMS HealthcareNitrite, UANegative Negative - PositiveNOMS HealthcarepH, UA65 - 9NOMS HealthcareProtein, UAPositive Negative - 1999(20) ++++ mg/dLNOMS HealthcareComment on above:30Spec Grav, UA 1.031 - 1.03NOMS HealthcareUrobilinogen, UA0.20.2 - 12 mg/dLNOMS HealthcareNOMS HealthcareUrinalysis macro (dipstick) panel (U)on 91-76-1442Uetnjwdia, UA NegativeNegative - 4(70) +++ mg/dLNOMS HealthcareBlood, UANegativeNegative - 50 Franc/mcLNOMS HealthcareClarity, UAClearNOMS HealthcareColor, UAYellowNOMS HealthcareGlucose, UANegativeNegative - 1999(110) ++++ mg/dLNOMS Healthcare Interpretation and review of laboratory resultsAbnormalNOMS HealthcareKetones, UAPositiveNegative - 160(16) ++++ mg/dLNOMS HealthcareComment on above:trace Leukocytes, UATraceNegative - 500+++ Fox/mcLNOMS HealthcareNitrite, UANegative Negative - PositiveNOMS HealthcarepH, UA65 - 9NOMS HealthcareProtein, UANegative Negative - 1999(20) ++++ mg/dLNOMS HealthcareSpec Grav, UA1.031 - 1.03NOMS HealthcareUrobilinogen, UA0.20.2 - 12 mg/dLNOMS HealthcareNOMS Healthcare Urinalysis macro (dipstick) panel (U)on 82-96-0261Xamxzwlqk, UANegativeNegative - 4(70) +++ mg/dLNOMS HealthcareBlood, UANegativeNegative - 50 Franc/mcLNOMS HealthcareClarity, UAClearNOMS HealthcareColor, UAYellowNOMS HealthcareGlucose, UANegativeNegative - 1999(110) ++++ mg/dLNOMS HealthcareInterpretation and review of laboratory resultsAbnormalNOMS HealthcareKetones, UANegativeNegative - 160(16) ++++ mg/dLNOMS HealthcareLeukocytes, UAPositiveNegative - 500+++ Fox/mcLNOMS HealthcareComment on above:smallNitrite, UANegativeNegative - PositiveNOMS HealthcarepH, UA65 - 9NOMS HealthcareProtein, UATraceNegative - 1999(20) ++++ mg/dLNORI HealthcareSpec Grav, UA1.031 - 1.03[facility] Healthcare Urobilinogen, UA0.20.2 - 12 mg/dLNOSamaritan HospitalNOMS HealthcareUS OB GROWTHon 47-13-5752[address] [address] Ultrasound Report Signed Patient: NANDO OLIVERA MR#: [id number] : 2000 Acct:[id number] Age/Sex: 23 / F ADM Date: 07/29/24 Loc: [facility] Attending Dr: Kayy Lopez Ordering Physician: Kayy Lopez Date of Service: 07/29/24 Procedure(s): US OB growth Accession Number(s): [id number] cc: Kayy Lopez; YANET CADENA [place] [id number] Patient Name: NANDO OLIVERA MRN: [id number] date: 2000 Sex: F Assigned Patient Location: [facility] Current Patient Location: [facility] Accession/Order Number: [id number] Exam Date: 07/29/2024 09:40 Report Date: 07/29/2024 10:14 At the request of: KAYY LOPEZ Procedure: US OB growth EXAMINATION: US OB growth HISTORY: INCONSISTENT SIZE COMPARISON: No relevant comparison available. TECHNIQUE: Transabdominal sonographic examination was performed for obstetrical and evaluation. FINDINGS: Number: 1 Heart Rate: 175 bpm H.B. /min Amniotic Fluid Volume: 16.8 cm, largest fluid pocket 4.7 cm position: Cephalic presentation, longitudinal lie Placental Location: Anterior BIOMETRY: BPD: 7.54 cm; 30 weeks 2 days; 59.60 % HC: 27.33 cm; 29 weeks 6 days; 23.20 % AC: 25.40 cm; 29 weeks 4 days; 44.60 % FL: 5.68 cm; 29 weeks 6 days; 41.60 % EFW:1459.11 g; 42.40 %, 8 ounces FL/AC: 22.36 FL/BPD: 75.33 HC/AC: 1.08 GESTATIONAL AGE: Age by EDC: 29 weeks 4 days SAMANTA by EDC: 2024-10-10 Age by current US: 29 weeks 6 days SAMANTA by current US: 2024-10-08 US/US OB growth IMPRESSION: Normal interval growth *Reference: [employer] Practice Guideline for the performance of Obstetric Ultrasound Examinations, May 25, 2007. Electronically authenticated by: SJ GALLOWAY Date: 07/29/2024 10:14 Dictated By: Sj Galloway M.D. Signed By: 07/29/24 1017 DD/ 1014 TD/TT: Railroad Surveyor:TBHRadiology, Radiologist, MD - 07/29/2024 [place] [address] Ultrasound Report Signed Patient: NANDO OLIVERA MR#: [id number] : 2000 Acct:[id number] Age/Sex: 23 / F ADM Date: 07/29/24 Loc: [facility] Attending Dr: Kayy Lopez Ordering Physician: Kayy Lopez Date of Service: 07/29/24 Procedure(s): US OB growth Accession Number(s): [id number] cc: Kayy Lopez; YANET CADENA [place] [id number] Patient Name: NANDO OLIVERA MRN: [id number] date: 2000 Sex: F Assigned Patient Location: [facility] Current Patient Location: [facility] Accession/Order Number: [id number] Exam Date: 07/29/2024 09:40 Report Date: 07/29/2024 10:14 At the request of: KAYY LOPEZ Procedure: US OB growth EXAMINATION: US OB growth HISTORY: INCONSISTENT SIZE COMPARISON: No relevant comparison available. TECHNIQUE: Transabdominal sonographic examination was performed for obstetrical and evaluation. FINDINGS: Number: 1 Heart Rate: 175 bpm H.B. /min Amniotic Fluid Volume: 16.8 cm, largest fluid pocket 4.7 cm position: Cephalic presentation, longitudinal lie Placental Location: Anterior BIOMETRY: BPD: 7.54 cm; 30 weeks 2 days; 59.60 % HC: 27.33 cm; 29 weeks 6 days; 23.20 % AC: 25.40 cm; 29 weeks 4 days; 44.60 % FL: 5.68 cm; 29 weeks 6 days; 41.60 % EFW:1459.11 g; 42.40 %, 8 ounces FL/AC: 22.36 FL/BPD: 75.33 HC/AC: 1.08 GESTATIONAL AGE: Age by EDC: 29 weeks 4 days SAMANTA by EDC: 2024-10-10 Age by current US: 29 weeks 6 days SAMANTA by current US: 2024-10-08 US/US OB growth IMPRESSION: Normal interval growth *Reference: [employer] Practice Guideline for the performance of Obstetric Ultrasound Examinations, May 25, 2007. Electronically authenticated by: SJ GALLOWAY Date: 07/29/2024 10:14 Dictated By: Sj Galloway M.D. Signed By: 07/29/24 1017 DD/ 1014 TD/TT: Railroad Surveyor: [facility]IGH[facility] HOSPITALJuan Francisco HealthcareRadiology Study observation (narrative)[facility] HospitalUS OB GROWTHOrdered By: Radiologist Radiology on 00-06-8058YWXKSt. Louis Children's Hospital Work Phone: Urinalysis macro (dipstick) panel (U)on 07-29-2024 Bilirubin, UANegativeNegative - 4(70) +++ mg/dLNOMS HealthcareBlood, UANegative Negative - 50 Franc/mcLNOMS HealthcareClarity, UAClearNOMS HealthcareColor, UA YellowNOMS HealthcareGlucose, UANegativeNegative - 2000(110) ++++ mg/dLNORI HealthcareInterpretation and review of laboratory resultsNormalNORI Healthcare Ketones, UANegativeNegative - 160(16) ++++ mg/dLNOMS HealthcareLeukocytes, UA NegativeNegative - 500+++ Fox/mcLNOMS HealthcareNitrite, UANegativeNegative - PositiveNOMS HealthcarepH, UA65 - 9NOMS HealthcareProtein, UANegativeNegative - 2000(20) ++++ mg/dLNOMS HealthcareSpec Grav, UA1.0251 - 1.03[facility] Urobilinogen, UA1.00.2 - 12 mg/dLNOMS HealthcareNOMS HealthcareUrinalysis macro (dipstick) panel (U)on 06-23-9162Tokqoooco, UANegativeNegative - 4(70) +++ mg/dL [facility] HealthcareBlood, UANegativeNegative - 50 Franc/mcLNORI HealthcareClarity, UA ClearNOMS HealthcareColor, UAYellowNORI HealthcareGlucose, UANegativeNegative - 2000(110) ++++ mg/dLLIFEPOINT HOSPITALS HealthcareInterpretation and review of laboratory resultsNormalNORI HealthcareKetones, UANegativeNegative - 160(16) ++++ mg/dLLIFEPOINT HOSPITALS HealthcareLeukocytes, UANegativeNegative - 500+++ Fox/mcLLIFEPOINT HOSPITALS Healthcare Nitrite, UANegativeNegative - PositiveNOMS HealthcarepH, UA6.55 - 9NOMS HealthcareProtein, UANegativeNegative - 2000(20) ++++ mg/dLLIFEPOINT HOSPITALS HealthcareSpec Grav, UA1.021 - 1.03NORI HealthcareUrobilinogen, UA1.00.2 - 12 mg/dLSaint Francis Hospital & Health Services HealthcareALL CBC WITH AUTO DIFFon 60-34-5343Wxmsnswiomk distribution width (RBC) [Ratio]12.1 %11.0 - 15.0 %[facility]'s HospitalHematocrit (Bld) [Volume fraction]31.8 %Low36.0 - 48.0 %[facility]'s HospitalHemoglobin (Bld) [Mass/Vol]10.3 g/dLLow12.0 - 16.0 g/dLCox NorthH (RBC) [Entitic mass] 27.7 pg26.7 - 34.0 pgCox NorthHC (RBC) [Mass/Vol]32.4 g/dL29.9 - 35.2 g/dLCox NorthV (RBC) [Entitic vol]85.5 fL81.0 - 99.0 fLSt. Louis Children's Hospital Platelet mean volume (Bld) [Entitic vol]13 fL9.5 - 13.5 fLSoutheast Missouri Hospital PLT 130LowSt. Louis Children's HospitalTB RBC3.72LowSoutheast Missouri Hospital WBC7.6[facility] GLUCOSE 1 HOURon 74-08-4767Rfwbdzr [Mass/Vol]94 mg/dLNINF - 130 mg/dLSt. Louis Children's HospitalCLINISYNCNOMS [facility] Clinic South Pointe HospitalMHPT DIFFERENTIALon 31-18-4365PWZFJCEQH ABS ZLRTNC6CGFK HealthcareBASOPHILS PERCENT MANUAL0 %Low0.2 - 2.0 %[facility] Eosinophils (Bld) [#/Vol]0.15 10*3/uLNOMS HealthcareEOSINOPHILS PERCENT MANUAL2 %0.9 - 7.0 %NOMS HealthcareLymphocytes (Bld) [#/Vol]2.12 10*3/uLNOMS Healthcare LYMPHOCYTES PERCENT TKVLBY49 %20.5 - 60.0 %NOMS HealthcareMonocytes (Bld) [#/Vol]0.3 10*3/uLNOMS HealthcareMONOCYTES PERCENT MANUAL4 %1.7 - 12.0 %NOMS HealthcareSEGMENTED NEUT ABSOLUTE MANUAL5.01NOMS HealthcareSEGMENTED NEUTROPHILS % CAZYEX8345.0 - 75.0NOMS HealthcareNo Panel Informationon 07-05-2024 Interpretation and review of laboratory resultsAbnormalNOMS HealthcareCLINISYNC NOMS HealthcareUrinalysis macro (dipstick) panel (U)on 74-20-7349Eqtsscccl, UA NegativeNegative - 4(70) +++ mg/dLNOMS HealthcareBlood, UANegativeNegative - 50 Franc/mcLNORI HealthcareClarity, UAClearNOMS HealthcareColor, UAYellowNOMS HealthcareGlucose, UANegativeNegative - 2000(110) ++++ mg/dLNORI Healthcare Interpretation and review of laboratory resultsNormalNOMS HealthcareKetones, UA NegativeNegative - 160(16) ++++ mg/dLNOMS HealthcareLeukocytes, UANegative Negative - 500+++ Fox/mcLNORI HealthcareNitrite, UANegativeNegative - Positive NOM[facility] HealthcarepH, UA75 - 9NOMS HealthcareProtein, UANegativeNegative - 2000(20) ++++ mg/dLNOMS HealthcareSpec Grav, UA1.021 - 1.03NOMS HealthcareUrobilinogen, UA0.20.2 - 12 mg/dLNOMS HealthcareNOMS HealthcareNo Panel InformationOrdered By: Radiologist Radiology on 94-95-2214PTQV Healthcare Work Phone: No Panel Informationon 07-36-9873Ossvqgpdf Study observation (narrative)NOMS HealthcareUS OB ANATOMYon 67-01-3964[address] [address] Ultrasound Report Signed Patient: NANDO OLIVERA MR#: [id number] : 2000 Acct:[id number] Age/Sex: 23 / F ADM Date: 06/01/24 Loc: [facility] Attending Dr: Arian Gay D.O. Ordering Physician: Arian Gay D.O. Date of Service: 06/01/24 Procedure(s): US OB anatomy Accession Number(s): [id number] cc: Arian Gay D.O.; YANET CADENA [address] [address] Patient Name: NANDO OLIVERA MRN: [id number] date: 2000 Sex: F Assigned Patient Location: [facility] Current Patient [facility] Accession/Order Number: [id number] Exam Date: 06/01/2024 09:42 Report Date: 06/01/2024 12:37 At the request of: ARIAN GAY Procedure: US OB anatomy EXAMINATION: US OB anatomy, US OB cervical length HISTORY: ANATOMY COMPARISON: Ultrasound OB transvaginal 03/04/2024 TECHNIQUE: Transabdominal sonographic examination was performed for obstetrical and evaluation. FINDINGS: Number: 1 Heart Rate: 151 bpm H.B. /min Amniotic Fluid Volume: Subjectively normal Placental Location: ANTERIOR with lower margin 4.3 cm from os. Cervix Length: 4.31 cm ; closed. ANATOMY: Normal Structures -cerebellum, choroid plexus, cisterna magna, lateral cerebral ventricles, orbits, midline falx, hard palate, four-chamber heart, RVOT, LVOT, stomach, kidneys, bladder, umbilical cord insertion into abdomen, three-vessel cord, cervical spine, thoracic spine, lumbar spine, sacral spine, right upper extremity, left upper extremity, right lower extremity, left lower extremity. SUBOPTIMALLY SEEN: None ABNORMALITIES: None BIOMETRY: BPD: 4.99 cm; 21 weeks 1 day; 40.90 % HC: 18.66 cm; 21 weeks 0 days; 27.10 % AC: 17.10 cm; 22 weeks 0 days; 68.70 % FL: 3.50 cm; 21 weeks 0 days; 32.20 % EFW:436.48 g; 57.70 % FL/AC: 20.47 FL/BPD: 70.14 HC/AC: 1.09 GESTATIONAL AGE: Age by EDC: 21 weeks 2 days Age by current US: 21 weeks 2 days SAMANTA by current US: 2024-10-10 SAMANTA by EDC: 2024-10-10 US/US OB anatomy IMPRESSION: 1. Single live intrauterine with growth detailed above. Electronically authenticated by: DE TY Date: 06/01/2024 12:37 Dictated By: De Ty M.D. Signed By: 06/01/24 1240 DD/ 1237 TD/TT: Railroad Surveyor:KEVINHRadiology, Radiologist, MD - 06/01/2024 [place] [address] Ultrasound Report Signed Patient: NANDO OLIVERA MR#: [id number] : 2000 Acct:[id number] Age/Sex: 23 / F ADM Date: 06/01/24 Loc: [facility] Attending Dr: Arian Gay D.O. Ordering Physician: Arian Gay D.O. Date of Service: 06/01/24 Procedure(s): US OB anatomy Accession Number(s): [id number] cc: Arian Gay D.O.; YANET CADENA [place] [id number] Patient Name: NANDO OLIVERA MRN: [id number] date: 2000 Sex: F Assigned Patient Location[facility] Current Patient [facility]: [facility] Accession/Order Number: [id number] Exam Date: 06/01/2024 09:42 Report Date: 06/01/2024 12:37 At the request of: ARIAN GAY Procedure: US OB anatomy EXAMINATION: US OB anatomy, US OB cervical length HISTORY: ANATOMY COMPARISON: Ultrasound OB transvaginal 03/04/2024 TECHNIQUE: Transabdominal sonographic examination was performed for obstetrical and evaluation. FINDINGS: Number: 1 Heart Rate: 151 bpm H.B. /min Amniotic Fluid Volume: Subjectively normal Placental Location: ANTERIOR with lower margin 4.3 cm from os. Cervix Length: 4.31 cm ; closed. ANATOMY: Normal Structures -cerebellum, choroid plexus, cisterna magna, lateral cerebral ventricles, orbits, midline falx, hard palate, four-chamber heart, RVOT, LVOT, stomach, kidneys, bladder, umbilical cord insertion into abdomen, three-vessel cord, cervical spine, thoracic spine, lumbar spine, sacral spine, right upper extremity, left upper extremity, right lower extremity, left lower extremity. SUBOPTIMALLY SEEN: None ABNORMALITIES: None BIOMETRY: BPD: 4.99 cm; 21 weeks 1 day; 40.90 % HC: 18.66 cm; 21 weeks 0 days; 27.10 % AC: 17.10 cm; 22 weeks 0 days; 68.70 % FL: 3.50 cm; 21 weeks 0 days; 32.20 % EFW:436.48 g; 57.70 % FL/AC: 20.47 FL/BPD: 70.14 HC/AC: 1.09 GESTATIONAL AGE: Age by EDC: 21 weeks 2 days Age by current US: 21 weeks 2 days SAMANTA by current US: 2024-10-10 SAMANTA by EDC: 2024-10-10 US/US OB anatomy IMPRESSION: 1. Single live intrauterine with growth detailed above. Electronically authenticated by: DE TY Date: 06/01/2024 12:37 Dictated By: De Ty M.D. Signed By: 06/01/24 1240 DD/ 1237 TD/TT: Railroad Surveyor: TYREE Erwin OB [facility] [id number] [address] Ultrasound Report Signed Patient: NANDO OLIVERA MR#: [id number] : 2000 Acct:[id number] Age/Sex: 23 / F ADM Date: 06/01/24 Loc: [facility] Attending Dr: Arian Gay D.O. Ordering Physician: Arian Gay D.O. Date of Service: 06/01/24 Procedure(s): US OB cervical length Accession Number(s): [id number] cc: Arian Gay D.O.; YANET CADENA [place] [id number] Patient Name: NANDO OLIVERA MRN: [id number] date: 2000 Sex: F Assigned [facility] Current [facility] Accession/Order Number: [id number] Exam Date: 06/01/2024 09:42 Report Date: 06/01/2024 12:37 At the request of: ARIAN GAY Procedure: US OB cervical length EXAMINATION: US OB anatomy, US OB cervical length HISTORY: ANATOMY COMPARISON: Ultrasound OB transvaginal 03/04/2024 TECHNIQUE: Transabdominal sonographic examination was performed for obstetrical and evaluation. FINDINGS: Number: 1 Heart Rate: 151 bpm H.B. /min Amniotic Fluid Volume: Subjectively normal Placental Location: ANTERIOR with lower margin 4.3 cm from os. Cervix Length: 4.31 cm ; closed. ANATOMY: Normal Structures -cerebellum, choroid plexus, cisterna magna, lateral cerebral ventricles, orbits, midline falx, hard palate, four-chamber heart, RVOT, LVOT, stomach, kidneys, bladder, umbilical cord insertion into abdomen, three-vessel cord, cervical spine, thoracic spine, lumbar spine, sacral spine, right upper extremity, left upper extremity, right lower extremity, left lower extremity. SUBOPTIMALLY SEEN: None ABNORMALITIES: None BIOMETRY: BPD: 4.99 cm; 21 weeks 1 day; 40.90 % HC: 18.66 cm; 21 weeks 0 days; 27.10 % AC: 17.10 cm; 22 weeks 0 days; 68.70 % FL: 3.50 cm; 21 weeks 0 days; 32.20 % EFW:436.48 g; 57.70 % FL/AC: 20.47 FL/BPD: 70.14 HC/AC: 1.09 GESTATIONAL AGE: Age by EDC: 21 weeks 2 days Age by current US: 21 weeks 2 days SAMANTA by current US: 2024-10-10 SAMANTA by EDC: 2024-10-10 US/US OB cervical length IMPRESSION: 1. Single live intrauterine with growth detailed above. Electronically authenticated by: DE TY Date: 06/01/2024 12:37 Dictated By: De Ty M.D. Signed By: 06/01/24 1240 DD/ 1237 TD/TT: Railroad Surveyor:TADEOadiologzeeshan, Radiologist, - 06/01/2024 [place] [address] Ultrasound Report Signed Patient: NANDO OLIVERA MR#: [id number] : 2000 Acct:[id number] Age/Sex: 23 / F ADM Date: 06/01/24 Loc: [facility] Attending Dr: Arain Gay D.O. Ordering Physician: Arian Gay D.O. Date of Service: 06/01/24 Procedure(s): US OB cervical length Accession Number(s): [id number] cc: Arian Gay D.O.; YANET CADENA [place] [address] Patient Name: NANDO OLIVERA MRN: [id number] date: 2000 Sex: F Assigned Patient Location: [facility] Current Patient Location: [facility] Accession/Order Number: [id number] Exam Date: 06/01/2024 09:42 Report Date: 06/01/2024 12:37 At the request of: ARIAN GAY Procedure: US OB cervical length EXAMINATION: US OB anatomy, US OB cervical length HISTORY: ANATOMY COMPARISON: Ultrasound OB transvaginal 03/04/2024 TECHNIQUE: Transabdominal sonographic examination was performed for obstetrical and evaluation. FINDINGS: Number: 1 Heart Rate: 151 bpm H.B. /min Amniotic Fluid Volume: Subjectively normal Placental Location: ANTERIOR with lower margin 4.3 cm from os. Cervix Length: 4.31 cm ; closed. ANATOMY: Normal Structures -cerebellum, choroid plexus, cisterna magna, lateral cerebral ventricles, orbits, midline falx, hard palate, four-chamber heart, RVOT, LVOT, stomach, kidneys, bladder, umbilical cord insertion into abdomen, three-vessel cord, cervical spine, thoracic spine, lumbar spine, sacral spine, right upper extremity, left upper extremity, right lower extremity, left lower extremity. SUBOPTIMALLY SEEN: None ABNORMALITIES: None BIOMETRY: BPD: 4.99 cm; 21 weeks 1 day; 40.90 % HC: 18.66 cm; 21 weeks 0 days; 27.10 % AC: 17.10 cm; 22 weeks 0 days; 68.70 % FL: 3.50 cm; 21 weeks 0 days; 32.20 % EFW:436.48 g; 57.70 % FL/AC: 20.47 FL/BPD: 70.14 HC/AC: 1.09 GESTATIONAL AGE: Age by EDC: 21 weeks 2 days Age by current US: 21 weeks 2 days SAMANTA by current US: 2024-10-10 SAMANTA by EDC: 2024-10-10 US/US OB cervical length IMPRESSION: 1. Single live intrauterine with growth detailed above. Electronically authenticated by: DE TY Date: 06/01/2024 12:37 Dictated By: De Ty M.D. Signed By: 06/01/24 1240 DD/ 1237 TD/TT: Railroad Surveyor: TYREE [facility] HospitalUrinalysis macro (dipstick) panel (U)on 89-77-1513Ybexmelfv, UA NegativeNegative - 4(70) +++ mg/dLNOMS HealthcareBlood, UANegativeNegative - 50 Franc/[facility] HospitalNORI HealthcareClarity, UAClearNORI HealthcareColor, UAYellowNORI HealthcareGlucose, UANegativeNegative - 2000(110) ++++ mg/dLNORI Healthcare Interpretation and review of laboratory resultsNormalNORI HealthcareKetones, UA Not detectedNegative - 160(16) ++++ mg/dLNORI HealthcareLeukocytes, UANegative Negative - 500+++ Fox/mcLNORI HealthcareNitrite, UANegativeNegative - Positive [facility] HealthcarepH, UA6.55 - 9[facility] HealthcareProtein, UANegativeNegative - 2000(20) ++++ mg/dLNORI HealthcareSpec Grav, UA1.0251 - 1.03[facility] Urobilinogen, UA0.20.2 - 12 mg/dLSt. Louis Children's HospitalNORI HealthcareIGP,APTIMA HPV,AGE GDLNon 26-43-0070DFQ GDLN ACOG TESTINGNote.[facility] HealthcareComment on above:TESTS RESULT FLAG UNITS REF RANGE LAB Clinician Provided Cytology Information Source.............Cervix No. of containers..01 ThinPrep Vial Age Algo ACOG Lziz... FLAG LEGEND: L-Low Normal,H-High Normal,LL-Alert Low,HH-Alert High <-Panic Low,>-Panic High,A-Abnormal,AA-Critical Abnormal Performed at: 01 =G [facility] [address] Reanna So MD, IGP, RFX APTIMA HPV ASCUNote.[facility] HealthcareComment on above:TESTS RESULT FLAG UNITS REF RANGE LAB DIAGNOSIS: 02 NEGATIVE FOR INTRAEPITHELIAL LESION OR MALIGNANCY. Specimen adequacy: 02 Satisfactory for evaluation. Endocervical and/or squamous metaplastic cells (endocervical component) are present. Performed by: 02 Sarah Ashby Molder Punch (ASCP) . 02 Note: Note 03 The Pap [...] High,A-Abnormal,AA-Critical Abnormal Performed at: 02 [facility] [address] [place] [address] Kamron Mejia MD, 03 WB [facility] [address] [address] Reanna So MD, Performed at: =G - [facility] [address] [id number] Medical Orderly: Reanna So MD, Phone: [phone] Performed at: [facility] - [facility] [address] [address] [place], [place] [id number] Medical Orderly: Kamron Mejia MD, Phone: [phone] SPATULA-ALONE CERVIX CLINISYNCNOMS HealthcareAFP, SERUM, OPEN SPINA BIFIDAon 31-34-0018TLX MOM1.13. [facility] HealthcareAFP VALUE45.9 ng/mL.[facility] HealthcareCOMMENT:Comment.[facility] HealthcareComment on above:Maria Del Carmen Sears, Ph.D., [facility] Director References: Available Upon Request. Multiples Of Median Cutoffs For AFP Elevations Hubbard 2.5 Black 2.8 IDD 2.0 Twins 4.5 Abbreviation Definitions IDD - Insulin Dep Diabetes OSBR - Open Spina Bifida Risk For further inquiries contact [facility] at [phone]. This test was developed and its performance characteristics determined by [facility]. It has not been cleared or approved by the Food and Drug Administration. Performed at: [facility] [address] [place], [place] [id number] Medical Orderly: Emma Ortiz [facility], Phone: [phone] GEST. AGE ON COLLECTION DATE17.3. weeksNORI HealthcareGESTAT. AGE BASED ONLMP. [facility] HealthcareComment on above:Recalculations are not recommended when gestational dating by LMP and ultrasound are within 10 days. INSULIN DEP DIABETESNo.[facility] HealthcareINTERPRETATIONComment.[facility] Comment on above:Interpretation: Screen Negative This result is screen negative for [...] Customer Services to discuss available options. The [employer] recommends amniocentesis be offered to women age 35 and older. MATERNAL AGE AT EDD23.1. yrNOMS HealthcareMULTIPLE GESTATIONNo.[facility] OSBR RISK 1 GS1939.[facility] HealthcareRACECaucasian.[facility] HealthcareRESULTSReport. [facility] HealthcareTEST RESULTS:Negative.[facility] MotwfztaljMBJVFQ652. lbsNOMS HealthcarePREGNANCY N N LMP 2 17 N 1 Y 141 N N N N N White/ CLINISYNCNOMS HealthcareURETHRITIS/DISCHARGE PLUS VAGINITIS (HTRX)on 05-05-2024 ATOPOBIUM PULXURR50.133AbnormalNOMS HealthcareATOPOBIUM VAGINAEDetectedAbnormal [facility] HealthcareBVAB 2,3 (BACTERIAL VAGINOSIS ASSOCIATED BACTERIA 2, 3); MOBILUNCUS SPP0.000N[facility] HealthcareBVAB 2,3 (BACTERIAL VAGINOSIS ASSOCIATED BACTERIA 2, 3); MOBILUNCUS SPPNot detectedNOMS HealthcareCANDIDA ALBICANS, PARAPSILOSIS, TROPICALIS0.000N[facility] HealthcareCANDIDA ALBICANS, PARAPSILOSIS, TROPICALISNot detectedNOMS HealthcareCANDIDA GLABRATA0.000N[facility] HealthcareCANDIDA GLABRATANot detectedNOMS HealthcareCANDIDA KRUSEI0.000N[facility]S HealthcareCANDIDA KRUSEINot detectedNOMS HealthcareCHLAMYDIA TRACHOMATIS0.000[facility] CHLAMYDIA TRACHOMATISNot detectedNOMS HealthcareERMB, C; MEFA20.870AbnormalNOMS HealthcareERMB, C; MEFADetectedAbnormalNOMS HealthcareGARDNERELLA VAGINALIS 27.078AbnormalNOMS HealthcareGARDNERELLA VAGINALISDetectedAbnormalNOMS HealthcareInterpretation and review of laboratory resultsAbnormalNOMS Healthcare MEGASPHAERA (TYPES 1, 2)0.000N[facility] HealthcareMEGASPHAERA (TYPES 1, 2)Not detected [facility] HealthcareMYCOPLASMA GENITALIUM0.000N[facility] HealthcareMYCOPLASMA GENITALIUMNot detectedNOMS HealthcareNEISSERIA GONORRHOEAE0.000N[facility] HealthcareNEISSERIA GONORRHOEAENot detectedNOMS HealthcareTET B, TET M19.649AbnormalN[facility]S Healthcare TET B, TET MDetectedAbnormalNOMS HealthcareTRICHOMONAS VAGINALIS0.000N[facility] HealthcareTRICHOMONAS VAGINALISNot detectedNOMS HealthcareNOMS Healthcare Urinalysis macro (dipstick) panel (U)on 30-05-8616Rveygpkfa, UANegativeNegative - 4(70) +++ mg/dLNOMS HealthcareBlood, UANegativeNegative - 50 Franc/mcLNOMS HealthcareClarity, UAClearNOMS HealthcareColor, UAYellowNOMS HealthcareGlucose, UANegativeNegative - 2000(110) ++++ mg/dLNOMS HealthcareInterpretation and review of laboratory resultsNormalNOMS HealthcareKetones, UANegativeNegative - 160(16) ++++ mg/dLNOMS HealthcareLeukocytes, UANegativeNegative - 500+++ Fox/mcL [facility] HealthcareNitrite, UANegativeNegative - PositiveNOMS HealthcarepH, UA7.55 - 9[facility] HealthcareProtein, UANegativeNegative - 2000(20) ++++ mg/dLNOMS HealthcareSpec Grav, UA1.0201 - 1.03N[facility]S HealthcareUrobilinogen, UA0.20.2 - 12 mg/dLNOMS HealthcareNOMS HealthcareUS OB TRANSVAGINALon 75-70-0359Qza[place] [address] Ultrasound Report Signed Patient: NANDO OLIVERA MR#: [id number] : 2000 Acct:[id number] Age/Sex: 23 / F ADM Date: 03/04/24 Loc: [facility] Attending Dr: Arian Gay D.O. Ordering Physician: Arian Gay D.O. Date of Service: 03/04/24 Procedure(s): US OB transvaginal Accession Number(s): [id number] cc: Arian Gay D.O.; YANET CADENA [place] [address] Patient Name: NANDO OLIVERA MRN: [id number] date: 2000 Sex: F Assigned Patient Location: [facility] Current Patient Location: [facility] Accession/Order Number: [id number] Exam Date: 03/04/2024 13:04 Report Date: 03/04/2024 13:44 At the request of: ARIAN GAY Procedure: US OB transvaginal EXAMINATION: US OB transvaginal HISTORY: MISSED MENSES COMPARISON: No relevant comparison available. FINDINGS: Transvaginal images Hubbard intrauterine gestation Gestational sac: 4.46 cm, 10 weeks 0 days CRL: 2.03 cm, 8 weeks 4 days Yolk sac: 4.8 mm Heart rate: 173 beats minute The uterus is normal, anteverted, anteflexed The ovaries are normal Cervix: 4.5 cm, closed Clinical age: 8 weeks 4 days Clinical SAMANTA: 10/10/2024 Ultrasound age: 8 weeks 4 days Ultrasound SAMANTA: 10/10/2024 US/US OB transvaginal IMPRESSION: Viable hubbard intrauterine gestation measuring 8 weeks 4 days Electronically authenticated by: SJ GALLOWAY Date: 03/04/2024 13:44 Dictated By: Sj Galloway M.D. Signed By: 03/04/241345 DD/ 43 TD/TT: Railroad Surveyor:TADEOadiologzeeshan, RadiologistMD - 03/04/2024 [place] [address] Ultrasound Report Signed Patient: NANDO OLIVERA MR#: [id number] : 2000 Acct:[id number] Age/Sex: 23 / F ADM Date: 03/04/24 Loc: [facility] Attending Dr: Arian Gay D.O. Ordering Physician: Arian Gay D.O. Date of Service: 03/04/24 Procedure(s): US OB transvaginal Accession Number(s): [id number] cc: Arian Gay D.O.; YANET CADENA [place] [address] Patient Name: NANDO OLIVERA MRN: [id number] date: 2000 Sex: F Assigned Patient Location: [facility] Current Patient Location: [facility] Accession/Order Number: [id number] Exam Date: 03/04/2024 13:04 Report Date: 03/04/2024 13:44 At the request of: ARIAN GAY Procedure: US OB transvaginal EXAMINATION: US OB transvaginal HISTORY: MISSED MENSES COMPARISON: No relevant comparison available. FINDINGS: Transvaginal images Hubbard intrauterine gestation Gestational sac: 4.46 cm, 10 weeks 0 days CRL: 2.03 cm, 8 weeks 4 days Yolk sac: 4.8 mm Heart rate: 173 beats minute The uterus is normal, anteverted, anteflexed The ovaries are normal Cervix: 4.5 cm, closed Clinical age: 8 weeks 4 days Clinical SAMANTA: 10/10/2024 Ultrasound age: 8 weeks 4 days Ultrasound SAMANTA: 10/10/2024 US/US OB transvaginal IMPRESSION: Viable hubbard intrauterine gestation measuring 8 weeks 4 days Electronically authenticated by: SJ GALLOWAY Date: 03/04/2024 13:44 Dictated By: Sj Galloway M.D. Signed By: 03/04/241345 DD/ 43 TD/TT: Railroad Surveyor: TYREE HealthcareRadiology Study observation (narrative)TYREE NewUS OB TRANSVAGINALOrdered By: Radiologist Radiology on 93-11-8659SKDT Healthcare Work Phone: coding Summaryon 21-50-3294Szpzzh SummaryCODING DATE: 02/17/2018 [facility] STATUS: Home PAYOR: Medicaid HMO ADMIT [...] By: Yanet Loera Date Saved: 02/17/2018 07:09 [facility]ighProvider Orderson 15-40-0735Hncsvjaz Orders [id number]#1.00OTGTTriHealth Bethesda Butler HospitalWound Cultureon 29-57-3544ZPC (Leukocytes)Moderate growth of Staphylococcus aureus1+ White Blood Cells1+ Gram Positive Cocci in pairsORGANISMS A SUSCEPTIBILITY ORGANISM ID: 1ANTIBIOTIC INTERPRETATION SAVANAH STATUSORGANISM SASA Amox/Cla S <=4/2 VerifiedAmp Wilman <=2 VerifiedAmp/Sul S <=8/4 VerifiedCeftri S <=8 VerifiedCipro S <=1 VerifiedClinda S <=0.5 VerifiedEryth S <=0.5 VerifiedGent S <=4 VerifiedLevo S <=1 VerifiedLinez S 4 VerifiedNitro <=32 VerifiedOx S <=0.25 VerifiedPen Wilman 0.12 VerifiedRif S <=1 VerifiedTetra S <=4 VerifiedTri/Sulf S <=0.5/9.5 VerifiedVanc S 2 VerifiedUniversity Hospitals Beachwood Medical CenterComment on above:Performed By: #### [id number] ####[facility] (DEFAULT)[address] [place] [address] Vital Signs Date TimeVital SignValuePerforming LvlnqcbbePirtyfyu38-17-9968 10:17-0500Body mass index (BMI) [Ratio]29.43 kg/y5Lxpre Deidra DO Work Phone: [facility] HospitalItujcunqvg36-87-0150 10:17-0500Body abpvbq06.35 kgCorey Deidra DO Work Phone: [facility] HospitalUncqvgzfno66-25-8375 10:17-0500Diastolic blood qrfncjic64 mm[Hg]Arian Deidra DO Work Phone: [facility] HospitalKhqtwnxjum29-39-0950 10:17-0500Systolic blood txnoikju079 mm[Hg]Arian Deidra DO Work Phone: [facility] HospitalJoyfgvpnbv03-66-4024 09:56-0500Body mass index (BMI) [Ratio]30.29 kg/m2Kayy GOINS Work Phone: [facility] HospitalJkrogfmnvm17-54-3957 09:56-0500Body uljccn76.56 kgKayy GOINS Work Phone: [facility] HospitalDrjijggrnv69-79-2653 09:56-0500Diastolic blood qpxyzlpv87 mm[Hg]Kayy GOINS Work Phone: [facility] HospitalXdzmsoxfev28-11-5893 09:56-0500Systolic blood mm[Hg]Kayy GOINS Work Phone: [facility] HospitalHnkpvndjde40-24-4560 11:31-0500Body ypyacn026 cm Zayda Mahmood NP Work Phone: [facility] HospitalRfrmodsvfz10-89-3362 11:31-0500Body mass index (BMI) [Ratio]30.72 kg/g8Aazvn Kampfer AGRICULTURAL EXTENSION EDUCATOR Work Phone: [facility] HospitalVidvsdgfqw29-78-7508 11:31-0500Body temperature 96.8 [degF]Zayda Mahmood AGRICULTURAL EXTENSION EDUCATOR Work Phone: [facility] HospitalYysumolkzi91-37-3734 11:31-0500Body .65 kgZayda Mahmood AGRICULTURAL EXTENSION EDUCATOR Work Phone: [facility] HospitalUspuimvwqs39-11-6980 11:31-0500Diastolic blood japtqxel12 mm[Hg]Zayda Mahmood AGRICULTURAL EXTENSION EDUCATOR Work Phone: [facility] HospitalBoqszjuoet19-32-3727 11:31-0500Heart rate94 /min Zayda Mahmood AGRICULTURAL EXTENSION EDUCATOR Work Phone: [facility] HospitalApufrrjclr51-73-1692 11:31-1219OqB3% (BldA) [Mass fraction]97 %Zayda Mahmood AGRICULTURAL EXTENSION EDUCATOR Work Phone: [facility] HospitalUtvoxgziwc85-70-1282 11:31-0500Systolic blood caibfwkw081 mm[Hg]Zayda Mahmood AGRICULTURAL EXTENSION EDUCATOR Work Phone: [facility] HospitalEurrdvdsno66-97-6590 13:34-0500Body mass index (BMI) [Ratio]31.53 kg/m2Kayy Ty PA Work Phone: [facility] HospitalFbtwnmvmpr91-74-4537 13:34-0500Body ygqero39.74 kgKayy Ty PA Work Phone: [facility] HospitalGyxlkbtuqh30-05-1504 13:34-0500Diastolic blood mm[Hg]Kayy Lopez PA Work Phone: [facility] HospitalWdtiflvqmb94-69-3909 13:34-0500Heart rate86 /min Kayy Lopez PA Work Phone: [facility] HospitalXkfsfqtimv37-18-3251 13:34-0500Systolic blood ivghnglo817 mm[Hg]Kayy Lopez PA Work Phone: [facility] HospitalPfactxayur18-21-1299 14:15-0500Body mass index (BMI) [Ratio]34.61 kg/m2Kayy Lopez PA Work Phone: [phone] [place], [place] [address]Xwcejbvylk56-09-2667 14:15-0500Body tplwga39.63 kgKayy Lopez PA Work Phone: [phone]-[facility] HospitalFblgivzuvp63-02-5487 14:15-0500Diastolic blood nbkytjqd64 mm[Hg]Kayy Leeey PA Work Phone: [phone]-[facility] HospitalBwozljigam48-55-4081 14:15-0500Systolic blood qzyvgchk338 mm[Hg]Kayy Ty PA Work Phone: [phone])[facility] [place], [place] [address]Tmtrzyiure06-47-5887 13:51-0500Body mass index (BMI) [Ratio]34.44 kg/m2Amy Ty PA Work Phone: [phone] [place], [place] [address]Fivvwgkebq59-32-6110 13:51-0500Body imwupz73.18 kgAmy Inwood PA Work Phone: [phone] [place], [place] [address]Xsjmtjbhwu87-08-6673 13:51-0500Diastolic blood vwxgcyfr75 mm[Hg]Kayy Ty PA Work Phone: [phone] [place], [place] [address]Cmdppuzvpo94-02-3007 13:51-0500Systolic blood owtkwdtw343 mm[Hg]Kayy Lopez PA Work Phone: [phone] [place], [place] [address]Noaunqlfec75-42-5278 13:23-0500Body mass index (BMI) [Ratio]34.19 kg/y0Fcnut Deidra DO Work Phone: [phone] [place], [place] [address]Heaiyqefpt32-94-5973 13:23-0500Body olosqo06.54 kgCorey Deidra DO Work Phone: [phone] [place], [place] [address]Yqodanjgpa64-14-0218 13:23-0500Diastolic blood gsvuwjdh54 mm[Hg]Arian Deidra DO Work Phone: 1(524)920-[address] [place], [place] [address]Fepdjrpthn47-91-0135 13:23-0500Systolic blood qohxfgjx434 mm[Hg]Arian Deidra DO Work Phone: [phone])[facility] [place], [place] [address]Xtylfeefpm32-45-3257 14:18-0500Body mass index (BMI) [Ratio]33.3 kg/m2Amy Inwood PA Work Phone: [phone])468-[address] [place], [place] [address]Jgslmmthhj28-54-3302 14:18-0500Body fseuna86.28 kgAmy Ty PA Work Phone: [phone]-[facility] CenterSt. [facility] HospitalCnyhtvllqm05-48-7261 14:18-0500Diastolic blood mm[Hg]Kayy Lopez PA Work Phone: [phone]-[facility] HospitalMkmafsxkys25-67-5530 14:18-0500Systolic blood ogcdauci292 mm[Hg]Kayy Lopez PA Work Phone: [phone])714-[facility] HospitalDxdgaovhou88-25-5433 09:39-0500Body mass index (BMI) [Ratio]31.35 kg/i0Qfyty Deidra DO Work Phone: [phone])158-[address] [place], [place] [address]Uofxlujssk59-10-5685 09:39-0500Body .29 kgCorey Deidra DO Work Phone: [phone])154-[facility] HospitalOzwxapiqdm66-11-9713 09:39-0500Diastolic blood ghbqlegm75 mm[Hg]Arian Deidra DO Work Phone: [phone] [place], [place] [address]Numhbahvqj16-90-8465 09:39-0500Systolic blood mwyujzdq287 mm[Hg]Arian Deidra DO Work Phone: [phone])160-[address] [place], [place] [address]Pxkiclaidf80-05-2875 10:35-0500Body mass index (BMI) [Ratio]31.07 kg/m2Amy Ty PA Work Phone: [phone]-[facility] HospitalZocccbzdta05-85-9519 10:35-0500Body hmqpep04.56 kgKayy Ty PA Work Phone: [phone])476-[address] [place], [place] [address]Nhbokeszbl01-51-2819 10:35-0500Diastolic blood sahtzikd54 mm[Hg]Kayy Lopez PA Work Phone: [phone]-[facility] HospitalKspuwursjm40-32-8956 10:35-0500Systolic blood uwmwrrqz384 mm[Hg]Kayy Lopez PA Work Phone: [phone]-[facility] HospitalShccodkblr09-21-7194 10:59-0500Body mass index (BMI) [Ratio]30.01 kg/m2Amy Ty PA Work Phone: [phone]-[facility] HospitalWfvxsonpdz50-26-8282 10:59-0500Body ightnc95.84 kgAmy Ty PA Work Phone: [facility] HospitalMueqhovasp12-20-1787 10:59-0500Diastolic blood mm[Hg]Kayy Lopez PA Work Phone: [facility] HospitalXycqyvqouk29-39-2971 10:59-0500Systolic blood prccpvov644 mm[Hg]Kayy Lopez PA Work Phone: [facility] HospitalYrdlpxbsdj85-58-7420 09:18-0500Body mass index (BMI) [Ratio]28.59 kg/t5Ryirq Deidra DO Work Phone: [facility] HospitalUokbmnptdo62-24-9575 09:18-0500Body ehiyft60.21 kgCorey Deidra DO Work Phone: [facility] HospitalOvxgfvgbwj62-44-1043 09:18-0500Diastolic blood wcocooye04 mm[Hg]Arian Deidra DO Work Phone: [facility] HospitalRoqalovifs56-32-4607 09:18-0500Systolic blood pfzqtgay872 mm[Hg]Arian Deidra DO Work Phone: [phone]-[facility] CenterSt. [facility]'s HospitalJcfmhrpkau51-29-8824 10:53-0400Body mass index (BMI) [Ratio]26.82 kg/m2Amy Ty PA Work Phone: [facility] HospitalXzsvocxohl76-24-6367 10:53-0400Body jxbega50.67 kgKayy Ty PA Work Phone: [facility] HospitalGwcqtvwaop20-63-0093 10:53-0400Diastolic blood mtepmroo48 mm[Hg]Kayy Lopez PA Work Phone: [facility] HospitalEodybzidky46-90-7548 10:53-0400Systolic blood yidmaule236 mm[Hg]Kayy Lopez PA Work Phone: [facility] HospitalHswnrvjpsl52-55-5318 09:49-0400Body mass index (BMI) [Ratio]25 kg/m2Amy Ty PA Work Phone: [facility] HospitalNbjnmppxch39-31-2230 09:49-0400Body .01 kgAmy Ty PA Work Phone: NOSamaritan HospitalNsmnkcwryz96-64-3308 09:49-0400Diastolic blood nvefzwnt98 mm[Hg]Kayy GOINS Work Phone: NOSamaritan HospitalPeixvjejzu22-68-1111 09:49-0400Systolic blood emjnooxb312 mm[Hg]Kayy GOINS Work Phone: noRI Healthcare Encounters Encounter DateEncounter TypeCare ProviderFacilityStart: 11-10-2024 End: 05-69-7724pdohchewucSYQ RAMEYNot AvailableStart: 10-21-2024 End: 30-46-9975owegadqtngVVEVZ FAZIONot AvailableStart: 10-21-2024 End: 28-43-1707Pzezeoc encounter statusCorey Deidra DO Work Phone: noRI [employer] Work Phone: Start: 10-21-2024 End: 22-60-5769Bajvie follow up visit related to original pxCorezeeshan Gay DO Work Phone: [facility] OBComment on above:Blood pressure checkStart: 10-12-2024 End: 24-61-9481Hrpvvi flowsBrody GOINS Work Phone: [facility] B[facility] OBStart: 10-12-2024 End: 28-48-6602Xhyloq Gris GOINS Work Phone: noMS BCP OBStart: 10-12-2024 End: 34-09-4624Yyaziisxj Result EncounterGeneric External Data ProviderNOMS External Department UnsolicitedStart: 10-12-2024 End: 03-33-2118Ocmpwkg encounter statusKayy GOINS Work Phone: [facility] HealthcareStart: 10-12-2024 End: 70-01-7333Jcmffewtyl care visitKayy GOINS Work Phone: [facility] OBComment on above:Upper respiratory tract infection, unspecified type (Primary Dx); hypertension; Blood pressure check; Low ironStart: 10-12-2024 End: 44-23-3027nnxlbpirerRUF RAMEYNot AvailableStart: 10-08-2024 End: 56-44-4745Sigdpr flowsKevin Mahmood AGRICULTURAL EXTENSION EDUCATOR Work Phone: NOQP FNR FMStart: 10-08-2024 End: 46-53-8955Ztbxzw Erika Mahmood AGRICULTURAL EXTENSION EDUCATOR Work Phone: [facility] FNR FMStart: 10-08-2024 End: 98-08-7805Nluzkh outpatient visit 15 minutesSanelli Mahmood AGRICULTURAL EXTENSION EDUCATOR Work Phone: NORD FNR FMComment on above:Nasal congestion (Primary Dx); Influenza AStart: 10-08-2024 End: 38-37-3661itqgpadomdWIERO KAMPFERDonald AvailableStart: 10-05-2024 End: 52-41-8960Hvcpee Gris GOINS Work Phone: [facility] BCP OBStart: 10-05-2024 End: 01-34-2279Rlgbff Gris GOINS Work Phone: [facility] BCP OBStart: 10-05-2024 End: 17-39-1875Iypzxskgsf care visitKayy GOINS Work Phone: noms BCP OBComment on above:Anemia, unspecified type (Primary Dx)Start: 10-05-2024 End: 31-05-1512qohrabbeezJVI RAMEYNot AvailableStart: 10-03-2024 End: 50-69-8760Omlvfytlr department patient visitFABIOLABANNER [facility]atha [facility]tart: 10-01-2024 End: 16-28-8012Oajmaungx Result EncounterCorey Deidra DO Work Phone: noms External Department UnsolicitedStart: 10-01-2024 End: 38-76-0814Agypucqit Result EncounterCorey Deidra DO Work Phone: noms External Department UnsolicitedStart: 09-30-2024 End: 39-88-6502Kecqjljef Result EncounterCorey Deidra DO Work Phone: [facility] External Department UnsolicitedStart: 09-30-2024 End: 97-09-0363Omkfpkggj Result EncounterCorey Deidra DO Work Phone: [facility]S External Department UnsolicitedStart: 09-29-2024 End: 38-16-7089Nfkumrtns Result EncounterCorey Deidra DO Work Phone: [facility]OMS External Department UnsolicitedStart: 09-29-2024 End: 85-31-1280Zzkvssgco Result EncounterCorey Deidra DO Work Phone: [facility] External Department UnsolicitedStart: 09-27-2024 End: 16-63-6320Jivkch flowsheetAmy Ty PA Work Phone: [facility] BCP OBStart: 09-27-2024 End: 36-89-9505Mtbfnv flowsheetAmy Ty PA Work Phone: [facility] BCP OBStart: 09-27-2024 End: 60-89-0661Pcpzbq outpatient visit 15 minutesAmy Ty PA Work Phone: NOMS BCP OBComment on above:38 weeks gestation of ; Third trimester pregnancyStart: 09-27-2024 End: 88-25-5649qbudfsrmekDCT RAMEYNot AvailableStart: 09-21-2024 End: 38-54-0681Fyhawu flowsheetAmy Inwood PA Work Phone: [facility] BCP OBStart: 09-21-2024 End: 16-46-3946Ksaoah flowsheetAmy Ty PA Work Phone: [facility] BCP OBStart: 09-21-2024 End: 91-41-1608Dcdozw outpatient visit 15 minutesAmy Ty PA Work Phone: NOMS BCP OBComment on above:Third trimester ; 37 weeks gestation of pregnancyStart: 09-21-2024 End: 99-22-2274wwuzksygesFOG RAMEYNot AvailableStart: 09-14-2024 End: 13-82-1929Hrmaxv flowsheetCorey Deidra DO Work Phone: [facility] BCP OBStart: 09-14-2024 End: 70-30-9337Vdhvpf flowsheetCorey Deidra DO Work Phone: [facility] BCP OBStart: 09-14-2024 End: 61-79-6129Udbygwjic Result EncounterGeneric External Data ProviderNOMS External Department UnsolicitedStart: 09-14-2024 End: 96-24-8846Dmapvq outpatient visit 15 minutesCorey Deidra DO Work Phone: NOMS BCP OBComment on above:Third trimester ; 36 weeks gestation of pregnancyStart: 09-14-2024 End: 11-18-0903lgkcbceervGMNYU FAZIONot AvailableStart: 08-30-2024 End: 37-02-5605Xiojio flowsBrody GOINS Work Phone: [facility] BCP OBStart: 08-30-2024 End: 40-67-7518Jalhhw flowsheetKayy GOINS Work Phone: [facility] BCP OBStart: 08-30-2024 End: 31-86-2224Dkcigp outpatient visit 15 minutesAmy Ty GOINS Work Phone: NOMS BCP OBComment on above:34 weeks gestation of ; Third trimester pregnancyStart: 08-30-2024 End: 87-61-5119swkwimgjobYHL Ashley AvailableStart: 08-12-2024 End: 37-46-0708Tpnwso flowsheetCorey Deidra DO Work Phone: [facility] BCP OBStart: 08-12-2024 End: 85-59-7730Aenqpk flowsheetCorey Deidra DO Work Phone: [facility] BCP OBStart: 08-12-2024 End: 73-95-7618Xpvxmq outpatient visit 15 minutesCorey Deidra DO Work Phone: [facility] BCP OBComment on above:Third trimester ; 31 weeks gestation of pregnancyStart: 08-12-2024 End: 99-84-6848doekuaajgfSXEBX FAZIONot AvailableStart: 07-29-2024 End: 11-24-7187Npapdg flowsheetAmy Inwood PA Work Phone: [facility] BCP OBStart: 07-29-2024 End: 46-67-9185Vsibnt josemanuelBrody Lopez PA Work Phone: [facility] BCP OBStart: 07-29-2024 End: 23-30-3090Qzimukwfk Result EncounterGeneric External Data ProviderNOMS External Department UnsolicitedStart: 07-29-2024 End: 07-14-2238Gpbjhb outpatient visit 15 minutesAmy Ty GOINS Work Phone: NOMS BCP OBComment on above:Third trimester ; 29 weeks gestation of pregnancyStart: 07-29-2024 End: 03-16-3915whlodhjlgjJAH RAMEYNot AvailableStart: 07-15-2024 End: 89-10-3860Fpeueh Gris Lopez PA Work Phone: [facility] BCP OBStart: 07-15-2024 End: 83-48-1566Vrjwxn Gris Lopez PA Work Phone: [facility] BCP OBStart: 07-15-2024 End: 73-46-7664Rborkr outpatient visit 15 minutesAmy Ty GOINS Work Phone: NOMS BCP OBComment on above:Second trimester ; 27 weeks gestation of ; size inconsistent with datesStart: 07-15-2024 End: 40-06-3642aniivjbymgIJM RAMEYNot AvailableStart: 07-05-2024 End: 63-99-6870Kyxbjwusr Result EncounterGeneric External Data ProviderNOMS External Department UnsolicitedStart: 07-05-2024 End: 43-01-5945Dljykmqyf Result EncounterGeneric External Data ProviderNOMS External Department UnsolicitedStart: 07-01-2024 End: 21-89-3790Savukz flowsheetCorey Deidra DO Work Phone: [facility] BCP OBStart: 07-01-2024 End: 74-24-7317Zhhymu flowsheetCorey Deidra DO Work Phone: [facility] BCP OBStart: 07-01-2024 End: 24-20-7673Fesats outpatient visit 15 minutesCorey Deidra DO Work Phone: noms BCP OBComment on above:25 weeks gestation of ; Second trimester ; Diabetes mellitus screeningStart: 07-01-2024 End: 18-74-1383ayvebauptfMSOQY FAZIONot AvailableStart: 06-01-2024 End: 22-60-2955Uszrju Gris GOINS Work Phone: [facility] BCP OBStart: 06-01-2024 End: 93-84-0359Leatlw flowsheetKayy Lopez PA Work Phone: [facility] BCP OBStart: 06-01-2024 End: 77-92-8956Gndfbtvsq Result EncounterGeneric External Data ProviderNOMS External Department UnsolicitedStart: 06-01-2024 End: 40-62-2588Ybozfs outpatient visit 15 minutesAmy Ty GOINS Work Phone: noms BCP OBComment on above:21 weeks gestation of ; Second trimester pregnancyStart: 06-01-2024 End: 36-88-8355aqtqklibwlAOU RAMMELYSSANot AvailableStart: 05-07-2024 End: 85-11-7339Bpossglop Result EncounterGeneric External Data ProviderNOMS External Department UnsolicitedStart: 05-07-2024 End: 44-83-1090Wpwuscbha Result EncounterGeneric External Data ProviderNOMS External Department UnsolicitedStart: 05-04-2024 End: 35-63-4949Jyulfc Gris GOINS Work Phone: [facility] BCP OBStart: 05-04-2024 End: 47-75-4152Uwicqhxqo Result EncounterAmy yT GOINS Work Phone: noMS External Department UnsolicitedStart: 05-04-2024 End: 20-86-9062Phnefbrcg Result EncounterKayy GOINS Work Phone: noms External Department UnsolicitedStart: 05-04-2024 End: 12-44-9035Obuenipr Result EncounterKayy GOINS Work Phone: noMS External Department UnsolicitedStart: 05-04-2024 End: 58-76-4440Tmhpjwu encounter procedureAmy Ty GOINS Work Phone: noms HealthcareStart: 05-04-2024 End: 67-70-8197Hjmhavuh preventive med est patient 18-39 yrsKayy Ty GOINS Work Phone: NOOY BCP OBComment on above:17 weeks gestation of ; Screening, , for anatomic survey; Well woman exam with routine gynecological exam; Exposure to STD; Vaginal dischargeStart: 05-04-2024 End: 57-01-3945idxfqqzhhzSAH RAMEYNot AvailableStart: 04-05-2024 End: 99-00-4793duqxsjzixiJMJXX FAZIONot AvailableStart: 03-04-2024 End: 29-01-3365Ctqnnnhcv Result EncounterGeneric External Data ProviderNOMS External Department UnsolicitedStart: 03-04-2024 End: 35-89-6906Szsdhjsis Result EncounterGeneric External Data ProviderNOMS External Department UnsolicitedStart: 03-04-2024 End: 94-56-4212cfvtoztphpVGAEE FAZIONot AvailableStart: 95-85-2074KdeucmFinrDariela MCDONALDP Work Phone: [facility] Family MedicineStart: 02-14-2018 End: 87-86-6763LihaanhisqIvajh L SneiderFacility:[facility] Procedures DateProcedureProcedure DetailPerforming ClinicianStart: 13-98-4489PEM CBC WITH AUTO DIFFAmy Ty GOINS Work Phone: Start: 66-97-6677MADKTO COVID-19/John Mahmood NP Work Phone: Start: 92-91-0049EWS CBC WITH AUTO DIFFCorey Deidra DO Work Phone: Start: 80-37-3754MQV CBC WITH AUTO DIFFCorey Deidra DO Work Phone: Start: 22-15-2709XUZ UA (CLEAN/CATCH) ROUND KILN DRAWER/MICRO IF IND.Arian Deidra DO Work Phone: Start: 75-72-8725Yguln dip stick/tablet rgnt non-auto w/o micrscpAmy Ty PA Work Phone: Start: 17-65-4434Orotq dip stick/tablet rgnt non-auto w/o micrscpCorey Deidra DO Work Phone: Start: 60-37-6938IQN MISCELLANEOUS TESTCorey Deidra DO Work Phone: Start: 82-43-3520Mnahb dip stick/tablet rgnt non-auto w/o micrscpAmy Ty GOINS Work Phone: Start: 58-66-8665Pvbcy dip stick/tablet rgnt non-auto w/o micrscpCorey Deidra DO Work Phone: Start: 18-94-9496Rslvs dip stick/tablet rgnt non-auto w/o micrscpAmy Ty GOINS Work Phone: Start: 44-50-7712DA OB GROWTHGeneric External Data ProviderStart: 15-72-4607Nfnyp dip stick/tablet rgnt non-auto w/o micrscpCorey Deidra DO Work Phone: Start: 63-97-4503BXG CBC WITH AUTO DIFFCorey Deidra DO Work Phone: Start: 93-37-2355YGTOZTU 1 HOURCorey Deidra DO Work Phone: Start: 83-03-5162JOAH DIFFERENTIALCorey Deidra DO Work Phone: Start: 48-16-6373Sittf dip stick/tablet rgnt non-auto w/o micrscpCorey Deidra DO Work Phone: Start: 62-18-9114XM OB ANATOMYGeneric External Data ProviderStart: 93-23-1235ZC OB CERVICAL LENGTHGeneric External Data Provider Start: 90-45-3573Ylpye dip stick/tablet rgnt non-auto w/o micrscpAmy yT GOINS Work Phone: Start: 46-28-3302CVM, SERUM, OPEN SPINA BIFIDACorey Deidra DO Work Phone: Start: 68-37-8582Vhhxf dip stick/tablet rgnt non-auto w/o micrscpAmy Ty GOINS Work Phone: Start: 02-34-3584FEK,APTIMA HPV,AGE GDLNGeneric External Data ProviderStart: 52-59-3963LNSKGRIYPR/DISCHARGE PLUS VAGINITIS (HTRX)Kayy GOINS Work Phone: Start: 66-27-6889SA OB TRANSVAGINALGeneric External Data ProviderStart: 09-25-2017H/O: surgeryS/P tonsillectomy and adenoidectomy Starr Shoemaker INSPECTOR OF WEIGHTS AND MEASURES-ARC TRIMMER Work Phone: Plan of Treatment DateCare ActivityDetailAuthorStart: 45-59-3055Qzzdrrkha vaccinationInfluenza Vaccine (#1)[facility]OMS HealthcareStart: 11-10-2024 End: 36-98-9720iofgqtpqqu68/19/2025 9:30 AM EDT Visit [facility] [address] [place] [phone] Kayy Lopez PA [address] [address] NOMS BCP OBStart: 10-21-2024 End: 79-79-1844Xqjxymu encounter gufbovikk12/27/2025 10:10 AM EST Office Visit [facility] [address] [place] [phone] Arian Gay DO [address] [place] [address] [facility] BCP OBStart: 10-12-2024 End: 63-39-5342Ewfsnws encounter procedureNOMS BCP OBComment on above:Arrived Start: 10-08-2024 End: 38-40-7355Onyziri encounter nmekfmucn02/14/2025 11:30 AM EST Office Visit [facility] [address] [place] [phone] JuliodeborahZayda esparzaFANI [address] [place] [address] ArrivedNOMS FNR FMComment on above:ArrivedStart: 10-05-2024 End: 52-86-6356Wpgmkiq encounter ivssyosxc40/11/2025 1:10 PM EST Office Visit [facility] [address] [place] [address] Kayy Lopez PA [address] [place], [place] [phone] ArrivedNOMS BCP OBComment on above:ArrivedStart: 09-27-2024 End: 85-70-1722Woqljmj encounter procedureNOMS BCP OBComment on above:Arrived Start: 09-21-2024 End: 58-42-3651Skqxuqz encounter procedureNOMS BCP OBComment on above:Arrived Start: 09-14-2024 End: 45-37-5109GPLZISK, GROUP B STREP WITH SUSCEPTIBLITYCULTURE, GROUP B STREP WITH SUSCEPTIBLITY Lab Routine Third trimester Expected: 09/14/2024, Expires: 09/14/2025[facility] Work Phone: comment on above:Expected: 09/14/2024, Expires: 09/14/2025Start: 09-14-2024 End: 73-41-9306Wlionbh encounter procedureNOMS BCP OBComment on above:Arrived Start: 08-30-2024 End: 64-26-7471Ywpjxfi encounter procedureNOMS BCP OBComment on above:Arrived Start: 08-12-2024 End: 73-20-0247Vfknddk encounter procedureNOMS BCP OBComment on above:Arrived Start: 07-29-2024 End: 18-92-6415Iiymqwj encounter qskujpwnj82/05/2024 10:10 AM EST Routine [facility] [address] [place] [phone] Kayy Lopez PA [address] [place], [place] [phone] ArrivedNORI BCP OBComment on above: ArrivedStart: 07-29-2024 End: 92-43-7616Yxwewlhzjiok / ancillary services cinrwxmmby76/05/2024 9:30 AM EST Ancillary Procedure [facility] [address] [place] [phone] N[facility] BCP OBStart: 07-15-2024 End: 33-86-1565PH for pregnancyUS OB SCAN FOR GROWTH Imaging Routine size inconsistent with dates Expected: 07/15/2024(Approximate), Expires: 07/15/2025[facility] Work Phone: comment on above:Expected: 07/15/2024 (Approximate), Expires: 07/15/2025Start: 07-15-2024 End: 29-30-0376Jvkxghl encounter procedureNOMS BCP OBComment on above:Arrived Start: 07-01-2024 End: 00-46-9357ZPG panel - Blood by Automated countCBC Lab Routine Diabetes mellitus screening Expected: 07/01/2024 (Approximate), Expires: 07/01/2025[facility] Work Phone: comment on above:Expected: 07/01/2024 (Approximate), Expires: 07/01/2025Start: 07-01-2024 End: 15-48-5798Llfgukyosqx of glucose 1 hour after glucose challenge for glucose tolerance testGlucose tolerance, 1 hour Lab Routine Diabetes mellitus screening Expected: 07/01/2024 (Approximate), Expires: 07/01/2025[facility] HealthcareComment on above:Expected: 07/01/2024 (Approximate), Expires: 07/01/2025Start: 07-01-2024 End: 64-25-8017Nbixxwx encounter procedureNOMS BCP OBComment on above:Arrived Start: 06-01-2024 End: 41-77-4700Klyqoaw encounter procedureNOMATTEL [facility] OBComment on above:Arrived Start: 06-01-2024 End: 45-19-2266Bgtbwyynwblj / ancillary services stvhylwnny47/08/2024 9:30 AM EDT Ancillary Procedure [facility] [address] [place] [phone] [facility]OMS BCP OBStart: 05-04-2024 End: 14-34-6199Exagz fetoprotein, maternalAlpha fetoprotein, maternal Lab Routine 17 weeks gestation of Expected: 05/04/2024 (Approximate), Expires: 07/04/2024[facility] HealthcareComment on above:Expected: 05/04/2024 (Approximate), Expires: 07/04/2024Start: 05-04-2024 End: 51-86-8631DE for pregnancyUS OB ANATOMY SINGLE W US OB CERVICAL LENGTH Imaging Routine Screening, , for anatomic survey Expected: 05/04/2024 (Approximate), Expires: 05/04/2025[facility] HealthcareComment on above: Expected: 05/04/2024 (Approximate), Expires: 05/04/2025Start: 05-04-2024 End: 46-30-3192Lqpwixp encounter /10/2024 9:30 AM EDT Routine [facility] [address] [place] [phone] Kayy Lopez PA [address] [address] ArrivedNOMATTEL CHIL[facility] OBComment on above: ArrivedStart: 49-81-7030Neaaglaux vaccinationInfluenza Vaccine (#1)[facility]OMS HealthcareStart: 58-26-1124RSwE,Tdap and Td Vaccines (7 - Td or Tdap)DTaP,Tdap and Td Vaccines (7 - Td or Tdap)[facility] SystemStart: 17-72-6895Tidmw BMI ScreeningAdult BMI ScreeningProMedica Health SystemStart: 57-31-6973Cnqghsi ScreeningTobacco ScreeningProEast [facility] Hospitalca [facility] SystemStart: 42-18-4432HQMOP-19 Vaccine ( season)COVID-19 Vaccine ( season)[facility] SystemStart: 39-19-5826Sdzefattb vaccinationInfluenza VaccineMetroHealth [facility] SystemStart: 74-18-3434Nsldzojbn for malignant neoplasm of cervixPap SmearCape Fear/Harnett Healthtart: 55-84-4530Yeotpcdxji ScreeningDepression ScreeningChildren's Hospital for RehabilitationCBC W Auto Differential panel - BloodCBC and differential Lab Routine Low iron Ordered: 10/12/2024[facility] Work Phone: comment on above:Ordered: 10/12/2024HLAMYDIA TRACHOMATIS (GENITO/STI)CHLAMYDIA TRACHOMATIS (GENITO/STI) Lab Routine Vaginal discharge Ordered: 05/04/2024[facility] HealthcareComment on above:Ordered: 05/04/2024 Cytology Cervical or vaginal smear or scraping studyPap Smear Pathology and Cytology Routine Well woman exam with routine gynecological exam Ordered: [facility] HealthcareComment on above:Ordered: 05/04/2024Neisseria gonorrhoeae DNA [Presence] in Unspecified specimen by ASHUTOSH with probe detectionNeisseria gonorrhea DNA probe, direct Lab Routine Vaginal discharge Ordered: 05/04/2024 [facility] HealthcareComment on above:Ordered: 05/04/2024SURESWAB(R) ADVANCED VAGINITIS PLUS, TMASURESWAB(R) ADVANCED VAGINITIS PLUS, TMA Pathology and Cytology Routine Exposure to STD Ordered: 05/04/2024[facility] Work Phone: comment on above:Ordered: 05/04/2024 Immunizations Immunization DateImmunizationNotesCare AuskcxveCftemspw99-79-5303ckqbwlz toxoid, reduced diphtheria toxoid, and acellular pertussis vaccine, adsorbedSarah Kampfer AGRICULTURAL EXTENSION EDUCATOR Work Phone: [facility] HospitalQrvqfqqqrk64-05-9480euyexzarz, seasonal, injectable, preservative freeSarah Kampfer AGRICULTURAL EXTENSION EDUCATOR Work Phone: [facility] HospitalAfdjedenby76-99-8468vrwepwocc virus vaccine, unspecified formulationArian Gay DO Work Phone: [place] [address]Mbxoebipjm00-89-6967Ddnjztmec, injectable, Madin Anderson Canine Kidney, preservative free, quadrivalentSarah Kampfer AGRICULTURAL EXTENSION EDUCATOR Work Phone: [facility] HospitalKdwmlwrgex38-38-3698sxorcurlp virus vaccine, unspecified formulationKayy Lopez PA Work Phone: [facility] HospitalIwitphwxvu95-28-8590Mmocxgqhj, injectable, Madin Keke Canine Kidney, preservative free, quadrivalentSarah Kampfer AGRICULTURAL EXTENSION EDUCATOR Work Phone: [facility] HospitalBgfccgcawm59-12-3837qyzarryiz, injectable, quadrivalent, preservative freeSarah Kampfer AGRICULTURAL EXTENSION EDUCATOR Work Phone: [place] [address]Zkbilnrjnw22-41-6596akxhkwulc virus vaccine, unspecified formulationStarr Shoemaker INSPECTOR OF WEIGHTS AND MEASURES-ARC TRIMMER Work Phone: [facility] RehabilitationVlfegl29-01-2688githonkas, injectable, quadrivalent, preservative freeSarah Kampfer AGRICULTURAL EXTENSION EDUCATOR Work Phone: [phone] [place], [place] [address]Hxxzjpzrrx50-91-3176eskybgxwv, injectable, quadrivalent, preservative freeSarah Kampfer AGRICULTURAL EXTENSION EDUCATOR Work Phone: [facility] HospitalExtobvhgjy85-53-1886mpaqpcovb, injectable, quadrivalent, preservative freeSarah Kampfer AGRICULTURAL EXTENSION EDUCATOR Work Phone: [place] [address]Fsnezngiqt83-82-6321Ylcwennyumpmg, MCV4, unspecified conjugate formulation(groups A, C, Y and W-135)Zayda Mahmood AGRICULTURAL EXTENSION EDUCATOR Work Phone: [facility] HospitalAlapztmill91-06-2460rbdxvusth, injectable, quadrivalent, contains preservativeSarah Kampfer AGRICULTURAL EXTENSION EDUCATOR Work Phone: [facility] HospitalRvhfpxgfyq15-47-7407njlvrqdcf, seasonal, injectable, preservative freeSarah Kampfer AGRICULTURAL EXTENSION EDUCATOR Work Phone: [facility] HospitalOqthjwsswd29-73-6555qbqwyxyx influenza, intradermal, preservative freeSarah Kampfer AGRICULTURAL EXTENSION EDUCATOR Work Phone: [place] [address]Tevdbhpbci26-67-5178olvmcjksl, seasonal, injectable, preservative freeSa Juliosierra vista [facility] AGRICULTURAL EXTENSION EDUCATOR Work Phone: [phone] [address] StreetGdiysxdxhj18-38-0998wpqvsqg toxoid, reduced diphtheria toxoid, and acellular pertussis vaccine, adsorbedSara Kampfer AGRICULTURAL EXTENSION EDUCATOR Work Phone: [phone] [address] StreetZselwdpobt85-28-0295fdpfyvzje virus vaccine, whole virusSarah Kampfer AGRICULTURAL EXTENSION EDUCATOR Work Phone: [phone] [address] StreetIdurototui69-49-4623vchvpqdmz virus vaccine, whole virusSara Kampfer AGRICULTURAL EXTENSION EDUCATOR Work Phone: [phone] [address] StreetQaudljwagr38-60-9140ariqecfsf virus vaccine, whole virusSarah Kampfer AGRICULTURAL EXTENSION EDUCATOR Work Phone: [phone] [place], [place] [address]Wktuhvpbmy55-48-1101gjurnffcn virus vaccine, whole virusSara Kampfer AGRICULTURAL EXTENSION EDUCATOR Work Phone: [phone] [address] StreetBtfhjxvazf29-40-1789rhivhslhk virus vaccine, whole virusSara Juliopfer AGRICULTURAL EXTENSION EDUCATOR Work Phone: [phone] [address] StreetJiaegjzfru39-08-4484grffnmdowa, tetanus toxoids and acellular pertussis vaccineSara Juliosierra [facility] AGRICULTURAL EXTENSION EDUCATOR Work Phone: [phone] [address] StreetXasstbxfpe70-78-8143wnrfqar, mumps, rubella, and varicella virus vaccineSaraHollywood Community Hospital of [facility] AGRICULTURAL EXTENSION EDUCATOR Work Phone: [phone] [address] StreetKeppmawjgc04-93-7960kvvdrbbhsm vaccine, inactivatedSamemorial health system [facility] Juliosierra [facility] AGRICULTURAL EXTENSION EDUCATOR Work Phone: [phone] [address] StreetHttbuqrmqy80-92-1450pwozamjtcq, tetanus toxoids and acellular pertussis vaccineSara Juliosierra [facility] AGRICULTURAL EXTENSION EDUCATOR Work Phone: [phone] [address] StreetJdsfavozwd78-77-3870xpfzdqdyips influenzae type b vaccine, conjugate unspecified formulationSaraHollywood Community Hospital of [facility] AGRICULTURAL EXTENSION EDUCATOR Work Phone: [phone] [address] StreetAndvyctfol68-28-2639joyvrrwcns vaccine, inactivatedSara Kampfer AGRICULTURAL EXTENSION EDUCATOR Work Phone: [phone] [address] StreetUjokfdtxpj07-74-3261iyyqafn, mumps and rubella virus vaccineSara Juliosierra [facility] center AGRICULTURAL EXTENSION EDUCATOR Work Phone: [facility] HospitalUzfvuhwrmf78-75-3509vqxnalmnc virus vaccineSara Juliosierra [facility] AGRICULTURAL EXTENSION EDUCATOR Work Phone: [facility] HospitalWjfukysvjr82-45-0691fflkejjadcnf conjugate vaccine, 7 valentSzohreh Juliopfer AGRICULTURAL EXTENSION EDUCATOR Work Phone: [facility] HospitalZlokwckgrg46-92-7480nnsjiwkqrw, tetanus toxoids and acellular pertussis vaccineSara Juliofer AGRICULTURAL EXTENSION EDUCATOR Work Phone: [facility] HospitalChcmkqxphu12-84-5969hjshnwxcuso influenzae type b vaccine, conjugate unspecified formulationSara Juliosierra [facility] AGRICULTURAL EXTENSION EDUCATOR Work Phone: [facility] HospitalQhpwyclmxx78-90-8504goetyoykp B vaccine, pediatric or pediatric/adolescent dosageSara Juliopfer AGRICULTURAL EXTENSION EDUCATOR Work Phone: [facility] HospitalKfnutfipyk84-78-7942wwvzfzlhudgt conjugate vaccine, 7 valentSzohreh Juliopfer AGRICULTURAL EXTENSION EDUCATOR Work Phone: [facility] HospitalDyipwbyvtm15-00-0225wptcvyiiou, tetanus toxoids and acellular pertussis vaccineSara Juliopfer AGRICULTURAL EXTENSION EDUCATOR Work Phone: [facility] HospitalAzrcfhxxvg36-65-2562kywirfjyrdu influenzae type b vaccine, conjugate unspecified formulationSlake che[facility] Juliosierra [facility] AGRICULTURAL EXTENSION EDUCATOR Work Phone: [facility] HospitalXelxqlmgsz94-79-3478jmmsouxmur vaccine, inactivatedSamemorial health system [facility] Juliosierra [facility] AGRICULTURAL EXTENSION EDUCATOR Work Phone: [facility] HospitalZtkpfriypa50-89-4824lnkrixeuboct conjugate vaccine, 7 valentScarlene Kimpfer AGRICULTURAL EXTENSION EDUCATOR Work Phone: [facility] HospitalIeibuqcvlf39-58-2693hhvbdfdgcq, tetanus toxoids and acellular pertussis vaccineSara uJliopfer AGRICULTURAL EXTENSION EDUCATOR Work Phone: [facility] HospitalJgzulisnny00-62-4199ubkgpvsqxbm influenzae type b vaccine, conjugate unspecified formulationSara Juliofer AGRICULTURAL EXTENSION EDUCATOR Work Phone: [facility] HospitalSnjjiiyypr40-24-9294pyodjlbiha vaccine, inactivatedSara Kampfer AGRICULTURAL EXTENSION EDUCATOR Work Phone: [facility] HospitalVltapslumc86-51-0754mrqfxcpfg B vaccine, pediatric or pediatric/adolescent dosageSarah Kampfer AGRICULTURAL EXTENSION EDUCATOR Work Phone: [facility] HospitalYjwntfzlnt63-54-2994cduovgbqr B vaccine, pediatric or pediatric/adolescent Joseph Mahmood AGRICULTURAL EXTENSION EDUCATOR Work Phone: [facility] Payers DatePayer CategoryPayerPolicy ID2023Medicaid [id number] [id number] 2018 [id number] [id number] 2.840.1.728176.3.57[id number] 2.840.1.122759.3.57[id number] 2.840.1.196527.3.57[id number] 2.840.1.669788.3.57[id number] 2.840.1.022136.3.57[id number] 2.840.1.373635.3.57[id number] 2.840.1.999840.3.57[id number] 2.840.1.610841.3.57[id number] 2.840.1.342916.3.57[id number] 2.840.1.082946.3.57[id number] 2..840.1.843068.3.57[id number] 2.16.840.1.356392.3.57[id number] 2..840.1.522895.3.57[id number] 2..840.1.097316.3.57[id number] 2..840.1.273459.3.57[id number] 2..840.1.294980.3.579.2.[id number] 2.0.1.291472.3.579.2.1259 Social History DateTypeDetailFacilityStart: 23-52-3264Xgssiqh smoking status NHISTobacco smoking consumption unknownNORI HealthcareStart: 04-31-8736Myogdnh CommentVape [facility] HealthcareStart: 00-88-0122NxppeamzoRBZG HealthcareStart: 46-75-3533Vwt assigned at birthNot on [facility] HealthcareStart: 10-07-2024 End: 25-00-4857Bsqmmy identityNot on [facility] HealthcareStart: 10-07-2024 End: 26-39-7853Tsgaymi of Social functionNOMS HealthcareDo you belong to any clubs or organizations such as rastafarian groups, unions, fraternal or athletic libby ups, or school groups?NoNOMS HealthcareAre you now , , , , never or living with a partner?Living with partnerNOMS HealthcareHow often to you have a drink containing alcohol?Monthly or lessNOMS HealthcareHow many standard drinks containing alcohol do you have on a typical day?1 or 2NOMS HealthcareHow often do you have 6 or more drinks on 1 occasion? NeverNOMS HealthcareHow hard is it for you to pay for the very basics like food, housing, medical care, and heatingNot very hardNOMS HealthcareDo you feel stress - tense, restless, nervous, or anxious, or unable to sleep at night because yourmind is troubled all the time - these days [OSQ]To some extentLIFEPOINT HOSPITALS HealthcareStart: 71-70-7768Gaf an average week in the last 30 days, how many days per week did you engage in moderate to strenuous exercise (like walking fast, running, jogging, dancing, swimming, biking, or other activities that cause a light or heavy sweat)?Patient declinedMet[facility]Health [facility](I/We) worried whether (my/our) food would run out before (I/we) got money to buy more. Never trueNORI HealthcareStart: 85-91-0509Qavadtx smoking status NHISNever smoked tobaccoLIFEPOINT HOSPITALS HealthcareStart: 05-31-2022 End: 00-19-5982Hzxxktt use and exposureSmokeless tobacco non-userMetroHealth [facility] Center SystemStart: 10-08-2024 End: 51-76-0296Womaqrlpq beverage intakeEx-drinker (finding)[facility] Start: 22-08-6206Saijlwi Commentcaffeine intake: 1 iced coffee dailyLIFEPOINT HOSPITALS HealthcareStart: 54-89-0104Uhgsyei smoking status NHISEx-smokerChildren's Hospital for RehabilitationHistory of tobacco useCurrent smokerCape Fear/Harnett Healthtart: 18-22-5938Oodxxfc intakeCurrent non-drinker of alcohol (finding)[facility] Functional Status XtxwXhhjhlfoacRblpdqPzntrkwe25-87-7840Lfhsx score [AUDIT-C]1 10/07/2024 7:39 PM EST Mychart, GenericNOSamaritan HospitalOxhbvrvuty22-11-7782Qxx often do you have a drink containing alcohol?Monthly or less 10/07/2024 7:39 PM EST Mychart, Generic Monthly or lessNOMS Vmgbmfglng04-49-0788Zjz many standard drinks containing alcohol do you have on a typical day?1 or 2 10/07/2024 7:39 PM EST Mychart, Generic 1 or 2NOMS Vpkpkdaldk05-20-7631Zih often do you have 6 or more drinks on 1 occasion?Never 10/07/2024 7:39 PM EST [employer] [facility], [employer] [facility] Clinical Notes 04-26-2022 to 10-21-2024 Note Date & UoknXqsnCyrkiytc60-11-2341 History of Present illness Narrative* Arian Gay DO - 10/21/2024 10:10 AM EST Reason for Appointment: Patient ID: Cristiane Olivera is a 24 y.o. female who presents for Blood Pressure Check Patient presents today for Acute Visit. Current Medications: has a current medication list which includes the following prescription(s): albuterol hfa, iron polysaccharides, labetalol, and sertraline. Medical History: Active Ambulatory Problems Diagnosis Date Noted Allergic rhinitis 2017 Major depression ([facility]) 08/19/2017 Dysautonomia ([facility]) 10/08/2024 Generalized anxiety disorder ([facility]) 08/19/2017 Reactive airway disease ([facility]) 10/08/2024 POTS (postural orthostatic tachycardia syndrome) 09/23/2017 Resolved Ambulatory Problems Diagnosis Date Noted No Resolved Ambulatory Problems No Additional Past Medical History Family History Problem Relation Name Age of Onset Cancer Father Other (brain tumors) Father Social History Tobacco Use Smoking status: Never Smokeless tobacco: Never Tobacco comments: Vape Vaping Use Vaping status: Every Day Substances: Nicotine, Flavoring Devices: Disposable Substance Use Topics Alcohol use: Not Currently Comment: caffeine intake: 1 iced coffee daily Drug use: Never Past Surgical History: Procedure Laterality Date CT ANGIOGRAM HEART CORONARY 10/03/2024 CT ANGIOGRAM TAVR 10/03/2024 No Known Allergies Review of Systems: Review of Systems Respiratory: Negative for shortness of breath. Cardiovascular: Negative for chest pain and palpitations. Musculoskeletal: Positive for neck pain. Neurological: Negative for headaches. All other systems reviewed and are negative. Objective Physical Exam Constitutional: Appearance: Normal appearance. She [...] nursing note reviewed. Exam conducted with a patient care representative present. Vitals: Estimated body mass index is 29.43 kg/m as calculated from the following: Height as of 25: 5' 3 . Weight as of this encounter: 166 lb 1.9 oz. BP: 114/68 No LMP recorded. Assessment/Plan Encounter Diagnosis: ICD-10-CM 1. Blood pressure check Z01.30 Doing well, decrease labetolol to 100mg po bid, rto as scheduled Documented by Arian Gay DO on behalf of: Arian Gay DO documented in this encounterSt. Louis Children's HospitalLmvzdkeqbx47-18-0088 History of Present illness Narrative* BRISEIDA Menard - 10/12/2024 9:50 AM EST Reason for Appointment: Patient ID: Cristiane Olivera is a 24 y.o. female who presents for Care (Pt present today for post blood pressure check. ) Patient presents today for Post Follow Up appointment. MEDICATIONS Current Outpatient Medications Medication Instructions iron polysaccharides (PROFE) 391.3 mg, Oral, Daily labetalol (NORMODYNE) 100 mg, Oral, 2 times daily oseltamivir (TAMIFLU) 75 mg, Oral, 2 times daily sertraline (ZOLOFT) 50 mg, Daily ALLERGIES No Known Allergies PROBLEMS Active Ambulatory Problems Diagnosis Date Noted Allergic rhinitis 2017 Major depression ([facility]) 08/19/2017 Dysautonomia ([facility]) 10/08/2024 Generalized anxiety disorder ([facility]) 08/19/2017 Reactive airway disease ([facility]) 10/08/2024 POTS (postural orthostatic tachycardia syndrome) 09/23/2017 Resolved Ambulatory Problems Diagnosis Date Noted No Resolved Ambulatory Problems No Additional Past Medical History HISTORY PAST MEDICAL HISTORY SOCIAL HISTORY Past Medical History: Diagnosis Date POTS (postural orthostatic tachycardia syndrome) Social History Tobacco Use Smoking status: Never Smokeless tobacco: Never Tobacco comments: Vape Vaping Use Vaping status: Every Day Substances: Nicotine, Flavoring Devices: Disposable Substance Use Topics Alcohol use: Not Currently Comment: caffeine intake: 1 iced coffee daily Drug use: Never FAMILY HISTORY Family History Problem Relation Name Age of Onset Cancer Father Other (brain tumors) Father SURGICAL HISTORY Past Surgical History: Procedure Laterality [...] reviewed. Vitals: Estimated body mass index is 30.29 kg/m as calculated from the following: Height as of 10/08/24: 5' 3 . Weight as of this encounter: 171 lb. BP: 140/82 No LMP recorded. ASSESSMENT & PLAN ICD-10-CM 1. hypertension O16.5 2. Blood pressure check Z01.30 Pt present today for a post blood pressure check. Pt is currently on Pro fe and Labetalol 100 mg twice a day due to elevated blood pressure after delivery. Pt stated she has just gotten over from the Influenza A and is having headaches and SOB past few days. Pt states she is still on Profe and Labetalol BID. Pt did give nurse log sheet of her blood pressure numbers since 10/05/2024 to present. Patient lung sounds are diminished with faint exp wheezing which I attribute to the influenza A infection she has been fighting. We will call in additional medications and have patient follow up nextweek. Pt requested for HG to be rechecked. She had been 8.6 previously. Patient will be started on Zpak, medrol dose panchito and an inhaler. If symptoms persist we can repeat a chest xray, she had a ct scan to rule out PE when she was seen in the ER Patient will continue with labetolol 100mg bid for next week Documented by Melida Fowler MA on behalf of: BRISEIDA Menard documented in this encounterSt. Louis Children's HospitalJxiykiblbc04-87-4026 History of Present illness Narrative* Zayda Mahmood NP - 10/08/2024 11:30 AM EST Images from the original note were not [...] in her throat but does not have anynasal congestion or drainage. She has not been monitoring her temperature but notes occasional feelings of heat. This morning, she experienced mild nausea. She is not currently . She hasbeen managing her symptoms with qvjq-zws-hujewff Tylenol and Motrin. MEDICATIONS Tylenol, Motrin SUBJECTIVE: [...] by mouth in the morning and 1 capsule(75 mg) before bedtime. Do all this for [...] ER to be evaluated. documented in this encounterSt. Louis Children's HospitalNcmbwgdzrk60-36-2903 History of Present illness Narrative* BRISEIDA Menard - 10/05/2024 1:10 PM EST Reason for Appointment: Patient ID: Cristiane Olivera [...] behalf of: BRISEIDA Menard documented in this encounterSt. Louis Children's HospitalOjcbyrvwiu54-55-0092 NoteCT CTA CHEST CLINICAL INFORMATION: Pulmonary embolism suspected [...] Visualized thyroid gland is unremarkable. Heart is normalin size without pericardial effusion. No coronary calcifications. Ascending aorta is normal in caliber. LYMPH NODES: No thoracic lymphadenopathy. CHEST WALL: Unremarkable. UPPER ABDOMEN: Unremarkable. BONES: No suspicious osseous lesion. IMPRESSION: 1. No central acute pulmonary embolism. Cannot assess most segmental pulmonary arteries given the limitations mentioned above. 2. No acute intrathoracic abnormality. Finalized by Devin Lyons MD on 10/03/2024 10:21 [facility] 09-27-2024 History of Present illness Narrative* BRISEIDA Menard - 09/27/2024 1:50 PM EST Reason for Appointment: Patient ID: Cristiane Olivera [...] behalf of: BRISEIDA Menard documented in this encounterSt. Louis Children's HospitalFitesfvezk64-53-5889 History of Present illness Narrative* Vikki Gallardo LPN - 09/21/2024 1:50 PM EST Reason for Appointment: Patient ID: Cristiane Olivera [...] nursing note reviewed. Exam conducted with a patient care representative present. Vitals: Estimated body mass index is [...] behalf of: BRISEIDA Menard documented in this encounterSt. Louis Children's HospitalStmwdkvodz47-78-4983 History of Present illness Narrative* Zoie Wick LPN - 09/14/2024 1:00 PM EST Reason for Appointment: Patient ID: Cristiane Olivera [...] nursing note reviewed. Exam conducted with a patient care representative present. Vitals: Estimated body mass index is [...] by Zoie Wick LPN on behalf of: Arian Gay DO documented in this encounterSt. Louis Children's HospitalVewfqgqjrt84-42-9783 History of Present illness Narrative* BRISEIDA Menard - 08/30/2024 1:50 PM EST Reason for Appointment: Patient ID: Cristiane Olivera [...] behalf of: BRISEIDA Menard documented in this encounterSt. Louis Children's HospitalHqilfnxyby32-08-2040 History of Present illness Narrative* Shelley Jeffries, ARLETTE - 08/12/2024 9:30 AM EST Reason for Appointment: Patient ID: Cristiane Olivera [...] nursing note reviewed. Exam conducted with a patient care representative present. Vitals: Estimated body mass index is [...] by Shelley Jeffries LPN on behalf of: Arian Gay DO documented in this encounterSt. Louis Children's HospitalLccobpqtgq42-06-6948 History of Present illness Narrative* BRISEIDA Menard - 07/29/2024 10:10 AM EST Reason for Appointment: Patient ID: Cristiane Olivera [...] behalf of: BRISEIDA Menard documented in this encounterSt. Louis Children's HospitalCudkvwskph43-48-3650 History of Present illness Narrative* BRISEIDA Menard - 07/15/2024 10:50 AM EST Reason for Appointment: Patient ID: Cristiane Olivera [...] nursing note reviewed. Exam conducted with a patient care representative present. Vitals: Estimated body mass index is [...] behalf of: BRISEIDA Menard documented in this encounterSt. Louis Children's HospitalWcjpohbwfq34-84-0944 History of Present illness Narrative* Shelley Jeffries LPN - 07/01/2024 9:10 AM EST Reason for Appointment: Patient ID: Cristiane Olivera [...] nursing note reviewed. Exam conducted with a patient care representative present. Vitals: Estimated body mass index is [...] by Shelley Jeffries LPN on behalf of: Arian Gay DO documented in this encounterSt. Louis Children's HospitalSzvzhwjqhj10-29-3397 History of Present illness Narrative* BRISEIDA Menard - 06/01/2024 10:40 AM EDT Reason for Appointment: Patient ID: Cristiane Olivera [...] behalf of: BRISEIDA Menard documented in this encounterSt. Louis Children's HospitalYzlayxvnsr45-68-7867 History of Present illness Narrative* BRISEIDA Menard - 05/04/2024 9:30 AM EDT Reason for Appointment: Patient ID: Cristiane Olivera is a 23 y.o. female who presents for Routine Visit, Well WomenVisit, and STI Screening Patient presents today for [...] nursing note reviewed. Exam conducted with a patient care representative present. Vitals: Estimated body mass index is [...] obtained without difficulty and patient was given msAFP order to have obtained. Orders Placed This Encounter Procedures US OB ANATOMY SINGLE W US OB CERVICAL LENGTH CHLAMYDIA TRACHOMATIS (GENITO/STI) Neisseria gonorrhea DNA probe, direct Alpha fetoprotein, maternal POCT urinalysis dipstick manually resulted Follow Up: Patient is to return to our office in 4 weeks for routine OB appointment Documented by Vikki Gallardo LPN on behalf of: BRISEIDA Menard documented in this encounterSt. Louis Children's HospitalOyjxmysdif36-15-6111 NoteHISTORY: Left frontal headache, nausea PROCEDURE: Without IV contrast, images [...] and signed by Booker Jeronimo on 04/26/2022 1534[facility]ortSelect [facility] SpecialistEvaluation [facility]* Diagnosis 21 weeks gestation of Second trimester state, incidental documented in this encounter [facility] HealthcareEvaluation note* Diagnosis 25 weeks gestation of Second trimester state, incidental Diabetes mellitus screening Screening for diabetes mellitus documented in this encounter [facility] HealthcareEvaluation note* Diagnosis Second trimester state, incidental [...] respiratory manifestations documented in this encounter [facility] HealthcareEvaluation note* Diagnosis Upper respiratory tract infection, unspecified type- Primary hypertension Blood pressure check Screening for hypertension Low iron Unspecified iron deficiency anemia documented in this encounter [facility] HealthcareEvaluation note* Diagnosis Blood pressure check Screening for hypertension documented in this encounter [facility] HealthcareInstructionsNot on filedocumented in this encounterMetroHealth [facility] Summary Purpose Family History No Family History Records FoundNo Family History Records FoundNo Family History Records FoundNo Family History Records Found Advance Directives No Advanced Directives Records FoundNo Advanced Directives Records FoundNo Advanced Directives Records FoundNo Advanced Directives Records Found Additional Source Comments INFORMATION SOURCE (unrecogn ized section and content) DATE CREATED AUTHOR 02/17/2018 [facility] DATE CREATED AUTHOR AUTHOR'S ORGANIZ ATION 04/27/2022 [facility] [employer] DATE CREATED AUTHOR AUTHOR'S ORGANIZ ATION 10/06/2024 [facility] DATE CREATED AUTHOR AUTHOR'S ORGANIZ ATION 11/12/2024 [facility] EPIC Care Teams (unrecognized sec tion and content) Team MemberRelationshipSpecialtyStart DateEnd Date Yanet Cadena MD [address] [place] [address] PCP - GeneralFamily Medicine12/31/22Team MemberRelationshipSpecialtyStart DateEnd Date Yanet Cadena MD [address] [place] [address] PCP - GeneralFamily Medicine12/31/22 MemberRelationshipSpecialtyStart DateEnd Date Yanet Cadena MD [address] [place] [address] PCP - GeneralFamily Medicine12/31/22 MemberRelationshipSpecialtyStart DateEnd Date Yanet Cadena MD [address] [place] [address] PCP - GeneralFamily Medicine12/31/22 MemberRelationshipSpecialtyStart DateEnd Date Yanet Cadena MD [address] [place] [address] PCP - GeneralFamily Medicine12/31/22 MemberRelationshipSpecialtyStart DateEnd Date Yanet Cadena MD [address] [place] [address] PCP - GeneralFamily Medicine12/31/22 MemberRelationshipSpecialtyStart DateEnd Date Yanet Cadena MD [address] [place] [address] PCP - GeneralFamily Medicine12/31/22 MemberRelationshipSpecialtyStart DateEnd Date Yanet Cadena MD [address] [place] [address] PCP - GeneralFamily Medicine12/31/22 MemberRelationshipSpecialtyStart DateEnd Date Yanet Cadena MD [address] [place] [address] PCP - GeneralFamily Medicine12/31/22Te MemberRelationshipSpecialtyStart DateEnd Date Yanet Cadena MD [address] [place] [address] PCP - GeneralFamily Medicine12/31/22 MemberRelationshipSpecialtyStart DateEnd Date Yanet Cadena MD [address] [place] [address] PCP - GeneralFamily Medicine12/31/22 MemberRelationshipSpecialtyStart DateEnd Date Yanet Cadena MD [address] [place] [address] PCP - GeneralFamily Medicine12/31/22 MemberRelationshipSpecialtyStart DateEnd Date Yanet Cadena MD [address] [place] [address] PCP - GeneralFamily Medicine12/31/22Te MemberRelationshipSpecialtyStart DateEnd Date Yanet Cadena MD [address] [place] [address] PCP - GeneralFamily Medicine12/31/22Te MemberRelationshipSpecialtyStart DateEnd Date Yanet Cadena MD [address] [place] [address] PCP - GeneralFamily Ehyxostx88/7/22Team MemberRelationshipSpecialtyStart DateEnd Date Yanet Cadena MD [address] [place] [address] PCP - GeneralFamily Medicine12/31/22Team MemberRelationshipSpecialtyStart DateEnd Date Yanet Cadena MD [address] [place] [address] PCP - Generalmily Medicine12/31/22Te MemberRelationshipSpecialtyStart DateEnd Date Yanet Cadena MD [address] [facility] [place] [address] PCP - GeneralGreene County Medical Centerly Medicine12/31/22Te MemberRelationshipSpecialtyStart DateEnd Date Yanet Cadena MD [address] [facility] [place] [address] PCP - Generalmily Medicine12/31/22Te MemberRelationshipSpecialtyStart DateEnd Date Yanet Cadena MD [address] [facility] [place] [address] PCP - Generalmily Medicine12/31/22Te MemberRelationshipSpecialtyStart DateEnd Date Yanet Cadena MD [address] [facility] [place] [address] PCP - Generalmily Medicine12/31/22 Reason for Visit (unrecogniz ed section and content) ReasonCommentsRoutine VisitReasonCommentsRoutine VisitWell Women VisitSTI ScreeningReasonCommentsElevated BP and PulseReasonCommentsURI ReasonCommentsMed RefillReasonCommentsPostpartum CarePt present today for post blood pressure check.ReasonCommentsBlood Pressure Check FOR RECORDS PERTAINING TO PATIENTS WHO ARE [...] BE BASED ON THE PRIMARY CLINICAL RECORDS. [facility] [facility]. provides no warranty or guarantee of the accuracy or completeness of information in this document.
[2025-07-28 12:17] LABS: Hematocrit 35.7 % (36.0-48.0); Hemoglobin 12.1 g/dL (12.0-16.0); Immature Granulocytes Abs Auto 0.01 10^3/uL (0.00-0.03); Immature Granulocytes Pct Auto 0.2 % (0.0-0.5); Lymphocytes Absolute Auto 2.1 10^3/uL (1.2-3.8); Mean Corpuscular HGB Conc 33.9 g/dL (29.9-35.2); Mean Corpuscular Hemoglobin 27.4 pg (26.7-34.0); Mean Corpuscular Volume 81.0 fL (81.0-99.0); Platelet Count 132 10^3/uL (150-450); Red Blood Count 4.41 10^6/uL (4.20-5.40); White Blood Count 6.2 10^3/uL (4.0-11.0)
[2025-07-28 12:41] LABS: Cannabinoid Screen Urine POSITIVE (NEGATIVE); Methamphetamines Screen Urine NEGATIVE (NEGATIVE); Tricyclic Antidepressant Urine NEGATIVE (NEGATIVE)
[2025-07-29 06:10] LABS: Rubella Antibodies, IgG 8.92 index (Immune >0.99)
[2025-07-29 13:09] LABS: Rapid Plasma Reagin, Quant Non Reactive titer (NonRea<1:1)
[2025-08-01 13:08] LABS: Carboxy THC Conf, MS, UR >750 ng/mL (Cutoff=10)
== END 2025-07-28 11:30 | disposition home or self-care (01) ==
LOC: LAB 11:30
PROVIDERS: PCP Family Medicine; Visit Provider Obstetrics & Gynecology
DX: Z34.01 Encounter for supervision of normal first pregnancy, first trimester (principal); N92.6 Irregular menstruation, unspecified
CPT/HCPCS: 36415; 80307; 80349; 83036; 85025; 86592; 86762; 86803; 86850; 86900; 86901; 87086; 87340; 87389